=== PATIENT | female | born 1960 | race Caucasian/White ===

== ENCOUNTER 2021-06-13 13:48 | Emergency (ER) | payer OTHER, SELFPAY ==
[2021-06-13 13:48] VITALS: BP 116/82; PULSE 88; RESP 16; TEMP 36; O2SAT 97; BMI 27.3
--- NOTE | 2021-06-13 14:22 | VDLE_ITS ---
Reason For Study: Pain RIGHT LEFT GSV is normal. CFV is compressible, spontaneous, phasic, CFV is compressible, spontaneous, phasic, competent, and demonstrates normal competent and demonstrates normal augmentation. augmentation. FV is compressible, spontaneous, phasic, competent and demonstrates normal augmentation. POP V is compressible, spontaneous, phasic, competent and demonstrates normal augmentation. T/P Trunk is compressible. PTV is compressible. RT PerV is compressible. Nonvascularized structure noted in the right popliteal fossa measuring 0.71 x 2.22 cm. Procedure This is a venous duplex using B-mode, color flow and spectral Doppler. Exam performed portable in ED. A preliminary report was called and/or faxed to Jose Martin. VL/Venous Duplex US, Unilateral Interpretation Summary There is no evidence of right lower extremity deep vein thrombosis. Right great saphenous vein appears patent and compressible segmentally. 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
--- NOTE | 2021-06-13 14:22 | EKG12_ITS ---
Test Reason : SOB Blood Pressure : / mmHG Vent. Rate : 073 BPM Atrial Rate : 073 BPM P-R Int : 204 ms QRS Dur : 092 ms QT Int : 398 ms P-R-T Axes : 059 020 051 degrees QTc Int : 438 ms Normal sinus rhythm Normal ECG Confirmed by ISRAEL CHA, VLAD ([id number]), school photograph editor PRICILLA CHIANG ([id number]) on 06/14/2021 9:57:24 AM Referred By: PL Confirmed By:VLAD WOOD MD
--- NOTE | 2021-06-13 14:24 | EX.ED.DYSGE1 ---
HPI History of Present Illness Chief Complaint: Lower Extremity Injury Narrative Narrative: Patient was referred from urgent care for about 2 weeks of discomfort in the back of her right knee. She states there has been no injury or trauma. It is a little bit more sore standing. She is not getting swelling. The pain is not spreading. She has never had this before. She has no travel, surgery, immobilization or personal history of DVT or PE. She thinks her father did have a blood clot in one of his legs in the past. Rest makes it better and standing makes it worse. On review of systems, she also admitted that occasionally she gets a very quick flutter of her heart. She states it just feels like it is about to flutter but does not actually do anything. She has no associated symptoms with this. She has had this off and on for a long time. It does not happen frequently but it has occurred and it has occurred within the last 2 weeks. Nothing specifically brings that on or takes it away. She has never had chest pain or pressure or tightness. Denies any chronic medical conditions No medications Allergy to penicillin No recent surgeries PFSH PFSH Home Medications No Known/Unobtainable [No Known Home Medications] 07/20/15 [History Last Taken Unknown] Allergy/AdvReac Type Severity Reaction Status Date / Time Penicillins Allergy Hives Verified 05/03/14 10:53 Social History Smoking Status: Current every day smoker tobacco type: cigarettes ROS ROS ED Constitutional Constitutional ED: Denies chills or fever(s) ENT ENT ED: Denies rhinorrhea or sore throat Cardiovascular Cardiovascular: Reports palpitations; Denies chest pain or racing heartbeat Respiratory/Chest Respiratory/Chest: Denies cough, dyspnea, dyspnea on exertion or sputum Gastrointestinal Gastrointestinal: Denies nausea or vomiting Genitourinary Genitourinary ED: Denies hematuria Musculoskeletal Musculoskeletal: Reports arthralgias; Denies back pain Integumentary Denies rash Neurologic Neurologic: Denies headache(s), paresthesias or weakness Endocrine Endocrinology: Denies polydipsia or polyuria Allergic/Immunologic Allergic/Immunologic ED: Denies urticaria EXAM Physical Exam Const Vital Signs: 06/13/21 13:48 Temperature 96.8 F L Temperature Source Temporal Pulse Rate 88 Respiratory Rate 16 Blood Pressure 116/82 H Blood Pressure Mean 93 Pulse Ox 97 Oxygen Delivery Method Room Air Positive well nourished and well developed General Appearance ED: well developed and NAD; Negative for cyanotic or diaphoretic HEENT Reports moist mucous membranes Eyes General Eye ED: Negative for pale conjunctiva or scleral icterus Neck no JVD Chest Wall inspection of chest normal Resp normal respiratory effort and clear to auscultation bilaterally Resp Narrative: No pain with deep breath at all Effort and Inspection: Negative for pain with movement Auscultation: Negative for rales, rhonchi or wheezes Cardio regular rate, regular rhythm and no murmurs Rate: other Other Details: Heart sounds regular. No muffled tones. No murmur. Sounds quite regular. Pulses x4 are normal. GI normal to inspection, nondistended, normoactive bowel sounds and non-tender Palpation: soft Back/Spine no CVA tenderness Extremity normal to inspection Extremity Narrative: Patient has some tenderness in the posterior aspect of the right knee. But it does not appear to be full. I do not feel any fluid. There is no effusion. No erythema or warmth. No distended veins. No asymmetry. No peripheral edema. No tenderness along the deep venous system other than tenderness in the back of the knee. General Extremety ED: Negative for edema General Extremity: Negative for edema Neuro Sensorium / Orientation: alert Psych mental status grossly normal Skin no rashes or lesions noted and no wounds MDM MDM MDM Narrative Medical decision making narrative: Patient's EKG is normal. CBC shows no marked abnormalities. Electrolytes do show some mildly high glucose at 140 but this can be followed up. I did discuss this with the patient and the need for recheck and possible diet modification and weight loss. Troponin is normal at 3. Her ultrasound showed no DVT. There was some fluid behind the knee when I talked to the tachycardia is likely consistent with Huerta's cyst. This was explained to the patient. She will follow up with her physician. Lab Data Attestation: I reviewed the patient's lab results. Labs: Laboratory Results - last 24 hr 06/13/21 06/13/21 14:35 14:35 WBC 8.7 RBC 4.72 Hgb 13.5 Hct 42.3 MCV 89.6 MCH 28.6 MCHC 31.9 L RDW Std Deviation 46.4 H RDW Coeff of Jaswant 14.1 Plt Count 290 MPV 9.6 Immature Gran % (Auto) 0.200 Neut % (Auto) 72.1 H Lymph % (Auto) 18.9 L [place] % (Auto) 6.9 Eos % (Auto) 1.4 Baso % (Auto) 0.5 Absolute Neuts (auto) 6.3 Absolute Lymphs (auto) 1.65 Nucleated RBC % 0 Sodium 140 Potassium 3.6 Chloride 110 H Carbon Dioxide 26.0 Anion Gap 4 L BUN 12 Creatinine 0.90 Estim Creat Clear Calc 70.34 Est GFR (MDRD) Af Amer 83 Est GFR (MDRD) Non-Af 68 BUN/Creatinine Ratio 13.4 Glucose 140 H Calcium 9.0 Troponin I High Sens 3 EKG Initial EKG: Comments: EKG done for intermittent fluttering feeling and read by me shows normal sinus rhythm with a rate of 73. No ectopy. No acute ST elevation or depression. CT interval is slightly long at 204 ms showing first-degree AV block. QRS duration and QTc normal. 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
[2021-06-13 14:43] LABS: Absolute Lymphocyte Count 1.65 X10^3/uL (0.83-4.51); Absolute Neutrophil Count 6.3 X10^3/uL (2.0-7.7); Basophil# 0.04 X10^3/uL; Basophil% 0.5 % (0-1); Eosinophil# 0.12 X10^3/uL; Eosinophils% 1.4 % (0-5); Hematocrit 42.3 % (37-47); Hemoglobin 13.5 g/dL (12.0-15.0); Lymphocyte # 1.65 X10^3/ul (0.83-4.51); Lymphocyte % 18.9 % (19-41); Mean Corp Hgb Conc 31.9 g/dL (32-36); Mean Corpuscular Hgb 28.6 pg (27.0-32.0); Mean Corpuscular Volume 89.6 fL (81-99); Mean Platelet Vol. 9.6 fl (6.2-12.0); Monocyte% 6.9 % (0-10); NRBC Flagged by Analyzer 0 % (0-5); Neutrophil # 6.29 X10^3/uL (2.7-7.7); Neutrophil % 72.1 % (47-70); Platelet Count 290 K/mm3 (150-450); RBC Distribution Width CV 14.1 % (11.6-14.6); RBC Distribution Width SD 46.4 fl (35.1-43.9); Red Blood Count 4.72 M/mm3 (4.2-5.4); White Blood Count 8.7 K/mm3 (4.4-11.0)
[2021-06-13 16:19] LABS: Anion Gap 4 (5-15); BUN 12 mg/dL (7-18); BUN/Creat Ratio 13.4 RATIO (10-20); Chloride 110 mmol/L (98-107); EST Glomerular Filtration Rate 68 mL/min (>60); Est Glom Filt Rate - Afr Amer 83 mL/min (>60); Estimated Creatinine Clearance 70.34 ml/min; Glucose 140 mg/dL (74-106); Potassium 3.6 mmol/L (3.5-5.1); Sodium Level 140 mmol/L (136-145); Troponin-I HS 3 pg/mL (3.0-54.0)
[2021-06-13 16:39] VITALS: BP 113/61; PULSE 63
== END 2021-06-13 16:41 | disposition home or self-care (01) ==
PROVIDERS: Emergency Provider Emergency Medicine; PCP Physician Assistant; Visit Provider Emergency Medicine
DX: M71.21 Synovial cyst of popliteal space [Baker], right knee (principal); M79.604 Pain in right leg; R00.2 Palpitations; F17.210 Nicotine dependence, cigarettes, uncomplicated
CPT/HCPCS: 80048; 84484; 85025; 93005; 93971; 99284; A4216

== ENCOUNTER 2021-12-26 19:34 | Emergency (ER) | payer SELFPAY ==
[2021-12-26 19:35] VITALS: BP 120/74; PULSE 79; RESP 18; TEMP 36.8; O2SAT 98; BMI 26.6
[2021-12-26 21:34] VITALS: RESP 20
--- NOTE | 2021-12-26 22:15 | EKG12_ITS ---
Test Reason : DYSRHYTHMIA Blood Pressure : / mmHG Vent. Rate : 070 BPM Atrial Rate : 070 BPM P-R Int : 212 ms QRS Dur : 086 ms QT Int : 416 ms P-R-T Axes : 050 022 044 degrees QTc Int : 449 ms Sinus rhythm with sinus arrhythmia with 1st degree A-V block with occasional Premature ventricular co mplexes Low voltage QRS Septal infarct , age undetermined Abnormal ECG Confirmed by ALBERT CHA, TINY ([id number]), editor managing director PRICILLA CHIANG ([id number]) on 12/28/2021 11:03:46 AM Referred By: BENEDICT Confirmed By:TINY PRICE MD
--- NOTE | 2021-12-26 22:16 | EDS_ITS ---
HPI History of Present Illness Chief Complaint: General Illness Informant: patient Narrative Narrative: Patient is here for back discomfort with COVID. She really points to the lower portion of the chest. She states she started about 11 days ago with diffuse pennie lgias cough and sore throat. She has had some nausea but never been vomiting. No diarrhea. She states she hurts from head to toe. She is still sore but is getting better. Her biggest complaint now is that she still feels short of breath and she has soreness in the posterior lower chest on both sides. It is worse with motion more than breathing. She has a history of some chronic back pain and had back surgery but that is normally lower lumbar area and not the same as this. No history of PE or DVT. No family history. She is on no routine medications. Patient does have a history of smoking. She has used inhalers in the past but has never been officially diagnosed with COPD. PFSH PFSH Home Medications albuterol sulfate 90 mcg/actuation aerosol inhaler (Ventolin HFA) 2 puff inhalation Q4H PRN PRN Wheezing ##1 12/27/21 [Rx Last Taken Unknown] prednisone 20 mg tablet 60 mg PO DAILY #15 tabs 12/27/21 [Rx Last Taken Unknown] Allergy/AdvReac Type Severity Reaction Status Date / Time Penicillins Allergy Hives Verified 12/26/21 19:35 Social History Smoking Status: Current every day smoker tobacco type: cigarettes ROS ROS ED Constitutional Constitutional ED: Reports chills and fever(s) Eyes Eyes: Denies change in vision ENT ENT ED: Reports rhinorrhea and sore throat Cardiovascular Cardiovascular: Denies chest pain, palpitations or racing heartbeat Respiratory/Chest Respiratory/Chest: Reports cough, dyspnea, sputum and other Details: Mild yellow sputum. No hemoptysis at any time Gastrointestinal Gastrointestinal: Reports nausea; Denies abdominal pain, diarrhea or vomiting Genitourinary Genitourinary ED: Denies dysuria Musculoskeletal Musculoskeletal: Reports myalgias Integumentary Denies rash Neurologic Neurologic: Denies paresthesias or weakness Endocrine Endocrinology: Denies polydipsia or polyuria Hematologic/Lymphatic Hematologic/Lymphatic: Denies easy bleeding or easy bruising Allergic/Immunologic Allergic/Immunologic ED: Denies urticaria EXAM Physical Exam Const Vital Signs: 12/26/21 19:35 12/26/21 22:31 12/26/21 21:34 Temperature 98.2 F Temperature Source Temporal Pulse Rate 79 Respiratory Rate 18 20 H Respiratory Effort Normal Non-Labored Respiratory Depth Respiratory Pattern Normal Blood Pressure 120/74 Blood Pressure Mean 89 Pulse Ox 98 Oxygen Delivery Method Room Air 12/26/21 22:28 12/26/21 22:28 12/26/21 23:00 Temperature Temperature Source Pulse Rate 74 Respiratory Rate 18 20 H Respiratory Effort Normal Short of Breath Respiratory Depth Shallow Respiratory Pattern Normal Normal Blood Pressure 113/73 Blood Pressure Mean 86 Pulse Ox 95 Oxygen Delivery Method Room Air 12/27/21 00:22 Temperature Temperature Source Pulse Rate 73 Respiratory Rate 16 Respiratory Effort Respiratory Depth Respiratory Pattern Blood Pressure 113/73 Blood Pressure Mean 86 Pulse Ox 94 Oxygen Delivery Method Room Air Positive well nourished and well developed Constitutional Narrative: Patient is sitting calmly and quietly in bed. No acute distress.. Saturations are normal at about 98%. General Appearance ED: well developed and NAD HEENT Reports moist mucous membranes; Denies dry mucous membranes Mouth ED: No dry mucous membranes Mouth: No dry mucous membranes Eyes General Eye ED: Negative for pale conjunctiva or scleral icterus Neck supple and no JVD Neck Narrative: No stridor Chest Wall Chest Narrative: She does have some mild soreness to palpation of the chest wall. No subcu air Resp normal respiratory effort Resp Narrative: Breathing is easy and unlabored. But she does have pretty notable expiratory wheezes throughout her lung devries. I do not hear rhonchi or rales. Auscultation: wheezes; Negative for rales or rhonchi Cardio regular rate, regular rhythm and no murmurs Rate: Negative for tachycardic GI normal to inspection, nondistended, normoactive bowel sounds Back/Spine no CVA tenderness Back/Spine Narrative: Her soreness in the back is little higher than CVA area area. It is mostly in the lower chest area. No skin changes there though. Extremity normal to inspection Extremity Narrative: No swelling, edema, cords, tenderness along the deep venous system or distended veins. No asymmetry. Neuro Sensorium / Orientation: alert Psych mental status grossly normal Skin no rashes or lesions noted MDM MDM MDM Narrative Medical decision making narrative: Patient CBC is normal other than mild elevation of her hemoglobin at 15.2. D- dimer is negative. It is also negative for age. Electrolytes are unremarkable. Chest x-ray shows no acute process. Patient's recheck. She feels markedly better. She has just barely a hint of expiratory wheeze with forced expiration. We will get her on steroids and MDI. We discussed expected course and reasons to return. We again encouraged her to quit smoking. Although patient has had COVID, though symptoms are really resolved almost. She is still having coughing and wheezing. I think this is likely actually exacerbation of COPD. She has a long history of smoking and is still smoking. She has used inhalers before. Lab Data Attestation: I reviewed the patient's lab results. Labs: Laboratory Results - last 24 hr 12/26/21 12/26/21 12/26/21 22:52 22:52 22:52 WBC 6.5 RBC 5.38 Hgb 15.2 H Hct 47.3 H MCV 87.9 MCH 28.3 MCHC 32.1 RDW Std Deviation 45.2 H RDW Coeff of Jaswant 14.2 Plt Count 225 MPV 10.5 Immature Gran % (Auto) 0.300 Neut % (Auto) 40.5 L Lymph % (Auto) 43.4 H [place] % (Auto) 11.5 H Eos % (Auto) 4.0 Baso % (Auto) 0.3 Absolute Neuts (auto) 2.6 Absolute Lymphs (auto) 2.80 Nucleated RBC % 0 D-Dimer Quant (PE/DVT) 0.46 Sodium 141 Potassium 4.0 Chloride 108 H Carbon Dioxide 23.0 Anion Gap 10 BUN 10 Creatinine 0.67 Estim Creat Clear Calc 94.48 Est GFR (MDRD) Af Amer 115 Est GFR (MDRD) Non-Af 95 BUN/Creatinine Ratio 14.9 Glucose 93 Calcium 9.0 Radiography Diagnostic Testing: Clinical Impression(s) from Imaging Studies Chest X-Ray 12/26/21 23:07 IMPRESSION: No radiographic evidence of acute cardiopulmonary disease. Electronically Signed: Osmar Freeman MD at 23:35 EDT , 2 images of chest looked at by me and read by radiology shows no sign of acute infiltrate. EKG Initial EKG: Comments: EKG done for dyspnea read by me shows sinus rhythm with some sinus arrhythmia. There is a single PVC. Mild nonspecific ST and T wave changes but no sign of acute infarct or significant ischemia. TN interval is long indicating a slight first-degree AV block. QRS and QTc are normal. Discharge Plan Triage Chief Complaint: General Illness ED Provider: Avinash Philippe Dx/Rx/DC Orders Clinical Impression: COPD exacerbation Instructions: ED COPD Flare Prescriptions: New prednisone 20 mg tablet 60 mg PO DAILY Qty: 15 0RF albuterol sulfate [Ventolin HFA] 90 mcg/actuation HFA aerosol inhaler 2 puff inhalation Q4H PRN PRN (Reason: Wheezing) Qty: 1 0RF Primary Care Provider: Antonieta Sarmiento Referrals: Antonieta Sarmiento PA [Primary Care Provider] - 3-5 Days Disposition Disposition: Home, Self Care
[2021-12-26 22:28] VITALS: PULSE 74; RESP 18; RESP 20; O2SAT 95
[2021-12-26] MEDS: Ipratropium/Albuterol Sulfate 3 ML AMPUL.NEB INHALATION (22:28)
[2021-12-26 23:00] VITALS: BP 113/73
--- NOTE | 2021-12-26 23:07 | RAD_ITS ---
EXAM: XR CHEST, 1 VIEW CLINICAL INDICATION: cough TECHNIQUE: Frontal view of the chest. This report was created using [employer] report generation technology. COMPARISON: 05/03/2014 FINDINGS: LUNGS AND PLEURAL SPACES: Unremarkable. No consolidation or edema. No pneumothorax. No effusion. HEART: Unremarkable. Cardiac silhouette not enlarged. MEDIASTINUM: Central airways and mediastinal contour are unremarkable. BONES/JOINTS: Unremarkable. SOFT TISSUES: Unremarkable. RAD/Chest 1 View (Portable) IMPRESSION: No radiographic evidence of acute cardiopulmonary disease. Electronically Signed: Osmar Freeman MD at 23:35 EDT ,
[2021-12-26 23:22] LABS: Absolute Neutrophil Count 2.6 X10^3/uL (2.0-7.7); Basophil# 0.02 X10^3/uL; Basophil% 0.3 % (0-1); Eosinophil# 0.26 X10^3/uL; Hematocrit 47.3 % (37-47); Hemoglobin 15.2 g/dL (12.0-15.0); Lymphocyte % 43.4 % (19-41); Mean Corp Hgb Conc 32.1 g/dL (32-36); Mean Corpuscular Hgb 28.3 pg (27.0-32.0); Mean Corpuscular Volume 87.9 fL (81-99); Mean Platelet Vol. 10.5 fl (6.2-12.0); Monocyte# 0.74 X10^3/uL; Monocyte% 11.5 % (0-10); NRBC Flagged by Analyzer 0 % (0-5); Neutrophil # 2.61 X10^3/uL (2.7-7.7); Neutrophil % 40.5 % (47-70); Platelet Count 225 K/mm3 (150-450); RBC Distribution Width CV 14.2 % (11.6-14.6); RBC Distribution Width SD 45.2 fl (35.1-43.9); Red Blood Count 5.38 M/mm3 (4.2-5.4); White Blood Count 6.5 K/mm3 (4.4-11.0)
[2021-12-26 23:29] LABS: D-Dimer Quantitative (DVT/PE) 0.46 FEU/ug/m (0.27-0.49)
[2021-12-26 23:39] LABS: Anion Gap 10 (5-15); BUN 10 mg/dL (7-18); BUN/Creat Ratio 14.9 RATIO (10-20); Chloride 108 mmol/L (98-107); Creatinine, Serum 0.67 mg/dL (0.55-1.02); EST Glomerular Filtration Rate 95 mL/min (>60); Est Glom Filt Rate - Afr Amer 115 mL/min (>60); Estimated Creatinine Clearance 94.48 ml/min; Glucose 93 mg/dL (74-106); Sodium Level 141 mmol/L (136-145)
[2021-12-27] MEDS: predniSONE 20 MG Tablet 60 MG PO (00:05)
[2021-12-27 00:22] VITALS: BP 113/73; PULSE 73; RESP 16; O2SAT 94
[2021-12-27 00:31] VITALS: BP 113/73; PULSE 74; RESP 16; O2SAT 96
== END 2021-12-27 00:32 | disposition home or self-care (01) ==
PROVIDERS: Emergency Provider Emergency Medicine; PCP Physician Assistant; Visit Provider Emergency Medicine
DX: J44.1 Chronic obstructive pulmonary disease with (acute) exacerbation (principal); F17.210 Nicotine dependence, cigarettes, uncomplicated
CPT/HCPCS: 71045; 80048; 85025; 85379; 93005; 94640; 99251; 99284; A4216; G0463

== ENCOUNTER 2024-04-21 15:16 | Emergency (ER) | payer SELFPAY ==
[2024-04-21 15:16] VITALS: BP 121/80; PULSE 89; RESP 20; TEMP 36.1; O2SAT 97
--- NOTE | 2024-04-21 17:02 | EDS_ITS ---
HPI History of Present Illness Chief Complaint: Lower Extremity Injury Narrative Narrative: 63-year-old female who denies significant past medical history, no use of blood thinners, states that since the first of the year she had an upper respiratory infection/lower respiratory infection/pneumonia. Approximately 10 days ago, she coughed so hard that she felt a explosion in her pelvis. Later that day she noticed a soft lump in her left buttocks cleft. She states that over the last few days it has gotten worse and she noticed bruising in the area. She denies any problems with defecation. No other bleeding diathesis. She no longer has any abdominal pain but she just felt an explosion in her pelvis and developed this lump and bruising in her left buttocks cleft. She denies other bleeding diathesis. [facility] Home Medications ?Medication ?Instructions ?Recorded ?Last Taken ?Type albuterol sulfate 90 mcg/actuation 2 puff inhalation Q4H PRN PRN 12/27/21 Unknown Rx aerosol inhaler (Ventolin HFA) Wheezing ##1 benzonatate 100 mg capsule 100 mg PO TID PRN PRN cough 04/21/24 Unknown History doxycycline hyclate 100 mg tablet 100 mg PO BID 04/21/24 Unknown History mometasone-formoterol HFA 200 1 puff inhalation BID 04/21/24 Unknown History mcg-5 mcg/actuation aerosol inhaler (Dulera) tizanidine 4 mg tablet 4 mg PO Q8H PRN PRN muscle spasm 04/21/24 Unknown History Allergy/AdvReac Type Severity Reaction Status Date / Time Penicillins Allergy Hives Verified 04/21/24 15:19 Social History Smoking Status: Former smoker ROS ROS ED ROS Narrative Review of systems positive for lump in left buttocks cleft with surrounding bruising. No fever or chills, no nausea or vomiting, no continued pelvic pain except for the initial explosion that she felt 10 days ago. No pain with defecation. EXAM Physical Exam Narrative Exam Narrative: Afebrile. Vital signs noted. Nontoxic-appearing. Inspection of the left buttocks cleft does reveal what appears to be a hematoma with surrounding ecch ymosis that is dark purple in nature. Cardiovascular examination regular rate and rhythm. Lungs clear to auscultation bilaterally. Abdomen soft and nontender with positive bowel sounds. No guarding or rebound. Full range of motion left leg. Neurovascular intact distally. Const Vital Signs: 04/21/24 15:16 04/21/24 17:16 04/21/24 19:00 Temperature 96.9 F L Temperature Source Temporal Pulse Rate 89 74 78 Respiratory Rate 20 H 16 Blood Pressure 121/80 H Blood Pressure Mean 93 Pulse Ox 97 99 Oxygen Delivery Method Room Air 04/21/24 20:40 Temperature 98.0 F Temperature Source Pulse Rate 78 Respiratory Rate 18 Blood Pressure 126/69 H Blood Pressure Mean 88 Pulse Ox 96 Oxygen Delivery Method MDM MDM MDM Narrative Medical decision making narrative: Differential diagnosis includes but not limited to abscess versus hematoma. The hematoma has been present for 10 days. I do not think it is rapidly expanding. I will obtain basic blood work including CBC and BMP as well as imaging including CT abdomen pelvis with IV contrast to see if there is a larger underlying fluid collection. I reviewed her laboratory work and she has slight leukocytosis of 14.6 with hemoglobin 14.7, hematocrit 44.8, platelet count 436. Chloride slightly elevated at 108 which I think is nonspecific, BUN of 20 with normal creatinine 0.72. I reviewed the radiology report of the CT of the abdomen and pelvis and there is no significant hematoma noted in the buttocks. She has no significant abnormality of the CT of the abdomen and pelvis. At this point in time, I feel she can be discharged safely home with follow-up. There was a noted lung nodule, but they state that if she has no high risk, does not need follow-up. H owever, patient is a smoker, and quit a few weeks ago. She was told to follow- up with her primary care provider regarding reimaging of her lung nodule. She is agreeable to the plan. Patient will be discharged to follow-up with her primary care provider. Return instructions to the emergency department were reviewed. Disposition is discharged home in stable condition. History & Record Review Discussion w/independent historian: Patient Lab Data Attestation: I reviewed the patient's lab results. Labs: Laboratory Results - last 24 hr 04/21/24 17:25 WBC 14.6 H RBC 5.18 Hgb 14.7 Hct 44.8 MCV 86.5 MCH 28.4 MCHC 32.8 RDW Std Deviation 44.4 H RDW Coeff of Jaswant 14.1 Plt Count 436 MPV 9.5 Immature Gran % (Auto) 3.200 H Neut % (Auto) 58.0 Lymph % (Auto) 24.7 [place] % (Auto) 11.8 H Eos % (Auto) 1.4 Baso % (Auto) 0.9 Absolute Neuts (auto) 8.5 H Absolute Lymphs (auto) 3.59 Nucleated RBC % 0 Diff Path Review May foll Atypical Lymphocytes 2+ Reactive Lymphocytes 1+ Plt Morphology Comment GIANT Anisocytosis 1+ Sodium 137 Potassium 3.7 Chloride 108 H Carbon Dioxide 25.0 Anion Gap 4 L BUN 20 H Creatinine 0.72 Est GFR (MDRD) Af Amer 105 Est GFR (MDRD) Non-Af 87 BUN/Creatinine Ratio 27.7 H Glucose 92 Calcium 8.8 Radiography Diagnostic Testing: Clinical Impression(s) from Imaging Studies Abdomen/Pelvis CT 04/21/24 18:10 IMPRESSION: 1. No definite acute or significant abnormality in the abdomen or pelvis. 2. 3 mm nodule in the left lung base needs no further evaluation if this patient is low risk. 3. No significant hematoma seen of the buttocks. Electronically Signed: Omar Collins MD at 19:09 EST , Discharge Plan Triage Chief Complaint: Lower Extremity Injury ED Provider: Xander Zazueta Dx/Rx/DC Orders Clinical Impression: Hematoma of left buttock, Leukocytosis, Colon wall thickening, Lung nodule Instructions: Anatomy of the Digestive System, ED Hematoma, ED Pulmonary Nodule, Solitary Prescriptions: No Action albuterol sulfate [Ventolin HFA] 90 mcg/actuation HFA aerosol inhaler 2 puff inhalation Q4H PRN PRN (Reason: Wheezing) Qty: 1 0RF tizanidine 4 mg tablet 4 mg PO Q8H PRN PRN (Reason: muscle spasm) benzonatate 100 mg capsule 100 mg PO TID PRN PRN (Reason: cough) doxycycline hyclate 100 mg tablet 100 mg PO BID Dulera 200-5 mcg/actuation HFA aerosol inhaler 1 puff INHALATION BID Primary Care Provider: Antonieta Sarmiento Referrals: Sarmiento,M Romulo PA, PA [Primary Care Provider] - 3-5 Days if not improving Activity Restrictions/Additional Instructions: Return with increased pain, new or worsening symptoms. Follow-up with your primary care provider. Print Language: Hungarian Disposition Disposition: Home, Self Care Discharge Date/Time: 04/21/24 20:41
[2024-04-21 17:16] VITALS: PULSE 74; RESP 16; O2SAT 99
[2024-04-21 17:38] LABS: Absolute Lymphocyte Count 3.59 X10^3/uL (0.83-4.51); Absolute Neutrophil Count 8.5 X10^3/uL (2.0-7.7); Basophil# 0.13 X10^3/uL; Basophil% 0.9 % (0-1); Eosinophil# 0.21 X10^3/uL; Eosinophils% 1.4 % (0-5); Hematocrit 44.8 % (37-47); Hemoglobin 14.7 g/dL (12.0-15.0); Lymphocyte # 3.59 X10^3/ul (0.83-4.51); Lymphocyte % 24.7 % (19-41); Mean Corp Hgb Conc 32.8 g/dL (32-36); Mean Corpuscular Hgb 28.4 pg (27.0-32.0); Mean Corpuscular Volume 86.5 fL (81-99); Mean Platelet Vol. 9.5 fl (6.2-12.0); Monocyte# 1.71 X10^3/uL; Monocyte% 11.8 % (0-10); NRBC Flagged by Analyzer 0 % (0-5); Neutrophil # 8.45 X10^3/uL (2.7-7.7); POSITIVE DIFFERENTIAL YES; Platelet Count 436 K/mm3 (150-450); RBC Distribution Width CV 14.1 % (11.6-14.6); RBC Distribution Width SD 44.4 fl (35.1-43.9); Red Blood Count 5.18 M/mm3 (4.2-5.4); White Blood Count 14.6 K/mm3 (4.4-11.0)
[2024-04-21 17:47] LABS: Anion Gap 4 (5-15); BUN 20 mg/dL (7-18); BUN/Creat Ratio 27.7 RATIO (10-20); Calcium,Total 8.8 mg/dL (8.5-10.1); Chloride 108 mmol/L (98-107); Creatinine, Serum 0.72 mg/dL (0.55-1.02); Differential Indicated SCAN CRITERIA MET; EST Glomerular Filtration Rate 87 mL/min (>60); Est Glom Filt Rate - Afr Amer 105 mL/min (>60); Glucose 92 mg/dL (74-106); Potassium 3.7 mmol/L (3.5-5.1); Sodium Level 137 mmol/L (136-145)
--- NOTE | 2024-04-21 18:10 | CT_ITS ---
EXAM: CT ABDOMEN AND PELVIS WITH INTRAVENOUS CONTRAST CLINICAL INDICATION: Buttocks hematoma TECHNIQUE: Helically acquired images were obtained of the abdomen and pelvis with intravenous contrast. This CT exam was performed using one or more of the following dose reduction techniques: automated exposure control, adjustment of the mA and/or kV according to patient size, and/or use of iterative reconstruction technique. CONTRAST: IV 100mL Isovue-300 RADIATION DOSE: CTDIvol = 12.01 mGy, DLP = 1141.43 mGy-cm COMPARISON: No relevant prior studies available. FINDINGS: LOWER THORAX: 3 mm nodule is seen in the left lung base on axial image 1. There is discoid atelectasis or scarring in both posterior lung bases. No cardiomegaly. No significant pericardial effusion. ABDOMEN: LIVER: Unremarkable. Homogeneous. No focal mass. GALLBLADDER AND BILE DUCTS: Unremarkable. No calcified gallstones. No gallbladder distention or wall edema. No intra- or extrahepatic biliary ductal dilation. PANCREAS: Unremarkable. No focal cystic or solid mass. SPLEEN: Unremarkable. Normal size without focal cystic or solid mass. ADRENALS: Unremarkable. No nodules. KIDNEYS AND URETERS: Unremarkable. Normal renal size and position. No hydronephrosis. STOMACH AND BOWEL: Evaluation of the GI tract is limited by absence of oral contrast. Cannot exclude stomach wall thickening. No dilated loops of bowel or evidence for obstruction. Cannot exclude segmental thickening of the rosales of the small or large bowel. Cannot exclude enteritis or colitis. Moderate diffuse fecal retention. Diverticulosis without definite diverticulitis. Appendix within normal limits. PELVIS: APPENDIX: No evidence of acute appendicitis. BLADDER: Unremarkable. REPRODUCTIVE: Atrophic uterus. ABDOMEN and PELVIS: INTRAPERITONEAL SPACE: Unremarkable. No ascites or other fluid collection. No free air. BONES/JOINTS: 1.6 cm anterolisthesis of L4 on L5 with bilateral pars defects of L4. No suspicious lytic or blastic abnormality. SOFT TISSUES: No hematoma seen.. No discrete abdominal or pelvic wall hernia. VASCULATURE: Calcified plaque. Abdominal aorta is non-dilated. LYMPH NODES: Unremarkable. No enlarged lymph nodes. CT/Abdomen/Pelvis W IV Cont ONLY IMPRESSION: 1. No definite acute or significant abnormality in the abdomen or pelvis. 2. 3 mm nodule in the left lung base needs no further evaluation if this patient is low risk. 3. No significant hematoma seen of the buttocks. Electronically Signed: Omar Collins MD at 19:09 EST ,
[2024-04-21 19:00] VITALS: PULSE 78
[2024-04-21 19:11] LABS: Platelet Morphology GIANT
[2024-04-21 19:13] LABS: Anisocytosis 1+; Atypical Lymphocyte 2+ %; Reactive Lymphocyte 1+
[2024-04-21 20:40] VITALS: BP 126/69; PULSE 78; RESP 18; TEMP 36.7; O2SAT 96
[2024-04-22 11:53] LABS: Pathologist Review Reviewed
== END 2024-04-21 20:41 | disposition home or self-care (01) ==
PROVIDERS: Emergency Provider Emergency Medicine; PCP Physician Assistant; Visit Provider Emergency Medicine
DX: S30.0XXA Contusion of lower back and pelvis, initial encounter (principal); R91.1 Solitary pulmonary nodule; D72.829 Elevated white blood cell count, unspecified; Z87.891 Personal history of nicotine dependence; Z79.51 Long term (current) use of inhaled steroids; X58.XXXA Exposure to other specified factors, initial encounter
CPT/HCPCS: 36415; 74177; 80048; 85025; 99282; Q9967; A4216

== ENCOUNTER 2024-05-15 15:32 | Emergency (ER) | payer MEDICAID, OTHER, SELFPAY ==
[2024-05-15 15:33] VITALS: BP 129/72; PULSE 83; RESP 18; TEMP 36.2; O2SAT 93; BMI 28.6
[2024-05-15 15:51] VITALS: BP 118/66; PULSE 68; RESP 16; TEMP 36.6; O2SAT 93
--- NOTE | 2024-05-15 16:16 | ED.VIS.DYS ---
HPI History of Present Illness Chief Complaint: Shortness of Breath Narrative Narrative: Chief complaint and HPI: Cough. 64-year-old female with past medical history of tobacco abuse, quit this April presents for evaluation of cough and intermittent shortness of breath. Patient states that April 09 she was hanging out with family. On April 10 she developed cough and URI symptoms. She states that she was seen at an urgent care and diagnosed with pneumonia. She did not receive a chest x-ray at that time. She was given steroids and 10-day course of doxycycline. Patient states her symptoms improved for 2 days but then she developed cough with intermittent shortness of breath. She states her shortness of breath happens when she develops a coughing fit. She denies any fever, chills, chest pain abdominal pain, nausea, vomiting, dysuria. Denies any recent sick contacts. Review of systems: See HPI Medications: As listed on the chart Allergies: As listed on the chart PFSH: Per chart Vital signs: As listed on the chart. Reviewed. Physical exam: Gen: A&O x3, NAD Head: Normocephalic, atraumatic Eyes: No sclera icterus, conjunctiva clear ENT: Moist mucous membranes Neck: Trachea midline, No JVD CV: RRR, no murmurs, no peripheral edema Resp: Lungs clear to auscultation bilaterally with intermittent expiratory wheeze GI: Abd soft, non-distended, non-tender, no r/r/g Musc: Full ROM, no deformity Skin: Warm, dry Neuro: Alert, oriented, grossly intact, sensation intact Psych: Cooperative, appropriate mood and affect [facility] Medical History (Updated 05/15/24 @ 17:[address] Mukund Ovalles, DO) Pneumonia , tubal with rupture Home Medications ?Medication ?Instructions ?Recorded ?Last Taken ?Type albuterol sulfate 90 mcg/actuation 2 puff inhalation Q6H PRN 05/15/24 Unknown History aerosol inhaler famotidine 20 mg tablet (Pepcid) 20 mg PO QDAY #90 tabs 05/15/24 Unknown Rx multivitamin 1 tab PO QAM 05/15/24 Unknown History peg 3350-electrolytes 236 240 ml PO Q10M #4,000 mL 05/15/24 Unknown Rx gram-22.74 gram-6.74 gram-5.86 gram solution (Golytely) prednisone 20 mg tablet 60 mg (3 x 20 mg) PO DAILY 5 days 05/15/24 Unknown Rx #15 TABLETS Allergy/AdvReac Type Severity Reaction Status Date / Time Penicillins Allergy Hives Verified 05/15/24 15:33 Family History Other Alcohol abuse Arthritis Cancer Osteoporosis Severe allergy Surgical History History of back surgery Social History (Updated 05/15/24 @ 15:52 by Belle Masterson) household members: spouse housing: house Smoking Status: Former smoker substance use type: marijuana frequency: daily EXAM Physical Exam Const Vital Signs: 05/15/24 15:33 05/15/24 15:51 05/15/24 15:51 Temperature 97.1 F L 97.8 F Temperature Source Temporal Oral Pulse Rate 83 68 Respiratory Rate 18 16 Respiratory Effort Normal Non-Labored Respiratory Depth Normal Respiratory Pattern Normal Blood Pressure 129/72 H 118/66 Blood Pressure Mean 91 83 Pulse Ox 93 93 Oxygen Delivery Method Room Air Room Air Room Air 05/15/24 16:42 05/15/24 17:33 05/15/24 17:44 Temperature 97.8 F Temperature Source Pulse Rate 68 68 Respiratory Rate 18 18 Respiratory Effort Respiratory Depth Respiratory Pattern Normal Blood Pressure 109/72 109/72 Blood Pressure Mean 84 84 Pulse Ox 93 93 Oxygen Delivery Method MDM MDM MDM Narrative Medical decision making narrative: 64-year-old female with past medical history of tobacco abuse, quit this April presents for evaluation of cough and intermittent shortness of breath. Patient is nontoxic-appearing. Vital signs stable. Differential diagnosis includes but is not limited to viral illness, bronchitis, pneumonia. I do not think any laboratory workup is needed at this time. Patient will get a checks x-ray. She does have mild expiratory wheezing given her history of tobacco abuse she may have undiagnosed COPD. Patient given p.o. prednisone with breathing treatments. Chest x-ray was personally reviewed by me, ED physician. No pneumonia, pneumothorax, cardiomegaly, effusion. On reevaluation, patient's symptoms have improved with breathing treatments. COVID, flu, RSV negative. I suspect patient's symptoms are likely secondary to viral syndrome. No need for antibiotics. Given patient's history of smoking, she may have underlying COPD that is undiagnosed. I will place her on a 5-day course of prednisone. She has a albuterol inhaler at home if needed for wheezing. She was educated to follow-up with her PCP. Return precautions explained. She permed understand the plan. Impression: 1. Viral syndrome 2. Suspect COPD exacerbation given smoking history and wheezing Radiography Diagnostic Testing: Clinical Impression(s) from Imaging Studies Chest X-Ray 05/15/24 16:20 IMPRESSION: No active cardiopulmonary disease. Reading Location: [facility] Discharge Plan Triage Chief Complaint: Shortness of Breath ED Provider: Mukund Ovalles Dx/Rx/DC Orders Clinical Impression: COPD exacerbation, Viral syndrome Instructions: ED COPD Flare, ED Viral Syndrome (Adult) Prescriptions: New prednisone 20 mg tablet 60 mg PO DAILY 5 Days Qty: 15 0RF No Action multivitamin Tablet 1 tab PO QAM albuterol sulfate 90 mcg/actuation HFA aerosol inhaler 2 puff inhalation Q6H PRN famotidine [Pepcid] 20 mg tablet 20 mg PO QDAY Qty: 90 1RF peg 3350-electrolytes [Golytely] 236-22.74-6.74 -5.86 gram recon soln 240 ml PO Q10M Qty: 4000 0RF Rx Instructions: take as directed for split dose bowel prep Primary Care Provider: Care Physician,No Primary Referrals: Román Keys MD [Med Staff - Active Staff] - 3-5 Days Care Physician,No Primary [Primary Care Provider] - 3-5 Days Activity Restrictions/Additional Instructions: Follow-up with your primary care physician. If you do not have 1 follow-up with the 1 provided above. Use your an albuterol inhaler as needed at home for wheezing. Return back to the ED if symptoms change or worsen. Look for your COVID, flu, RSV results online. Print Language: French Disposition Disposition: Home, Self Care Discharge Date/Time: 05/15/24 18:01
--- NOTE | 2024-05-15 16:20 | RAD_ITS ---
PROCEDURE: CHEST PA AND LATERAL REASON FOR EXAM: Cough. TECHNIQUE: Single frontal image including the chest. COMPARISON: None. FINDINGS: Lungs are clear of pneumonia and congestion. No pleural effusions, thickening, or pneumothorax. Heart and mediastinum are normal. Great vessels unremarkable. No hilar masses. Bones and soft tissues are unremarkable. RAD/Chest PA and Lateral IMPRESSION: No active cardiopulmonary disease. Reading Location: [facility]
[2024-05-15] MEDS: predniSONE 20 MG Tablet 40 MG PO (16:35)
[2024-05-15] MEDS: Ipratropium/Albuterol Sulfate 3 ML AMPUL.NEB INHALATION (16:40)
[2024-05-15] MEDS: Albuterol 2.5 MG/3 ML VIAL.NEB. 5 MG INHALATION (16:40)
[2024-05-15 16:42] VITALS: RESP 18
--- NOTE | 2024-05-15 16:52 | CM.ED ---
Social work Reason for referral: lack of PCP Referral source: case find This SW identified patient's lack of PCP and need for resources. This SW entered patient's room, introducing self and role at [facility]. Patient's friend bedside and permission given to speak in front of guest. Patient was receiving a breathing treatment currently and expressed hoping it helped with patient's shortness of breath. Patient confirmed lack of PCP and need for resources. Patient stated patient's previous PCP retired and then patient was told the PCP was not actually a doctor. Patient stated not knowing nurse practitioners were used for primary care at some facilities and voiced desire to have a doctor as patient's next PCP. Patient accepted resources of [facility] Provider Directory and [id number] information. Patient denied further needs at this time. Oralia Garza, CAT SCANNER OPERATOR, MANAGER RESTAURANT
[2024-05-15 17:33] VITALS: BP 109/72; PULSE 68; O2SAT 93
[2024-05-15 17:44] VITALS: BP 109/72; PULSE 68; RESP 18; TEMP 36.6; O2SAT 93
== END 2024-05-15 18:01 | disposition home or self-care (01) ==
PROVIDERS: Emergency Provider Surgery; Visit Provider Surgery
DX: J44.1 Chronic obstructive pulmonary disease with (acute) exacerbation (principal); B34.9 Viral infection, unspecified; Z87.891 Personal history of nicotine dependence
CPT/HCPCS: 71046; 87631; 94640; 99283

== ENCOUNTER → 2024-05-19 | Outpatient (CLI) | payer MEDICAID, OTHER, SELFPAY ==
--- NOTE | 2024-05-19 12:18 | RAD_ITS ---
EXAM: XR Abdomen, 1 View CLINICAL INDICATION: TECHNIQUE: Frontal supine view of the abdomen/pelvis. COMPARISON: No relevant prior studies available. FINDINGS: GASTROINTESTINAL TRACT: Fecal retention in the colon consistent with constipation. No dilation. BONES/JOINTS: Unremarkable. No acute fracture. RAD/Abdomen Single View IMPRESSION: Fecal retention in the colon consistent with constipation. Reading Location: [facility]
== END | disposition home or self-care (01) ==
LOC: RAD 12:14
PROVIDERS: Referring Provider Nurse Practitioner Acute Care; Visit Provider Nurse Practitioner Acute Care
DX: R19.8 Other specified symptoms and signs involving the digestive system and abdomen (principal); K59.00 Constipation, unspecified
CPT/HCPCS: 36415; 74018; 84443

== ENCOUNTER → 2024-05-21 | Outpatient (CLI) | payer MEDICAID, OTHER, SELFPAY ==
--- NOTE | 2024-05-21 11:25 | RAD_ITS ---
PROCEDURE: ABDOMEN SINGLE VIEW REASON FOR EXAM: Sitz marker, day 5. TECHNIQUE: Two-view supine abdomen. COMPARISON: Prior study of 05/19/2024 RAD/Abdomen Single View IMPRESSION: Prominent degenerative changes are seen of the visualized lower lumbar spine. Sacroiliac joints appear symmetric and within the normal range. No Sitz marker is now seen on this examination. The bowel-gas pattern is unremarkable. No mass or mass effect is seen Reading Location: [id number]
== END | disposition home or self-care (01) ==
LOC: RAD 11:24
PROVIDERS: Referring Provider Nurse Practitioner Acute Care; Visit Provider Nurse Practitioner Acute Care
DX: R19.8 Other specified symptoms and signs involving the digestive system and abdomen (principal); K59.00 Constipation, unspecified
CPT/HCPCS: 74018

== ENCOUNTER 2024-06-10 10:59 | Emergency (ER) | payer MEDICAID, OTHER, SELFPAY ==
[2024-06-10 10:59] VITALS: BP 112/85; PULSE 83; RESP 16; TEMP 36.6; O2SAT 97; BMI 28.4
[2024-06-10 12:26] VITALS: BP 158/62; PULSE 82; RESP 18; TEMP 36.6; O2SAT 98
[2024-06-10 12:52] VITALS: O2SAT 98
[2024-06-10 13:01] VITALS: PULSE 82; RESP 18; O2SAT 97
[2024-06-10] MEDS: Ipratropium/Albuterol Sulfate 3 ML AMPUL.NEB INHALATION (13:43)
[2024-06-10 13:46] VITALS: PULSE 82; RESP 16
[2024-06-10 13:55] LABS: Absolute Lymphocyte Count 1.94 X10^3/uL (0.83-4.51); Absolute Neutrophil Count 5.7 X10^3/uL (2.0-7.7); Basophil# 0.05 X10^3/uL; Basophil% 0.6 % (0-1); Eosinophil# 0.38 X10^3/uL; Eosinophils% 4.3 % (0-5); Hematocrit 47.7 % (37-47); Hemoglobin 15.6 g/dL (12.0-15.0); Lymphocyte # 1.94 X10^3/ul (0.83-4.51); Lymphocyte % 21.8 % (19-41); Mean Corp Hgb Conc 32.7 g/dL (32-36); Mean Corpuscular Hgb 28.3 pg (27.0-32.0); Mean Corpuscular Volume 86.4 fL (81-99); Mean Platelet Vol. 9.4 fl (6.2-12.0); Monocyte# 0.77 X10^3/uL; Monocyte% 8.7 % (0-10); NRBC Flagged by Analyzer 0 % (0-5); Neutrophil % 64.1 % (47-70); Platelet Count 336 K/mm3 (150-450); RBC Distribution Width CV 14.4 % (11.6-14.6); RBC Distribution Width SD 45.5 fl (35.1-43.9); Red Blood Count 5.52 M/mm3 (4.2-5.4); White Blood Count 8.9 K/mm3 (4.4-11.0)
--- NOTE | 2024-06-10 13:58 | RAD_ITS ---
EXAM: XR Chest, 2 Views CLINICAL INDICATION: TECHNIQUE: Frontal and lateral views of the chest. COMPARISON: No relevant prior studies available. FINDINGS: LUNGS AND PLEURAL SPACES: Unremarkable. No consolidation. No pneumothorax. HEART: Unremarkable. No cardiomegaly. MEDIASTINUM: Unremarkable. Normal mediastinal contour. BONES/JOINTS: Unremarkable. No acute fracture. RAD/Chest PA and Lateral IMPRESSION: No acute cardiopulmonary process. Reading Location: [facility]
--- NOTE | 2024-06-10 14:09 | EDS_ITS ---
HPI History of Present Illness Chief Complaint: Shortness of Breath Informant: patient Narrative Narrative: 64-year-old female presenting to the emergency room with dyspnea. Patient states that she weaned herself down from cigarettes eventually stopping beginning of this year. Since stopping cigarettes she notes cough with some dyspnea. She states that she was initially told she had pneumonia at an urgent care and was told she had COPD/chronic bronchitis in the emergency department. She states that her previous primary care doctor retired and she has an upcoming primary care appointment on the . She states that she uses an inhaler of albuterol and another inhaler but she does not know the name of it. She states that last night she felt very short of breath more so than she does currently and it scared her. She does not wear oxygen at home. She notes mucus production more so than normal [facility] Medical History Pneumonia , tubal with rupture Home Medications ?Medication ?Instructions ?Recorded ?Last Taken ?Type albuterol sulfate 90 mcg/actuation 2 puff inhalation Q 6H PRN 05/15/24 Unknown History aerosol inhaler famotidine 20 mg tablet (Pepcid) 20 mg PO QDAY #90 tab s 05/15/24 Unknown Rx multivitamin 1 tab PO QAM 05/15/24 Unknow n History peg 3350-electrolytes 236 240 ml PO Q10M #4,000 mL 10/01 Unknown Rx gram-22.74 gram-6.74 gram-5.86 gram solution (Golytely) prednisone 20 mg tablet 60 mg (3 x 20 mg) PO DAILY 5 days 05/15/24 Unknown Rx #15 TABLETS albuterol sulfate 2.5 mg/3 mL 2.5 mg (3 mL) inhalation Q4H PRN 06/10/24 Unknown Rx (0.083 %) solution for nebulization #25 vials albuterol sulfate 90 mcg/actuation 2 puff inhalation Q 4H PRN PRN 06/10/24 Unknown Rx aerosol inhaler (Ventolin HFA) Wheezing ##1 prednisone 20 mg tablet See Rx Instructions .Route 0 06/10/24 Unknown Rx .COMPLEX #24 tabs Allergy/AdvReac Type Severity Reaction Status Date / Time bacitracin (From Neosporin Allergy Rash Verified 06/10/24 11:03 ([id number])) neomycin (From Neosporin Allergy Rash Verified 06/10/24 11:03 ([id number])) Penicillins Allergy Hives Verified 06/10/24 11:03 polymyxin B (From Neosporin Allergy Rash Verified 06/10/24 11:03 ([id number])) egg (eggs) AdvReac Abd Verified 06/10/24 11:03 cramps/diarrhea Food Allergies: Uncoded AdvReac Abd Verified 06/10/24 11:03 cramps/diarrhea Family History Other Alcohol abuse Arthritis Cancer Osteoporosis Severe allergy Surgical History History of back surgery Social History household members: spouse housing: house Smoking Status: Former smoker substance use type: marijuana frequency: daily ROS ROS ED Constitutional Constitutional ED: Denies chills, fever(s) or weight loss Eyes Eyes: Denies change in vision or diplopia ENT ENT ED: Denies ear pain, rhinorrhea or sore throat Cardiovascular Cardiovascular: Denies chest pain, orthopnea, palpitations or racing heartbeat Respiratory/Chest Respiratory/Chest: Reports cough, dyspnea, dyspnea on exertion and sputum; Denies orthopnea Gastrointestinal Gastrointestinal: Denies abdominal pain, diarrhea, nausea or vomiting Genitourinary Genitourinary ED: Denies dysuria, hematuria or urinary frequency Musculoskeletal Musculoskeletal: Denies arthralgias or myalgias Integumentary Denies abscess or rash Neurologic Neurologic: Denies headache(s) or weakness Psychiatric Psychiatric: Denies anxiety, depression, suicidal ideation or suicidal thoughts Endocrine Endocrinology: Denies polydipsia, polyphagia or polyuria Allergic/Immunologic Allergic/Immunologic ED: Denies mouth swelling, tongue swelling or urticaria EXAM Physical Exam Const Vital Signs: 06/10/24 10:59 06/10/24 12:26 06/10/24 12:52 Temperature 98 F 98 F Temperature Source Temporal Oral Pulse Rate 83 82 Respiratory Rate 16 18 Respiratory Effort Normal Respiratory Depth Normal Respiratory Pattern Normal Blood Pressure 112/85 H 158/62 H Blood Pressure Mean 94 94 Pulse Ox 97 98 Oxygen Delivery Method Room Air Room Air Room Air 06/10/24 13:01 06/10/24 13:46 Temperature Temperature Source Pulse Rate 82 82 Respiratory Rate 18 16 Respiratory Effort Respiratory Depth Respiratory Pattern Blood Pressure Blood Pressure Mean Pulse Ox 97 Oxygen Delivery Method Positive well nourished and well developed General Appearance ED: well developed HEENT Reports normocephalic, head/scalp atraumatic and moist mucous membranes Eyes PERRL and EOMs intact bilaterally Neck no lymphadenopathy, supple and no JVD Resp normal respiratory effort Auscultation: rhonchi lower bilaterally and wheezes expiratory wheezes Cardio regular rate, regular rhythm and no murmurs GI normal to inspection, nondistended, normoactive bowel sounds and non-tender Palpation: soft Back/Spine no CVA tenderness and normal ROM Extremity normal to inspection General Extremety ED: Negative for edema General Extremity: Negative for edema Neuro oriented x3 and CN's II-XII intact bilaterally Sensorium / Orientation: alert Motor Exam: strength 5/5 throughout Psych mental status grossly normal Mood & Affect: Negative for depressed or tearful Skin no rashes or lesions noted and no wounds MDM MDM MDM Narrative Medical decision making narrative: Differential diagnosis includes but not limited to COPD chronic bronchitis emphysema pneumonia asthma coronary artery disease congestive heart failure Patient's white count is 8.9 hemoglobin 15.6 platelet count of 336. BNP is less than 36 creatinine 0.65 BUN of 14. My independent interpretation of the chest x-ray is chronic changes no acute process. Patient has follow-up appointment with a new doctor in 2 weeks. She has access to a nebulizer somata write for some nebulizer solution. We talked about the use of a pocket chamber for her inhaler and I will write for a new inhaler. It would not be placing her on a tapering dose of prednisone. I encouraged her to continue to not smoke. She may need follow-up PFTs or pulmonary referral. She states that she has seen pulmonary in the past History & Record Review Discussion w/independent historian: Patient Lab Data Attestation: I reviewed the patient's lab results. Labs: Laboratory Results - last 24 hr 06/10/24 13:46 WBC 8.9 RBC 5.52 H Hgb 15.6 H Hct 47.7 H MCV 86.4 MCH 28.3 MCHC 32.7 RDW Std Deviation 45.5 H RDW Coeff of Jaswant 14.4 Plt Count 336 MPV 9.4 Immature Gran % (Auto) 0.500 Neut % (Auto) 64.1 Lymph % (Auto) 21.8 [place] % (Auto) 8.7 Eos % (Auto) 4.3 Baso % (Auto) 0.6 Absolute Neuts (auto) 5.7 Absolute Lymphs (auto) 1.94 Nucleated RBC % 0 Sodium 136 Potassium 4.3 Chloride 103 Carbon Dioxide 19.5 L Anion Gap 14 BUN 14 Creatinine 0.65 L Estim Creat Clear Calc 105.72 Est GFR (MDRD) Non-Af 99 BUN/Creatinine Ratio 21.4 H Glucose 89 Calcium 9.6 Troponin T High Sens < 6 NT pro BNP II < 36 Radiography Diagnostic Testing: Clinical Impression(s) from Imaging Studies Chest X-Ray 06/10/24 13:58 IMPRESSION: No acute cardiopulmonary process. Reading Location: [facility] Discharge Plan Triage Chief Complaint: Shortness of Breath ED Provider: Rg Farfan Dx/Rx/DC Orders Clinical Impression: COPD (chronic obstructive pulmonary disease), Acute dyspnea, Acute bronchospasm Instructions: COPD: Wheezing and Chest Tightness Prescriptions: New albuterol sulfate 2.5 mg /3 mL (0.083 %) solution for nebulization 2.5 mg inhalation Q4H PRN Qty: 25 0RF Rx Instructions: Use q4 hours and PRN for wheezing prednisone 20 mg tablet See Rx Instructions .ROUTE .COMPLEX Qty: 24 0RF Rx Instructions: 3 tabs p.o. daily x 4 days then 2 tabs p.o. daily x 4 days then 1 tab p.o. daily x 4 days albuterol sulfate [Ventolin HFA] 90 mcg/actuation HFA aerosol inhaler 2 puff inhalation Q4H PRN PRN (Reason: Wheezing) Qty: 1 0RF No Action multivitamin Tablet 1 tab PO QAM albuterol sulfate 90 mcg/actuation HFA aerosol inhaler 2 puff inhalation Q6H PRN famotidine [Pepcid] 20 mg tablet 20 mg PO QDAY Qty: 90 1RF peg 3350-electrolytes [Golytely] 236-22.74-6.74 -5.86 gram recon soln 240 ml PO Q10M Qty: 4000 0RF Rx Instructions: take as directed for split dose bowel prep prednisone 20 mg tablet 60 mg PO DAILY 5 Days Qty: 15 0RF Primary Care Provider: Care Physician,No Primary Referrals: Care Physician,No Primary [Primary Care Provider] - Activity Restrictions/Additional Instructions: Please keep your follow-up appointment with your primary care doctor on the 15th of this month. You may wish to discuss your prior pulmonary function testing and they may need to be repeated. Use the nebulizer as directed and the inhaler with the spacer that you were given. Print Language: Ukrainian Disposition Disposition: Home, Self Care
[2024-06-10 14:16] LABS: Anion Gap 14 (5-15); BUN 14 mg/dL (4-19); BUN/Creat Ratio 21.4 RATIO (10-20); Calcium,Total 9.6 mg/dL (7.6-11.0); Carbon Dioxide 19.5 mmol/L (21.0-32.0); Chloride 103 mmol/L (98-108); Creatinine, Serum 0.65 mg/dL (0.70-1.20); EST Glomerular Filtration Rate 99 (>60); Estimated Creatinine Clearance 105.72 ml/min (50-250); Glucose 89 mg/dL (70-99); Potassium 4.3 mmol/L (3.3-5.1); Sodium Level 136 mmol/L (133-145)
[2024-06-10 14:31] LABS: Pro- Brain NATRIURETIC PEPTIDE < 36 pg/mL (<=900)
[2024-06-10 14:37] LABS: Troponin T High Sensitivity < 6 ng/L (<=14)
== END 2024-06-10 15:04 | disposition home or self-care (01) ==
PROVIDERS: Emergency Provider Emergency Medicine; Visit Provider Emergency Medicine
DX: J44.9 Chronic obstructive pulmonary disease, unspecified (principal); J98.01 Acute bronchospasm; Z87.891 Personal history of nicotine dependence
CPT/HCPCS: 71046; 80048; 83880; 84484; 85025; 94640; 99283

== ENCOUNTER → 2024-07-11 | Outpatient (CLI) | payer MEDICAID, OTHER, SELFPAY | END | disposition home or self-care (01) | LOC: PSN 13:09 | PROVIDERS: Referring Provider Internal Medicine Critical Care Medicine; Visit Provider Internal Medicine Critical Care Medicine | DX: J44.9 Chronic obstructive pulmonary disease, unspecified (principal); F17.211 Nicotine dependence, cigarettes, in remission | CPT/HCPCS: 94060; 94726; 94729 ==

== ENCOUNTER 2024-07-16 10:58 | Day surgery (SDC) | payer MEDICAID, OTHER, SELFPAY ==
--- NOTE | 2024-07-11 17:32 | PAT.ANE_ITS ---
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 When Was Last Pacemaker Check QUESTION #4 FULL TEXT: You/Your Family Experience fever (hyperthermia) with Anesthesia Last Oral Intake Last Oral intake: Last Oral Intake NPO since Meds taken in AM with sips of water? Meds patient instructed to take am of surgery PONV PONV - horn player: PONV - horn player Female Yes 07/11/24 15:26 HX of Motion Sickness No 07/11/24 15:26 HX of N/V After Surgery No 07/11/24 15:26 Non-Smoker Yes 07/11/24 15:26 Duration of Surgery greater No 07/11/24 15:26 than 60 minutes Number of Risk Factors 2 07/11/24 15:26 PONV Score Moderate Risk 07/11/24 15:26 Height & Weight Height & Weight: Anesthesia: Height & Weight Height 5 ft 9 in 05/15/24 15:33 Respiratory Assessment Respiratory Assessment - horn player: Respiratory Tract Infection Hx - horn player Hx Respiratory Tract Infection No 07/11/24 15:26 STOP Sleep Apnea STOP Sleep Apnea - horn player: STOP Sleep Apnea - horn player Hx Hypertension No 07/11/24 15:26 Hx Sleep Apnea No 07/11/24 15:26 CPAP BIPAP Do you snore loudly (louder Yes 07/11/24 15:26 than talking or can be heard Do you often feel tired/ Yes 07/11/24 15:26 fatigued/ sleepy during daytime? Has anyone observed you stop No 07/11/24 15:26 breathing during sleep? STOP Results Positive 07/11/24 15:26 QUESTION #5 FULL TEXT : Do you snore loudly (louder than talking or can be heard through closed doors)? Tobacco Use History Tobacco Use History - horn player: Tobacco Use History - horn player Tobacco Use Smoking Status Former smoker 07/11/24 15:26 Hx Tobacco Use No 07/11/24 15:26 Years Smoking 40 07/11/24 15:26 Packs Smoked per Day Smoking Cessation Date was Yes - quit smoking within 15 07/11/24 15:26 within the last 15 years years Hx Smoking Cessation Date 04/09/24 07/11/24 15:26 Hx Smoking Cessation Yes: 04-09-24 07/11/24 15:26 Counseling Hematologic Medial History Hematologic Hx - horn player: Hematologic Medical Hx - manager utilization Hx of Blood Transfusion No 07/11/24 15:26 Hx of Transfusion in last 3 No 07/11/24 15:26 Months Date of Last Transfusion (if within last 3 months) Ever experience any problems No 07/11/24 15:26 with transfusion(s)? Specify any problems Hx of Preganancy in last 3 No 07/11/24 15:26 Months Nurse Filling Out Transfusion JZOLLINGE 07/11/24 15:26 & Questions: Date: 07/11/24 07/11/24 15:26 Time: 15:30 07/11/24 15:26 Patient unable to answer at this time (ie. confused, unrespo /Reproduction History /Reproductive History - horn player: /Reproductive Hx- horn player Hx Now No 07/11/24 15:26 Gestational Age (in weeks): EDC: Hx Hx Para Hx Section SAB No 07/11/24 15:26 PFS Medical History (Updated 07/11/24 @ 15:26 by Maria C Diaz) Wears glasses Anxiety Marijuana use Former smoker Shortness of breath on exertion COPD (chronic obstructive pulmonary disease) Pneumonia , tubal with rupture Home Medications ?Medication ?Instructions ?Recorded ?Last Taken ?Type albuterol sulfate 90 mcg/actuation 2 puff inhalation Q 6H PRN 05/15/24 Unknown History aerosol inhaler shortness of breath or wheez ing multivitamin 1 tab PO QAM 05/15/24 Unknow n History peg 3350-electrolytes 236 240 ml PO Q10M #4,000 mL 10/01 Unknown Rx gram-22.74 gram-6.74 gram-5.86 gram solution (Golytely) albuterol sulfate 2.5 mg/3 mL 2.5 mg (3 mL) inhalation Q4H PRN 06/10/24 Unknown Rx (0.083 %) solution for nebulization #25 vials albuterol sulfate 90 mcg/actuation 2 puff inhalation Q 4H PRN PRN 06/10/24 Unknown Rx aerosol inhaler (Ventolin HFA) Wheezing ##1 mometasone-formoterol HFA 100 2 puff inhalation BID #8 .8 grams 06/19/24 Unknown Rx mcg-5 mcg/actuation aerosol inhaler (Dulera) Allergy/AdvReac Type Severity Reaction Status Date / Time bacitracin (From Neosporin Allergy Rash Verified 07/11/24 15:16 ([id number])) neomycin (From Neosporin Allergy Rash Verified 07/11/24 15:16 ([id number])) Penicillins Allergy Hives Verified 07/11/24 15:16 polymyxin B (From Neosporin Allergy Rash Verified 07/11/24 15:16 ([id number])) egg (eggs) AdvReac Abd Verified 07/11/24 15:16 cramps/diarrhea Food Allergies: Uncoded AdvReac Abd Verified 07/11/24 15:16 cramps/diarrhea Family History Other Alcohol abuse Arthritis Cancer Osteoporosis Severe allergy Surgical History History of back surgery Social History household members: spouse housing: house Smoking Status: Former smoker substance use type: marijuana frequency: daily Audit: Pertinent Findings Pertinent Findings EKG Perinent findings: December 26, 2021. Sinus rhythm with sinus arrhythmia with first-degree AV block and occasional PVCs. Septal infarct, age undetermined. Recommendation Anesthesia Recommendation Anesthesia recommendation: F/U recommended (Was there a cardiology note with this patient?)
--- NOTE | 2024-07-14 10:40 | PAT.ANE_ITS ---
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 When Was Last Pacemaker Check QUESTION #4 FULL TEXT: You/Your Family Experience fever (hyperthermia) with Anesthesia Last Oral Intake Last Oral intake: Last Oral Intake NPO since Meds taken in AM with sips of water? Meds patient instructed to take am of surgery PONV PONV - industrial/organizational psychologist: PONV - industrial/organizational psychologist Female Yes 07/11/24 15:26 HX of Motion Sickness No 07/11/24 15:26 HX of N/V After Surgery No 07/11/24 15:26 Non-Smoker Yes 07/11/24 15:26 Duration of Surgery greater No 07/11/24 15:26 than 60 minutes Number of Risk Factors 2 07/11/24 15:26 PONV Score Moderate Risk 07/11/24 15:26 Height & Weight Height & Weight: Anesthesia: Height & Weight Height 5 ft 9 in 05/15/24 15:33 Respiratory Assessment Respiratory Assessment - industrial/organizational psychologist: Respiratory Tract Infection Hx - industrial/organizational psychologist Hx Respiratory Tract Infection No 07/11/24 15:26 STOP Sleep Apnea STOP Sleep Apnea - industrial/organizational psychologist: STOP Sleep Apnea - industrial/organizational psychologist Hx Hypertension No 07/11/24 15:26 Hx Sleep Apnea No 07/11/24 15:26 CPAP BIPAP Do you snore loudly (louder Yes 07/11/24 15:26 than talking or can be heard Do you often feel tired/ Yes 07/11/24 15:26 fatigued/ sleepy during daytime? Has anyone observed you stop No 07/11/24 15:26 breathing during sleep? STOP Results Positive 07/11/24 15:26 QUESTION #5 FULL TEXT : Do you snore loudly (louder than talking or can be heard through closed doors)? 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 Specify any problems Hx of Preganancy in last 3 No 07/11/24 15:26 Months Nurse Filling Out Transfusion JZOLLINGE 07/11/24 15:26 & Questions: Date: 07/11/24 07/11/24 15:26 Time: 15:30 07/11/24 15:26 Patient unable to answer at this time (ie. confused, unrespo /Reproduction History /Reproductive History - industrial/organizational psychologist: /Reproductive Hx- industrial/organizational psychologist Hx Now No 07/11/24 15:26 Gestational Age (in weeks): EDC: Hx Hx Para Hx Section SAB No 07/11/24 15:26 PFS Medical History (Updated 07/11/24 @ 15:26 by Maria C Diaz) Wears glasses Anxiety Marijuana use Former smoker Shortness of breath on exertion COPD (chronic obstructive pulmonary disease) Pneumonia , tubal with rupture Home Medications ?Medication ?Instructions ?Recorded ?Last Taken ?Type albuterol sulfate 90 mcg/actuation 2 puff inhalation Q 6H PRN 05/15/24 Unknown History aerosol inhaler shortness of breath or wheez ing multivitamin 1 tab PO QAM 05/15/24 Unknow n History peg 3350-electrolytes 236 240 ml PO Q10M #4,000 mL 10/01 Unknown Rx gram-22.74 gram-6.74 gram-5.86 gram solution (Golytely) albuterol sulfate 2.5 mg/3 mL 2.5 mg (3 mL) inhalation Q4H PRN 06/10/24 Unknown Rx (0.083 %) solution for nebulization #25 vials albuterol sulfate 90 mcg/actuation 2 puff inhalation Q 4H PRN PRN 06/10/24 Unknown Rx aerosol inhaler (Ventolin HFA) Wheezing ##1 mometasone-formoterol HFA 100 2 puff inhalation BID #8 .8 grams 06/19/24 Unknown Rx mcg-5 mcg/actuation aerosol inhaler (Dulera) Allergy/AdvReac Type Severity Reaction Status Date / Time bacitracin (From Neosporin Allergy Rash Verified 07/11/24 15:16 ([id number]-[id number])) neomycin (From Neosporin Allergy Rash Verified 07/11/24 15:16 (djf-[id number])) Penicillins Allergy Hives Verified 07/11/24 15:16 polymyxin B (From Neosporin Allergy Rash Verified 07/11/24 15:16 (fvg-[id number])) egg (eggs) AdvReac Abd Verified 07/11/24 15:16 cramps/diarrhea Food Allergies: Uncoded AdvReac Abd Verified 07/11/24 15:16 cramps/diarrhea Family History Other Alcohol abuse Arthritis Cancer Osteoporosis Severe allergy Surgical History History of back surgery Social History household members: spouse housing: house Smoking Status: Former smoker substance use type: marijuana frequency: daily Audit: Pertinent Findings HISTORY of Pertinent Findings History of Pertinent Findings: EKG Pertinent Findings EKG Perinent findings December 26, 2021. Sinus 07/11/24 17:34 rhythm with sinus arrhythmia with first-degree AV block and occasional PVCs. Septal infarct, age undetermined. Pertinent Findings Consult pertinent findings: Patient denies having cardiology visit. Recommendation Anesthesia Recommendation Anesthesia recommendation: OPTIMIZED for anesthesia
[2024-07-16] VITALS (8 sets, daily range): BP systolic 86–123; BP diastolic 55–66; PULSE 70–87; RESP 16; TEMP 36.2–36.8; O2SAT 94–97; BMI 28.4
--- NOTE | 2024-07-16 11:48 | PRE.ANES_ITS ---
ASA Classification* ASA Classification ASA Classification: 2 Assessment & Plan Anesthesia* Anesthesia Assessment Anesthesia Assessment: Discussed sedation and/or anesthesia options, risks, benefits, and alternatives with patient/parents/legal guardian/POA. Questions invited. The patient/parents/legal guardian/POA seems to understand and agrees to proceed with anesthesia plan. Reviewed the physical assessment, medical history, allergy history and patient home medications list prior to surgery/procedure/anesthetic and documented any changes. Performed airway and anesthesia risk assessments. Anesthesia Type Anesthesia Type: MAC Anesthesia Focused Assessment* Temperature: 97.4 F Pulse Rate: 71 Blood Pressure: 123/62 Respiratory Rate: 16 Pulse Ox: 96 Airway Assessment Mouth opens: >3 cm Mallampati Score: II Focused Labs Anesthesia Preop lab: CBC WBC 8.9 K/mm3 (4.4-11.0) 06/10/24 13:46 06/10/24 RBC 5.52 M/mm3 (4.2-5.4) H 06/10/24 13:46 06/10/24 Hgb 15.6 g/dL (12.0-15.0) H 06/10/24 13:46 5 Hct 47.7 % (37-47) H 06/10/24 13:46 06/10/24 Plt Count 336 K/mm3 (150-450) 06/10/24 13:46 06/10/24 CHEMISTRY Potassium 4.3 mmol/L (3.3-5.1) 06/10/24 13:46 06/10/24 Sodium 136 mmol/L (133-145) 06/10/24 13:46 06/10/24 BUN 14 mg/dL (4-19) 06/10/24 13:46 06/10/24 Creatinine 0.65 mg/dL (0.70-1.20) L 06/10/24 13:46 Glucose 89 mg/dL (70-99) 06/10/24 13:46 06/10/24 TSH 2.440 uIU/mL (0.358-3.740) 05/15/24 15:01 0210/01 COAG Pre-Assessment Diagnosis/Proposed Procedure Planned Operative Procedure(s): Colonoscopy,EGD Anesthesia History 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 When Was Last Pacemaker Check QUESTION #4 FULL TEXT: You/Your Family Experience fever (hyperthermia) with Anesthesia Last Oral Intake Last Oral intake: Last Oral Intake NPO since 08:00 07/16/24 11:23 Meds taken in AM with sips of water? Meds patient instructed to take am of surgery PONV PONV - instructor of education: PONV - instructor of education Female Yes 07/11/24 15:26 HX of Motion Sickness No 07/11/24 15:26 HX of N/V After Surgery No 07/11/24 15:26 Non-Smoker Yes 07/11/24 15:26 Duration of Surgery greater No 07/11/24 15:26 than 60 minutes Number of Risk Factors 2 07/11/24 15:26 PONV Score Moderate Risk 07/11/24 15:26 Height & Weight Height & Weight: Anesthesia: Height & Weight Height 5 ft 10 in 07/16/24 11:23 Weight: 90 kg 07/16/24 11:23 Body Mass Index (BMI) 28.4 07/16/24 11:23 Respiratory Assessment Respiratory Assessment - instructor of education: Respiratory Tract Infection Hx - instructor of education Hx Respiratory Tract Infection No 07/11/24 15:26 STOP Sleep Apnea STOP Sleep Apnea - instructor of education: STOP Sleep Apnea - instructor of education Hx Hypertension No 07/11/24 15:26 Hx Sleep Apnea No 07/11/24 15:26 CPAP BIPAP Do you snore loudly (louder Yes 07/11/24 15:26 than talking or can be heard Do you often feel tired/ Yes 07/11/24 15:26 fatigued/ sleepy during daytime? Has anyone observed you stop No 07/11/24 15:26 breathing during sleep? STOP Results Positive 07/11/24 15:26 QUESTION #5 FULL TEXT : Do you snore loudly (louder than talking or can be heard through closed doors)? 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 Specify any problems Hx of Preganancy in last 3 No 07/11/24 15:26 Months Nurse Filling Out Transfusion JZOLLINGE 07/11/24 15:26 & Questions: Date: 07/11/24 07/11/24 15:26 Time: 15:30 07/11/24 15:26 Patient unable to answer at this time (ie. confused, unrespo /Reproduction History /Reproductive History - instructor of education: /Reproductive Hx- instructor of education Hx Now No 07/11/24 15:26 Gestational Age (in weeks): EDC: Hx Hx Para Hx Section SAB No 07/11/24 15:26 PFSH Medical History Wears glasses Anxiety Marijuana use Former smoker Shortness of breath on exertion COPD (chronic obstructive pulmonary disease) Pneumonia , tubal with rupture Home Medications ?Medication ?Instructions ?Recorded ?Last Taken ?Type albuterol sulfate 90 mcg/actuation 2 puff inhalation Q 6H PRN 05/15/24 Unknown History aerosol inhaler shortness of breath or wheez ing multivitamin 1 tab PO QAM 05/15/24 Unknow n History peg 3350-electrolytes 236 240 ml PO Q10M #4,000 mL 10/01 Unknown Rx gram-22.74 gram-6.74 gram-5.86 gram solution (Golytely) albuterol sulfate 2.5 mg/3 mL 2.5 mg (3 mL) inhalation Q4H PRN 06/10/24 Unknown Rx (0.083 %) solution for nebulization #25 vials albuterol sulfate 90 mcg/actuation 2 puff inhalation Q 4H PRN PRN 06/10/24 Unknown Rx aerosol inhaler (Ventolin HFA) Wheezing ##1 mometasone-formoterol HFA 100 2 puff inhalation BID #8 .8 grams 06/19/24 Unknown Rx mcg-5 mcg/actuation aerosol inhaler (Dulera) Allergy/AdvReac Type Severity Reaction Status Date / Time bacitracin (From Neosporin Allergy Rash Verified 07/16/24 11:22 ([id number])) neomycin (From Neosporin Allergy Rash Verified 07/16/24 11:22 ([id number])) Penicillins Allergy Hives Verified 07/16/24 11:22 polymyxin B (From Neosporin Allergy Rash Verified 07/16/24 11:22 ([id number])) egg (eggs) AdvReac Abd Verified 07/16/24 11:22 cramps/diarrhea Food Allergies: Uncoded AdvReac Abd Verified 07/16/24 11:22 cramps/diarrhea Family History Other Alcohol abuse Arthritis Cancer Osteoporosis Severe allergy Surgical History History of back surgery Social History household members: spouse housing: house Smoking Status: Former smoker substance use type: marijuana frequency: daily Review of Systems (Anesthesia) ROS Narrative System reviewed and no additional complaints, except as documented.
--- NOTE | 2024-07-16 12:00 | EGD_PTH ---
PATIENT: YOLY MEANS LOC: EN U#:[id number] AGE/SX: 64/F ROOM: RE07/16/[address]: Dr. Gold Palomino DO : 1960 BED: DIS: 07/16/2024 SPEC #: [id number] RECD: 07/17/24 08:33 STATUS: LEBRON REEli #: [id number] CELSO: 07/16/24 12:[address]: Gold Palomino DEPT: SURGICAL PATHOLOGY RECD BY: Wojciech Mack ENTERED: 07/17/24 08:33 SP TYPE: EGD BIOPSY OT DR: Yessi Primary Care Phys Tissues: A - Duodenum, NOS B - Gastric mucous membrane C - Esophagus, NOS D - COLON BIOPSY E - Sigmoid colon biopsy Procedures: Immunohistochemical Stains Surgery Specimen Level IV HEADER OPERATION: Colonoscopy, EGD with biopsy PRE-OP DIAGNOSIS: Constipation, straining during bowel movements, heartburn TISSUE SUBMITTED: A- Duodenum biopsy, B- Gastric body biopsy, C- Distal esophagus biopsy, D- Splenic flexure polyp biopsy, E- Sigmoid polyp biopsy MICROSCOPIC DIAGNOSIS A. Small intestine, duodenum, biopsy: * Small bowel mucosa with no pathologic change B. Stomach, gastric body, biopsy: * Oxyntic mucosa with mild chronic focal active inflammation * The Helicobacter pylori immunostain is negative C. Distal esophagus, biopsy: * Benign squamous epithelium * Cardiac type mucosa with mild chronic inflammation and goblet cells, negative for dysplasia D. Colon, splenic flexure, polyp, biopsy: * Tubular adenoma E. Sigmoid colon, polyp, biopsy: * Tubular adenoma MICROSCOPIC DESCRIPTION Slides are reviewed. These tests were developed and their performance characteristics determined by [facility]. They may not have been cleared or approved by the [place]. Food and Drug Administration. The FDA has determined that such clearance or approval is not necessary. The above immunohistochemical/dualISH markers are ordered and reviewed by the Pathologist. GROSS DESCRIPTION A. Received in formalin in a container labeled with the patient's name, date of , and duodenum biopsy are 2 de la garza-pink fragments of mucosal tissue measuring 0.2 x 0.2 x 0.2 cm and 0.3 x 0.3 x 0.3 cm. Submitted in toto in A1. B. Received in formalin in a container labeled with the patient's name, date of , and gastric body biopsy for H. pylori are 2 de la garza-pink fragments of mucosal tissue, each measuring 0.6 x 0.3 x 0.2 cm. Submitted in toto in B1. C. Received in formalin in a container labeled with the patient's name, date of , and distal esophagus biopsy are multiple de la garza-pink fragments of mucosal tissue measuring 1.0 x 0.4 x 0.2 cm in aggregate. Submitted in toto in C1. D. Received in formalin in a container labeled with the patient's name, date of , and splenic flexure poly biopsy are 2 de la garza-pink fragments of mucosal tissue, each measuring 0.3 x 0.2 x 0.2 cm. Submitted in toto in D1. E. Received in formalin in a container labeled with the patient's name, date of , and sigmoid polyp biopsy is a 0.3 x 0.3 x 0.3 cm fragment of de la garza-pink mucosal tissue. Submitted in toto in E1. [facility] 07-17-2024 CPT:[id number]
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
--- NOTE | 2024-07-16 12:59 | PCM.POST.ANE ---
Anesthesia: Postop Eval I Current Vital Signs Temperature: 97.2 F Pulse Rate: 87 Blood Pressure: 100/66 Respiratory Rate: 16 Pulse Ox: 95 Oxygen Delivery Method: Room Air Assessment Airway patent: Yes Spontaneous unlabored respirations: Yes Mental status: Asleep nausea: No Vomiting: No Anesthesia Complication: No Fluid Hydration Crystalloid volume administer (ml): 60 Total IV fluid infused: 60 Progress Note Anesthesia document: Postop Eval 1 completed: Yes
--- NOTE | 2024-07-16 13:00 | OP.EGD_ITS ---
Patient Name: Renuka Penn Procedure Date: 07/16/2024 12:03 PM Date of : 1960 Age: 64 Procedure: Upper GI endoscopy Indications: Heartburn Providers: Gold Palomino DO Referring MD: No Primary Care Physician Medicines: Monitored Anesthesia Care Patient Profile: This is a 64 year old female. Refer to note in patient chart for documentation of history and physical. Patient has symptoms of chronic heartburn. Complications: No immediate complications. Procedure: Pre-Anesthesia Assessment: - Prior to the procedure, a History and Physical was performed, and patient medications and allergies were reviewed. The patient is competent. The risks and benefits of the procedure and the sedation options and risks were discussed with the patient. All questions were answered and informed consent was obtained. Patient identification and proposed procedure were verified by the physician in the pre-procedure area. Mental Status Examination: alert and oriented. Airway Examination: normal oropharyngeal airway and neck mobility. Respiratory Examination: clear to auscultation. CV Examination: normal. Prophylactic Antibiotics: The patient does not require prophylactic antibiotics. Prior Anticoagulants: The patient has taken no anticoagulant or antiplatelet agents except for NSAID medication. ASA Grade Assessment: II - A patient with mild systemic disease. After reviewing the risks and benefits, the patient was deemed in satisfactory condition to undergo the procedure. The anesthesia plan was to use monitored anesthesia care (MAC). Immediately prior to administration of medications, the patient was re-assessed for adequacy to receive sedatives. The heart rate, respiratory rate, oxygen saturations, blood pressure, adequacy of pulmonary ventilation, and response to care were monitored throughout the procedure. The physical status of the patient was re-assessed after the procedure. After obtaining informed consent, the endoscope was passed under direct vision. Throughout the procedure, the patient's blood pressure, pulse, and oxygen saturations were monitored continuously. The pediatric colonoscope was introduced through the mouth, and advanced to the fourth part of the duodenum. Small bowel enteroscopy was deemed necessary. The upper GI endoscopy was accomplished without difficulty. The patient tolerated the procedure well. Scope In: 12:27:03 PM Scope Out: 12:33:03 PM Total Procedure Duration Time 0 hours 6 minutes 0 seconds Findings: LA Grade C (one or more mucosal breaks continuous between tops of 2 or more mucosal folds, less than 75% circumference) esophagitis with no bleeding was found 34 to 41 cm from the incisors. Mucosa was biopsied with a cold forceps for histology in 4 quadrants at intervals of 1 cm in the lower third of the esophagus. One specimen bottle was sent to pathology. Verification of patient identification for the specimen was done. Estimated blood loss was minimal. A small hiatal hernia was present. Patchy moderate inflammation characterized by congestion (edema), erosions, erythema and friability was found in the gastric body. Biopsies were taken with a cold forceps for histology. Verification of patient identification for the specimen was done. Estimated blood loss was minimal. Biopsies were taken with a cold forceps for Helicobacter pylori testing. Verification of patient identification for the specimen was done. Estimated blood loss was minimal. Patchy mildly erythematous mucosa without active bleeding and with no stigmata of bleeding was found in the second portion of the duodenum and in the third portion of the duodenum. Biopsies were taken with a cold forceps for histology. Impression: - LA Grade C reflux esophagitis with no bleeding. Biopsied. - Small hiatal hernia. - Chronic gastritis. Biopsied. - Erythematous duodenopathy. Biopsied. Recommendation: - Await pathology results. - Repeat upper endoscopy in 1 year for surveillance. - Continue present medications. Procedure Code(s): --- Professional --- 31511, Small intestinal endoscopy, enteroscopy beyond second portion of duodenum, not including ileum; with biopsy, single or multiple CPT copyright 2021 [employer]. All rights reserved. The codes documented in this report are preliminary and upon mold injector review may be revised to meet current compliance requirements. Gold Palomino DO 07/16/2024 1:00:12 PM This report has been signed electronically. Number of Addenda: 0 Note Initiated On: 07/16/2024 12:03 PM
--- NOTE | 2024-07-16 13:01 | OP.CCLET_ITS ---
07/16/2024 No Primary Care Physician Re : Upper GI endoscopy procedure for Renuka Penn Dear Care Physician This procedure was performed on Tuesday, July 16, 2024. My impressions and recommendations are as follows: Impressions : - LA Grade C reflux esophagitis with no bleeding. Biopsied. - Small hiatal hernia. - Chronic gastritis. Biopsied. - Erythematous duodenopathy. Biopsied. Recommendations : - Await pathology results. - Repeat upper endoscopy in 1 year for surveillance. - Continue present medications. My findings are described in the full procedure note, which is enclosed. If I can be of further assistance, please feel free to contact me at . Sincerely, Gold Palomnio, 07/16/2024 1:00:12 PM This report has been signed electronically.
--- NOTE | 2024-07-16 13:03 | OP.COLON_ITS ---
Patient Name: Renuka Penn Procedure Date: 07/16/2024 12:33 PM Date of : 1960 Age: 64 Procedure: Colonoscopy Indications: Screening for colorectal malignant neoplasm Providers: Gold Palomino DO Referring MD: No Primary Care Physician Medicines: Monitored Anesthesia Care Patient Profile: This is a 64 year old female. Refer to note in patient chart for documentation of history and physical. Patient has symptoms of chronic heartburn. Last Colonoscopy: more than 10 years ago. Complications: No immediate complications. Procedure: Pre-Anesthesia Assessment: - Prior to the procedure, a History and Physical was performed, and patient medications and allergies were reviewed. The patient is competent. The risks and benefits of the procedure and the sedation options and risks were discussed with the patient. All questions were answered and informed consent was obtained. Patient identification and proposed procedure were verified by the physician in the pre-procedure area. Mental Status Examination: alert and oriented. Airway Examination: normal oropharyngeal airway and neck mobility. Respiratory Examination: clear to auscultation. CV Examination: normal. Prophylactic Antibiotics: The patient does not require prophylactic antibiotics. Prior Anticoagulants: The patient has taken no anticoagulant or antiplatelet agents except for NSAID medication. ASA Grade Assessment: II - A patient with mild systemic disease. After reviewing the risks and benefits, the patient was deemed in satisfactory condition to undergo the procedure. The anesthesia plan was to use monitored anesthesia care (MAC). Immediately prior to administration of medications, the patient was re-assessed for adequacy to receive sedatives. The heart rate, respiratory rate, oxygen saturations, blood pressure, adequacy of pulmonary ventilation, and response to care were monitored throughout the procedure. The physical status of the patient was re-assessed after the procedure. After I obtained informed consent, the scope was passed under direct vision. Throughout the procedure, the patient's blood pressure, pulse, and oxygen saturations were monitored continuously. The pediatric colonoscope was introduced through the anus and advanced to the cecum, identified by appendiceal orifice and ileocecal valve. The colonoscopy was performed without difficulty. The patient tolerated the procedure well. The quality of the bowel preparation was fair. The ileocecal valve, appendiceal orifice, and rectum were photographed. Scope In: 12:34:35 PM Scope Withdrawal Time 0 hours 8 minutes 48 seconds Scope Out: 12:49:45 PM Total Procedure Duration Time 0 hours 15 minutes 10 seconds Findings: The perianal and digital rectal examinations were normal. Multiple small and large-mouthed diverticula were found in the recto-sigmoid colon, sigmoid colon, descending colon, splenic flexure, transverse colon, hepatic flexure and ascending colon. Two sessile polyps were found in the sigmoid colon and splenic flexure. The polyps were 6 mm in size. These polyps were removed with a jumbo cold forceps. Resection and retrieval were complete. Verification of patient identification for the specimen was done. Estimated blood loss was minimal. Stool was found in the rectum, in the recto-sigmoid colon, in the sigmoid colon, in the descending colon and in the ascending colon. Mild rectal prolapse was present. Impression: - Preparation of the colon was fair. - Diverticulosis in the recto-sigmoid colon, in the sigmoid colon, in the descending colon, at the splenic flexure, in the transverse colon, at the hepatic flexure and in the ascending colon. - Two 6 mm polyps in the sigmoid colon and at the splenic flexure, removed with a jumbo cold forceps. Resected and retrieved. - Stool in the rectum, in the recto-sigmoid colon, in the sigmoid colon, in the descending colon and in the ascending colon. - Rectal prolapse. Recommendation: - Discharge patient to home. - Resume previous diet. - Continue present medications. - Await pathology results. - Repeat colonoscopy for surveillance. - Return to GI office. Procedure Code(s): --- Professional --- 82442, Colonoscopy, flexible; with biopsy, single or multiple CPT copyright 2021 [employer]. All rights reserved. The codes documented in this report are preliminary and upon learning and development administrator review may be revised to meet current compliance requirements. Gold Palomino DO 07/16/2024 1:03:18 PM This report has been signed electronically. Number of Addenda: 0 Note Initiated On: 07/16/2024 12:33 PM
--- NOTE | 2024-07-16 13:03 | OP.CCLET_ITS ---
07/16/2024 No Primary Care Physician Re : Colonoscopy procedure for Renuka Penn Dear Care Physician This procedure was performed on Tuesday, July 16, 2024. My impressions and recommendations are as follows: Impressions : - Preparation of the colon was fair. - Diverticulosis in the recto-sigmoid colon, in the sigmoid colon, in the descending colon, at the splenic flexure, in the transverse colon, at the hepatic flexure and in the ascending colon. - Two 6 mm polyps in the sigmoid colon and at the splenic flexure, removed with a jumbo cold forceps. Resected and retrieved. - Stool in the rectum, in the recto-sigmoid colon, in the sigmoid colon, in the descending colon and in the ascending colon. - Rectal prolapse. Recommendations : - Discharge patient to home. - Resume previous diet. - Continue present medications. - Await pathology results. - Repeat colonoscopy for surveillance. - Return to GI office. My findings are described in the full procedure note, which is enclosed. If I can be of further assistance, please feel free to contact me at . Sincerely, Gold Palomino, 07/16/2024 1:03:18 PM This report has been signed electronically.
--- NOTE | 2024-07-16 14:32 | PCM.POSTANE2 ---
Anesthesia Postop Eval I Sum Postop Eval Completion status Anesthesia document: Postop Eval 1 completed: Yes Anesthesia Postop Eval I Summary Anesthesia Postop Eval I Summary: Anesthesia Postop Eval I: Assessment Summary Airway patent Yes 07/16/24 13:00 [email or web address] Spontaneous unlabored Yes 07/16/24 13:00 [email or web address] respirations Mental status Asleep 07/16/24 13:00 [email or web address] nausea No 07/16/24 13:00 [email or web address] Vomiting No 07/16/24 13:00 [email or web address] Anesthesia Postop Eval I: Fluid Summary Crystalloid volume administer 60 07/16/24 13:00 [email or web address] (ml) Colloids volume administered ( ml) Blood Product volume administered (ml) Total IV fluid infused 60 07/16/24 13:00 [email or web address] Anesthesia Postop Eval I: Summary Notes Anesthesia Complication No 07/16/24 13:00 [email or web address] Anesthesia Complication Comment: Post-operative progress note Anesthesia: Postop Eval II Evaluation Mental status: Awake Pain Level: 0 nausea: No Vomiting: No
== END 2024-07-16 13:52 | disposition home or self-care (01) ==
LOC: EN 11:00 → AC 11:01
PROVIDERS: Visit Provider Internal Medicine Gastroenterology
PROC: 0DJD8ZZ Inspection of Lower Intestinal Tract, Via Natural or Artificial Opening Endoscopic (ICD-10-PCS; CPT 45378; principal; 2024-07-16 11:55)
DX: K57.30 Diverticulosis of large intestine without perforation or abscess without bleeding (principal); J44.9 Chronic obstructive pulmonary disease, unspecified; K44.9 Diaphragmatic hernia without obstruction or gangrene; K58.9 Irritable bowel syndrome, unspecified; K21.00 Gastro-esophageal reflux disease with esophagitis, without bleeding; D12.3 Benign neoplasm of transverse colon; D12.5 Benign neoplasm of sigmoid colon; K62.3 Rectal prolapse; K29.50 Unspecified chronic gastritis without bleeding; K31.89 Other diseases of stomach and duodenum; Z79.51 Long term (current) use of inhaled steroids; Z87.891 Personal history of nicotine dependence
CPT/HCPCS: 43239; 45380; 88305; 88342; A4216; J2405

== ENCOUNTER → 2024-07-28 | Outpatient (CLI) | payer MEDICAID, OTHER, SELFPAY ==
[2024-07-28 12:28] VITALS: PULSE 106; PULSE 113; PULSE 117; PULSE 118; PULSE 119; PULSE 122; PULSE 80; PULSE 90; O2SAT 95; O2SAT 96
--- NOTE | 2024-08-01 12:20 | PCM.PSN.6M ---
PSN 6 Minute Walk Test 6 Minute Walk Test 6 Minute Walk Test: 6 Minute Walk Test PSN:6-Minute Walk Test Start: 07/28/24 12:28 Freq: Status: Discharge Protocol: [id number] Document 07/28/24 12:28 ALANGLYNN (Rec: 07/28/24 12:30 [email or web address] [id number]) 6 Minute Walk Test Date Performed 07/28/24 Time Performed 12:15 Height 5 ft 9 in Weight: 197 lb Weight in Pounds 197.[address]: Hoang Valdivia Assistive device None used: Pre-test Oxygen Delivery Room Air Method Pulse Ox (%) 96 Pulse Rate (60-100 80 beats/min) Dyspnea Ruth Scale ( 0 0-10) Exertion Ruth Scale 6 (6-20) 1st minute Oxygen Delivery Room Air Method Pulse Ox (%) 95 Pulse Rate (60-100 106 H beats/min) 2nd minute Oxygen Delivery Room Air Method Pulse Ox (%) 95 Pulse Rate (60-100 113 H beats/min) 3rd minute Oxygen Delivery Room Air Method Pulse Ox (%) 95 Pulse Rate (60-100 122 H beats/min) 4th minute Oxygen Delivery Room Air Method Pulse Ox (%) 96 Pulse Rate (60-100 118 H beats/min) 5th minute Oxygen Delivery Room Air Method Pulse Ox (%) 95 Pulse Rate (60-100 117 H beats/min) 6th minute Oxygen Delivery Room Air Method Pulse Ox (%) 96 Pulse Rate (60-100 119 H beats/min) Dyspnea Ruth Scale ( 1 0-10) Exertion Ruth Scale 12 (6-20) Post-test Oxygen Delivery Room Air Method Pulse Ox (%) 96 Pulse Rate (60-100 90 beats/min) Full Laps Walked 24 Partial Lap, Number 11 of Tiles Walked Total Distance 1427 Walked (ft) Interpretation Interpretation: The patient ambulated 1427 feet over the course of 6 minutes beginning on room air without assistive devices. Pretesting oxygen saturation was noted to be 96% on room air. With ambulation, the cecily oxygen saturation was 95%. There was no significant exertional oxygen desaturation. Recommendations Recommendations: There is no indication for the use of supplemental oxygen at this time.
== END | disposition home or self-care (01) ==
LOC: PSN 12:11
PROVIDERS: Referring Provider Internal Medicine Critical Care Medicine; Visit Provider Internal Medicine Critical Care Medicine
DX: F17.211 Nicotine dependence, cigarettes, in remission (principal)
CPT/HCPCS: 94618

== ENCOUNTER 2024-09-15 20:33 | Emergency (ER) | payer MEDICAID, OTHER, SELFPAY ==
[2024-09-15 20:33] VITALS: BP 118/102; PULSE 84; RESP 16; TEMP 36.8; O2SAT 97
--- NOTE | 2024-09-15 20:50 | RAD_ITS ---
PROCEDURE: SHOULDER MIN 2 VIEWS 09/15/2024 REASON FOR EXAM: PAIN TECHNIQUE: Five views of the right shoulder COMPARISON: None. FINDINGS: Bones: No acute fracture. No aggressive osseous lesions. Joints: Normal alignment. Moderate degenerative changes. Soft tissues: Soft tissues are unremarkable. Other: The visualized lungs are unremarkable. RAD/Shoulder min 2 Views IMPRESSION: NO ACUTE FRACTURE OR DISLOCATION. Reading Location: [id number]
--- NOTE | 2024-09-15 21:35 | ED.RN ---
Patient becoming belligerent, cursing and yelling across waiting room about other people going back before her. Patient explained that critical patients must go back first and we have started her medical process with protocols. Patient continues to yell and curse at nursing staff saying she is critical. Security called to triage.
--- NOTE | 2024-09-15 21:59 | EX.ED.UPPERE ---
HPI History of Present Illness Chief Complaint: Upper Extremity Injury [facility] Medical History (Updated 09/15/24 @ 22:[address] Curtis Rosas, DO) Wears glasses Anxiety Marijuana use Former smoker Shortness of breath on exertion COPD (chronic obstructive pulmonary disease) Pneumonia Home Medications ?Medication ?Instructions ?Recorded ?Last Taken ?Type multivitamin 1 tab PO QAM 05/15/24 Unknown History albuterol sulfate 2.5 mg/3 mL 2.5 mg (3 mL) inhalation Q4H PRN 06/10/24 Unknown Rx (0.083 %) solution for nebulization #25 vials calcium polycarbophil 625 mg 1,250 mg (2 x 625 mg) PO QDAY #180 07/28/24 Unknown Rx tablet (FiberCon) tabs pantoprazole 40 mg tablet,delayed 40 mg PO QDAY esophagitis #90 tabs 07/28/24 Unknown Rx release albuterol sulfate 90 mcg/actuation 2 puff inhalation Q4H PRN PRN 08/04/24 Unknown Rx aerosol inhaler (Ventolin HFA) Wheezing ##1 mometasone-formoterol HFA 100 2 puff inhalation BID #8.8 grams 08/04/24 Unknown Rx mcg-5 mcg/actuation aerosol inhaler (Dulera) albuterol sulfate 90 mcg/actuation 2 puff inhalation Q6H PRN 08/26/24 Unknown Rx aerosol inhaler shortness of breath or wheezing #8.5 grams methocarbamol 500 mg tablet 500 mg PO TID 7 days #21 tabs 09/15/24 Unknown Rx prednisone 20 mg tablet 20 mg PO DAILY #5 tabs 09/15/24 Unknown Rx Allergy/AdvReac Type Severity Reaction Status Date / Time bacitracin (From Neosporin Allergy Rash Verified 09/15/24 20:37 ([id number])) neomycin (From Neosporin Allergy Rash Verified 09/15/24 20:37 ([id number])) Penicillins Allergy Hives Verified 09/15/24 20:37 polymyxin B (From Neosporin Allergy Rash Verified 09/15/24 20:37 ([id number])) egg (eggs) AdvReac Abd Verified 09/15/24 20:37 cramps/diarrhea Food Allergies: Uncoded AdvReac Abd Verified 09/15/24 20:37 cramps/diarrhea Family History (Reviewed 08/04/24 @ 14:30 by Blanca Pierre FUNERAL PRE ARRANGEMENT SPECIALIST, FUNERAL PRE ARRANGEMENT SPECIALIST-C) Father Alcohol abuse Arthritis Cancer LARYNGEAL COPD (chronic obstructive pulmonary disease) Mother Osteoporosis Surgical History History of colonoscopy , tubal with rupture History of back surgery Social History household members: significant other housing: house current occupational status: employed 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 [employer] Smoking Status: Former smoker quit date: 04/09/24 pack-years: 23 alcohol intake: current alcohol intake frequency: holidays/special occasions only substance use type: marijuana frequency: daily do you feel safe at home: Yes EXAM Physical Exam Const Vital Signs: 09/15/24 20:33 Temperature 98.2 F Temperature Source Oral Pulse Rate 84 Respiratory Rate 16 Blood Pressure 118/102 H Blood Pressure Mean 107 Pulse Ox 97 Oxygen Delivery Method Room Air MDM MDM MDM Narrative Medical decision making narrative: HISTORY OF PRESENT ILLNESS: Chief complaint: Shoulder pain 64-year-old female history of COPD, marijuana use, anxiety and pneumonia presents with right shoulder pain patient states this began 1 week ago. She notes at that time she did ride a horse. She states she used to ride horses all the time but was riding horse in a parade. She is right-hand dominant. She denies inciting event or trauma but noted 1 to 2 days after riding horse she developed severe right shoulder pain. Pain comes in waves. Denies neck pain. No IV drug use or diabetes history noted. No fever history noted. REVIEW OF SYSTEMS: Pertinent positives: Shoulder pain Pertinent negatives: Fever, chest pain, shortness of breath, neck pain PHYSICAL EXAM: Nursing triage notes reviewed, Vital signs reviewed Constitutional: please see mdm HENT: MMM Eyes: Pupils equal round and reactive to light, Extraocular muscles intact Neck: No stridor, no JVD, full neck ROM Lungs: Clear to auscultation, No wheezing or rales. No increased work of breathing, no conversational dyspnea, no accessory muscle use, no nasal flaring. No respiratory distress noted Heart: Regular rate and rhythm, No murmurs, No rubs and No gallops, 2+ distal pulses (radial, femoral, posterior tibial) in all extremities Extremities: No edema, painful but intact flexion extension. No palpable effusion. No warmth. Internal rotation of the right shoulder TTP over right deltoid Neuro: intact 5/5 strength with ok sign (median), intact finger abduction (ulnar) intact wrist extension (radial n). Intact sensation in the radial, ulnar, and median nerve distributions. Skin: No rash or lesions noted MEDICAL DECISION MAKING: Chief Complaint: please see HPI External records reviewed: Reviewed prior imaging studies MDM Narrative: Patient was initially hemodynamically stable, afebrile and nontoxic-appearing. Exam with neurovascular intact right upper extremity. Painful range of motion but intact motor and dermatomal distributions of the right upper extremity. I considered the following differential diagnosis: Shoulder fracture, dislocation, septic arthritis, musculoskeletal etiology. I considered septic arthritis patient no fever, diabetes, IV drug use. Initially treated the patient with IM morphine, IM Toradol, lidocaine patch ALL IMAGES (IF OBTAINED) HAVE BEEN PERSONALLY REVIEWED AND INTERPRETED BY MYSELF. X-ray the right shoulder was read and reviewed personally myself showed no evidence of obvious bony abnormality I read. Radiologist agrees to my interpretation. Patient is appropriate discharge home likely some from a rotator cuff strain. The patient and/or family, caregivers express understanding. The patient and/or family, caregivers agrees with the plan. Shared decision making: I will have a discussion with the patient and or visitors regarding risk/benefits of further testing or admission. They will be made aware of of the risk/benefits inherent in this decision they will be given the opportunity to voice understanding. Total critical care time today provided was at least 0 minutes. This excludes separately billable procedures. Critical care time (if documented) is secondary to the patient having high probability of clinically significant/life threatening deterioration in the patient's condition which required my urgent intervention. Impression: 1. Acute right shoulder pain 2. Rotator cuff strain Dispo: Discharge home This note was generated with [employer] dictation software. It may contain incorrect words, spelling, and punctuation that were not noted in review of the chart prior to signing. Radiography Diagnostic Testing: Clinical Impression(s) from Imaging Studies Shoulder X-Ray 09/15/24 20:50 IMPRESSION: NO ACUTE FRACTURE OR DISLOCATION. Reading Location: [facility] Discharge Plan Triage Chief Complaint: Upper Extremity Injury ED Provider: Curtis Rosas Dx/Rx/DC Orders Clinical Impression: Acute shoulder pain Instructions: ED Rotator Cuff Tear, ED RICE Prescriptions: New methocarbamol 500 mg tablet 500 mg PO TID 7 Days Qty: 21 0RF prednisone 20 mg tablet 20 mg PO DAILY Qty: 5 0RF No Action multivitamin Tablet 1 tab PO QAM pantoprazole 40 mg tablet,delayed release (DR/EC) 40 mg PO QDAY Qty: 90 3RF calcium polycarbophil [FiberCon] 625 mg tablet 1,250 mg PO QDAY Qty: 180 3RF Dulera 100-5 mcg/actuation HFA aerosol inhaler 2 puff inhalation BID Qty: 8.8 3RF albuterol sulfate [Ventolin HFA] 90 mcg/actuation HFA aerosol inhaler 2 puff inhalation Q4H PRN PRN (Reason: Wheezing) Qty: 1 11RF albuterol sulfate 2.5 mg /3 mL (0.083 %) solution for nebulization 2.5 mg inhalation Q4H PRN Qty: 25 0RF Rx Instructions: Use q4 hours and PRN for wheezing albuterol sulfate 90 mcg/actuation HFA aerosol inhaler 2 puff inhalation Q6H PRN (Reason: shortness of breath or wheezing) Qty: 8.5 11RF Primary Care Provider: Care Physician,No Primary Referrals: Gary Bernard MD [Med Staff - Active Staff] - Activity Restrictions/Additional Instructions: Thank you for trusting us with your care today! The x-ray was negative for an acute fracture or dislocation. Please take Tylenol (2 pills, 650 mg), ibuprofen (2 pills, 400 mg) every 6 hours as needed for pain and fever control. Please take prednisone as prescribed Please return to the emergency department if your symptoms change or worsen. Please follow with your primary care physician for further outpatient evaluation and management. Print Language: Montserratian Disposition Disposition: Home, Self Care
[2024-09-15] MEDS: Ketorolac 15 MG/ML Vial IM (22:09)
[2024-09-15] MEDS: Morphine 4 MG/ML Syringe IM (22:13)
[2024-09-15 22:35] VITALS: BP 122/57; PULSE 88; RESP 16; TEMP 36.8; O2SAT 94
[2024-09-15] MEDS: Lidocaine 5% Patch 1 PATCH TOPICAL (23:34)
--- NOTE | 2024-09-15 23:41 | ED.RN ---
PT was refusing to leave unless pain was better controlled. This RN provided education on alternative forms of pain control. PT was observed to allow medications ordered by doctor to take effect. Sling applied. Lidoderm patch applied. prescriptions changed by doctor to [facility] pharmacy to be filled tonight. PT agreeable with discharge plan. Family assisted patient to dress.
== END 2024-09-15 23:46 | disposition home or self-care (01) ==
PROVIDERS: Emergency Provider Emergency Medicine; Visit Provider Emergency Medicine
DX: S46.011A Strain of muscle(s) and tendon(s) of the rotator cuff of right shoulder, initial encounter (principal); J44.9 Chronic obstructive pulmonary disease, unspecified; Z87.891 Personal history of nicotine dependence; X58.XXXA Exposure to other specified factors, initial encounter
CPT/HCPCS: 73030; 96372; 99283

== ENCOUNTER → 2024-10-15 | Outpatient (CLI) | payer MEDICAID, OTHER, SELFPAY ==
[2024-10-15 13:56] LABS: AST(SGOT) 21 U/L (<=31); Alanine Aminotransfer ALT/SGPT 23 U/L (<=34); Albumin, Serum 3.9 g/dL (3.4-4.8); Alkaline Phosphatase 55 U/L (35-104); Bilirubin, Direct 0.10 mg/dL (0.00-0.30); Cholesterol 227 mg/dL (<=200); Globulin 3.0 g/dL (2.2-4.2); Low Density Lipoprotein Calc. 135 mg/dL; Triglycerides 75 mg/dL; Very Low Density Lipoprotein 15 mg/dL (5-40); Vitamin D,25 Hydroxy 27.3 ng/mL (30-100); cholesterol:hdl ratio screen 2.96
== END | disposition home or self-care (01) ==
LOC: BIMLAB 09:11
PROVIDERS: PCP Internal Medicine; Referring Provider Internal Medicine; Visit Provider Internal Medicine
DX: K59.00 Constipation, unspecified (principal); R53.83 Other fatigue; Z13.6 Encounter for screening for cardiovascular disorders
CPT/HCPCS: 36415; 80061; 80076; 82306

== ENCOUNTER 2024-10-24 10:40 | Emergency (ER) | payer MEDICAID, OTHER, SELFPAY ==
[2024-10-24 10:41] VITALS: BP 125/80; PULSE 86; RESP 14; TEMP 35.6; O2SAT 98; BMI 29.5
--- NOTE | 2024-10-24 11:34 | EDS_ITS ---
HPI History of Present Illness Chief Complaint: Back Informant: patient and family Narrative Narrative: 64-year-old female presents with pain in multiple joints that has been going on for the last couple months, worst in her knees and her left wrist, pain in her r ight upper arm a little distal to the shoulder laterally for the past month or more, and an increase in her chronic mid low back pain for the past 1 to 2 weeks. She denies any fevers or chills. She denies any swelling or redness of the joints. About a week or so ago she took 4 days of some leftover prednisone and states it fix the joint problems temporarily. However now she is in so much pain with all of these issues that she feels like it is hard to function and get on the toilet. However when she does, she has no bowel or bladder dysfunction or perineal anesthesias or numbness/weakness neurologically in any of her extremities. She denies any injury that she knows of, she states most of this occurred upon waking up. Prior similar symptoms: Yes and With Prior Back Pain [facility] Medical History Wears glasses Anxiety Marijuana use Former smoker Shortness of breath on exertion COPD (chronic obstructive pulmonary disease) Pneumonia Home Medications ?Medication ?Instructions ?Recorded ?Last Taken ?Type albuterol sulfate 2.5 mg/3 mL 2.5 mg (3 mL) inhalation Q4H PRN 06/10/24 Unknown Rx (0.083 %) solution for nebulization #25 vials pantoprazole 40 mg tablet,delayed 40 mg PO QDAY esopha gitis #90 tabs 07/28/24 Unknown Rx release albuterol sulfate 90 mcg/actuation 2 puff inhalation Q 4H PRN PRN 08/04/24 Unknown Rx aerosol inhaler (Ventolin HFA) Wheezing ##1 mometasone-formoterol HFA 100 2 puff inhalation BID #8 .8 grams 08/04/24 Unknown Rx mcg-5 mcg/actuation aerosol inhaler (Dulera) albuterol sulfate 90 mcg/actuation 2 puff inhalation Q 6H PRN 08/26/24 Unknown Rx aerosol inhaler shortness of breath or wheez ing #8.5 grams meloxicam 15 mg tablet 15 mg PO QDAY #30 tabs 10/17 Unknown Rx atorvastatin 10 mg tablet (Lipitor) 10 mg PO QHS #30 t abs 10/19/24 Unknown Rx hydrocodone-acetaminophen 5-325mg 1 tab PO Q6H PRN jessica n 3 days #12 10/24/24 Unknown Rx 5mg-325mg TABLETS prednisone 10 mg tablet 10 mg PO UD #30 tabs 5 Unknown Rx Allergy/AdvReac Type Severity Reaction Status Date / Time bacitracin (From Neosporin Allergy Rash Verified 10/17/24 08:56 ([id number])) neomycin (From Neosporin Allergy Rash Verified 10/17/24 08:56 ([id number])) Penicillins Allergy Hives Verified 10/17/24 08:56 polymyxin B (From Neosporin Allergy Rash Verified 10/17/24 08:56 ([id number])) egg (eggs) AdvReac Abd Verified 10/17/24 08:56 cramps/diarrhea Food Allergies: Uncoded AdvReac Abd Verified 10/17/24 08:56 cramps/diarrhea Family History Father Alcohol abuse Arthritis Cancer LARYNGEAL COPD (chronic obstructive pulmonary disease) Mother Osteoporosis Surgical History History of colonoscopy , tubal with rupture History of back surgery Social History household members: significant other housing: house current occupational status: employed 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 [employer] Smoking Status: Former smoker quit date: 04/09/24 pack-years: 23 alcohol intake: current alcohol intake frequency: holidays/special occasions only substance use type: marijuana frequency: daily do you feel safe at home: Yes ROS ROS ED Constitutional Constitutional ED: Denies chills or fever(s) Eyes Eyes: Denies change in vision ENT ENT ED: Denies sore throat Cardiovascular Cardiovascular: Denies chest pain Respiratory/Chest Respiratory/Chest: Denies dyspnea Gastrointestinal Gastrointestinal: Denies abdominal pain, constipation, fecal incontinence, nausea or vomiting Genitourinary Genitourinary ED: Reports other Details: no urinary retention. No vaginal discharge, denies history of gonorrhea. ; Denies abdominal discomfort or urinary incontinence Musculoskeletal Musculoskeletal: Reports as per HPI, arthralgias and back pain; Denies neck pain Integumentary Denies rash or wounds Neurologic Neurologic: Denies headache(s), paresthesias or weakness EXAM Physical Exam Const Vital Signs: 10/24/24 10:41 Temperature 96.1 F L Temperature Source Temporal Pulse Rate 86 Respiratory Rate 14 Blood Pressure 125/80 H Blood Pressure Mean 95 Pulse Ox 98 Oxygen Delivery Method Room Air Positive well nourished and well developed General Appearance ED: well developed and NAD HEENT Reports moist mucous membranes Negative for trauma or tenderness Eyes PERRL and EOMs intact bilaterally Neck full ROM and supple Resp normal respiratory effort GI non-distended Back/Spine normal to inspection Back/Spine Narrative: Able to bend forward but painful LS spine to do so. Well-healed surgical incision midline, there is some mild tenderness in this area but no signs of infection or zoster rashes. Lumbar Spine / Lower Back: ROM limited, paraspinal muscle tenderness and straight leg raise negative bilaterally; Negative for lumbar spinal tenderness Extremity normal to inspection and no pedal edema Extremity Narrative: Limited range of motion both knees and the left wrist due to pain. They are normal-appearing, without tenderness, warmth, or any erythema. There is a healing insect sting according to the patient dorsum of the left hand without any surrounding erythema or tenderness. Mildly tender right lateral upper arm, where the proximal and middle thirds of the humerus meet, approximately. This is approximately where the deltoid inserts on the humerus shaft. She has pain with abduction against resistance, but elbow flexion and extension, supination against resistance, internal and external rotation about the shoulder all wit hout significant discomfort. She has excellent range of motion of the shoulder without any deformities and there is no other bony tenderness of the shoulder. Neuro oriented x3 and no sensory deficits noted Sensorium / Orientation: alert Motor Exam: strength 5/5 throughout and clonus absent Deep Tendon Reflexes: Rt Patellar (L4): 2+, Lt Patellar (L4): 2+, Rt Ankle (S1): 2+ and Lt Ankle (S1): 2+ Deep Tendon Reflexes Back: Rt Patellar (L4): 2+, Lt Patellar (L4): 2+, Rt Ankle (S1): 2+ and Lt Ankle (S1): 2+ Plantar Reflex: Downgoing: bilateral Psych thought process normal Psych Narrative: Anxious Skin no rashes or lesions noted and no wounds MDM MDM MDM Narrative Medical decision making narrative: I reviewed prior shoulder x-rays, radiology interpreted as negative for any acute, I agree with that based on what I am looking at. The patient states the chiropractor did some x-rays and told her she may have a spur there that could give her rotator cuff tear. While that is true, the pain she is describing is away from that area and more down toward where the deltoid inserts on the humerus. I am not concerned about a fracture or dislocation, I do not think we need new x-rays. With regards to her low back pain, she states the pain is chronic, but worse in the past week or 2, and she has multiple joints affected. I advised her that in order to work this up if indicated, she will need to see her primary care doctor but I am happy to help her with the pain. She wants to try more prednisone because help. I told her it is reasonable to do a taper if she is in severe pain, but if alternatives are available she will not want to be on prednisone long-term daily, she understands that. Offered a prescription for an analgesic as well. She states she was given some type of arthritis medication by her doctor and it made her feel poorly and she does not want that 1 but she does not know what it is And I do not see it in any records that are available to me right now. Meloxicam is on her list, that may be the one that she did not agree with. Discharge Plan Triage Chief Complaint: Back ED Provider: Mendez Mukherjee Dx/Rx/DC Orders Clinical Impression: Arthritis, Acute exacerbation of chronic low back pain, Acute pain of right shoulder Instructions: What Is Arthritis?, Osteoarthritis (OA) Prescriptions: New hydrocodone-acetaminophen 5-325 mg tablet 1 tab PO Q6H PRN (Reason: pain) 3 Days Qty: 12 0RF prednisone 10 mg tablet 10 mg PO UD Qty: 30 0RF Rx Instructions: Take 4 tablets daily for 3 days, then 3 daily for 3 days, then 2 daily for 3 days, then 1 a day for 3 days No Action pantoprazole 40 mg tablet,delayed release (DR/EC) 40 mg PO QDAY Qty: 90 3RF Dulera 100-5 mcg/actuation HFA aerosol inhaler 2 puff inhalation BID Qty: 8.8 3RF albuterol sulfate [Ventolin HFA] 90 mcg/actuation HFA aerosol inhaler 2 puff inhalation Q4H PRN PRN (Reason: Wheezing) Qty: 1 11RF meloxicam 15 mg tablet 15 mg PO QDAY Qty: 30 0RF albuterol sulfate 2.5 mg /3 mL (0.083 %) solution for nebulization 2.5 mg inhalation Q4H PRN Qty: 25 0RF Rx Instructions: Use q4 hours and PRN for wheezing albuterol sulfate 90 mcg/actuation HFA aerosol inhaler 2 puff inhalation Q6H PRN (Reason: shortness of breath or wheezing) Qty: 8.5 11RF atorvastatin [Lipitor] 10 mg tablet 10 mg PO QHS Qty: 30 0RF Primary Care Provider: Katie Ordaz Referrals: Katie Ordaz MD [Primary Care Provider] - As soon as possible Print Language: Nigerien Disposition Disposition: Home, Self Care
[2024-10-24 11:58] VITALS: BP 124/53; PULSE 72; RESP 16; TEMP 36.6; O2SAT 99
== END 2024-10-24 12:00 | disposition home or self-care (01) ==
PROVIDERS: Emergency Provider Emergency Medicine; PCP Internal Medicine; Visit Provider Emergency Medicine
DX: M54.50 Low back pain, unspecified (principal); J44.9 Chronic obstructive pulmonary disease, unspecified; M25.511 Pain in right shoulder; G89.29 Other chronic pain; M17.0 Bilateral primary osteoarthritis of knee; M19.032 Primary osteoarthritis, left wrist; M19.09 Primary osteoarthritis, other specified site; Z87.891 Personal history of nicotine dependence
CPT/HCPCS: 99282

== ENCOUNTER → 2024-10-30 | Outpatient (CLI) | payer MEDICAID, OTHER, SELFPAY ==
--- NOTE | 2024-10-30 10:18 | RAD_ITS ---
PROCEDURE: HIP, UNI W/ PELVIS 2-3 VIEWS 10/30/2024 REASON FOR EXAM: PAIN Mild left hip osteoarthritis. No acute findings. TECHNIQUE: HIP, UNI W/ PELVIS 2-3 VIEWS COMPARISON: No FINDINGS: Lower lumbar spine degeneration. Intact pelvic ring. Mild bilateral hip osteoarthritis. No acute bone or soft tissue pathology. RAD/HIP, UNI W/ Pelvis 2-3 Views IMPRESSION: Mild left hip osteoarthritis Reading Location: [facility]
--- NOTE | 2024-10-30 10:18 | RAD_ITS ---
PROCEDURE: LUMBAR SPINE 2 OR 3 VIEWS 10/30/2024 REASON FOR EXAM: PAIN TECHNIQUE: LUMBAR SPINE 2 OR 3 VIEWS COMPARISON: No FINDINGS: Mild scoliosis. Severe facet arthritis, L3 through S1. Grade 2 anterolisthesis, L4 on L5. Severe L4-L5 disc degeneration. No acute bone or soft tissue pathology. RAD/Lumbar Spine 2 or 3 Views IMPRESSION: Lumbar spine scoliosis and degeneration. Reading Location: [facility]
[2024-10-30 13:12] LABS: CRP 4.50 mg/L (0.0-3.0)
[2024-10-31 12:08] LABS: ANTINUCLEAR ANTIBODIES DIRECT Negative (Negative); Anti-Chromatin <0.2 AI (0.0-0.9); Anti-Jo <0.2 AI (0.0-0.9); Anti-dsDNA Ab <1 IU/mL (0-9); SJOGREN'S Anti-SS-A test < 0.2 AI (0.0-0.9); SJOGREN'S Anti-SS-B test < 0.2 AI (0.0-0.9)
== END | disposition home or self-care (01) ==
PROVIDERS: PCP Internal Medicine; Referring Provider Internal Medicine; Visit Provider Internal Medicine
DX: M25.50 Pain in unspecified joint (principal)
CPT/HCPCS: 36415; 72100; 73502; 85652; 86038; 86140; 86200; 86225; 86235; 86431

== ENCOUNTER 2024-11-03 13:42 | Observation (INO) | payer MEDICAID, OTHER, SELFPAY ==
[2024-11-03 13:42] VITALS: BP 111/70; PULSE 73; RESP 18; TEMP 36.6; O2SAT 99
[2024-11-03 15:45] VITALS: BMI 29.8
[2024-11-03 15:46] VITALS: BP 127/63; PULSE 64; RESP 18; O2SAT 98
[2024-11-03] MEDS: 0.9% Normal Saline (1000mL) 1,000 ML 999 ML IV (16:21)
--- NOTE | 2024-11-03 16:25 | EX.ED.GENINJ ---
HPI History of Present Illness Chief Complaint: Back Narrative Narrative: Patient is a 64-year-old female past medical history of COPD, tobacco use, anxiety, back pain, IBS who presents to the emergency department with a chief complaint of back pain. Patient states that she has had significantly worsening of her back pain recently to the point where she is having significant difficulty with ambulating. She states that she is still urinating normally for self and she is constipated but denies any loss of bowel function. Patient denies any new injuries or trauma. She states that she had a x-ray 2 days ago and was ultimately referred to pain management however they are unable to get her in and notes that the doctors on vacation. She states that today she felt that her pain was worse and came here for further evaluation management. She states that she feels that muscle relaxers made her symptoms worse. Denies any fevers, any history of IV drug use [facility] Medical History Wears glasses Anxiety Marijuana use Former smoker Shortness of breath on exertion COPD (chronic obstructive pulmonary disease) Pneumonia Home Medications ?Medication ?Instructions ?Recorded ?Last Taken ?Type pantoprazole 40 mg tablet,delayed 40 mg PO QDAY esophagitis #90 tabs 07/28/24 Unknown Rx release albuterol sulfate 90 mcg/actuation 2 puff inhalation Q4H PRN PRN 08/04/24 Unknown Rx aerosol inhaler (Ventolin HFA) Wheezing ##1 mometasone-formoterol HFA 100 2 puff inhalation BID #8.8 grams 08/04/24 Unknown Rx mcg-5 mcg/actuation aerosol inhaler (Dulera) meloxicam 15 mg tablet 15 mg PO QDAY #30 tabs 10/17/24 Unknown Rx atorvastatin 10 mg tablet (Lipitor) 10 mg PO QHS #30 tabs 10/19/24 Unknown Rx cyclobenzaprine 5 mg tablet 5 mg PO TID pain #30 tabs 10/30/24 Unknown Rx Allergy/AdvReac Type Severity Reaction Status Date / Time bacitracin (From Neosporin Allergy Rash Verified 11/03/24 13:44 ([id number])) neomycin (From Neosporin Allergy Rash Verified 11/03/24 13:44 ([id number])) Penicillins Allergy Hives Verified 11/03/24 13:44 polymyxin B (From Neosporin Allergy Rash Verified 11/03/24 13:44 ([id number])) egg (eggs) AdvReac Abd Verified 11/03/24 13:44 cramps/diarrhea Food Allergies: Uncoded AdvReac Abd Verified 11/03/24 13:44 cramps/diarrhea Family History Father Alcohol abuse Arthritis Cancer LARYNGEAL COPD (chronic obstructive pulmonary disease) Mother Osteoporosis Surgical History History of colonoscopy , tubal with rupture History of back surgery Social History household members: significant other housing: house current occupational status: employed 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 [employer] Smoking Status: Former smoker quit date: 04/09/24 pack-years: 23 alcohol intake: current alcohol intake frequency: holidays/special occasions only substance use type: marijuana frequency: daily do you feel safe at home: Yes ROS ROS ED ROS Narrative Constitutional: Denies headache, fever, chills Cardiovascular: Denies chest pain Respiratory: Denies shortness of breath Abdomen: Complains constipation denies nausea vomiting : Denies any urinary symptoms states that she is urinating normally for self Neurological: Denies any numbness or tingling Musculoskeletal: Complains of back pain as noted above Skin: Denies any rashes or lesions EXAM Physical Exam Narrative Exam Narrative: General: Patient is lying in bed rest comfortably did not appear to be acute distress Head: Atraumatic, normocephalic Eyes: PERRL bilaterally, EOMI bilaterally, no conjunctival injection noted Neck: Soft, supple, trachea midline Cardiovascular: Regular rate and rhythm no murmurs gallops rubs noted Respiratory: Clear to auscultation bilaterally Abdomen: Soft, nondistended, nontender to palpation Extremities: +4/5 strength noted in the bilateral upper and lower extremities Neurological: Patient follow commands knew that she was at [facility] year is 2024. Sensation grossly intact no saddle anesthesia noted Skin: Warm, dry, intact no rashes lesions noted Const Vital Signs: 11/03/24 13:42 11/03/24 15:46 11/03/24 17:00 Temperature 98 F Temperature Source Temporal Pulse Rate 73 64 52 L Respiratory Rate 18 18 16 Blood Pressure 111/70 127/63 H 121/71 H Blood Pressure Mean 83 84 87 Pulse Ox 99 98 98 Oxygen Delivery Method Room Air Room Air Room Air 11/03/24 19:00 Temperature Temperature Source Pulse Rate 51 L Respiratory Rate 16 Blood Pressure 120/60 Blood Pressure Mean 80 Pulse Ox 96 Oxygen Delivery Method Room Air MDM MDM MDM Narrative Medical decision making narrative: Patient is a 64-year-old female who presents to the emergency department chief complaint of back pain. On the differential diagnosis includes but limited to musculoskeletal strain, compression fracture, herniated disc, UTI, pyelonephritis. Once workup is obtained reviewed she will be reevaluated. Patient given IV fluids, morphine and Zofran. Patient CBC reviewed showed a white blood count 11,000, hemoglobin stable at 15, platelet count 362. Patient sodium was 137, potassium normal at 4.5, creatinine was 0.71. Patient's AST and ALT were 21 and 14 respectively. Patient lipase normal at 18, urinalysis reviewed showed no evidence of infection. Patient's CT ab pelvis with IV contrast showed no acute intra-abdominal processes there is stable mild grade 1 anterolisthesis of L4 on L5 with bilateral pars defects of L4. No acute fractures or compression deformities. Given the patient is having intractable back pain not able to get up and go to the bathroom secondary to her pain and not able to take care of herself will discuss case with hospitalist for admission for observation of pain control. Discussed case with hospitalist Dr. Keys who accept patient for admission. Patient notified is agreeable spinal course concerns answered. Lab Data Labs: Laboratory Results - last 24 hr 11/03/24 11/03/24 16:24 18:11 WBC 11.5 H RBC 5.34 Hgb 15.0 Hct 46.3 MCV 86.7 MCH 28.1 MCHC 32.4 RDW Std Deviation 45.0 H RDW Coeff of Jaswant 14.1 Plt Count 362 MPV 9.8 Immature Gran % (Auto) 0.700 Neut % (Auto) 73.5 H Lymph % (Auto) 18.4 L [place] % (Auto) 6.8 Eos % (Auto) 0.3 Baso % (Auto) 0.3 Absolute Neuts (auto) 8.5 H Absolute Lymphs (auto) 2.12 Nucleated RBC % 0 Sodium 137 Potassium 4.5 Chloride 102 Carbon Dioxide 20.1 L Anion Gap 16 H BUN 15 Creatinine 0.71 Estim Creat Clear Calc 99.09 Est GFR (MDRD) Non-Af 96 BUN/Creatinine Ratio 20.7 H Glucose 91 Calcium 9.5 Total Bilirubin 0.34 AST 21 ALT 14 Alkaline Phosphatase 61 Total Protein 7.5 Albumin 4.2 Globulin 3.3 Albumin/Globulin Ratio 1.3 Lipase 18 Urine Color Straw Urine Clarity Clear Urine pH 7.0 Ur Specific [place] 1.010 Urine Protein Negative Urine Glucose (UA) Normal Urine Ketones Negative Urine Occult Blood Negative Urine Nitrite Negative Urine Bilirubin Negative Urine Urobilinogen Normal Ur Leukocyte Esterase Negative Urine RBC 0-5 SEEN Urine WBC 0-5 SEEN Ur Squamous Epith Cells 0 SEEN Urine Bacteria 0 SEEN Urine Mucus 0 SEEN Radiography Diagnostic Testing: Clinical Impression(s) from Imaging Studies Abdomen/Pelvis CT 11/03/24 16:37 IMPRESSION: No acute intra-abdominal process. Stable mild grade I anteriolisthesis of L4 on L5 with bilateral pars defects of L4. No acute fractures or compression deformities. Reading Location: [facility] Discharge Plan Triage Chief Complaint: Back ED Provider: Minh Novoa Dx/Rx/DC Orders Clinical Impression: Intractable back pain, Unable to ambulate, History of COPD, Anterolisthesis of lumbar spine Prescriptions: No Action pantoprazole 40 mg tablet,delayed release (DR/EC) 40 mg PO QDAY Qty: 90 3RF Dulera 100-5 mcg/actuation HFA aerosol inhaler 2 puff inhalation BID Qty: 8.8 3RF albuterol sulfate [Ventolin HFA] 90 mcg/actuation HFA aerosol inhaler 2 puff inhalation Q4H PRN PRN (Reason: Wheezing) Qty: 1 11RF meloxicam 15 mg tablet 15 mg PO QDAY Qty: 30 0RF cyclobenzaprine 5 mg tablet 5 mg PO TID Qty: 30 0RF atorvastatin [Lipitor] 10 mg tablet 10 mg PO QHS Qty: 30 0RF Primary Care Provider: Katie Ordaz Referrals: Katie Ordaz MD [Primary Care Provider] - Print Language: Tongan Disposition Disposition: Acute Care Hospital [facility]
--- NOTE | 2024-11-03 16:37 | CT_ITS ---
PROCEDURE: ABDOMEN/PELVIS W IV CONT ONLY 11/03/2024 REASON FOR EXAM: LOW BACK PAIN TECHNIQUE: ABDOMEN/PELVIS W IV CONT ONLY Coronal and Sagittal reconstruction series were provided. CONTRAST: 100 mL of Isovue 370 One or more dose reduction techniques were used (e.g., Automated exposure control, adjustment of the mA and/or kV according to patient size, use of iterative reconstruction technique. RADIATION DOSE SUMMARY: DLP: 657 mGycm COMPARISON: 04/21/24 FINDINGS: Limited sections of the lung bases demonstrate no focal pulmonary mass or consolidations. Left base subsegmental atelectasis The liver, spleen, pancreas, and both adrenal glands demonstrate no acute findings. The gallbladder is unremarkable. Tiny hiatal hernia; otherwise stomach is unremarkable. The small bowel loops are not dilated. The appendix is normal. No colonic obstruction. Colonic diverticulosis without acute diverticulitis. There is no free air or significant free fluid. 1.1 cm cyst within the left kidney; otherwise bilateral kidneys are unremarkable. The urinary bladder is distended. The pelvic structures are intact. There is no solid pelvic mass. No significant lymphadenopathy. The aorta and IVC demonstrate no acute findings. Focal dilation up to 2.4 cm of the mid abdominal aorta. Mild atherosclerosis of the abdominal vasculature. Stable mild grade I anteriolisthesis of L4 on L5 with bilateral pars defects of L4. No suspicious lytic or blastic abnormality. No acute fractures or compression deformities. CT/Abdomen/Pelvis W IV Cont ONLY IMPRESSION: No acute intra-abdominal process. Stable mild grade I anteriolisthesis of L4 on L5 with bilateral pars defects of L4. No acute fractures or compression deformities. Reading Location: [facility]
[2024-11-03 16:50] LABS: Hematocrit 46.3 % (37-47); Hemoglobin 15.0 g/dL (12.0-15.0); Immature Granulocytes Count 0.080 X10^3/uL (0.0-0.0); Mean Corp Hgb Conc 32.4 g/dL (32-36); Mean Corpuscular Volume 86.7 fL (81-99); Mean Platelet Vol. 9.8 fl (6.2-12.0); NRBC Flagged by Analyzer 0 % (0-5); Platelet Count 362 K/mm3 (150-450); RBC Distribution Width CV 14.1 % (11.6-14.6); RBC Distribution Width SD 45.0 fl (35.1-43.9); Red Blood Count 5.34 M/mm3 (4.2-5.4); White Blood Count 11.5 K/mm3 (4.4-11.0)
[2024-11-03 17:00] VITALS: BP 121/71; PULSE 52; RESP 16; O2SAT 98
[2024-11-03 17:13] LABS: AST(SGOT) 21 U/L (<=31); Alanine Aminotransfer ALT/SGPT 14 U/L (<=34); Albumin, Serum 4.2 g/dL (3.4-4.8); Alkaline Phosphatase 61 U/L (35-104); Anion Gap 16 (5-15); BUN 15 mg/dL (4-19); BUN/Creat Ratio 20.7 RATIO (10-20); Calcium,Total 9.5 mg/dL (7.6-11.0); Carbon Dioxide 20.1 mmol/L (21.0-32.0); Chloride 102 mmol/L (98-108); Estimated Creatinine Clearance 99.09 ml/min (50-250); Globulin 3.3 g/dL (2.2-4.2); Glucose 91 mg/dL (70-99); Lipase 18 U/L (13-75); Potassium 4.5 mmol/L (3.3-5.1)
[2024-11-03] MEDS: Orphenadrine 60 MG/2 ML Ampul 30 MG IV (17:42)
[2024-11-03 18:18] LABS: Color, Urine Straw (Yellow); Glucose, Dipstick Normal (Normal); Ketone-Dipstick Negative (Negative); Leukocyte Esterase-Dipstick Negative /ul (Negative); Mucous, Urine 0 SEEN /hpf (<or=2+); Nitrite-Dipstick Negative (Negative); Occult Blood-Urine Negative /ul (Negative); Protein-Dipstick Negative (Negative); Specific Gravity, Urine 1.010 (1.002-1.030); Squamous Epithelial Cells - UA 0 SEEN /hpf (5-10); Urine Bilirubin Dipstick Negative (Negative)
[2024-11-03 18:37] LABS: Red Blood Cells-Urine 0-5 SEEN /hpf (0-5)
[2024-11-03 19:00] VITALS: BP 120/60; PULSE 51; RESP 16; O2SAT 96
[2024-11-03] MEDS: HYDROmorphone 0.5 MG/0.5 ML SYRINGE IV (19:46)
[2024-11-03 20:00] VITALS: BP 128/74; PULSE 71; RESP 18; TEMP 36.8; O2SAT 97
--- NOTE | 2024-11-03 20:28 | PCM.HP.STD ---
HPI - General General Date of Admission: 11/03/24 Date of Service: 11/03/24 Chief Complaint: Back pain HPI Narrative YOLY MEANS, is a 64 F who presents to the emergency room with intractable back pain. Patient has significant past medical history of COPD, tobacco abuse, anxiety, back pain and irritable bowel syndrome. Patient states that she had a remote laminectomy several years ago but over the past 2 weeks has developed lower back pain and was seen by her physician and got an x-ray of 2 days ago and was then referred as an outpatient for pain management to get injections. Patient states the the pain in his lower lumbar area and does not radiate to either leg but is excruciating and she unable to stand for any length of time or change positions without significant pain. 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 Patient denies history of IV drug abuse. She denies any fevers or chills, nausea vomiting or diarrhea at the present time. [facility] Medical History Wears glasses Anxiety Marijuana use Former smoker Shortness of breath on exertion COPD (chronic obstructive pulmonary disease) Pneumonia Home Medications ?Medication ?Instructions ?Recorded ?Last Taken ?Type pantoprazole 40 mg tablet,delayed 40 mg PO QDAY esophagitis #90 tabs 07/28/24 Unknown Rx release albuterol sulfate 90 mcg/actuation 2 puff inhalation Q4H PRN PRN 08/04/24 Unknown Rx aerosol inhaler (Ventolin HFA) Wheezing ##1 mometasone-formoterol HFA 100 2 puff inhalation BID #8.8 grams 08/04/24 Unknown Rx mcg-5 mcg/actuation aerosol inhaler (Dulera) meloxicam 15 mg tablet 15 mg PO QDAY #30 tabs 10/17/24 Unknown Rx atorvastatin 10 mg tablet (Lipitor) 10 mg PO QHS #30 tabs 10/19/24 Unknown Rx cyclobenzaprine 5 mg tablet 5 mg PO TID pain #30 tabs 10/30/24 Unknown Rx Allergy/AdvReac Type Severity Reaction Status Date / Time bacitracin (From Neosporin Allergy Rash Verified 11/03/24 13:44 ([id number])) neomycin (From Neosporin Allergy Rash Verified 11/03/24 13:44 ([id number])) Penicillins Allergy Hives Verified 11/03/24 13:44 polymyxin B (From Neosporin Allergy Rash Verified 11/03/24 13:44 ([id number])) egg (eggs) AdvReac Abd Verified 11/03/24 13:44 cramps/diarrhea Food Allergies: Uncoded AdvReac Abd Verified 11/03/24 13:44 cramps/diarrhea Family History Father Alcohol abuse Arthritis Cancer LARYNGEAL COPD (chronic obstructive pulmonary disease) Mother Osteoporosis Surgical History History of colonoscopy , tubal with rupture History of back surgery Social History household members: significant other housing: house current occupational status: employed 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 [employer] Smoking Status: Former smoker quit date: 04/09/24 pack-years: 23 alcohol intake: current alcohol intake frequency: holidays/special occasions only substance use type: marijuana frequency: daily do you feel safe at home: Yes ROS Constitutional Constitutional: Denies change in weight, chills or fever(s) Eyes Eyes: Denies blurry vision ENT HEENT: Denies abnormal hearing Cardiovascular Cardiovascular: Denies chest pain Respiratory/Chest Respiratory/Chest: Denies shortness of breath at rest Gastrointestinal Gastrointestinal: Denies abdominal pain Genitourinary Genitourinary: Denies dysuria Musculoskeletal Musculoskeletal: Reports back pain; Denies extremity pain Integumentary Integumentary: Denies dry skin Neurologic Neurologic: Denies abnormal speech or confusion Psychiatric Psychiatric: Denies anxiety Vital Signs Vital Signs Vital Signs: 11/03/24 13:42 11/03/24 15:46 11/03/24 17:00 Temperature 98 F Temperature Source Temporal Pulse Rate 73 64 52 L Respiratory Rate 18 18 16 Blood Pressure 111/70 127/63 H 121/71 H Blood Pressure Mean 83 84 87 Pulse Ox 99 98 98 Oxygen Delivery Method Room Air Room Air Room Air 11/03/24 19:00 11/03/24 20:00 Temperature 98.2 F Temperature Source Pulse Rate 51 L 71 Respiratory Rate 16 18 Blood Pressure 120/60 128/74 H Blood Pressure Mean 80 92 Pulse Ox 96 97 Oxygen Delivery Method Room Air Weight Weight: 202 lb 2.622 oz Body Mass Index (BMI) 29.8 Physical Exam Const oriented x3 General Appearance: cooperative HEENT normocephalic and head/scalp atraumatic Eyes PERRL Neck no lymphadenopathy Lymph Lymphatic: no lymphadenopathy noted Resp normal respiratory effort, normal air movement and clear to auscultation bilaterally Cardio regular rate, regular rhythm, S1 normal heart sound, S2 normal heart sound and no murmurs GI normal to inspection, nondistended, normoactive bowel sounds Extremity normal capillary refill Extremity Narrative: Negative straight leg raise test, positive tenderness lower lumbar area with no deformity on palpation Skin General Skin Exam: no breakdown Neuro no focal motor deficits and no sensory deficits noted Psych thought process normal and affect normal Results Lab / Micro Data 11/03/24 16:24 11/03/24 16:24 Labs: Laboratory Results - last 24 hr 11/03/24 16:24: WBC 11.5 H, RBC 5.34, Hgb 15.0, Hct 46.3, MCV 86.7, MCH 28.1, MCHC 32.4, RDW Std Deviation 45.0 H, RDW Coeff of Jaswant 14.1, Plt Count 362, MPV 9.8, Immature Gran % (Auto) 0.700, Neut % (Auto) 73.5 H, Lymph % (Auto) 18.4 L, [place] % (Auto) 6.8, Eos % (Auto) 0.3, Baso % (Auto) 0.3, Absolute Neuts (auto) 8.5 H, Absolute Lymphs (auto) 2.12, Nucleated RBC % 0, Sodium 137, Potassium 4.5, Chloride 102, Carbon Dioxide 20.1 L, Anion Gap 16 H, BUN 15, Creatinine 0.71, Estim Creat Clear Calc 99.09, Est GFR (MDRD) Non-Af 96, BUN/Creatinine Ratio 20.7 H, Glucose 91, Calcium 9.5, Total Bilirubin 0.34, AST 21, ALT 14, Alkaline Phosphatase 61, Total Protein 7.5, Albumin 4.2, Globulin 3.3, Albumin/Globulin Ratio 1.3, Lipase 18 11/03/24 18:11: Urine Color Straw, Urine Clarity Clear, Urine pH 7.0, Ur Specific [place] 1.010, Urine Protein Negative, Urine Glucose (UA) Normal, Urine Ketones Negative, Urine Occult Blood Negative, Urine Nitrite Negative, Urine Bilirubin Negative, Urine Urobilinogen Normal, Ur Leukocyte Esterase Negative, Urine RBC 0-5 SEEN, Urine WBC 0-5 SEEN, Ur Squamous Epith Cells 0 SEEN, Urine Bacteria 0 SEEN, Urine Mucus 0 SEEN Imaging Radiology Impression Abdomen/Pelvis CT 11/03/24 16:37 IMPRESSION: No acute intra-abdominal process. Stable mild grade I anteriolisthesis of L4 on L5 with bilateral pars defects of L4. No acute fractures or compression deformities. Reading Location: [facility] Assessment & Plan Assessment/Plan (1) Unable to ambulate: (2) Intractable back pain: (3) Smoking greater than 20 pack years: (4) Constipation: QUALIFIERS: Constipation type: unspecified constipation type Qualified Code(s): K59.00 - Constipation, unspecified (5) COPD (chronic obstructive pulmonary disease): QUALIFIERS: COPD type: unspecified COPD Qualified Code(s): J44.9 - Chronic obstructive pulmonary disease, unspecified (6) IBS (irritable bowel syndrome): PLAN: Plan 1 intractable back pain?admit patient for observation to general medical floor, will initiate Dilaudid 1 mg IV every 3 hours as needed pain, initiate prednisone at higher dose daily and cyclobenzaprine 10 mg p.o. every 8 hours. Consult physical therapy for evaluation and treatment and to assist with ambulation. As pain is more controlled as this is an acute on chronic situation patient will be able to be discharged home with medication and plan for outpatient pain management therapy. 2. History of COPD and smoking?smoking cessation encouraged will continue routine home breathing medication 3. Constipation?add MiraLAX as needed 4. Irritable bowel syndrome?continue routine home medications 5. DVT prophylaxis?low molecular weight heparin as patient is not ambulating much at this moment Charges/Coding Visit Charges OBSV E&M: [id number] Observ/hosp same date L2
[2024-11-03 21:37] VITALS: BMI 28.3
[2024-11-03 21:42] VITALS: BP 121/66; PULSE 58; RESP 18; TEMP 36.4; O2SAT 97
--- NOTE | 2024-11-03 22:15 | NURSING ---
Pt asked to have her cane near her bed so she can get up by herself. This RN told pt that staff would need to assist her getting out of bed and going to the bathroom. Turned bed exit on.
[2024-11-03] MEDS: MELATONIN 3 MG TABLET PO (22:50)
[2024-11-03] MEDS: 0.9% Saline Lock 10 ML Syringe IV (22:50)
--- OUTSIDE RECORDS SUMMARY | 2024-11-03 23:26 | XMS RPT_ITS | CCD ---
Author Organization [facility] CliniSyct Care Team Providers Care Carpet Renovator Name Role Phone SAMI THOMSON Admitting Unavailable SAMI THOMSON Attending Unavailable SAMI THOMSON Primary Care Unavailable NO, DOCTOR ON Referring Unavailable NO, DOCTOR ON Consulting Unavailable Antonieta Sarmiento PA-C Primary Care Provider Antonieta Sarmiento PA-C Primary Care Provider [phone] Antonieta Sarmiento PA-C Primary Care Provider [phone] Antonieta Sarmiento PA-C Primary Care Provider [phone] Antonieta Sarmiento PA-C Primary Care Provider [phone] Haagen NURSE MONITORING.Chasity FRANK Unavailable Suppan NURSE MONITORING.Tarsha FRANK Unavailable [phone] Haagen NURSE MONITORING.Chasity FRANK Primary Care Provider Pcp NURSE MONITORING, No Primary Care Provider Unavailabl e VANESSA ROSENBERG Attending Unavailabl e SELF Referring Unavailable CHASITY HERNANDEZ Primary Care Unavailable JAZMYNE SARMIENTO Referring Unavailable JAZMYNE SARMIENTO Primary Care Unavailable SUPPTARSHA BECK Attending Unavailable Suppan NURSE MONITORING.Tarsha FRANK Unavailable Pcp NURSE MONITORING, No Primary Care Provider Unavailangelita e Antonieta Caraballo Primary Care Provider Xander Zazueta MD Attending Provider Xander Zazueta MD Emergency Provider Antonieta Caraballo Referring Provider Toya Dietz Attending Provider Care Physician, No Primary Primary Care Provider Unavailable Dr. Mukund Ovalles DO Attending Provider Dr. Mukund Ovalles DO Emergency Provider Isaac ROADABILITY MACHINE OPERATOR-C, Toya Referring Provider Dr. Rg Farfan DO Attending Provider Dr. Rg Farfan DO Emergency Provider Care Physician, No Primary Referring Provider Un available Dr. Hoang Valdivia DO Attending Provider Dr. Hoang Valdivia DO Referring Provider Dr. Gold Palomino DO Attending Provider Georgette WALKER, Dr. Malcolm Other Provider [phone] Care Physician, No Primary Primary Care Provider Unavailable Isaac ROADABILITY MACHINE OPERATOR-C, Toya Attending Provider Dr. Katie Ordaz MD Attending Provider Antonieta Caraballo Referring Provider Dr. Hoang Valdivia DO Other Provider Ignacio CUMMINGS-Blanca Helm Attending Provider Dr. Curtis Rosas DO Emergency Provider Care Physician, No Primary Primary Care Provider Unavailable Isaac CUMMINGS-CToya Attending Provider Dr. Curtis Rosas DO Attending Provider Dr. Katie Ordaz MD Primary Care Provider Dr. Katie Ordaz MD Referring Provider Isaiah Tamez Attending Provider Care Physician, No Primary Primary Care Provider Unavailable Dr. Hoang Valdivia DO Attending Provider Care Physician, No Primary Referring Provider Un available Dr. Mendez Mukherjee MD Emergency Provider Dr. Mendez Mukherjee MD Attending Provider Care Physician, No Primary Primary Care Unava ilable Care Physician, No Primary Referring Unava ilable Ignacio ROADABILITY MACHINE OPERATOR, Blanca Attending Unavailable Orlin, Katie Primary Care Unavailable [place], Katie Referring Unavailable Orlin, Katie Attending Unavailable Care Physician, No Primary Primary Care Unava ilable Brown, Hoang Attending Unavailable Brown, Hoang Referring Unavailable Care Physician, No Primary Referring Unava ilable Brown, Hoagn Attending Unavailable Care Physician, No Primary Primary Care Unava ilable [place], Katie Primary Care Unavailable Orlin, Katie Referring Unavailable [place], Katie Attending Unavailable Rg Farfan Attending Unavailable Care Physician, No Primary Primary Care Unava ilable Care Physician, No Primary Primary Care Unava ilable Curtis Rosas Attending Unavailable Antonieta Caraballo Primary Care Unavailable Xander Zazueta Attending Unavailable Care Physician, No Primary Primary Care Unava ilable Antonieta Caraballo Referring Unavailable Toya Gray Attending Unavailable Orlin, Katie Primary Care Unavailable Orlin, Katie Referring Unavailable Isaiah Taemz Attending Unavailable Care Physician, No Primary Primary Care Unava ilable Care Physician, No Primary Referring Unava ilable Friend, Gold Attending Unavailable Friend, Gold Consulting Unavailable Care Physician, No Primary Primary Care Unava ilable Brown, Hoang Referring Unavailable Brown, Hoang Attending Unavailable Care Physician, No Primary Primary Care Unava ilable Brown, Hoang Attending Unavailable Brown, Hoang Consulting Unavailable Brown, Hoang Referring Unavailable Care Physician, No Primary Primary Care Unava ilable Care Physician, No Primary Referring Unava ilable [place], Katie Attending Unavailable Care Physician, No Primary Primary Care Unava ilable Isaac, Toya Referring Unavailable Isaac Toya Attending Unavailable Isaac Toya Referring Unavailable Isaac Toya Attending Unavailable Care Physician, No Primary Primary Care Unava ilable Care Physician, No Primary Primary Care Unava ilable Mukund Ovalles Attending Unavailabl e Antonieta Caraballo Referring Unavailable Antonieta Caraballo Primary Care Unavailable Toya Gray Attending Unavailable Orlin, Katie Primary Care Unavailable Orlin, Katie Referring Unavailable [place], Katie Attending Unavailable [place], Katie Primary Care Unavailable Mendez Mukherjee Attending Unavailable Care Physician, No Primary Referring Unava ilable Friend, Gold Attending Unavailable Care Physician, No Primary Primary Care Unava ilable Care Physician, No Primary Primary Care Unava ilable Ignacio ROADABILITY MACHINE OPERATOR, Blanca Referring Unavailable Ignacio ROADABILITY MACHINE OPERATOR, Blanca Attending Unavailable Katie Ordaz Primary Care Unavailable Friend, Gold Attending Unavailable Dr. Minh Novoa DO Emergency Provider Massimo [facility], Dr. [place] Attending Provider Massimo [facility], Dr. [place] Admit Provider [phone] Allergies Allergy Classification Reported Allergen(s) Allergy Type Date of Onset Reaction(s) Facility (1 source) Penicillin Drug Allergy [facility] Repository (20 sources) bacitracin / neomycin / polymyxin b; Translations: [NEOMYCIN-BACIT RACIN-POLYMYXIN ] Drug Allergy 6 [facility] Work Phone: (20 sources) Banana Extract; Translations: [BANANA] Drug Allergy 7 GI Upset [facility] Work Phone: (20 sources) egg extract; Translations: [EGG] Drug Allergy 7 Vomiting [facility] (20 sources) HYDROcodone / Ibuprofen; Translations: [HYDROCODONE-IB UPROFEN] Drug Allergy 6 [facility] Work Phone: (2 sources) Penicillins; Translations: [PENICILLINS] Propensity to adverse reactions 6 Hives [facility] Work Phone: (20 sources) Pravastatin; Translations: [PRAVASTATIN] Drug Allergy 4 Intolerance [facility] (20 sources) traMADol; Translations: [TRAMADOL HCL] Drug Allergy 8 Vomiting [facility] Work Phone: (20 sources) Penicillins Propensity to adverse reactions 6 Hives [facility] Work Phone: (20 sources) Bee Sting; Translations: [BEE STING] Allergy to substance 2 Itching, Shortness of Breath, Swelling [facility] Work Phone: (9 sources) Penicillins Allergy to substance 2 Hives [facility] (8 sources) Bacitracin Drug Allergy 5 [facility] (8 sources) Neomycin Drug Allergy 5 [facility] (8 sources) Polymyxin B Drug Allergy 5 [facility] (9 sources) Food Allergies: Uncoded; Translations: [Food Allergies: Uncoded] Propensity to adverse reactions 5 Abd cramps/diarrhea [facility] Comment on above: bananas (1 source) Bacitracin Drug Allergy 5 [facility] Repository (1 source) egg extract Drug Allergy 5 [facility] Repository (1 source) Neomycin Drug Allergy 5 [facility] Repository (1 source) Penicillins Drug allergy (disorder) 5 [facility] Repository (1 source) polymyxin B Drug allergy (disorder) 5 [facility] Repository Medications Current Medications Medication Drug Class(es) Dates Sig (Normalized) Sig (Original) amitriptyline hydrochloride 10 mg oral tablet (5 sources) Tricyclic Antidepressant Start: 01-01-2024 End: 01-31-2024 take 1 tablet by mouth at bedtime as needed amitriptyline (ELAVIL) 10 mg tablet Indications: Chronic insomnia , Chronic midline low back pain without sciatica Take 1 tablet by mouth at bedtime as needed. 30 tablet 01/01/2024 Active atorvastatin 10 mg oral tablet (4 sources) HMG-CoA Reductase Inhibitor Start: 10-19-2024 take 1 tablet by mouth at bedtime Atorvastatin (Lipitor) 10 mg tablet Active 10 mg PO AT BEDTIME October 19, 2024 12:00am cyclobenzaprine hydrochloride 5 mg oral tablet (4 sources) Muscle Relaxant Start: 10-30-2024 take 1 tablet by mouth three times daily Cyclobenzaprine 5 mg tablet Active 5 mg PO THREE TIMES A DAY October 30, 2024 12:00am pain Start: 04-27-2020 End: 08-29-2021 take 1 tablet by mouth every eight hours as needed cyclobenzaprine (FLEXERIL) 10 mg tablet Take 1 tablet by mouth three times daily as needed for Muscle Spasm. 15 tablet 04/27/2020 08/29/2021 Discontinued (Discontinued by Patient) Comment on above: Take 1 tablet by cecilia three times daily as needed for Muscle Spasm. enteric contrast (will be provided with radiology test) (1 source) Start : 04-21 End: 04-22 enteric contrast (will be provided with radiology test) Indications: Buttock pain , Hematoma , Left inguinal pain For CT ABD/PEL W IVCON Routine order Administer, As Directed One Time Only, via Oral, Rectal, both Oral and Rectal, Enteric Tube, Stoma or Indwelling Catheter, Enteric Contrast as designated per enteric contrast guidelines 1 Each 04/21/2024 04/22/2024 Active 60 actuat formoterol fumarate 0.005 mg/actuat / mometasone furoate 0.2 mg/actuat metered dose inhaler (19 sources) Corticosteroid, beta2-Adrenergic Agonist Start : 09-06 End: 05-22 take 1 puff(s) by inhalation twice daily mometasone-formoterol (DULERA) 200-5 mcg/actuation inhaler Indications: Stage 1 mild COPD by GOLD classification (HCC) Inhale 1 Puff as instructed two times a day. 1 Each 4 05/22/2023 Active Comment on above: Inhale 1 Puff as ins tructed twice daily. Inhale 1 Puff as ins tructed two times a day. iv contrast (will be provided with radiology test) (1 source) Start : 04-21 End: 04-22 iv contrast (will be provided with radiology test) Indications: Buttock pain , Hematoma , Left inguinal pain CT ABD/PEL -Inject, intravenously, once for 1 dose.No IV access, insert saline lock prior to the beginning of sedation, infusion, injection of imaging exam. Discontinue saline lock post exam. If Pt. has a central line or IVAD, may access for administration according to line specific nursing protocol. Once exam is complete flush line and de-access according to line specific nursing protocol in the CT contrast administration guidelines link. 1 Each 04/21/2024 04/22/2024 Active meloxicam 15 mg oral tablet (5 sources) Nonsteroidal Anti-inflammatory Drug Start : 10-17 take 1 tablet by mouth once daily Meloxicam 15 mg tablet Active 15 mg PO daily 30 0 October 17, 2024 12:00am methylPREDNISolone (3 sources) Corticosteroid Start : 06-12 End: 06-18 methylPREDNISolone (MEDROL, MILLA,) 4 mg Dose-Pack Indications: Sprain of right rotator cuff capsule, initial encounter Follow dosing instructions, take with food. 21 tablet 0 06/12/2022 06/18/2022 Active Comment on above: Follow dosing instru ctions, take with food. Mometasone-Formoterol (Dulera) 100-5 mcg/actuation HFA aerosol inhaler (14 sources) Start : 08-04 Mometasone-Formoterol (Dulera) 100-5 mcg/actuation HFA aerosol inhaler Active 2 NMA INHALATION TWICE A DAY 8.8 3 August 04, 2024 2:37pm Start: 08-04-2024 Mometasone-For moterol (Dulera) 100-5 mcg/actuation HFA aerosol inhaler Active 2 NMA INHALATION TWICE A DAY 8.8 August 04, 2024 2:37pm Start: 06-19-2024 End: 08-04-2024 Mometasone-Formoterol (Duler a) 100-5 mcg/actuation HFA aerosol inhaler Discontinued 2 NMA INHALATION TWICE A DAY 8.8 3 June 19, 2024 12:00am August 04, 2024 2:40pm Start: 06-19-2024 End: 08-04-2024 Mometasone-Formoterol (Duler a) 100-5 mcg/actuation HFA aerosol inhaler Discontinued 2 NMA INHALATION TWICE A DAY 8.8 June 19, 2024 12:00am August 04, 2024 2:40pm Start: 06-19-2024 Mometasone-For moterol (Dulera) 100-5 mcg/actuation HFA aerosol inhaler Active 2 NMA INHALATION TWICE A DAY 8.8 June 19, 2024 12:00am MULTIVIT-MINERALS/FOLIC ACID (DAILY GUMMIES ORAL) (20 sources) take 2 doses by mouth once daily MULTIVIT-MINERALS/FOLIC ACID (DAILY GUMMIES ORAL) Take 2 Each by mouth once daily. Active take 2 doses by mouth once daily MULTIVIT-MINERALS/FOLIC ACID (DAILY GUMMIES ORAL) Take 2 Each by mouth once daily. 0 Active Comment on above: Take 2 Each by mouth once daily. pantoprazole 40 mg delayed release oral tablet (6 sources) Proton Pump Inhibitor Start: take 1 tablet by mouth once daily Pantoprazole 40 mg tablet,delayed release (DR/EC) Active 40 mg PO daily 90 3 July 28, 2024 12:00am esophagitis Completed/Discontinued Medications Medication Drug Class(es) Dates Sig (Normalized) Sig (Original) acetaminophen 325 mg / HYDROcodone bitartrate 5 mg oral tablet (10 sources) Opioid Agonist Start: 10-24-2024 End: 11-03-2024 Hydrocodone-Acetami nophen 5-325 mg tablet Discontinued 1 {tbl} PO EVERY 6 HOURS as needed for pain 12 3 0 October 24, 2024 November 03, 2024 7:45pm Acute exacerbation of chronic low back pain Low back pain, unspecified Other chronic pain Start: 06-12-2022 End: 08-28-2022 take 1 tablet by mouth every eight hours as needed for pain HYDROcodone-Acetaminophen (NORCO) 7.5-32 5 mg per tablet Indications: Sprain of right rotator cuff capsule, initial encounter Take 1 tablet by mouth every 8 hours as needed for pain. 15 tablet 06/14/2022 08/28/2022 Discontinued Comment on above: Take 1 tablet by cecilia th every 8 hours as needed for pain. [id number] 200 actuat albuterol 0.09 mg/actuat metered dose inhaler (20 sources) beta2-Adrenergic Agonist Start: 06-10-2024 End: 08-04-2024 Albuterol Sulfate (Ventolin Hfa) 90 mcg/actuation HFA aerosol inhaler Active 2 NMA INHALATION EVERY 4 HOURS NEEDED as needed for Wheezing 1 August 04, 2024 2:39pm Start: 06-10-2024 End: 11-03-2024 take 2.5 mg by inhalation every four hours as needed for wheezing Albuterol Sulfate 2.5 mg /3 mL (0.083 %) solution for nebulization Discontinued 2.5 mg INHALATION EVERY 4 HOURS NEEDED 25 0 June 10, 2024 1:00am November 03, 2024 7:44pm Use q4 hours and PRN for wheezing Start: 05-15-2024 End: 11-03-2024 Albuterol Sulfate 90 mcg/act uation HFA aerosol inhaler Discontinued 2 NMA INHALATION EVERY 6 HOURS as needed for shortness of breath or wheezing 8.5 11 August 26, 2024 9:46am November 03, 2024 7:44pm Start: 01-21-2024 End: 01-20-2025 take 2 puff(s) by inhalation every four hours as needed for wheezing albuterol HFA (VENTOLIN HFA) 90 mcg/actuation inhaler Indications: Cough , Wheeze Inhale 2 Puffs as instructed every 4 hours as needed for wheezing/shortness of breath. 1 Each 01/21/2024 01/20/2025 Active Start: 11-26-2023 End: 01-19-2024 take 2 puff(s) by inhalation every four hours as needed for wheezing albuterol HFA (VENTOLIN HFA) 90 mcg/actuation inhaler Indications: Cough , Wheeze Inhale 2 Puffs as instructed every 4 hours as needed for wheezing/shortness of breath. 1 Each 11/26/2023 01/19/2024 Discontinued Start: 12-27-2021 End: 05-15-2024 Albuterol Sulfate (Ventolin Hfa) 90 mcg/actuation HFA aerosol inhaler Discontinued 2 NMA INHALATION EVERY 4 HOURS NEEDED as needed for Wheezing 1 0 December 27, 2021 12:00am May 15, 2024 3:07pm Start: 12-27-2021 take 1 puff(s) by in halation every four hours as needed Albuterol Sulfate (Ventolin Hfa) 90 mcg/actuation HFA aerosol inhaler Active 2 PUFF INHALATION EVERY 4 HOURS NEEDED December 27, 2021 12:00am Start: 10-07-2019 End: 06-01-2023 take 2 puff(s) by inhalation every four hours as needed for wheezing albuterol HFA (VENTOLIN HFA) 90 mcg/actuation inhaler Indications: Cough , Wheeze Inhale 2 Puffs as instructed every 4 hours as needed for Wheezing/Shortness of Breath. 1 Inhaler 5 10/07/2019 07/31/2022 Discontinued Comment on above: Inhale 2 Puffs as in structed every 4 hours as needed for Wheezing/Shortness of Breath. benzonatate 100 mg oral capsule (12 sources) Non-narcotic Antitussive Start: End: take 1 capsule by mouth three times daily as needed for cough Benzonatate 100 mg capsule Discontinued 100 mg PO 3 TIMES DAILY NEEDED as needed for cough April 21, 2024 1:00am May 15, 2024 3:06pm Start: 02-09-2021 End: 02-19-2021 take 1 capsule by mouth every eight hours as needed for cough and cough benzonatate (TESSALON PERLE) 100 mg capsule Indications: Cough Take 1 capsule by mouth three times daily as needed for up to 10 days. 30 capsule 02/09/2021 02/19/2021 calcium polycarbophil 625 mg oral tablet (6 sources) Start: 07-28-2024 End: 10-17-2024 Calcium Polycarbophil (Fibercon) 625 mg tablet Discontinued 1250 mg PO daily 180 3 July 28, 2024 12:00am October 17, 2024 8:57am dextromethorphan hydrobromide 3 mg/ml / promethazine hydrochloride 1.25 mg/ml oral solution (1 source) Phenothiazine, Uncompetitive F-hihrjp-O-aspartat e Receptor Antagonist, Sigma-1 Agonist Start: 02-22-2021 End: 08-29-2021 take 5 mL by mouth four times daily as needed Promethazine-DM (PHENERGAN-DM) 6.25-15 mg/5 mL syrup Indications: Bronchitis Take 5 mL by mouth four times daily as needed. 120 mL 0 02/22/2021 08/29/2021 Discontinued (Discontinued by Patient) Comment on above: Take 5 mL by mouth f our times daily as needed. diclofenac sodium 75 mg / miSOPROStol 0.2 mg delayed release oral tablet (2 sources) Nonsteroidal Anti-inflammatory Drug, Prostaglandin E1 Analog Start: 04-27-2020 End: 08-29-2021 take 1 tablet by mouth twice daily diclofenac-miSOPRO Stol (ARTHROTEC 75) 75-200 mg-mcg per tablet Take 1 tablet by mouth twice daily. 20 tablet 04/27/2020 08/29/2021 Discontinued (Discontinued by Patient) Comment on above: Take 1 tablet by cecilia twice daily. doxycycline hyclate 100 mg oral tablet (16 sources) Tetracycline-class Drug Start: 04-15-2024 End: 05-15-2024 take 1 tablet by mouth twice daily Doxycycline Hyclate 100 mg tablet Discontinued 100 mg PO TWICE A DAY April 21, 2024 1:00am May 15, 2024 3:06pm Start: 09-06-2022 End: 09-16-2022 take 1 tablet by mouth twice daily doxycycline (VIBRA-TABS) 100 mg tablet Indications: Wheezing Take 1 tablet by mouth twice daily for 10 days. 20 tablet 09/06/2022 09/06/2022 Discontinued Start: 08-23-2022 End: 08-30-2022 take 1 tablet by mouth twice daily doxycycline (VIBRA-TABS) 100 mg tablet Take 1 tablet by mouth twice daily for 7 days. 14 tablet 0 08/23/2022 08/30/2022 Active Start: 02-09-2021 End: 02-19-2021 take 1 capsule by mouth twice daily doxycycline monohydrate (MONODOX) 100 mg capsule Indications: Acute bronchitis, unspecified organism Take 1 capsule by mouth twice daily for 10 days. 20 capsule 02/09/2021 02/19/2021 Comment on above: Take 1 tablet by [facility] twice daily for 7 days. Take 1 tablet by [facility] twice daily for 10 days. famotidine 20 mg oral tablet (8 sources) Histamine-2 Receptor Antagonist Start: 5 End: 5 take 1 tablet by mouth once daily Famotidine (Pepcid) 20 mg tablet Discontinued 20 mg PO daily 90 1 May 15, 2024 1:00am July 11, 2024 3:18pm glucosam/chond/colla gen/hyalur (JOINT SUPPORT ORAL) (2 sources) End: 2 glucosam/chond/collag en/hyalur (JOINT SUPPORT ORAL) Take by mouth. 0 10/12/2021 Discontinued glucosam/chond/c ollagen/hyalur (JOINT SUPPORT ORAL) Take by mouth. 0 Active Comment on above: Take by mouth. 12 hr guaiFENesin 600 mg extended release oral tablet (1 source) Start: 1 End: 1 take 2 tablets by mouth twice daily guaiFENesin (MUCINEX) 600 mg 12 hr tablet Indications: Acute bronchitis, unspecified organism Take 2 tablets by mouth twice daily for 10 days. 40 tablet 02/09/2021 02/19/2021 lansoprazole 15 mg delayed release oral capsule (6 sources) Proton Pump Inhibitor Start: 5 End: 5 take 1 capsule by mouth once daily Lansoprazole 15 mg capsule,delayed release(DR/EC) Discontinued 15 mg PO daily July 22, 2024 12:00am July 28, 2024 4:16pm metaxalone 800 mg oral tablet (12 sources) Start: 4 End: 4 take 1 tablet by mouth three times daily as needed for pain metaxalone (SKELAXIN) 800 mg tablet Indications: Sprain of right rotator cuff capsule, initial encounter Take 1 tablet by mouth three times a day as needed for pain. 30 tablet 1 04/20/2023 01/01/2024 Discontinued (Course of therapy completed) Start: 06-12-2022 End: 08-28-2022 take 1 tablet by mouth three times daily as needed for pain metaxalone (SKELAXIN) 800 mg tablet Indications: Sprain of right rotator cuff capsule, initial encounter Take 1 tablet by mouth three times daily as needed for pain. 30 tablet 1 06/12/2022 08/28/2022 Discontinued Comment on above: Take 1 tablet by cecilia th three times daily as needed for pain. Take 1 tablet by cecilia th three times a day as needed for pain. methocarbamol 500 mg oral tablet (6 sources) Muscle Relaxant Start: 5 End: 5 take 1 tablet by mouth three times daily Methocarbamol 500 mg tablet Discontinued 500 mg PO THREE TIMES A DAY 21 7 0 September 15, 2024 12:00am October 17, 2024 8:58am Mometasone-Formoterol [Mometasone-Formoterol Hfa 200 Mcg-5 Mcg/Actuation Aerosol Inhaler] (Mometasone-Formoterol Hfa 200 Mcg-5 Mcg/Actuation Aerosol ) 200-5 mcg/actuation HFA aerosol inhaler (8 sources) Start: 5 End: Mometasone-Formoterol [Mometasone-Formoterol Hfa 200 Mcg-5 Mcg/Actuation Aerosol Inhaler] (Mometasone-Formoterol Hfa 200 Mcg-5 Mcg/Actuation Aerosol ) 200-5 mcg/actuation HFA aerosol inhaler Discontinued 1 NMA INHALATION TWICE A DAY April 21, 2024 1:00am May 15, 2024 3:06pm Multivitamin tablet (8 sources) Start: End: Multivitamin tablet Discontinued 1 {tbl} PO EVERY MORNING May 15, 2024 1:00am October 17, 2024 8:58am Start: 05-15-2024 Multivitamin t ablet Active 1 {tbl} PO EVERY MORNING May 15, 2024 1:00am polyethylene glycol 3350 745455 mg / potassium chloride 2970 mg / sodium bicarbonate 6740 mg / sodium chloride 5860 mg / sodium sulfate 36490 mg powder for oral solution (8 sources) Osmotic Laxative Start: 05-15-2024 End: 07-22-2024 Peg 3350-Electrolytes (Golytely) 236-22.74-6.74 -5.86 gram recon soln Discontinued 240 mL PO Q10M 4000 0 May 15, 2024 1:00am July 22, 2024 2:06pm take as directed for split dose bowel prep predniSONE 10 mg oral tablet (20 sources) Start: 10-24-2024 End: 11-03-2024 take 4 tablets by mouth once daily, then take 3 tablets by mouth once daily, then take 2 tablets by mouth once daily, then take 1 tablet by mouth once daily Prednisone 10 mg tablet Discontinued 10 mg PO DIRECTED 30 October 24, 2024 12:00am November 03, 2024 7:44pm Take 4 tablets daily for 3 days, then 3 daily for 3 days, then 2 daily for 3 days, then 1 a day for 3 days Start: 09-15-2024 End: 10-17-2024 take 1 tablet by mouth once daily Prednisone 20 mg tablet Discontinued 20 mg PO DAILY 5 0 September 15, 2024 12:00am October 17, 2024 8:59am Start: 05-15-2024 End: 07-11-2024 take 3 tablets by mouth once daily, then take 2 tablets by mouth once daily, then take 1 tablet by mouth once daily Prednisone 20 mg tablet Discontinued 0 .ROUTE .COMPLEX 24 June 10, 2024 1:00am July 11, 2024 3:19pm 3 tabs p.o. daily x 4 days then 2 tabs p.o. daily x 4 days then 1 tab p.o. daily x 4 days Start: 04-15-2024 End: 04-20-2024 take 1 tablet by mouth twice daily predniSONE (DELTASONE) 20 mg tablet Indications: Bronchopneumonia Take 1 tablet by mouth two times a day for 5 days. 10 tablet 04/15/2024 04/20/2024 Active Start: 01-01-2024 End: 01-06-2024 take 1 tablet by mouth once daily predniSONE (DELTASONE) 20 mg tablet Indications: Chronic midline low back pain without sciatica Take 1 tablet by mouth once daily for 5 days. 5 tablet 01/01/2024 01/06/2024 Active Start: 09-06-2022 End: 11-10-2022 take 2 tablets by mouth once daily predniSONE (DELTASONE) 20 mg tablet Indications: Wheezing Take 2 tablets by mouth once daily. 10 tablet 09/06/2022 09/06/2022 Discontinued Start: 08-23-2022 End: 08-28-2022 take 4 tablets by mouth once daily predniSONE (DELTASONE) 10 mg tablet Take 4 tablets by mouth once daily for 5 days. 20 tablet 0 08/23/2022 08/28/2022 Active Start: 12-27-2021 End: 04-21-2024 take 3 tablets by mouth once daily Prednisone 20 mg tablet Discontinued 60 mg PO DAILY December 27, 2021 12:00am April 21, 2024 6:04pm Start: 12-27-2021 take 60 mg by mouth once daily Prednisone Active 60 MG PO DAILY December 27, 2021 12:00am Start: 02-09-2021 End: 02-14-2021 take 1 tablet by mouth once daily predniSONE (DELTASONE) 50 mg Indications: Acute bronchitis, unspecified organism Take 1 tablet by mouth once daily for 5 days. 5 tablet 02/09/2021 02/14/2021 Comment on above: Take 4 tablets by mo ut once daily for 5 days. Take 2 tablets by [facility] once daily. tiZANidine 4 mg oral tablet (10 sources) Central alpha-2 Adrenergic Agonist Start: End: take 1 tablet by mouth every eight hours as needed for muscle spasms Tizanidine 4 mg tablet Discontinued 4 mg PO EVERY 8 HOURS NEEDED as needed for muscle spasm April 21, 2024 1:00am May 15, 2024 3:06pm Start: 01-01-2024 End: 01-31-2024 take 1 tablet by mouth every eight hours as needed for muscle spasms tiZANidine (ZANAFLEX) 4 mg tablet Indications: Chronic midline low back pain without sciatica Take 1 tablet by mouth every 8 hours as needed (muscle spasms). 90 tablet 01/01/2024 01/31/2024 Active Problems Active Problems Problem Classification Problem Date Documented Da te Episodic/Chronic Abdominal pain (20 sources) Abdominal pain; Translations: [Unspecified abdominal pain] 06-04-2006 Episodic Acute bronchitis (1 source) Acute bronchitis; Translations: [Acute bronchitis, unspecified] 02-09-2021 Episodic Administrative/social admission (6 sources) First encounter by subject; Translations: [Persons encountering health services in other specified circumstances] 07-22-2024 Episodic Allergic reactions (1 source) Allergy status to penicillin; Translations: [Allergy status to penicillin] Onset: 0 Episodic Cardiac dysrhythmias (9 sources) Palpitations; Translations: [Palpitations] 06-21-2021 Episodic Chronic obstructive pulmonary disease and bronchiectasis (20 sources) Acute exacerbation of chronic obstructive airways disease; Translations: [Chronic obstructive pulmonary disease with (acute) exacerbation] Onset: 5 11-10-2022 Chronic Comment on above: FEV1 86% of predicte d Contraceptive and procreative management (1 source) Tubal ligation status; Translations: [Tubal ligation status] Onset: 0 Episodic Diseases of white blood cells (8 sources) Leukocytosis; Translations: [Elevated white blood cell count, unspecified] 04-29-2024 Chronic Disorders of lipid metabolism (20 sources) Mixed hyperlipidemia; Translations: [Mixed hyperlipidemia] Onset: 9 Chronic Diverticulosis and diverticulitis (20 sources) Diverticulosis of colon; Translations: [Diverticulosis of large intestine without perforation or abscess without bleeding] 06-04-2006 Chronic Esophageal disorders (12 sources) Esophagitis; Translations: [Esophagitis] 07-28-2024 Episodic External cause codes: Place of occurrence (1 source) Other specified places as the place of occurrence of the external cause; Translations: [Other specified places as the place of occurrence of the external cause] Onset: 0 External cause codes: Struck by; against (1 source) Striking against or struck by other objects, initial encounter; Translations: [Striking against or struck by other objects, initial encounter] Onset: 0 External cause codes: Unspecified (1 source) Activity, gardening and landscaping; Translations: [Activity, gardening and landscaping] Onset: 0 Gastrointestinal hemorrhage (20 sources) Gastrointestinal hemorrhage; Translations: [Gastrointestinal hemorrhage] 06-04-2006 Episodic Hemorrhoids (20 sources) Hemorrhoids; Translations: [Unspecified hemorrhoids] 06-04-2006 Episodic Miscellaneous mental health disorders (4 sources) Chronic insomnia; Translations: [Psychophysiologic insomnia] Onset: 9 01-01-2024 Chronic Nonspecific chest pain (1 source) Chest pain; Translations: [Chest pain, unspecified] Episodic Open wounds of head; neck; and trunk (3 sources) Laceration without foreign body of scalp, initial encounter; Translations: [Laceration without foreign body of scalp, initial encounter] Onset: 0 Episodic Osteoarthritis (8 sources) Arthritis; Translations: [Unspecified osteoarthritis, unspecified site] 05-15-2024 Chronic Other acquired deformities (2 sources) Lumbar spondylolisthesis; Translations: [Spondylolisthesis, lumbar region] 11-03-2024 Episodic Other congenital anomalies (20 sources) Congenital pes planus; Translations: [Congenital pes planus, unspecified foot] Onset: 6 06-04-2006 Chronic Other connective tissue disease (2 sources) Synovial cyst of right popliteal space; Translations: [Synovial cyst of popliteal space [Huerta], right knee] Episodic Other connective tissue disease (9 sources) Pain in right lower limb; Translations: [Pain in right leg] 06-21-2021 Episodic Other connective tissue disease (1 source) Pain in buttock; Translations: [Myalgia, other site] 04-21-2024 Episodic Other connective tissue disease (8 sources) Synovial cyst of popliteal space [Huerta], right knee; Translations: [Synovial cyst of right popliteal space] 06-21-2021 Episodic Other gastrointestinal disorders (17 sources) Irritable bowel syndrome; Translations: [Irritable bowel syndrome without diarrhea] 05-15-2024 Chronic Other gastrointestinal disorders (2 sources) Irritable bowel syndrome without diarrhea; Translations: [Irritable bowel syndrome, unspecified] Onset: Chronic Other gastrointestinal disorders (8 sources) Disorder of colon; Translations: [Disease of intestine, unspecified] 04-29-2024 Episodic Other gastrointestinal disorders (20 sources) Heartburn; Translations: [Heartburn] 05-15-2024 Episodic Other gastrointestinal disorders (10 sources) Defecation straining; Translations: [Other specified symptoms and signs involving the digestive system and abdomen] 05-15-2024 Episodic Other gastrointestinal disorders (20 sources) Constipation; Translations: [Constipation, unspecified] 05-15-2024 Episodic Other gastrointestinal disorders (2 sources) Constipation, unspecified; Translations: [Constipation, unspecified] Onset: Episodic Other gastrointestinal disorders (2 sources) Heartburn; Translations: [Heartburn] Onset: Episodic Other gastrointestinal disorders (1 source) Other specified symptoms and signs involving the digestive system and abdomen; Translations: [Other specified symptoms and signs involving the digestive system and abdomen] Onset: Episodic Other injuries and conditions due to external causes (1 source) Hematoma; Translations: [Other injury of unspecified body region, initial encounter] 04-21-2024 Episodic Other lower respiratory disease (9 sources) Dyspnea; Translations: [Shortness of breath] Episodic Other lower respiratory disease (6 sources) Cough; Translations: [Cough] Episodic Other lower respiratory disease (8 sources) Wheezing; Translations: [Wheezing] Episodic Other lower respiratory disease (8 sources) Nodule of lung; Translations: [Solitary pulmonary nodule] 04-29-2024 Episodic Other lower respiratory disease (1 source) Shortness of breath; Translations: [Shortness of breath] Onset: Episodic Other lower respiratory disease (2 sources) History of chronic obstructive airway disease; Translations: [Personal history of other diseases of the respiratory system] 11-03-2024 Episodic Other nervous system disorders (1 source) Other chronic pain; Translations: [Chronic midline low back pain without sciatica] Onset: 7 Chronic Other nervous system disorders (2 sources) Unable to walk; Translations: [Difficulty in walking, not elsewhere classified] 11-03-2024 Chronic Other non-traumatic joint disorders (6 sources) Shoulder pain; Translations: [Pain in unspecified shoulder] 09-15-2024 Episodic Other non-traumatic joint disorders (19 sources) Pain in left knee; Translations: [Left knee pain] Onset: 5 10-17-2024 Episodic Other non-traumatic joint disorders (4 sources) Pain in right shoulder; Translations: [Acute pain of right shoulder] Onset: 5 10-24-2024 Episodic Other non-traumatic joint disorders (2 sources) Multiple joint pain; Translations: [Pain in unspecified joint] 10-30-2024 Episodic Other non-traumatic joint disorders (2 sources) Pain in unspecified joint; Translations: [Pain in unspecified joint] Onset: 5 Episodic Other non-traumatic joint disorders (1 source) Pain in right knee; Translations: [Pain in right knee] Onset: 5 Episodic Other screening for suspected conditions (not mental disorders or infectious disease) (20 sources) Patient encounter status; Translations: [Encounter for screening for malignant neoplasm of colon] Onset: 2 Episodic Other upper respiratory disease (20 sources) Allergic rhinitis; Translations: [Allergic rhinitis, unspecified] 06-04-2006 Chronic Other upper respiratory disease (8 sources) Acute bronchospasm; Translations: [Acute bronchospasm] 06-18-2024 Episodic Pneumonia (except that caused by tuberculosis or sexually transmitted disease) (3 sources) Infective pneumonia; Translations: [Pneumonia, unspecified organism] Episodic Residual codes; unclassified (6 sources) History of colonoscopy; Translations: [Other specified postprocedural states] 08-04-2024 Episodic Residual codes; unclassified (6 sources) Medication refused; Translations: [Immunization not carried out because of patient refusal] 07-22-2024 Episodic Residual codes; unclassified (6 sources) Mammogram declined; Translations: [Procedure and treatment not carried out because of patient's decision for unspecified reasons] 07-22-2024 Episodic Residual codes; unclassified (8 sources) Difficulty sleeping ; Translations: [Sleep disorder, unspecified] 07-22-2024 Episodic Residual codes; unclassified (1 source) Sleep disorder, unspecified; Translations: [Sleep disorder, unspecified] Onset: 5 Episodic Spondylosis; intervertebral disc disorders; other back problems (20 sources) Degeneration of lumbar intervertebral disc; Translations: [Other intervertebral disc degeneration, lumbar region] Onset: 3 04-04-2021 Chronic Spondylosis; intervertebral disc disorders; other back problems (20 sources) Low back pain; Translations: [Lumbago] Onset: 4 06-04-2006 Episodic Sprains and strains (13 sources) Sprain of shoulder rotator cuff; Translations: [Sprain of right rotator cuff capsule, initial encounter] Episodic Substance-related disorders (20 sources) Tobacco user; Translations: [Nicotine dependence, unspecified, uncomplicated] Onset: 9 10-04-2008 Chronic Superficial injury; contusion (9 sources) Contusion of lower back and pelvis, initial encounter; Translations: [Hematoma of left buttock] Onset: 5 04-29-2024 Episodic Unclassified (1 source) Chronic midline low back pain without sciatica; Translations: [Chronic midline low back pain without sciatica] Onset: 7 Unclassified (2 sources) K59.00 - Constipation, unspecified,R19.8 - Other specified symptoms and signs involving the digestive system and abdomen Viral infection (9 sources) Disease caused by 2019-nCoV; Translations: [COVID-19] Episodic Past or Other Problems Problem Classification Problem Date Documented Da te Episodic/Chronic Gastritis and duodenitis (20 sources) Gastritis; Translations: [Unspecified gastritis and gastroduodenitis] Onset: 06-04-2006 06-04-2006 Episodic Malaise and fatigue (20 sources) Malaise and fatigue; Translations: [Other malaise] Onset: 10-03-2008 10-04-2008 Episodic Other connective tissue disease (20 sources) Enthesopathy; Translations: [Enthesopathy, unspecified] Onset: 05-15-2005 06-04-2006 Episodic Other connective tissue disease (20 sources) Tendonitis of right wrist; Translations: [Other enthesopathies, not elsewhere classified] Onset: 08-01-2016 08-01-2016 Episodic Other female genital disorders (20 sources) Female genital organ symptoms; Translations: [Unspecified condition associated with female genital organs and menstrual cycle] Onset: 05-02-2005 06-04-2006 Episodic Residual codes; unclassified (2 sources) Tobacco use; Translations: [Tobacco use] Onset: 08-27-2019 Episodic Residual codes; unclassified (20 sources) Tobacco user; Translations: [Tobacco use] Onset: 09-13-2015 Episodic Residual codes; unclassified (20 sources) Insomnia; Translations: [Insomnia, unspecified] Onset: 10-27-2008 10-27-2008 Episodic Screening and history of mental health and substance abuse codes (20 sources) Tobacco use and exposure - finding; Translations: [Personal history of nicotine dependence] Onset: 06-04-2006 06-04-2006 Episodic Results Test Name Value Interpretation Reference Range Facility Absolute lymphocyte countOrd ered By: Minh Novoa on 11-03-2024 Lymphocytes Auto (Unsp spec) [#/Vol] 2.12 10*3/uL 0.83-4.51 [facility] Absolute neutrophil countOrd ered By: Minh Novoa on 11-03-2024 Neutrophils (Bld) [#/Vol] 8.5 10*3/uL High 2.0-7.7 [facility] Anion gap in Serum or Plasma Ordered By: Minh Novoa on 11-03-2024 Anion gap [Moles/Vol] 16 mmol/L High 5-15 [facility] Automated lymphocyte count a s percentage of total leukocytesOrdered By: Minh Novoa on 11-03-2024 Lymphocytes/100 WBC Auto (Unsp spec) 18.4 % Low 19-41 [facility] BUN/creatinine ratioOrdered By: Minh Novoa on 11-03-2024 Urea nitrogen/Creatinine [Mass ratio] 20.7 mg/mg High 10-20 [facility] Basophil percentageOrdered B y: Minh Novoa on 11-03-2024 Basophils/100 WBC (Bld) 0.3 % 0-1 [facility] Bilirubin Test strip Ql (U)O rdered By: iMnh Novoa on 11-03-2024 Bilirubin Ql (U) Negative Negative [facility] Bilirubin, totalOrdered By: Minh Novoa on 11-03-2024 Bilirubin [Mass/Vol] 0.34 mg/dL 0.00-1.30 [facility] Carbon dioxide, total [Moles /volume] in Central venous bloodOrdered By: Minh Novoa on 11-03-2024 CO2 [Moles/Vol] 20.1 mmol/L Low 21.0-32.0 [facility] Chloride assayOrdered By: Regis Novoa on 11-03-2024 Chloride [Moles/Vol] 102 mmol/L 98-108 [facility] Eosinophil percentageOrdered By: Minh Novoa on 11-03-2024 Eosinophils/100 WBC (Bld) 0.3 % 0-5 [facility] Erythrocyte distribution wid th ratioOrdered By: Minh Novoa on 11-03-2024 Erythrocyte distribution width (RBC) [Ratio] 14.1 % 11.6-14.6 [facility] Erythrocyte distribution wid th standard deviationOrdered By: Minh Novoa on 11-03-2024 Erythrocyte distribution width (RBC) [Ratio] 45.0 fl High 35.1-43.9 [facility] Glomerular filtration rate ( GFR) estimation/1.73 sq m using serum, plasma, or whole bOrdered By: Minh Novoa on 11-03-2024 GFR/1.73 sq M.predicted among non-blacks MDRD (S/P/Bld) [Vol rate/Area] 96 mL/min/{1.73_m2} >60 [facility] Comment on above: mL/min/1.73m2 CKD-EP I Creatinine Equation (2020) Hematocrit Auto (Bld) [Volum e fraction]Ordered By: Minh Novoa on 11-03-2024 Hematocrit (Bld) [Volume fraction] 46.3 % 37-47 [facility] Hemoglobin measurementOrdere d By: Minh Novoa on 11-03-2024 Hemoglobin (Bld) [Mass/Vol] 15.0 g/dL 12.0-15.0 [facility] Immature granulocytes/100 WB C Auto (Bld)Ordered By: Minh Novoa on 11-03-2024 Immature granulocytes/100 WBC (Bld) 0.700 % 0.0-0.9 [facility] Comment on above: IG% - Immature Granu locytes (promyelocytes, myelocytes and metamyelocytes) > 1% indicates that a LEFT SHIFT is Present. Ketones Test strip Ql (U)Ord ered By: Minh Novoa on 11-03-2024 Ketones Ql (U) Negative Negative [facility] Laboratory - Chemistry and C hemistry - challengeOrdered By: Minh Novoa on 11-03-2024 AST [Catalytic activity/Vol] 21 U/L <32 [facility] Comment on above: Hemolysis present, R esults could be affected. Lipase measurementOrdered By : Minh Novoa on 11-03-2024 Lipase [Catalytic activity/Vol] 18 U/L 13-75 [facility] Comment on above: Please note:LIPASE r evised reference range effective 22. New Lipase methodology. Expected to produce lower values than the previous assay method. NEW Reference Range: 13 - 75 U/L MCV (mean corpuscular volume ) determinationOrdered By: Minh Novoa on 11-03-2024 MCV (RBC) [Entitic vol] 86.7 fL 81-99 [facility] Mean corpuscular hemoglobin (MCH) determinationOrdered By: Minh Novoa on 11-03-2024 MCH (RBC) [Entitic mass] 28.1 pg 27.0-32.0 [facility] Mean corpuscular hemoglobin concentration (MCHC) determinationOrdered By: Minh Novoa on 11-03-2024 MCHC (RBC) [Mass/Vol] 32.4 g/dL 32-36 [facility] Mean platelet volume determi nationOrdered By: Minh Novoa on 11-03-2024 Platelet mean volume (Bld) [Entitic vol] 9.8 fL 6.2-12.0 [facility] Microscopic analysis of urin e for red blood cells (RBC)Ordered By: Minh Novoa on 11-03-2024 Microscopic analysis of urine for red blood cells (RBC) 0-5 SEEN /hpf 0-5 [facility] Monocyte percentageOrdered B y: Minh Novoa on 11-03-2024 Monocytes/100 WBC (Bld) 6.8 % 0-10 [facility] Mucus LM Ql (Urine sed)Order ed By: Minh Novoa on 11-03-2024 Mucus Ql (Urine sed) 0 SEEN /hpf [facility] Neutrophil percentageOrdered By: Minh Novoa on 11-03-2024 Neutrophils/100 WBC (Bld) 73.5 % High 47-70 [facility] Nitrite Test strip Ql (U)Ord ered By: Minh Novoa on 11-03-2024 Nitrite Ql (U) Negative Negative [facility] Nucleated red blood cell per centageOrdered By: Minh Novoa on 11-03-2024 Nucleated RBC/100 WBC (Bld) [Ratio] 0 % 0-5 [facility] Platelet countOrdered By: Regis Novoa on 11-03-2024 Platelets (Bld) [#/Vol] 362 10*3/uL 150-450 [facility] Potassium measurement (mass/ volume)Ordered By: Minh Novoa on 11-03-2024 Potassium (Unsp spec) [Mass/Vol] 4.5 mmol/L 3.3-5.1 [facility] Comment on above: Hemolysis present, R esults could be affected. Protein Test strip Ql (U)Ord ered By: Minh Novoa on 11-03-2024 Protein Ql (U) Negative Negative [facility] RBC Auto (Bld) [#/Vol]Ordere d By: Minh Novoa on 11-03-2024 RBC (Bld) [#/Vol] 5.34 10*6/uL 4.2-5.4 [facility] Serum creatinine measurement (mass/volume)Ordered By: Minh Novoa on 11-03-2024 Creatinine [Mass/Vol] 0.71 mg/dL 0.70-1.20 [facility] Serum globulin measurementOr dered By: Minh Novoa on 11-03-2024 Globulin (S) [Mass/Vol] 3.3 g/dL 2.2-4.2 [facility] Serum glucose measurement (m ass/volume)Ordered By: Minh Novoa on 11-03-2024 Glucose [Mass/Vol] 91 mg/dL 70-99 [facility] Serum or plasma alanine eugene otransferase (ALT) measurementOrdered By: Minh Novoa on 11-03-2024 ALT [Catalytic activity/Vol] 14 U/L <35 [facility] Serum or plasma albumin fernie urement (mass/volume)Ordered By: Minh Novoa on 11-03-2024 Albumin [Mass/Vol] 4.2 g/dL 3.4-4.8 [facility] Serum or plasma albumin/glob ulin mass ratioOrdered By: Minh Novoa on 11-03-2024 Albumin/Globulin [Mass ratio] 1.3 {ratio} 0.9-2.4 [facility] Serum or plasma alkaline lorena sphatase measurementOrdered By: Minh Novoa on 11-03-2024 ALP [Catalytic activity/Vol] 61 U/L 35-104 [facility] Serum or plasma calcium fernie urement (mass/volume)Ordered By: Minh Novoa on 11-03-2024 Calcium [Mass/Vol] 9.5 mg/dL 7.6-11.0 [facility] Serum or plasma urea nitroge n measurement (mass/volume)Ordered By: Minh Novoa on 11-03-2024 Urea nitrogen [Mass/Vol] 15 mg/dL 4-19 [facility] Sodium levelOrdered By: Lorne Novoa on 11-03-2024 Sodium [Moles/Vol] 137 mmol/L 133-145 [facility] Squamous epithelial cells de tection in urine sediment by light microscopyOrdered By: Minh Novoa on 11-03-2024 Epithelial cells.squamous LM Ql (Urine sed) 0 SEEN /hpf 5-10 [facility] Total proteinOrdered By: Suze Novoa on 11-03-2024 Protein [Mass/Vol] 7.5 g/dL 5.9-8.4 [facility] Urine clarityOrdered By: Suze Novoa on 11-03-2024 Clarity (U) Clear Clear [facility] Urine color determinationOrd ered By: Minh Novoa on 11-03-2024 Color (U) Straw Yellow [facility] Urine glucose detectionOrder ed By: Minh Novoa on 11-03-2024 Glucose Ql (U) Normal mg/dl Normal [facility] Urine leukocyte esterase det ection by dipstickOrdered By: Minh Novoa on 11-03-2024 Leukocyte esterase Test strip Ql (U) Negative Negative [facility] Urine pHOrdered By: Minh bonilla on 11-03-2024 pH (U) 7.0 [pH] 5.0 - 8.0 [facility] Urine sediment bacteria coun t by microscopy (number/high power field)Ordered By: Minh Novoa on 11-03-2024 Bacteria LM.HPF (Urine sed) [#/Area] 0 /[HPF] None Seen [facility] Urine specific gravity measu rementOrdered By: Minh Novoa on 11-03-2024 Specific gravity (U) [Rel density] 1.010 1.002-1.030 [facility] Urine urobilinogen measureme ntOrdered By: Minh Novoa on 11-03-2024 Urobilinogen Ql (U) Normal mg/dl Normal [facility] White blood cell (WBC) count Ordered By: Minh Novoa on 11-03-2024 WBC (Bld) [#/Vol] 11.5 10*3/uL High 4.4-11.0 [facility] White blood cell countOrdere d By: Minh Novoa on 11-03-2024 White blood cell count 0-5 SEEN /hpf 0-5 [facility] BIANKA Comprehensive Panelon ANTI-DNA (DS)AB <1 Normal 0-9 [facility] Comment on above: Result Comment: Nega tive <5 Equivocal 5 - 9 Positive >9 Performed By: #### L 501.6710, L4600.0100, L3100.5475, L101.9900, L505.7010, L3100.5440 ####[facility] [address] [place], [address] ANTI-SS-A < 0.2 Normal 0.0-0.9 [facility] Comment on above: Performed By: #### L 501.6710, L4600.0100, L3100.5475, L101.9900, L505.7010, L3100.5440 ####[facility] [address] [place], [place], [address] ANTI-SS-B < 0.2 Normal 0.0-0.9 [facility] Comment on above: Performed By: #### L 501.6710, L4600.0100, L3100.5475, L101.9900, L505.7010, L3100.5440 ####[facility] [address] [place], [place], [id number] ANTINUCLEAR ANTIBODIES DIREC Ton 10-31-2024 BIANKA,DIRECT Negative Normal Negative [facility] Comment on above: Result Comment: Perf ormed at: [address] [id number] Picture Painter: Cody Knapp PhD, Phone: [phone] Performed By: #### L 501.6710, L4600.0100, L3100.5475, L101.9900, L505.7010, L3100.5440 ####[facility] [address] [place], [place], [id number] CCP IgG Antibodieson 025 CCP IgG Ab. 7 units Normal 0-19 [facility] Comment on above: Result Comment: Nega tive <20 Weak positive 20 - 39 Moderate positive 40 - 59 Strong positive >59 Performed at: [address] [id number] Picture Painter: Cody Knapp PhD, Phone: [phone] Performed By: #### L 501.6710, L4600.0100, L3100.5475, L101.9900, L505.7010, L3100.5440 ####[facility] [address] [place], [place], [id number] CRPon 10-30-2024 C-REACTIVE PROT 4.50 mg/L High 0.0-3.0 [facility] Comment on above: Performed By: #### L 501.6710, L4600.0100, L3100.5475, L101.9900, L505.7010, L3100.5440 ####[facility] [address] [place], [address] Erythrocyte Sed Rateon 10-30 SED RATE 13 mm/hr Normal 0-30 [facility] Comment on above: Performed By: #### L 501.6710, L4600.0100, L3100.5475, L101.9900, L505.7010, L3100.5440 ####[facility] [address] [place], [address] Erythrocyte sedimentation ra teOrdered By: Katie Ordaz on 10-30-2024 ESR (Bld) [Velocity] 13 mm/h 0-30 [facility] HIP, UNI W/ Pelvis 2-3 Views on 10-30-2024 HIP, UNI W/ Pelvis 2-3 Views [facility] Imaging Services [address] [place] [address] HIP, UNI W/ Pelvis 2-3 Views MR#: [id number] Acct: [id number] Name: RENUKA MEANS Rep #: [id number] : 1960 F 64 From: Ej Henderson MD PCP: Dr. Katie Ordaz MD Status: REG CLI Study: HIP, UNI W/ Pelvis 2-3 Views Date of Exam: Exam# [id number] Ordering Dr: Katie Ordaz MD PROCEDURE: HIP, UNI W/ PELVIS 2-3 VIEWS 10/30/2024 REASON FOR EXAM: PAIN Mild left hip osteoarthritis. No acute findings. TECHNIQUE: HIP, UNI W/ PELVIS 2-3 VIEWS COMPARISON: No FINDINGS: Lower lumbar spine degeneration. Intact pelvic ring. Mild bilateral hip osteoarthritis. No acute bone or soft tissue pathology. RAD/HIP, UNI W/ Pelvis 2-3 Views IMPRESSION: Mild left hip osteoarthritis Reading Location: [facility] CC: Dr. Katie Ordaz MD Lens Inserter: Signed Normal [facility] Lumbar Spine 2 or 3 Viewson 10-30-2024 Lumbar Spine 2 or 3 Views [facility] Imaging Services [address] [place], [place] [address] Lumbar Spine 2 or 3 Views MR#: [id number] Acct: [id number] Name: RENUKA MEANS Rep #: [id number] : 1960 F 64 From: Ej Henderson MD PCP: Dr. Katie Ordaz MD Status: REG CLI Study: Lumbar Spine 2 or 3 Views Date of Exam: Exam# [id number] Ordering Dr: Katie Ordaz MD PROCEDURE: LUMBAR SPINE 2 OR 3 VIEWS 10/30/2024 REASON FOR EXAM: PAIN TECHNIQUE: LUMBAR SPINE 2 OR 3 VIEWS COMPARISON: No FINDINGS: Mild scoliosis. Severe facet arthritis, L3 through S1. Grade 2 anterolisthesis, L4 on L5. Severe L4-L5 disc degeneration. No acute bone or soft tissue pathology. RAD/Lumbar Spine 2 or 3 Views IMPRESSION: Lumbar spine scoliosis and degeneration. Reading Location: [facility] CC: Dr. Katie Ordaz MD Lens Inserter: Signed Normal [facility] Rheumatoid Factoron 10-31-19 RHEUMATOID FAC < 10.0 Normal <15 [facility] Comment on above: Performed By: #### L 501.6710, L4600.0100, L3100.5475, L101.9900, L505.7010, L3100.5440 ####[facility] [address] [place], [address] Serum DNA double strand anti body assay (units/volume)Ordered By: Katie Ordaz on 10-30-2024 DNA double strand Ab Qn (S) [IU]/mL 0-9 [facility] Comment on above: Negative <5 Equivoca l 5 - 9 Positive >9 Serum Scl-70 antibody assay (units/volume)Ordered By: Katie Ordaz on 10-30-2024 SCL-70 extractable nuclear Ab Qn (S) TNP [facility] Comment on above: Test not performed SCL-70 extractable nuclear Ab Qn (S) <0.2 AI 0.0-0.9 [facility] Comment on above: Previous reported re sult: TNP AIEdited by: KEKE on 10/31/24:1208 AMENDED REPORT 10/31/24 1208 ANTISCLER previously reported as: Test not performed Serum or plasma C reactive p rotein measurement (mass/volume)Ordered By: Katie Ordaz on 10-30-2024 CRP [Mass/Vol] 4.50 mg/L High 0.0-3.0 [facility] Serum or plasma cyclic citru llinated peptide IgG antibody assay (units/volume)Ordered By: Katie Ordaz on 10-30-2024 Cyclic citrullinated peptide IgG Qn 7 units 0-19 [facility] Comment on above: Negative <20 Weak po sitive 20 - 39 Moderate positive 40 - 59 Strong positive >59Performed at: [facility] [address] [id number] Director: Cody Knapp PhD, Phone: [phone] Serum rheumatoid factor dete ctionOrdered By: Katie Ordaz on 10-30-2024 Rheumatoid factor Ql (S) < 10.0 IU/mL <15 [facility] Internal Medicine Office Vis iton 10-28-2024 Internal Medicine Office Visit [facility] [address] [place] [address] [place] [address] OFFICE VISIT Date of Service: 10/30/24 MR#: [id number] Acct: [id number] Name: RENUKA MEANS Rep #: [id number] : 1960 Provider: Dr. Katie chavez MD Age/Sex: 64/F Location: [facility] Status: Signed Intake Vital Signs 10/24/24 10:41 10/30/24 09:16 Height 5 ft 9 in 5 ft 9 in Weight: 200 lb 8 oz BMI 29.6 BP 110/60 Blood Pressure Location Lt brachial Position Sitting Respiration 16 Pulse 70 Pulse Source Monitor Temp 97.5 F L Temp Source Temporal Pulse Oximetry (%) 92 Oxygen Delivery Method room air Intake Visit Reasons: [facility] ER FU Chief Complaint: ER F/U for lower back pain Hand Violin Maker Required: No Accompanied by: Self Is patient in pain?: Yes Pain scale (1-10): 8 Allergies bacitracin (From Neosporin ([id number]-vbg-pkonk)) Allergy (Verified 10/30/24 09:18) Rash neomycin (From Neosporin (xfe-omr-nloap)) Allergy (Verified 10/30/24 09:18) Rash Penicillins Allergy (Verified 10/30/24 09:18) Hives polymyxin B (From Neosporin (gxi-stc-hckxp)) Allergy (Verified 10/30/24 09:18) Rash egg (eggs) Adverse Reaction (Verified 10/30/24 09:18) Abd cramps/diarrhea Food Allergies: Uncoded Adverse Reaction (Verified 10/30/24 09:18) Abd cramps/diarrhea Medications ???Medication ???Instructions ???Recorded ???Confirmed ???Type albuterol sulfate 2.5 mg/3 mL 2.5 mg (3 mL) inhalation Q4H PRN 0 06/10/24 10/30/24 Rx (0.083 %) solution for nebulization #25 vials pantoprazole 40 mg tablet,delayed 40 mg PO QDAY esophagitis #90 tab s 07/28/24 10/30/24 Rx release albuterol sulfate 90 mcg/actuation 2 puff inhalation Q4H PRN PRN 10/30/24 Rx aerosol inhaler (Ventolin HFA) Wheezing ##1 mometasone-formoterol HFA 100 2 puff inhalation BID #8.8 grams 0 08/04/24 10/30/24 Rx mcg-5 mcg/actuation aerosol inhaler (Dulera) albuterol sulfate 90 mcg/actuation 2 puff inhalation Q6H PRN 10/30/24 Rx aerosol inhaler shortness of breath or wheezing #8.5 grams meloxicam 15 mg tablet 15 mg PO QDAY #30 tabs 10/17/24 Rx atorvastatin 10 mg tablet (Lipitor) 10 mg PO QHS #30 tabs 10/19/24 10/30/24 Rx hydrocodone-acetamino phen 5-325mg 1 tab PO Q6H PRN pain 3 days #12 10/24/24 10/30/24 Rx 5mg-325mg TABLETS prednisone 10 mg tablet 10 mg PO UD #30 tabs 10/24/2410/08 Rx cyclobenzaprine 5 mg tablet 5 mg PO TID pain #30 tabs 10/30/24 10/30/24 Rx Nurse's Note: F/U for lower back. Had seen the ER and was given hydrocodone and prednisone. Hurts to sit, walk, and lay down. 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 She is up to date on her routine blood work. She previously declined a mammogram. She is otherwise up to date on her screening. She previously declined any immunizations. She reports she will occasionally have a cigarette, maybe every other day, but states she isn't doing it regularly. She doesn't need any refills. She reports she is eating healthy. Her activity has been limited due to pain. The patient has a history of COPD. She is following with pulmonology and saw them in July. She states she has not been using the dulera stating she doesn't feel that she needs it. She denies any recent flare ups and reports she uses her rescue inhaler less than she was. Her last PFT was done recently which showed mild disease. She had a 6 minute walk test since she was last seen which was normal. She reports her constipation has been persistent. She did see GI in July who ordered an anorectal manometry. She reports her symptoms continue to cause her problems and have been worse recently with the pain medication. She reports her GERD/[place] (more content not included)... Normal [facility] Emergency Department Summary on 10-24-2024 Emergency Department Summary [facility] Medical Records Department [address] [place] [address] Emergency Department Summary 10/24/24 MR#: [id number] Acct: [id number] Name: RENUKA MEANS Rep #: [id number] : 1960 64 From: Mendez Mukherjee MD PCP: Dr. Katie Ordaz MD Status:REG ER Location: ED HPI History of Present Illness Chief Complaint: Back Informant: patient and family Narrative Narrative: 64-year-old female presents with pain in multiple joints that has been going on for the last couple months, worst in her knees and her left wrist, pain in her right upper arm a little distal to the shoulder laterally for the past month or more, and an increase in her chronic mid low back pain for the past 1 to 2 weeks. She denies any fevers or chills. She denies any swelling or redness of the joints. About a week or so ago she took 4 days of some leftover prednisone and states it fix the joint problems temporarily. However now she is in so much pain with all of these issues that she feels like it is hard to function and get on the toilet. However when she does, she has no bowel or bladder dysfunction or perineal anesthesias or numbness/weakness neurologically in any of her extremities. She denies any injury that she knows of, she states most of this occurred upon waking up. Prior similar symptoms: Yes and With Prior Back Pain [facility] Medical History Wears glasses Anxiety Marijuana use Former smoker Shortness of breath on exertion COPD (chronic obstructive pulmonary disease) Pneumonia Home Medications ???Medication ???Instructions ???Recorded ???Last Taken ???Type albuterol sulfate 2.5 mg/3 mL 2.5 mg (3 mL) inhalation Q4H PRN 0 06/10/24 Unknown Rx (0.083 %) solution for nebulization #25 vials pantoprazole 40 mg tablet,delayed 40 mg PO QDAY esophagitis #90 tab s 07/28/24 Unknown Rx release albuterol sulfate 90 mcg/actuation 2 puff inhalation Q4H PRN PRN Unknown Rx aerosol inhaler (Ventolin HFA) Wheezing ##1 mometasone-formoterol HFA 100 2 puff inhalation BID #8.8 grams 0 08/04/24 Unknown Rx mcg-5 mcg/actuation aerosol inhaler (Dulera) albuterol sulfate 90 mcg/actuation 2 puff inhalation Q6H PRN Unknown Rx aerosol inhaler shortness of breath or wheezing #8.5 grams meloxicam 15 mg tablet 15 mg PO QDAY #30 tabs 10/17/24 Un known Rx atorvastatin 10 mg tablet (Lipitor) 10 mg PO QHS #30 tabs 10/19/24 Unknown Rx hydrocodone-acetamino phen 5-325mg 1 tab PO Q6H PRN pain 3 days #12 10/24/24 Unknown Rx 5mg-325mg TABLETS prednisone 10 mg tablet 10 mg PO UD #30 tabs 10/24/24 Unkn own Rx Allergy/AdvReac Type Severity Reaction Status Date / Time bacitracin (From Neosporin Allergy Rash Verified 10/17/24 08:56 (mje-vqh-soyuv)) neomycin (From Neosporin Allergy Rash Verified 10/17/24 08:56 (fft-hlx-ogici)) Penicillins Allergy Hives Verified 10/17/24 08:56 polymyxin B (From Neosporin Allergy Rash Verified 10/17/24 08:56 (fxb-lbb-thsyv)) egg (eggs) AdvReac Abd Verified 10/17/24 08:56 cramps/diarrhea Food Allergies: Uncoded AdvReac Abd Verified 10/17/24 08:56 cramps/diarrhea Family History Father Alcohol abuse Arthritis Cancer LARYNGEAL COPD (chronic obstructive pulmonary disease) Mother Osteoporosis Surgical History History of colonoscopy , tubal with rupture History of back surgery Social History household members: significant other housing: house current occupational status: employed 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 [employer] Smoking Status: Former smoker quit date: 04/09/24 pack-years: 23 alcohol intake: current alcohol intake frequency: holidays/special occasions only substance use type: marijuana frequency: daily do you feel safe at home: Yes ROS ROS ED Constitutional Constitutional ED: Denies chills or fever(s) Eyes Eyes: Denies change in vision ENT ENT ED: Denies sore throat Cardiovascular Cardiovascular: Denies chest pain Respiratory/Chest Respiratory/Chest: Denies dyspnea Gastrointestinal Gastrointestinal: Denies abdominal pain, constipation, fecal incontinence, nausea or vomiting Genitourinary Genitourinary ED: Reports other Details: no urinary retention. No vaginal discharge, denies history of gonorrhea. ; Denies abdominal discomfort or urinary incontinence Musculoskeletal Musculoskeletal: Reports as per HPI, arthralgias and back pain; Denies neck pain Integumentary Denies rash or wounds Neurologic Neurologic: Denies headache(s), paresthesias or weakness EXAM Physical Exam Const Gini (more content not included)... Normal [facility] Internal Medicine Office Vis iton 10-17-2024 Internal Medicine Office Visit [facility] [address] [place] [address] OFFICE VISIT Date of Service: 10/17/24 MR#: [id number] Acct: [id number] Name: RENUKA MEANS Rep #: [id number] : 1960 Provider: GALDINO Barnes Age/Sex: 64/F Location: [facility] Status: Signed Intake Vital Signs 09/15/24 20:33 10/17/24 08:54 Height 5 ft 9 in 5 ft 9 in Weight: 206 lb 6 oz BMI 30.4 BP 126/72 H Blood Pressure Location Lt brachial Position Sitting Respiration 16 Pulse 65 Pulse Source Monitor Temp 98.8 F Temp Source Temporal Pulse Oximetry (%) 98 Intake Visit Reasons: DISCUSS RA Chief Complaint: Right Arm Pain, Knee Pain Hand Violin Maker Required: No Accompanied by: Self Is patient in pain?: No Allergies bacitracin (From Neosporin (fdl-iex-vhiml)) Allergy (Verified 10/17/24 08:56) Rash neomycin (From Neosporin (zsn-vmu-smqtc)) Allergy (Verified 10/17/24 08:56) Rash Penicillins Allergy (Verified 10/17/24 08:56) Hives polymyxin B (From Neosporin (kix-zqx-oucwm)) Allergy (Verified 10/17/24 08:56) Rash egg (eggs) Adverse Reaction (Verified 10/17/24 08:56) Abd cramps/diarrhea Food Allergies: Uncoded Adverse Reaction (Verified 10/17/24 08:56) Abd cramps/diarrhea Medications ???Medication ???Instructions ???Recorded ???Confirmed ???Type albuterol sulfate 2.5 mg/3 mL 2.5 mg (3 mL) inhalation Q4H PRN 0 06/10/24 10/17/24 Rx (0.083 %) solution for nebulization #25 vials pantoprazole 40 mg tablet,delayed 40 mg PO QDAY esophagitis #90 tab s 07/28/24 10/17/24 Rx release albuterol sulfate 90 mcg/actuation 2 puff inhalation Q4H PRN PRN 10/17/24 Rx aerosol inhaler (Ventolin HFA) Wheezing ##1 mometasone-formoterol HFA 100 2 puff inhalation BID #8.8 grams 0 08/04/24 10/17/24 Rx mcg-5 mcg/actuation aerosol inhaler (Dulera) albuterol sulfate 90 mcg/actuation 2 puff inhalation Q6H PRN 10/17/24 Rx aerosol inhaler shortness of breath or wheezing #8.5 grams meloxicam 15 mg tablet 15 mg PO QDAY #30 tabs 10/17/24 Rx Nurse's Note: Right arm pain, says her chiropractor told her she has a microtear in her shoulder/arm due to a arthritic bone spur. Then, her knees feel swollen and painful, which was helped by prednisone. 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 Patient is looking for relieve for pain along with issues sleeping. 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 Patient has a history of having right shoulder pains bilateral knee pains (was told previously that she had bakers knee). She states that she went to the ER last month due to her pains in the shoulder. She states that she was working with her horse and felt pains in her shoulder (not an injury or significant incident). She was given prescription for prednisone which she states really helped her. She states that after taking that her knees pretty much stopped hurting all together. Ths shoulder has shown a lot of improvement. She denies any swelling or skin changes. She denies numbness or tingling in the extremity. ROS Const Constitutional: No body ache, chills, excessive sweating, fatigue, fever(s), frequent falls, headache(s), snoring, weakness, weight change, sleep problems or change in appetite Eyes Eyes: No blurry vision, change in vision, eye pain or Light sensitivity ENT ENT: No abnormal hearing, ear or mastoid pain, tinnitus, nasal congestion, headache(s), neck pain or sore throat Resp Respiratory: No cough, shortness of breath, snoring or wheezing Cardio Cardiology: No chest pain at rest, chest pain with exertion, excessive sweating, shortness of breath, lightheadedness, orthopnea or palpitatio (more content not included)... Normal [facility] Bilirubin directOrdered By: Katie Ordaz on 10-15-2024 Bilirubin.direct [Mass/Vol] 0.10 mg/dL 0.00-0.30 [facility] Bilirubin, totalOrdered By: Katie Ordaz on 10-15-2024 Bilirubin [Mass/Vol] 0.24 mg/dL 0.00-1.30 [facility] Calculated very low density lipoprotein (VLDL) cholesterol measurementOrdered By: Katie Ordaz on 10-15-2024 Calculated very low density lipoprotein (VLDL) cholesterol measurement 15 mg/dL 5-40 [facility] LDL calc ser/plasOrdered By: Katie Ordaz on 10-15-2024 Cholesterol in LDL [Mass/Vol] 135 mg/dL [facility] Comment on above: Xxypffkgfp=513-593 m g/dL & Higher Xlwo=047 mg/dL or greater Laboratory - Chemistry and C hemistry - challengeOrdered By: Katie Ordaz on 10-15-2024 AST [Catalytic activity/Vol] 21 U/L <32 [facility] Lipid Profileon 10-15-2024 CHOL:HDL 2.96 Normal [facility] Comment on above: Performed By: #### L 500.3400, L500.4100, L506.1001 #### [facility] [address] [place], [place], [id number] (153) Cholesterol [Mass/Vol] 227 mg/dL High <=200 [facility] Comment on above: Result Comment: Chol esterol level, Desirable <200 mg/dL Borderline high cholesterol 200-239 mg/dL High cholesterol >=240 mg/dL Recommendations of the NCEP Adult Treatment Panel for the following risk-cutoff thresholds for the [place] population. Performed By: #### L 500.3400, L500.4100, L506.1001 #### [facility] [address] [place], [address] Cholesterol in HDL [Mass/Vol] 77 mg/dL Normal [facility] Comment on above: Result Comment: Corrie onal Cholesterol Education Program (NCEP) guidelines: <40 mg/dL: Low HDL-cholesterol (major risk factor for CHD) >= 60 mg/dL: High HDL-cholesterol (negative risk factor for CHD) HDL-cholesterol is affected by a number of factors, e.g. smoking, exercise, hormones, sex and age. Performed By: #### L 500.3400, L500.4100, L506.1001 #### [facility] [address] [place], [address] Cholesterol in LDL [Mass/Vol] 135 mg/dL Normal [facility] Comment on above: Result Comment: Bord fewrcy=575-699 mg/dL Higher Imle=470 mg/dL or greater Performed By: #### L 500.3400, L500.4100, L506.1001 #### [facility] [address] [place], [address] Cholesterol in VLDL [Mass/Vol] 15 mg/dL Normal 5-40 [facility] Comment on above: Performed By: #### L 500.3400, L500.4100, L506.1001 #### [facility] [address] [place], [address] Triglyceride [Mass/Vol] 75 mg/dL Normal [facility] Comment on above: Result Comment: The drugs N-Acetylcysteine and Metamizole may falsely depress this assay. Normal range: <150 mg/dL Borderline High: 150-199 mg/dL High: 200-499 mg/dL Very High: >500 mg/dL Performed By: #### L 500.3400, L500.4100, L506.1001 #### [facility] [address] [place], [address] Liver Profileon 10-15-2024 Albumin [Mass/Vol] 3.9 g/dL Normal 3.4-4.8 [facility] Comment on above: Performed By: #### L 500.3400, L500.4100, L506.1001 #### [facility] [address] [place], [address] ALK PHOS 55 U/L Normal 35-104 [facility] Comment on above: Performed By: #### L 500.3400, L500.4100, L506.1001 #### [facility] [address] [place], [address] ALT [Catalytic activity/Vol] 23 U/L Normal <=34 [facility] Comment on above: Performed By: #### L 500.3400, L500.4100, L506.1001 #### [facility] [address] [place], [address] AST [Catalytic activity/Vol] 21 U/L Normal <=31 [facility] Comment on above: Performed By: #### L 500.3400, L500.4100, L506.1001 #### [facility] [address] [place], [address] Bilirubin [Mass/Vol] 0.24 mg/dL Normal 0.00-1.30 [facility] Comment on above: Performed By: #### L 500.3400, L500.4100, L506.1001 #### [facility] [address] [place], [address] Bilirubin.direct [Mass/Vol] 0.10 mg/dL Normal 0.00-0.30 [facility] Comment on above: Performed By: #### L 500.3400, L500.4100, L506.1001 #### [facility] [address] [place], [address] Globulin (S) [Mass/Vol] 3.0 g/dL Normal 2.2-4.2 [facility] Comment on above: Performed By: #### L 500.3400, L500.4100, L506.1001 #### [facility] [address] [place], [address] T PROT 6.8 g/dL Normal 5.9-8.4 [facility] Comment on above: Performed By: #### L 500.3400, L500.4100, L506.1001 #### [facility] [address] [place], [place], [id number] Screening total cholesterol/ high density lipoprotein (HDL) cholesterol ratioOrdered By: Katie Ordaz on 10-15-2024 Cholesterol.total/Choles terol in HDL [Mass ratio] 2.96 {ratio} [facility] Serum globulin measurementOr dered By: Katie Ordaz on 10-15-2024 Globulin (S) [Mass/Vol] 3.0 g/dL 2.2-4.2 [facility] Serum or plasma alanine eugene otransferase (ALT) measurementOrdered By: Katie Ordaz on 10-15-2024 ALT [Catalytic activity/Vol] 23 U/L <35 [facility] Serum or plasma albumin fernie urement (mass/volume)Ordered By: Katie Ordaz on 10-15-2024 Albumin [Mass/Vol] 3.9 g/dL 3.4-4.8 [facility] Serum or plasma alkaline lorena sphatase measurementOrdered By: Katie Ordaz on 10-15-2024 ALP [Catalytic activity/Vol] 55 U/L 35-104 [facility] Serum or plasma cholesterol in HDL measurement (mass/volume)Ordered By: Katie Ordaz on 10-15-2024 Cholesterol in HDL [Mass/Vol] 77 mg/dL >40 [facility] Comment on above: National Cholesterol Education Program (NCEP) guidelines:<40 mg/dL: Low HDL-cholesterol (major risk factor for CHD)>= 60 mg/dL: High HDL-cholesterol (negative risk factor for CHD)HDL-cholesterol is affected by a number of factors, e.g. smoking, exercise, hormones, sex and age. Serum or plasma cholesterol measurement (mass/volume)Ordered By: Katie Ordaz on 10-15-2024 Cholesterol [Mass/Vol] 227 mg/dL High <201 [facility] Comment on above: Cholesterol level, D esirable <200 mg/dLBorderline high cholesterol 200-239 mg/dLHigh cholesterol >=240 mg/dLRecommendations of the NCEP Adult Treatment Panel for the following risk-cutoff thresholds for the [place] population. Total proteinOrdered By: Alo Ordaz on 10-15-2024 Protein [Mass/Vol] 6.8 g/dL 5.9-8.4 [facility] Triglycerides measurementOrd ered By: Katie Ordaz on 10-15-2024 Triglyceride [Mass/Vol] 75 mg/dL <199 [facility] Comment on above: The drugs N-Acetylcy steine and Metamizole may falsely depress this assay. Normal range: <150 mg/dLBorderline High: 150-199 mg/dLHigh: 200-499 mg/dLVery High: >500 mg/dL Vitamin D,25 Hydroxyon 10-15 Vitamin D 25-OH 27.3 ng/mL Low 30-100 [facility] Comment on above: Result Comment: Gini min D Status Deficiency: <20 ng/mL (50nmol/L) Insufficiency: 20-30 ng/mL (50-75 nmol/L) Sufficiency: 30-100 ng/mL (75-250 nmol/L) Toxicity: >100 ng/mL (>250 nmol/L) Performed By: #### L 500.3400, L500.4100, L506.1001 #### [facility] [address] [place], [address] Emergency Department Summary on 09-15-2024 Emergency Department Summary [facility] Medical Records Department [address] [place] [address] Emergency Department Summary 09/15/24 MR#: [id number] Acct: [id number] Name: RENUKA MEANS Rep #: [id number] : 1960 64 From: Curtis Rosas DO PCP: Care Physician,No Primary Status:REG ER Location: ED HPI History of Present Illness Chief Complaint: Upper Extremity Injury [facility] Medical History (Updated 09/15/24 @ 22:[address] Curtis Rosas DO) Wears glasses Anxiety Marijuana use Former smoker Shortness of breath on exertion COPD (chronic obstructive pulmonary disease) Pneumonia Home Medications ???Medication ???Instructions ???Recorded ???Last Taken ???Type multivitamin 1 tab PO QAM 05/15/24 Unknown Hist ory albuterol sulfate 2.5 mg/3 mL 2.5 mg (3 mL) inhalation Q4H PRN 0 06/10/24 Unknown Rx (0.083 %) solution for nebulization #25 vials calcium polycarbophil 625 mg 1,250 mg (2 x 625 mg) PO QDAY #180 07/28/24 Unknown Rx tablet (FiberCon) tabs pantoprazole 40 mg tablet,delayed 40 mg PO QDAY esophagitis #90 tab s 07/28/24 Unknown Rx release albuterol sulfate 90 mcg/actuation 2 puff inhalation Q4H PRN PRN Unknown Rx aerosol inhaler (Ventolin HFA) Wheezing ##1 mometasone-formoterol HFA 100 2 puff inhalation BID #8.8 grams 0 08/04/24 Unknown Rx mcg-5 mcg/actuation aerosol inhaler (Dulera) albuterol sulfate 90 mcg/actuation 2 puff inhalation Q6H PRN Unknown Rx aerosol inhaler shortness of breath or wheezing #8.5 grams methocarbamol 500 mg tablet 500 mg PO TID 7 days #21 tabs 01/01 Unknown Rx prednisone 20 mg tablet 20 mg PO DAILY #5 tabs 09/15/24 Un known Rx Allergy/AdvReac Type Severity Reaction Status Date / Time bacitracin (From Neosporin Allergy Rash Verified 09/15/24 20:37 (dqi-tkp-zners)) neomycin (From Neosporin Allergy Rash Verified 09/15/24 20:37 (ofs-pak-fqyje)) Penicillins Allergy Hives Verified 09/15/24 20:37 polymyxin B (From Neosporin Allergy Rash Verified 09/15/24 20:37 (czn-tkp-pltza)) egg (eggs) AdvReac Abd Verified 09/15/24 20:37 cramps/diarrhea Food Allergies: Uncoded AdvReac Abd Verified 09/15/24 20:37 cramps/diarrhea Family History (Reviewed 08/04/24 @ 14:30 by Blanca Pierre ROADABILITY MACHINE OPERATOR, ROADABILITY MACHINE OPERATOR-C) Father Alcohol abuse Arthritis Cancer LARYNGEAL COPD (chronic obstructive pulmonary disease) Mother Osteoporosis Surgical History History of colonoscopy , tubal with rupture History of back surgery Social History household members: significant other housing: house current occupational status: employed 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 [employer] Smoking Status: Former smoker quit date: 04/09/24 pack-years: 23 alcohol intake: current alcohol intake frequency: holidays/special occasions only substance use type: marijuana frequency: daily do you feel safe at home: Yes EXAM Physical Exam Const Vital Signs: 09/15/24 20:33 Temperature 98.2 F Temperature Source Oral Pulse Rate 84 Respiratory Rate 16 Blood Pressure 118/102 H Blood Pressure Mean 107 Pulse Ox 97 Oxygen Delivery Method Room Air MDM MDM MDM Narrative Medical decision making narrative: HISTORY OF PRESENT ILLNESS: Chief complaint: Shoulder pain 64-year-old female history of COPD, marijuana use, anxiety and pneumonia presents with right shoulder pain patient states this began 1 week ago. She notes at that time she did ride a horse. She states she used to ride horses all the time but was riding horse in a parade. She is right-hand dominant. She denies inciting event or trauma but noted 1 to 2 days after riding horse she developed severe right shoulder pain. Pain comes in waves. Denies neck pain. No IV drug use or diabetes history noted. No fever history noted. REVIEW OF SYSTEMS: Pertinent positives: Shoulder pain Pertinent negatives: Fever, chest pain, shortness of breath, neck pain PHYSICAL EXAM: Nursing triage notes reviewed, Vital signs reviewed Constitutional: please see mdm HENT: MMM Eyes: Pupils equal round and reactive to light, Extraocular muscles intact Neck: No stridor, no JVD, full neck ROM Lungs: Clear to auscultation, No wheezing or rales. No increased work of breathing, no conversational dyspnea, no accessory muscle use, no nasal flaring. No respiratory distress noted Heart: Regular rate and rhythm, No murmurs, No rubs and No gallops, 2+ distal pulses (radial, femoral, posterior tibial) in all extremities Extremities: No edema, painful but intact flexion extension. No palpable effusion. No warmth. Internal rotation of the right shoulder TTP over r (more content not included)... Normal [facility] Shoulder min 2 Viewson 09-15 Shoulder min 2 Views [facility] Imaging Services [address] [place] [address] Shoulder min 2 Views MR#: [id number] Acct: [id number] Name: RENUKA MEANS Rep #: [id number] : 1960 F 64 From: Gisella Lewis nd, MD PCP: Care Physician,No Primary Status: PRE ER Study: Shoulder min 2 Views Date of Exam: 09/15/24 Exam# [id number] Ordering Dr: Provider,Ed P. PROCEDURE: SHOULDER MIN 2 VIEWS 09/15/2024 REASON FOR EXAM: PAIN TECHNIQUE: Five views of the right shoulder COMPARISON: None. FINDINGS: Bones: No acute fracture. No aggressive osseous lesions. Joints: Normal alignment. Moderate degenerative changes. Soft tissues: Soft tissues are unremarkable. Other: The visualized lungs are unremarkable. RAD/Shoulder min 2 Views IMPRESSION: NO ACUTE FRACTURE OR DISLOCATION. Reading Location: [id number] CC: ED PHYSICIAN PROVIDER; No Primary Care Physician Lens Inserter: Signed Normal [facility] Pulmonary Visit Reporton Pulmonary Visit Report [facility] [place] [address] [place] [address] OFFICE VISIT Date of Service: 08/04/24 MR#: [id number] Acct: [id number] Name: RENUKA MEANS Rep #: [id number] : 1960 Provider: HKAI Pierre Age/Sex: 64/F [place] [facility] Status: Signed Assessment and Plan Assessment and Plan (1) COPD (chronic obstructive pulmonary disease): Status: Chronic Qualifiers: COPD type: unspecified COPD Qualified Code(s): J44.9 - Chronic obstructive pulmonary disease, unspecified Comment: FEV1 86% of predicted Plan: Recent PFT only indicates mild COPD. The patient has been successfully treated with Dulera in the past, she does not have hyperinflation or air trapping on the PFT. I believe it would be appropriate to continue with Dulera. She likely has an asthma overlap component that was not revealed on this PFT. She does have wheezing on exam today, but she states that she ran out of Dulera 2 days ago. I will refill the medication for her. Follow-up in 1 month. (2) Smoking greater than 20 pack years: Status: Chronic Plan: Complicates exam, plan, care and prognosis. Continue to encourage ongoing smoking cessation. The patient has been successful at complete smoking cessation for the past 2 months. She is appropriate for LDCT, which has been ordered accordingly. Follow-up in the office in 4 to 6 weeks to discuss test results. Orders: Orders Low Dose CT Lung Screening Today F17.200 - Nicotine dependence, unspecified, uncomplicated, F17.210 - Nicotine dependence, cigarettes, uncomplicated Medications: Refilled mometasone-formoterol 100-5 mcg/actuation (Dulera) 2 puffs inhalation BID 8.8 grams 3RF albuterol sulfate 90 mcg/actuation (Ventolin HFA) 2 puffs inhalation Q4H PRN PRN #1 11RF Wheezing Plan Details Additional Comments: This note was generated with [employer] dictation software. It may contain incorrect words, spelling, and punctuation that were not noted in checking the note before signing. Follow Up: 6 Weeks (CSM) HPI 6 wk FU Chief Complaint: Test results HPI Comments Details: This patient presents to the office today to discuss test results. She is ambulatory and currently on room air. She has not recently been seen in the ED or urgent care for any respiratory illness. She has not required any antibiotics or prednisone for any breathing problems. She is typically compliant with the use of Dulera 2 puffs twice daily. However, she ran out of the inhaler 2 days ago and does not have a refill available. She does report rinsing her mouth out after each use. She denies any medication side effect such as sore throat or thrush. She has not needed albuterol rescue inhaler. She does need a refill on that as well. She has shortness of breath on exertion only. She has a cough that can be productive of clear- colored sputum. She does admit to wheezing but denies any chest tightness, chest pain or palpitations. She has not had any fever, chills or body aches. She continues complete smoking cessation. She quit smoking 2 months ago. She does have a greater than 82-kscg-gqvs smoking history. Test results personally with patient: Pulmonary function test completed on July 11, 2024. Impression is irreversible mild large airway obstructive ventilatory defect with preserved lung volumes and diffusion capacity. FEV1 86% of predicted. Walking oximetry completed July 28, 2024. The patient was able to ambulate 1427 feet over the course of 6 minutes. She did not become hypoxic and does not currently require any supplemental oxygen. Intake Vital Signs 06/19/24 08:35 08/04/24 08:49 Height 5 ft 9 in 5 ft 9 in Weight: 207 lb BMI 30.5 BP 112/73 Blood Pressure Location Lt brachial Position Sitting Respiration 18 Pulse 78 Pulse Source Monitor Temp 97.4 F L Temperature Source Temporal Artery Pulse Oximetry (%) 96 Oxygen Delivery Method room air Intake Visit Reasons: 6 wk FU Chief Complaint: f/u scope Hand Violin Maker Required: No Accompanied by: Self Allergies bacitracin (From Neosporin (ndk-fah-fwmhx)) Allergy (Verified 08/04/24 14:19) Rash neomycin (From Neosporin (aod-kif-kefsa)) Allergy (Verified 08/04/24 14:19) Rash Penicillins Allergy (Verified 08/04/24 14:19) Hives polymyxin B (From Neosporin (mai-lgz-jbmnj)) Allergy (Verified 08/04/24 14:19) Rash egg (eggs) Adverse Reaction (Verified 08/04/24 14:19) Abd cramps/diarrhea Food Allergies: Uncoded Adverse Reaction (Verified 08/04/24 14:19) Abd cramps/diarrhea Medications ???Medication ???Instructions ???Recorded ???Confirmed ???Type albuterol sulfate 90 mcg/actuation 2 puff inhalation Q6H PRN 08/04/24 History aerosol inhaler shortness of breath or wheezing multivitamin (more content not included)... Normal [facility] 6 Minute Walk Teston 08-01-2 025 6 Minute Walk Test y [facility] Pulmonary Services/Neurology [address] [place] [address] MR#: [id number] Acct: [id number] Name: CLARYRENUKA SUE Rep #: [id number] : 1960 64 From: Hoang Valdivia DO Referring Dr: Hoang Valdivia DO Status: DEP CLI Location: PSN Date: Sex: F C PSN 6 Minute Walk Test 6 Minute Walk Test 6 Minute Walk Test: 6 Minute Walk Test PSN:6-Minute Walk Test Start: 07/28/24 12:28 Freq: Status: Discharge Protocol: RESP.6MINW Document 07/28/24 12:28 SFENTON (Rec: 07/28/24 12:30 SFENTON [id number]) 6 Minute Walk Test Date Performed 07/28/24 Time Performed 12:15 Height 5 ft 9 in Weight: 197 lb Weight in Pounds 197.[address]: Hoang Valdivia Assistive device None used: Pre-test Oxygen Delivery Room Air Method Pulse Ox (%) 96 Pulse Rate (60-100 80 beats/min) Dyspnea Ruth Scale ( 0 0-10) Exertion Ruth Scale 6 (6-20) 1st minute Oxygen Delivery Room Air Method Pulse Ox (%) 95 Pulse Rate (60-100 106 H beats/min) 2nd minute Oxygen Delivery Room Air Method Pulse Ox (%) 95 Pulse Rate (60-100 113 H beats/min) 3rd minute Oxygen Delivery Room Air Method Pulse Ox (%) 95 Pulse Rate (60-100 122 H beats/min) 4th minute Oxygen Delivery Room Air Method Pulse Ox (%) 96 Pulse Rate (60-100 118 H beats/min) 5th minute Oxygen Delivery Room Air Method Pulse Ox (%) 95 Pulse Rate (60-100 117 H beats/min) 6th minute Oxygen Delivery Room Air Method Pulse Ox (%) 96 Pulse Rate (60-100 119 H beats/min) Dyspnea Ruth Scale ( 1 0-10) Exertion Ruth Scale 12 (6-20) Post-test Oxygen Delivery Room Air Method Pulse Ox (%) 96 Pulse Rate (60-100 90 beats/min) Full Laps Walked 24 Partial Lap, Number 11 of Tiles Walked Total Distance 1427 Walked (ft) Interpretation Interpretation: The patient ambulated 1427 feet over the course of 6 minutes beginning on room air without assistive devices. Pretesting oxygen saturation was noted to be 96% on room air. With ambulation, the cecily oxygen saturation was 95%. There was no significant exertional oxygen desaturation. Recommendations Recommendations: There is no indication for the use of supplemental oxygen at this time. 08/01/24 1221 Date Hoang Valdivia DO CC: Date Dictated: 08/01/24 1220 Date Transcribed: 08/01/241219 Lens Inserter: Dr. Hoang Valdivia, Signed Normal [facility] Gastroenterology Visit Repor ton 07-28-2024 Gastroenterology Visit Report [facility] Gastroenterology [address] [place] [address] OFFICE VISIT Date of Service: 07/28/24 MR#: [id number] Acct: [id number] Name: RENUKA MEANS Rep #: [id number] : 1960 Provider: KHAI pritchett Age/Sex: 64/F [place] [facility] [place] Status: Signed Intake Vital Signs 05/15/24 14:08 07/28/24 12:28 07/28/24 15:37 Height 5 ft 9 in 5 ft 9 in 5 ft 9 in Weight: 201 lb BMI 29.7 BP 117/77 Blood Pressure Location Rt brachial Position Sitting Pulse 85 Pulse Oximetry (%) 94 Oxygen Delivery Method room air Intake Visit Reasons: Follow Up Scope Chief Complaint: f/u scope Allergies bacitracin (From Neosporin (sln-ztd-zvmot)) Allergy (Verified 07/28/24 15:39) Rash neomycin (From Neosporin (zcq-bkj-rwakb)) Allergy (Verified 07/28/24 15:39) Rash Penicillins Allergy (Verified 07/28/24 15:39) Hives polymyxin B (From Neosporin (pij-joo-tuuoe)) Allergy (Verified 07/28/24 15:39) Rash egg (eggs) Adverse Reaction (Verified 07/28/24 15:39) Abd cramps/diarrhea Food Allergies: Uncoded Adverse Reaction (Verified 07/28/24 15:39) Abd cramps/diarrhea Medications ???Medication ???Instructions ???Recorded ???Confirmed ???Type albuterol sulfate 90 mcg/actuation 2 puff inhalation Q6H PRN 07/28/24 History aerosol inhaler shortness of breath or wheezing multivitamin 1 tab PO QAM 05/15/24 07/28/24 His tory albuterol sulfate 2.5 mg/3 mL 2.5 mg (3 mL) inhalation Q4H PRN 0 06/10/24 07/28/24 Rx (0.083 %) solution for nebulization #25 vials albuterol sulfate 90 mcg/actuation 2 puff inhalation Q4H PRN PRN 07/28/24 Rx aerosol inhaler (Ventolin HFA) Wheezing ##1 mometasone-formoterol HFA 100 2 puff inhalation BID #8.8 grams 0 06/19/24 07/28/24 Rx mcg-5 mcg/actuation aerosol inhaler (Dulera) calcium polycarbophil 625 mg 1,250 mg (2 x 625 mg) PO QDAY #180 07/28/24 07/28/24 Rx tablet (FiberCon) tabs pantoprazole 40 mg tablet,delayed 40 mg PO QDAY esophagitis #90 tab s 07/28/24 07/28/24 Rx release PFSH Medical History Wears glasses Anxiety Marijuana use Former smoker Shortness of breath on exertion COPD (chronic obstructive pulmonary disease) Pneumonia Surgical History , tubal with rupture History of back surgery Family History Father Alcohol abuse Arthritis Cancer LARYNGEAL COPD (chronic obstructive pulmonary disease) Mother Osteoporosis Social History household members: significant other housing: house current occupational status: employed 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 She reports stools are daily but small rabbit poop. She does not like taking medications and reports she has been taking OTC herbs and roots to manage constipation. She complains of straining with bowel movements and intermittent BRBPR. I have recommended a high fiber diet with the addition of FiberCon tablets daily. She will complete Sitz marker testing, ARM and colonoscopy. She reports HB symptoms are intermittent and denies any N/V or weight loss. I have started her on pepcid 20mg daily and she will schedule EGD. Patient Instructions: High Fiber Diet Start FiberCon tablets, 2 tablets once a day with 8 ounces of water Water intake - at least 64 ounces a day Complete Sitz Marker Study Colonoscopy and EGD Pepcid prescription sent to your pharmacy for management of heartburn --Will await Sitz Marker Results before starting any medications for constipation Complete lab testing Anorectal Manometry - Please call the number below to schedule [facility] Dr. Meghann Langley [address] [place] [address] P: [phone] F: [phone] Castellanos' s esophagus and 2 adenomatous polyps COLON 07/16/2024 - Preparation of the colon was fair. - Diverticulosis in the recto-sigmoid colon, in the sigmoid colon, in the descending colon, at the splenic flexure, in the transverse colon, at the hepatic flexure and in the ascending colon. - Two 6 mm polyps in the sigmoid colon and at the splenic flexure, rem (more content not included)... Normal [facility] Internal Medicine Office Vis itojuan 07-21-2024 Internal Medicine Office Visit [facility] [address] [place] [address] [place] [address] OFFICE VISIT Date of Service: 07/22/24 MR#: [id number] Acct: [id number] Name: RENUKA MEANS Rep #: [id number] : 1960 Provider: Dr. 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 Is patient in pain?: Yes (LOWER BACK (CHRONIC)) Pain scale (1-10): 6 Allergies bacitracin (From Neosporin (gys-lxx-txapx)) Allergy (Verified 07/22/24 14:05) Rash neomycin (From Neosporin (qlz-hbp-vrbyv)) Allergy (Verified 07/22/24 14:05) Rash Penicillins Allergy (Verified 07/22/24 14:05) Hives polymyxin B (From Neosporin (dzt-ggq-lpkct)) Allergy (Verified 07/22/24 14:05) Rash egg (eggs) Adverse Reaction (Verified 07/22/24 14:05) Abd cramps/diarrhea Food Allergies: Uncoded Adverse Reaction (Verified 07/22/24 14:05) Abd cramps/diarrhea Medications ???Medication ???Instructions ???Recorded ???Confirmed ???Type albuterol sulfate 90 mcg/actuation 2 puff inhalation Q6H PRN 07/22/24 History aerosol inhaler shortness of breath or wheezing multivitamin 1 tab PO QAM 05/15/24 07/22/24 His tory albuterol sulfate 2.5 mg/3 mL 2.5 mg (3 mL) inhalation Q4H PRN 0 06/10/24 07/22/24 Rx (0.083 %) solution for nebulization #25 vials albuterol sulfate 90 mcg/actuation 2 puff inhalation Q4H PRN PRN 07/22/24 Rx aerosol inhaler (Ventolin HFA) Wheezing ##1 mometasone-formoterol HFA 100 2 puff inhalation BID #8.8 grams 0 06/19/24 07/22/24 Rx mcg-5 mcg/actuation aerosol inhaler (Dulera) lansoprazole 15 mg capsule,delayed 15 mg PO QDAY 07/22/24 07/22/24 History release PFSH Medical History Wears glasses Anxiety Marijuana use Former smoker Shortness of breath on exertion COPD (chronic obstructive pulmonary disease) Pneumonia Surgical History , tubal with rupture History of back surgery Family History Father Alcohol abuse Arthritis Cancer LARYNGEAL COPD (chronic obstructive pulmonary disease) Mother Osteoporosis Social History household members: significant other housing: house current occupational status: employed 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 1. Little interest or pleasure in doing things: not at all 2. Feeling down, depressed, or hopeless: not at all 3. Trouble falling or staying asleep, or sleeping too much: nearly every day 4. Feeling tired or having little energy: nearly every day 5. Poor appetite or overeating: not at all 6. Feeling bad about yourself - or that you are a failure or have let yourself and your family down: not at all 7. Trouble concentrating on things, such as reading the newspaper or watching television: not at all 8. Moving or speaking so slowly that other people could have noticed? - Or the opposite - being so fidgety or restless that you have been moving around a lot more than usual: not at all 9. Thoughts that you would be better off or of hurting yourself in some way: not at all Total score: 6 If you checked off any problems, how difficult have these problems made it for you to do your work, take care of things at home, or get along with other people?: not difficult at all Source: Developed by Drs. Mitchel Sierra, Kiki Choe, Celestine Thakkar and colleagues, with an educational kaiden from [employer] LINH-7 BMS LINH-7 Feeling nervous, anxious, or on edge: 0 = Not at all Not being able to stop or control worryin = Not at all Worrying too much about different things: 0 = Not at all Trouble relaxin = Not at all Being so restless that it is hard to sit still: 0 = Not at all Becoming easily annoyed or irritable: 0 = Not at all (marijuana helps) Feeling afraid as if something awful might happen: 0 = Not at all Total LINH-7 score (0-4 normal; (more content not included)... Normal [facility] Colonoscopy Reporton 025 Colonoscopy Report [facility] Medical Records Department [address] [place] [address] Colonoscopy Report MR#: [id number] Acct: [id number] Name: RENUKA MEANS Rep #: [id number] : 1960 64 From: Gold Palomino DO PCP: Care Physician,No Primary Status:[facility] Patient Name: Renuka Means Procedure Date: 07/16/2024 12:33 PM Date of : 1960 Age: 64 Procedure: Colonoscopy Indications: Screening for colorectal malignant neoplasm Providers: Gold Palomino DO Referring MD: No Primary Care Physician Medicines: Monitored Anesthesia Care Patient Profile: This is a 64 year old female. Refer to note in patient chart for documentation of history and physical. Patient has symptoms of chronic heartburn. Last Colonoscopy: more than 10 years ago. Complications: No immediate complications. Procedure: Pre-Anesthesia Assessment: - Prior to the procedure, a History and Physical was performed, and patient medications and allergies were reviewed. The patient is competent. The risks and benefits of the procedure and the sedation options and risks were discussed with the patient. All questions were answered and informed consent was obtained. Patient identification and proposed procedure were verified by the physician in the pre-procedure area. Mental Status Examination: alert and oriented. Airway Examination: normal oropharyngeal airway and neck mobility. Respiratory Examination: clear to auscultation. CV Examination: normal. Prophylactic Antibiotics: The patient does not require prophylactic antibiotics. Prior Anticoagulants: The patient has taken no anticoagulant or antiplatelet agents except for NSAID medication. ASA Grade Assessment: II - A patient with mild systemic disease. After reviewing the risks and benefits, the patient was deemed in satisfactory condition to undergo the procedure. The anesthesia plan was to use monitored anesthesia care (MAC). Immediately prior to administration of medications, the patient was re-assessed for adequacy to receive sedatives. The heart rate, respiratory rate, oxygen saturations, blood pressure, adequacy of pulmonary ventilation, and response to care were monitored throughout the procedure. The physical status of the patient was re-assessed after the procedure. After I obtained informed consent, the scope was passed under direct vision. Throughout the procedure, the patient's blood pressure, pulse, and oxygen saturations were monitored continuously. The pediatric colonoscope was introduced through the anus and advanced to the cecum, identified by appendiceal orifice and ileocecal valve. The colonoscopy was performed without difficulty. The patient tolerated the procedure well. The quality of the bowel preparation was fair. The ileocecal valve, appendiceal orifice, and rectum were photographed. Scope In: 12:34:35 PM Scope Withdrawal Time 0 hours 8 minutes 48 seconds Scope Out: 12:49:45 PM Total Procedure Duration Time 0 hours 15 minutes 10 seconds Findings: The perianal and digital rectal examinations were normal. Multiple small and large-mouthed diverticula were found in the recto-sigmoid colon, sigmoid colon, descending colon, splenic flexure, transverse colon, hepatic flexure and ascending colon. Two sessile polyps were found in the sigmoid colon and splenic flexure. The polyps were 6 mm in size. These polyps were removed with a jumbo cold forceps. Resection and retrieval were complete. Verification of patient identification for the specimen was done. Estimated blood loss was minimal. Stool was found in the rectum, in the recto-sigmoid colon, in the sigmoid colon, in the descending colon and in the ascending colon. Mild rectal prolapse was present. Impression: - Preparation of the colon was fair. - Diverticulosis in the recto-sigmoid colon, in the sigmoid colon, in the descending colon, at the splenic flexure, in the transverse colon, at the hepatic flexure and in the ascending colon. - Two 6 mm polyps in the sigmoid colon and at the splenic flexure, removed with a jumbo cold forceps. Resected and retrieved. - Stool in the rectum, in the recto-sigmoid colon, in the sigmoid colon, in the descending colon and in the ascending colon. - Rectal prolapse. Recommendation: - Discharge patient to home. - Resume previous diet. - Continue present medications. - Await pathology results. - Repeat colonoscopy for surveillance. - Return to GI office. Procedure Code(s): --- Professional --- 35868, Colonoscopy, flexible; with biopsy, single or multiple CPT copyright 2021 [employer]. All rights reserved. The codes documented in this report are preliminary and upon data coder operator review may be revised to meet current compliance requirements. Gold Palomino DO 07/16/2024 1:03:18 PM This (more content not included)... Normal [facility] EGD Reporton 07-16-2024 EGD Report [facility] Medical Records Department [address] [place] [address] EGD Report MR#: [id number] Acct: [id number] Name: RENUKA MEANS Rep #: [id number] : 1960 64 From: Gold Palomino DO PCP: Care Physician,No Primary Status:[facility] Patient Name: Renuka Means Procedure Date: 07/16/2024 12:03 PM Date of : 1960 Age: 64 Procedure: Upper GI endoscopy Indications: Heartburn Providers: Gold Palomino DO Referring MD: No Primary Care Physician Medicines: Monitored Anesthesia Care Patient Profile: This is a 64 year old female. Refer to note in patient chart for documentation of history and physical. Patient has symptoms of chronic heartburn. Complications: No immediate complications. Procedure: Pre-Anesthesia Assessment: - Prior to the procedure, a History and Physical was performed, and patient medications and allergies were reviewed. The patient is competent. The risks and benefits of the procedure and the sedation options and risks were discussed with the patient. All questions were answered and informed consent was obtained. Patient identification and proposed procedure were verified by the physician in the pre-procedure area. Mental Status Examination: alert and oriented. Airway Examination: normal oropharyngeal airway and neck mobility. Respiratory Examination: clear to auscultation. CV Examination: normal. Prophylactic Antibiotics: The patient does not require prophylactic antibiotics. Prior Anticoagulants: The patient has taken no anticoagulant or antiplatelet agents except for NSAID medication. ASA Grade Assessment: II - A patient with mild systemic disease. After reviewing the risks and benefits, the patient was deemed in satisfactory condition to undergo the procedure. The anesthesia plan was to use monitored anesthesia care (MAC). Immediately prior to administration of medications, the patient was re-assessed for adequacy to receive sedatives. The heart rate, respiratory rate, oxygen saturations, blood pressure, adequacy of pulmonary ventilation, and response to care were monitored throughout the procedure. The physical status of the patient was re-assessed after the procedure. After obtaining informed consent, the endoscope was passed under direct vision. Throughout the procedure, the patient's blood pressure, pulse, and oxygen saturations were monitored continuously. The pediatric colonoscope was introduced through the mouth, and advanced to the fourth part of the duodenum. Small bowel enteroscopy was deemed necessary. The upper GI endoscopy was accomplished without difficulty. The patient tolerated the procedure well. Scope In: 12:27:03 PM Scope Out: 12:33:03 PM Total Procedure Duration Time 0 hours 6 minutes 0 seconds Findings: LA Grade C (one or more mucosal breaks continuous between tops of 2 or more mucosal folds, less than 75% circumference) esophagitis with no bleeding was found 34 to 41 cm from the incisors. Mucosa was biopsied with a cold forceps for histology in 4 quadrants at intervals of 1 cm in the lower third of the esophagus. One specimen bottle was sent to pathology. Verification of patient identification for the specimen was done. Estimated blood loss was minimal. A small hiatal hernia was present. Patchy moderate inflammation characterized by congestion (edema), erosions, erythema and friability was found in the gastric body. Biopsies were taken with a cold forceps for histology. Verification of patient identification for the specimen was done. Estimated blood loss was minimal. Biopsies were taken with a cold forceps for Helicobacter pylori testing. Verification of patient identification for the specimen was done. Estimated blood loss was minimal. Patchy mildly erythematous mucosa without active bleeding and with no stigmata of bleeding was found in the second portion of the duodenum and in the third portion of the duodenum. Biopsies were taken with a cold forceps for histology. Impression: - LA Grade C reflux esophagitis with no bleeding. Biopsied. - Small hiatal hernia. - Chronic gastritis. Biopsied. - Erythematous duodenopathy. Biopsied. Recommendation: - Await pathology results. - Repeat upper endoscopy in 1 year for surveillance. - Continue present medications. Procedure Code(s): --- Professional --- 55443, Small intestinal endoscopy, enteroscopy beyond second portion of duodenum, not including ileum; with biopsy, single or multiple CPT copyright 2021 [employer]. All rights reserved. The codes documented in this report are preliminary and upon data coder operator review may be revised to meet current compliance requirements. Gold Palomino DO 07/16/2024 1:00:12 PM This report has been signed electronically. Number of Addenda: 0 Note Initiated On: (more content not included)... Normal [facility] Immunohistochemical Stainson 07-16-2024 Immunohistochemical Stains -------- Patient Age/Sex Location Account Attending Physician -------- RENUKA MEANS 64/F EN [id number] Gold Palomino DO -------- Specimen: [id number] Received: 07/17/24 Status: LEBRON Tao Num: [id number] Spec Type: EGD BIOPSY Subm Dr: DO ELISEO Nichols OPERATION: Colonoscopy, EGD with biopsy PRE-OP DIAGNOSIS: Constipation, straining during bowel movements, heartburn TISSUE SUBMITTED: A- Duodenum biopsy, B- Gastric body biopsy, C- Distal esophagus biopsy, D- Splenic flexure polyp biopsy, E- Sigmoid polyp biopsy -------- MICROSCOPIC DIAGNOSIS A. Small intestine, duodenum, biopsy: * Small bowel mucosa with no pathologic change B. Stomach, gastric body, biopsy: * Oxyntic mucosa with mild chronic focal active inflammation * The Helicobacter pylori immunostain is negative C. Distal esophagus, biopsy: * Benign squamous epithelium * Cardiac type mucosa with mild chronic inflammation and goblet cells, negative for dysplasia D. Colon, splenic flexure, polyp, biopsy: * Tubular adenoma E. Sigmoid colon, polyp, biopsy: * Tubular adenoma MICROSCOPIC DESCRIPTION Slides are reviewed. These tests were developed and their performance characteristics determined by [facility]. They may not have been cleared or approved by the U.S. Food and Drug Administration. The FDA has determined that such clearance or approval is not necessary. The above immunohistochemical/d ualISH markers are ordered and reviewed by the Pathologist. GROSS DESCRIPTION A. Received in formalin in a container labeled with the patient's name, date of , and duodenum biopsy are 2 de la garza-pink fragments of mucosal tissue measuring 0.2 x 0.2 x 0.2 cm and 0.3 x 0.3 x 0.3 cm. Submitted in toto in A1. B. Received in formalin in a container labeled with the patient's name, date of , and gastric body biopsy for H. pylori are 2 de la garza-pink fragments of mucosal tissue, each measuring 0.6 x 0.3 x 0.2 cm. Submitted in toto in B1. -------- Patient Age/Sex Location Account Attending Physician -------- RENUKA MEANS 64/F EN [id number] Gold Palomino DO -------- C. Received in formalin in a container labeled with the patient's name, date of , and distal esophagus biopsy are multiple de la garza-pink fragments of mucosal tissue measuring 1.0 x 0.4 x 0.2 cm in aggregate. Submitted in toto in C1. D. Received in formalin in a container labeled with the patient's name, date of , and splenic flexure poly biopsy are 2 de la garza-pink fragments of mucosal tissue, each measuring 0.3 x 0.2 x 0.2 cm. Submitted in toto in D1. E. Received in formalin in a container labeled with the patient's name, date of , and sigmoid polyp biopsy is a 0.3 x 0.3 x 0.3 cm fragment of de la garza-pink mucosal tissue. Submitted in toto in E1. [facility] 07-17-2024 CPT:27090e5,83686 -------- Patient Age/Sex Location Account Attending Physician -------- RENUKA MEANS 64/F EN [id number] Gold Palomino DO -------- Signed (signature on file) Dr. Almaz Dooley DO 07/18/24 1426 -------- Normal [facility] Comment on above: Performed By: #### P JOSEPH ####[facility] [address] [place], [place], [id number] MR/POSTOP.ANEon 07-16-2024 MR/POSTOP.ANE [facility] Medical Records Department [address] [place] [address] Anesthesia Postop Eval I 07/16/24 1259 MR#: [id number] Acct: [id number] Name: RENUKA MEANS Rep #: [id number] : 1960 64 From: Joe Novoa PCP: Care Physician,No Primary Status:REG SD Y Race: C Location: [place] [address] Anesthesia: Postop Eval I Current Vital Signs Temperature: 97.2 F Pulse Rate: 87 Blood Pressure: 100/66 Respiratory Rate: 16 Pulse Ox: 95 Oxygen Delivery Method: Room Air Assessment Airway patent: Yes Spontaneous unlabored respirations: Yes Mental status: Asleep nausea: No Vomiting: No Anesthesia Complication: No Fluid Hydration Crystalloid volume administer (ml): 60 Total IV fluid infused: 60 Progress Note Anesthesia document: Postop Eval 1 completed: Yes 07/16/24 1300 Date Joe Bill Signature: Date CC: Signed Normal [facility] MR/[id number] 07-16-2024 /[facility] Medical Records Department [address] [place] [address] Anesthesia Postop Eval II 07/16/24 1432 MR#: [id number] Acct: [id number] Name: RENUKA MEANS Rep #: [id number] : 1960 64 From: Len Dietz MD PCP: Care Physician,No Primary Status:DEP SD Y Race: C Location: EN Anesthesia Postop Eval I Sum Postop Eval Completion status Anesthesia document: Postop Eval 1 completed: Yes Anesthesia Postop Eval I Summary Anesthesia Postop Eval I Summary: Anesthesia Postop Eval I: Assessment Summary Airway patent Yes 07/16/24 13:00 [email or web address] Spontaneous unlabored Yes 07/16/24 13:00 [email or web address] respirations Mental status Asleep 07/16/24 13:00 [email or web address] nausea No 07/16/24 13:00 [email or web address] Vomiting No 07/16/24 13:00 [email or web address] Anesthesia Postop Eval I: Fluid Summary Crystalloid volume administer 60 07/16/24 13:00 [email or web address] (ml) Colloids volume administered ( ml) Blood Product volume administered (ml) Total IV fluid infused 60 07/16/24 13:00 [email or web address] Anesthesia Postop Eval I: Summary Notes Anesthesia Complication No 07/16/24 13:00 [email or web address] Anesthesia Complication Comment: Post-operative progress note Anesthesia: Postop Eval II Evaluation Mental status: Awake Pain Level: 0 nausea: No Vomiting: No 07/16/24 1432 Date Len Dietz MD Cosigner Signature: Date CC: Signed Normal [facility] MR/PATALEXANDERon 07-14-2024 /PAT.[facility] Medical Records Department [address] [place] [address] PAT - Anesthesia 07/14/24 1040 MR#: [id number] Acct: [id number] Name: RENUKA MEANS Rep #: [id number] : 1960 64 From: Len Dietz MD PCP: Care Physician,No Primary Status:PRE SD Y Race: C Location: EN Pre-Assessment Diagnosis/Proposed Procedure Planned Operative Procedure(s): Colonoscopy,EGD Anesthesia History Anesthesia History - manager document control: Anesthesia History - manager document control Hx Hospitalization No 07/11/24 15:26 Any Problems With Anesthesia No 07/11/24 15:26 Cholinesterase deficiency No 07/11/24 15:26 You/Your Family Experience No 07/11/24 15:26 fever (hyperthermia) with Relationship Recent Exposure to Contagious Disease Does patient have nerve No 07/11/24 15:26 stimulator Patient instructed to have device shut off --Does patient have Pacemaker or ICD? When Was Last Pacemaker Check QUESTION #4 FULL TEXT: You/Your Family Experience fever (hyperthermia) with Anesthesia Last Oral Intake Last Oral intake: Last Oral Intake NPO since Meds taken in AM with sips of water? Meds patient instructed to take am of surgery PONV PONV - manager document control: PONV - manager document control Female Yes 07/11/24 15:26 HX of Motion Sickness No 07/11/24 15:26 HX of N/V After Surgery No 07/11/24 15:26 Non-Smoker Yes 07/11/24 15:26 Duration of Surgery greater No 07/11/24 15:26 than 60 minutes Number of Risk Factors 2 07/11/24 15:26 PONV Score Moderate Risk 07/11/24 15:26 Height Weight Height Weight: Anesthesia: Height Weight Height 5 ft 9 in 05/15/24 15:33 Respiratory Assessment Respiratory Assessment - manager document control: Respiratory Tract Infection Hx - manager document control Hx Respiratory Tract Infection No 07/11/24 15:26 STOP Sleep Apnea STOP Sleep Apnea - manager document control: STOP Sleep Apnea - manager document control Hx Hypertension No 07/11/24 15:26 Hx Sleep Apnea No 07/11/24 15:26 CPAP BIPAP Do you snore loudly (louder Yes 07/11/24 15:26 than talking or can be heard Do you often feel tired/ Yes 07/11/24 15:26 fatigued/ sleepy during daytime? Has anyone observed you stop No 07/11/24 15:26 breathing during sleep? STOP Results Positive 07/11/24 15:26 QUESTION #5 FULL TEXT : Do you snore loudly (louder than talking or can be heard through closed doors)? Tobacco Use History Tobacco Use History - manager document control: Tobacco Use History - manager document control Tobacco Use Smoking Status Former smoker 07/11/24 15:26 Hx Tobacco Use No 07/11/24 15:26 Years Smoking 40 07/11/24 15:26 Packs Smoked per Day Smoking Cessation Date was Yes - quit smoking within 15 07/11/24 15:26 within the last 15 years years Hx Smoking Cessation Date 04/09/24 07/11/24 15:26 Hx Smoking Cessation Yes: 04-09-24 07/11/24 15:26 Counseling Hematologic Medial History Hematologic Hx - manager document control: Hematologic Medical Hx - clinical documentation nurse Hx of Blood Transfusion No 07/11/24 15:26 Hx of Transfusion in last 3 No 07/11/24 15:26 Months Date of Last Transfusion (if within last 3 months) Ever experience any problems No 07/11/24 15:26 with transfusion(s)? Specify any problems Hx of Preganancy in last 3 No 07/11/24 15:26 Months Nurse Filling Out Transfusion JZOLLINGE 07/11/24 15:26 Questions: Date: 07/11/24 07/11/24 15:26 Time: 15:07/11/24 15:26 Patient unable to answer at this time (ie. confused, unrespo /Reproductio n History /Reproductiv e History - manager document control: /Reproductiv e Hx- manager document control Hx Now No 07/11/24 15:26 Gestational Age (in weeks): EDC: Hx Hx Para Hx Section SAB No 07/11/24 15:26 [facility] Medical History (Updated 07/11/24 @ 15:26 by Maria C Diaz) Wears glasses Anxiety Marijuana use Former smoker Shortness of breath on exertion COPD (chronic obstructive pulmonary disease) Pneumonia , tubal with rupture Home Medications ???Medication ???Instructions ???Recorded ???Last Taken ???Type albuterol sulfate 90 mcg/actuation 2 puff inhalation Q6H PRN Unknown History aerosol inhaler shortness of breath or wheezing multivitamin 1 tab PO QAM 05/15/24 Unknown Hist ory peg 3350-electrolytes 236 240 ml PO Q10M #4,000 mL 05/15/24 Unknown Rx gram-22.74 gram-6.74 gram-5.86 gram solution (Golytely) albuterol sulfate 2.5 mg/3 mL 2.5 mg (3 mL) inhalation Q4H PRN 0 06/10/24 Unknown Rx (0.083 %) solution for nebulization #25 vials albuterol sulfate 90 mcg/actuation 2 puff inhalation Q4H PRN PRN 03 /0 (more content not included)... Normal [facility] MR/PAT.Mahin 07-11-2024 MR/PAT.YUNI [facility] Medical Records Department [address] [place] [address] PAT - Anesthesia 07/11/24 1732 MR#: [id number] Acct: [id number] Name: RENUKA MEANS Rep #: [id number] : 1960 64 From: Luis E Austin MD PCP: Care Physician,No Primary Status:PRE [facility] Y Race: C Location: EN Pre-Assessment Diagnosis/Proposed Procedure Planned Operative Procedure(s): Colonoscopy,EGD Anesthesia History Anesthesia History - manager document control: Anesthesia History - manager document control Hx Hospitalization No 07/11/24 15:26 Any Problems With Anesthesia No 07/11/24 15:26 Cholinesterase deficiency No 07/11/24 15:26 You/Your Family Experience No 07/11/24 15:26 fever (hyperthermia) with Relationship Recent Exposure to Contagious Disease Does patient have nerve No 07/11/24 15:26 stimulator Patient instructed to have device shut off --Does patient have Pacemaker or ICD? When Was Last Pacemaker Check QUESTION #4 FULL TEXT: You/Your Family Experience fever (hyperthermia) with Anesthesia Last Oral Intake Last Oral intake: Last Oral Intake NPO since Meds taken in AM with sips of water? Meds patient instructed to take am of surgery PONV PONV - manager document control: PONV - manager document control Female Yes 07/11/24 15:26 HX of Motion Sickness No 07/11/24 15:26 HX of N/V After Surgery No 07/11/24 15:26 Non-Smoker Yes 07/11/24 15:26 Duration of Surgery greater No 07/11/24 15:26 than 60 minutes Number of Risk Factors 2 07/11/24 15:26 PONV Score Moderate Risk 07/11/24 15:26 Height Weight Height Weight: Anesthesia: Height Weight Height 5 ft 9 in 05/15/24 15:33 Respiratory Assessment Respiratory Assessment - manager document control: Respiratory Tract Infection Hx - manager document control Hx Respiratory Tract Infection No 07/11/24 15:26 STOP Sleep Apnea STOP Sleep Apnea - manager document control: STOP Sleep Apnea - manager document control Hx Hypertension No 07/11/24 15:26 Hx Sleep Apnea No 07/11/24 15:26 CPAP BIPAP Do you snore loudly (louder Yes 07/11/24 15:26 than talking or can be heard Do you often feel tired/ Yes 07/11/24 15:26 fatigued/ sleepy during daytime? Has anyone observed you stop No 07/11/24 15:26 breathing during sleep? STOP Results Positive 07/11/24 15:26 QUESTION #5 FULL TEXT : Do you snore loudly (louder than talking or can be heard through closed doors)? Tobacco Use History Tobacco Use History - manager document control: Tobacco Use History - manager document control Tobacco Use Smoking Status Former smoker 07/11/24 15:26 Hx Tobacco Use No 07/11/24 15:26 Years Smoking 40 07/11/24 15:26 Packs Smoked per Day Smoking Cessation Date was Yes - quit smoking within 15 07/11/24 15:26 within the last 15 years years Hx Smoking Cessation Date 04/09/24 07/11/24 15:26 Hx Smoking Cessation Yes: 04-09-24 07/11/24 15:26 Counseling Hematologic Medial History Hematologic Hx - manager document control: Hematologic Medical Hx - clinical documentation nurse Hx of Blood Transfusion No 07/11/24 15:26 Hx of Transfusion in last 3 No 07/11/24 15:26 Months Date of Last Transfusion (if within last 3 months) Ever experience any problems No 07/11/24 15:26 with transfusion(s)? Specify any problems Hx of Preganancy in last 3 No 07/11/24 15:26 Months Nurse Filling Out Transfusion BENY 07/11/24 15:26 Questions: Date: 07/11/24 07/11/24 15:26 Time: 15:30 07/11/24 15:26 Patient unable to answer at this time (ie. confused, unrespo /Reproductio n History /Reproductiv e History - manager document control: /Reproductiv e Hx- manager document control Hx Now No 07/11/24 15:26 Gestational Age (in weeks): EDC: Hx Hx Para Hx Section SAB No 07/11/24 15:26 PFSH Medical History (Updated 07/11/24 @ 15:26 by Maria C Diaz) Wears glasses Anxiety Marijuana use Former smoker Shortness of breath on exertion COPD (chronic obstructive pulmonary disease) Pneumonia , tubal with rupture Home Medications ???Medication ???Instructions ???Recorded ???Last Taken ???Type albuterol sulfate 90 mcg/actuation 2 puff inhalation Q6H PRN Unknown History aerosol inhaler shortness of breath or wheezing multivitamin 1 tab PO QAM 05/15/24 Unknown Hist ory peg 3350-electrolytes 236 240 ml PO Q10M #4,000 mL 05/15/24 Unknown Rx gram-22.74 gram-6.74 gram-5.86 gram solution (Golytely) albuterol sulfate 2.5 mg/3 mL 2.5 mg (3 mL) inhalation Q4H PRN 0 06/10/24 Unknown Rx (0.083 %) solution for nebulization #25 vials albuterol sulfate 90 mcg/actuation 2 puff inhalation Q4H PRN PRN 03 (more content not included)... Normal [facility] Pulmonary Visit Reporton Pulmonary Visit Report [facility] Pulmonary Medicine of [address] [place] [address] OFFICE VISIT Date of Service: 06/19/24 MR#: [id number] Acct: [id number] Name: RENUKA MEANS Rep #: [id number] : 1960 Provider: Dr. Hoang Valdivia DO Age/Sex: 64/F [place] [facility] Status: Signed Assessment and Plan Assessment and Plan (1) COPD (chronic obstructive pulmonary disease): Status: Chronic Plan: The patient has a known history of mild obstructive lung disease based upon outside pulmonary function studies completed through her prior maternal child nurse at [facility]. The patient has been noncompliant with her prescribed maintenance inhaler regimen for quite some time, leading to multiple emergency department visits. However, the patient did report that she recently quit smoking 2 months ago. Will plan to obtain repeat pulmonary function studies along with a 6-minute walk test prior to her next office visit. In the interim, the patient will be provided with a refill of her previously noted maintenance inhaler regimen, Dulera. (2) Nicotine dependence, cigarettes, in remission: Status: Chronic Plan: Ongoing tobacco cessation was strongly recommended. Although the patient was noted on CT imaging of the abdomen to have a very small 3 mm lung nodule in the left lung base, the patient is not interested in pursuing any additional imaging. I did speak to her about the feasibility of proceeding with low-dose CT imaging of the chest on a yearly basis. The patient was adamant that if she had underlying lung cancer that she would not want to know. Therefore, the patient has declined LDCT. Orders: Orders Simple Pulmonary Exercise Test 07/28/24 F17.211 - Nicotine dependence, cigarettes, in remission PFT Complete - DLCO, Spirometry b/a bronchodilators, lung volumes 07/11/24 F17.211 - Nicotine dependence, cigarettes, in remission, J44.9 - Chronic obstructive pulmonary disease, unspecified Medications: New mometasone-formoterol 100-5 mcg/actuation (Dulera) 2 puffs inhalation BID 8.8 grams 3RF HPI HPI Comments Details: The patient is a 64-year-old female who presents to the clinic today in referral for the evaluation of a pulmonary nodule. The patient today presented that she has been struggling from a respiratory perspective since the beginning of the year, requiring multiple trips to the emergency department. The patient was previously under the care of [facility] pulmonary medicine. According to documentation, the patient has a history of mild obstructive lung disease and was previously being managed with Dulera. Nevertheless, the patient readily admitted that she has been out of her maintenance inhaler for quite some time. It appears that she has been lost to outpatient pulmonary follow-up since 2022. The patient does have an approximate 33-cyma-lcgv smoking history, having quit completely in April 2024. In addition to her personal smoking history, she did grow up in a smoking household. She does report occasional marijuana use. The patient does report exertional shortness of breath, but denies any chest tightness, wheezing or cough. Her weight and appetite are stable. 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 She does currently keep several cats and 1 dog as pets in her home environment. Previously, in 2022, the patient's prior pulmonary provider recommended that she undergo yearly low-dose CT screening. Nevertheless, the patient declined to do so. In April 2024, the patient had a CT abdomen pelvis completed, which demonstrated a 3 mm nodule in the left lower lobe. Intake Vital Signs 05/15/24 15:33 06/19/24 08:35 Height 5 ft 9 in 5 ft 9 in Weight: 198 lb BMI 29.2 BP 121/64 H Blood Pressure Location Lt brachial Position Sitting Respiration 18 Pulse 69 Pulse Source Monitor Temp 97.4 F L Temperature Source Temporal Artery Pulse Oximetry (%) 97 Oxygen Delivery Method room air Intake Visit Reasons: LEFT LOWER LUNG NODULE Chief Complaint: constipation Hand Violin Maker Required: No Accompanied by: Self Allergies bacitracin (From Neosporin (lsb-aso-sewdp)) Allergy (Verified 06/19/24 11:20) Rash neomycin (From Neosporin (vvk-wjz-iubfg)) Allergy (Verified 06/19/24 11:20) Rash Penicillins Allergy (Verified 06/19/24 11:20) Hives polymyxin B (From Neosporin (lwy-cmu-pbtbn)) Allergy (Verified 06/19/24 11:20) Rash egg (eggs) Adverse Reaction (Verified 06/19/24 11:20) Abd cramps/diarrhea Food Allergies: Uncoded Adverse Reaction (Verified 06/19/24 11:20) Abd cramps/diarrhea Medications ???Medication ???Instructions ???Recorded ???Confirmed ???Type albuterol sulfate 90 mcg/actuation 2 puff inhalation Q6H PRN 06/19/24 History aerosol inhaler famotidine 20 mg tablet (Pepcid) 20 mg PO QDAY #90 tabs 05/15 (more content not included)... Normal [facility] Absolute lymphocyte countOrd ered By: Rg Farfan on 06-10-2024 Lymphocytes Auto (Unsp spec) [#/Vol] 1.94 10*3/uL 0.83-4.51 [facility] Absolute neutrophil countOrd ered By: Rg Farfan on 06-10-2024 Neutrophils (Bld) [#/Vol] 5.7 10*3/uL 2.0-7.7 [facility] Anion gap in Serum or Plasma Ordered By: Rg Farfan on 06-10-2024 Anion gap [Moles/Vol] 14 mmol/L 5-15 [facility] Automated lymphocyte count a s percentage of total leukocytesOrdered By: Rg Farfan on 06-10-2024 Lymphocytes/100 WBC Auto (Unsp spec) 21.8 % 19-41 [facility] BUN/creatinine ratioOrdered By: Rg Farfan on 06-10-2024 Urea nitrogen/Creatinine [Mass ratio] 21.4 mg/mg High 10- [facility] Basic Metabolic Profile (BMP )on 06-10-2024 BUN/CRE 21.4 RATIO High 10- [facility] Comment on above: Performed By: #### L 503.7505, L100.0100, L500.2500 ####[facility] [address] [place], [address] Calcium [Mass/Vol] 9.6 mg/dL Normal 7.6-11.0 [facility] Comment on above: Performed By: #### L 503.7505, L100.0100, L500.2500 ####[facility] [address] [place], [address] Chloride [Moles/Vol] 103 mmol/L Normal 98-108 [facility] Comment on above: Performed By: #### L 503.7505, L100.0100, L500.2500 ####[facility] [address] [place], [address] CO2 [Moles/Vol] 19.5 mmol/L Low 21.0-32.0 [facility] Comment on above: Performed By: #### L 503.7505, L100.0100, L500.2500 ####[facility] [address] [place], [address] Creatinine [Mass/Vol] 0.65 mg/dL Low 0.70-1.20 [facility] Comment on above: Performed By: #### L 503.7505, L100.0100, L500.2500 ####[facility] [address] [place], [address] ECRCL 105.72 ml/min Normal 50-250 [facility] Comment on above: Performed By: #### L 503.7505, L100.0100, L500.2500 ####[facility] [address] [place], [address] GAP 14 Normal 5-15 [facility] Comment on above: Performed By: #### L 503.7505, L100.0100, L500.2500 ####[facility] [address] [place], [address] GFR/1.73 sq M.predicted among non-blacks MDRD (S/P/Bld) [Vol rate/Area] 99 mL/min/{1.73_m2} Normal >60 [facility] Comment on above: Result Comment: mL/m in/1.73m2 CKD-EPI Creatinine Equation (2020) Performed By: #### L 503.7505, L100.0100, L500.2500 ####[facility] [address] [place], [address] Glucose [Mass/Vol] 89 mg/dL Normal 70-99 [facility] Comment on above: Performed By: #### L 503.7505, L100.0100, L500.2500 ####[facility] [address] [place], [address] Potassium [Moles/Vol] 4.3 mmol/L Normal 3.3-5.1 [facility] Comment on above: Performed By: #### L 503.7505, L100.0100, L500.2500 ####[facility] [address] [place], [address] Sodium [Moles/Vol] 136 mmol/L Normal 133-145 [facility] Comment on above: Performed By: #### L 503.7505, L100.0100, L500.2500 ####[facility] [address] [place], [address] Urea nitrogen [Mass/Vol] 14 mg/dL Normal 4-19 [facility] Comment on above: Performed By: #### L 503.7505, L100.0100, L500.2500 ####[facility] [address] [place], [address] Basophil percentageOrdered B y: Rg Farfan on 06-10-2024 Basophils/100 WBC (Bld) 0.6 % 0-1 [facility] CBC W/Diff, Automatedon Absolute Lymph 1.94 X10 3/uL Normal 0.83-4.51 [facility] Comment on above: Performed By: #### L 503.7505, L100.0100, L500.2500 ####[facility] [address] [place], [address] Absolute Neut 5.7 X10 3/uL Normal 2.0-7.7 [facility] Comment on above: Performed By: #### L 503.7505, L100.0100, L500.2500 ####[facility] [address] [place], [address] Basophils/100 WBC (Bld) 0.6 % Normal 0-1 [facility] Comment on above: Performed By: #### L 503.7505, L100.0100, L500.2500 ####[facility] [address] [place], [address] Eosinophils/100 WBC (Bld) 4.3 % Normal 0-5 [facility] Comment on above: Performed By: #### L 503.7505, L100.0100, L500.2500 ####[facility] [address] [place], [address] Erythrocyte distribution width (RBC) [Ratio] 14.4 % Normal 11.6-14.6 [facility] Comment on above: Performed By: #### L 503.7505, L100.0100, L500.2500 ####[facility] [address] [place], [address] Hematocrit (Bld) [Volume fraction] 47.7 % High 37-47 [facility] Comment on above: Performed By: #### L 503.7505, L100.0100, L500.2500 ####[facility] [address] [place], [address] Hemoglobin (Bld) [Mass/Vol] 15.6 g/dL High 12.0-15.0 [facility] Comment on above: Performed By: #### L 503.7505, L100.0100, L500.2500 ####[facility] [address] [place], [address] IG% 0.500 Normal 0.0-0.9 [facility] Comment on above: Result Comment: IG% - Immature Granulocytes (promyelocytes, myelocytes and metamyelocytes) > 1% indicates that a LEFT SHIFT is Present. Performed By: #### L 503.7505, L100.0100, L500.2500 ####[facility] [address] [place], [address] Lymphocytes/100 WBC (Bld) 21.8 % Normal 19-41 [facility] Comment on above: Performed By: #### L 503.7505, L100.0100, L500.2500 ####[facility] [address] [place], [address] MCH (RBC) [Entitic mass] 28.3 pg Normal 27.0-32.0 [facility] Comment on above: Performed By: #### L 503.7505, L100.0100, L500.2500 ####[facility] [address] [place], [address] MCHC (RBC) [Mass/Vol] 32.7 g/dL Normal 32-36 [facility] Comment on above: Performed By: #### L 503.7505, L100.0100, L500.2500 ####[facility] [address] [place], [address] MCV (RBC) [Entitic vol] 86.4 fL Normal 81-99 [facility] Comment on above: Performed By: #### L 503.7505, L100.0100, L500.2500 ####[facility] [address] [place], [address] Monocytes/100 WBC (Bld) 8.7 % Normal 0-10 [facility] Comment on above: Performed By: #### L 503.7505, L100.0100, L500.2500 ####[facility] [address] [place], [address] Neutrophils/100 WBC (Bld) 64.1 % Normal 47-70 [facility] Comment on above: Performed By: #### L 503.7505, L100.0100, L500.2500 ####[facility] [address] [place], [address] Nucleated RBC (Bld) [#/Vol] 0 10*3/uL Normal 0-5 [facility] Comment on above: Performed By: #### L 503.7505, L100.0100, L500.2500 ####[facility] [address] [place], [address] Platelet mean volume (Bld) [Entitic vol] 9.4 fL Normal 6.2-12.0 [facility] Comment on above: Performed By: #### L 503.7505, L100.0100, L500.2500 ####[facility] [address] [place], [address] Platelets (Bld) [#/Vol] 336 10*3/uL Normal 150-450 [facility] Comment on above: Performed By: #### L 503.7505, L100.0100, L500.2500 ####[facility] [address] [place], [address] RBC (Bld) [#/Vol] 5.52 10*6/uL High 4.2-5.4 [facility] Comment on above: Performed By: #### L 503.7505, L100.0100, L500.2500 ####[facility] [address] [place], [address] RDW SD 45.5 fl High 35.1-43.9 [facility] Comment on above: Performed By: #### L 503.7505, L100.0100, L500.2500 ####[facility] [address] [place], [address] WBC (Bld) [#/Vol] 8.9 10*3/uL Normal 4.4-11.0 [facility] Comment on above: Performed By: #### L 503.7505, L100.0100, L500.2500 ####[facility] [address] [place], [address] Carbon dioxide, total [Moles /volume] in Central venous bloodOrdered By: Rg Farfan on 06-10-2024 CO2 [Moles/Vol] 19.5 mmol/L Low 21.0-32.0 [facility] Chest PA and Lateralon 06-10 Chest PA and Lateral [facility] Imaging Services [address] [place] [address] Chest PA and Lateral MR#: [id number] Acct: [id number] Name: RENUKA MEANS Rep #: [id number] : 1960 F 64 From: Jazmyne Seth MD PCP: Care Physician,No Primary Status: PRE ER Study: Chest PA and Lateral Date of Exam: 06/10/24 Exam# [id number] Ordering Dr: Rg Farfan DO EXAM: XR Chest, 2 Views CLINICAL INDICATION: TECHNIQUE: Frontal and lateral views of the chest. COMPARISON: No relevant prior studies available. FINDINGS: LUNGS AND PLEURAL SPACES: Unremarkable. No consolidation. No pneumothorax. HEART: Unremarkable. No cardiomegaly. MEDIASTINUM: Unremarkable. Normal mediastinal contour. BONES/JOINTS: Unremarkable. No acute fracture. RAD/Chest PA and Lateral IMPRESSION: No acute cardiopulmonary process. Reading Location: [facility] CC: Dr. Rg Farfan DO; No Primary Care Physician Lens Inserter: Signed Normal [facility] Chloride assayOrdered By: Bismark Farfan on 06-10-2024 Chloride [Moles/Vol] 103 mmol/L 98-108 [facility] Emergency Department Summary on 06-10-2024 Emergency Department Summary [facility] Medical Records Department [address] [place] [address] Emergency Department Summary 06/10/24 MR#: [id number] Acct: [id number] Name: RENUKA MEANS Rep #: [id number] : 1960 64 From: Rg Farfan DO PCP: Care Physician,No Primary Status:DEP ER Location: ED HPI History of Present Illness Chief Complaint: Shortness of Breath Informant: patient Narrative Narrative: 64-year-old female presenting to the emergency room with dyspnea. Patient states that she weaned herself down from cigarettes eventually stopping beginning of this year. Since stopping cigarettes she notes cough with some dyspnea. She states that she was initially told she had pneumonia at an urgent care and was told she had COPD/chronic bronchitis in the emergency department. She states that her previous primary care doctor retired and she has an upcoming primary care appointment on the . She states that she uses an inhaler of albuterol and another inhaler but she does not know the name of it. She states that last night she felt very short of breath more so than she does currently and it scared her. She does not wear oxygen at home. She notes mucus production more so than normal [facility] Medical History Pneumonia , tubal with rupture Home Medications ???Medication ???Instructions ???Recorded ???Last Taken ???Type albuterol sulfate 90 mcg/actuation 2 puff inhalation Q6H PRN Unknown History aerosol inhaler famotidine 20 mg tablet (Pepcid) 20 mg PO QDAY #90 tabs 05/15/24 Un known Rx multivitamin 1 tab PO QAM 05/15/24 Unknown Hist ory peg 3350-electrolytes 236 240 ml PO Q10M #4,000 mL 05/15/24 Unknown Rx gram-22.74 gram-6.74 gram-5.86 gram solution (Golytely) prednisone 20 mg tablet 60 mg (3 x 20 mg) PO DAILY 5 days 05/15/24 Unknown Rx #15 TABLETS albuterol sulfate 2.5 mg/3 mL 2.5 mg (3 mL) inhalation Q4H PRN 0 06/10/24 Unknown Rx (0.083 %) solution for nebulization #25 vials albuterol sulfate 90 mcg/actuation 2 puff inhalation Q4H PRN PRN Unknown Rx aerosol inhaler (Ventolin HFA) Wheezing ##1 prednisone 20 mg tablet See Rx Instructions .Route 5 Unknown Rx .COMPLEX #24 tabs Allergy/AdvReac Type Severity Reaction Status Date / Time bacitracin (From Neosporin Allergy Rash Verified 06/10/24 11:03 (hqg-xjp-lpfqc)) neomycin (From Neosporin Allergy Rash Verified 06/10/24 11:03 (kgs-bgk-vwiqq)) Penicillins Allergy Hives Verified 06/10/24 11:03 polymyxin B (From Neosporin Allergy Rash Verified 06/10/24 11:03 (qry-izq-malmo)) egg (eggs) AdvReac Abd Verified 06/10/24 11:03 cramps/diarrhea Food Allergies: Uncoded AdvReac Abd Verified 06/10/24 11:03 cramps/diarrhea Family History Other Alcohol abuse Arthritis Cancer Osteoporosis Severe allergy Surgical History History of back surgery Social History household members: spouse housing: house Smoking Status: Former smoker substance use type: marijuana frequency: daily ROS ROS ED Constitutional Constitutional ED: Denies chills, fever(s) or weight loss Eyes Eyes: Denies change in vision or diplopia ENT ENT ED: Denies ear pain, rhinorrhea or sore throat Cardiovascular Cardiovascular: Denies chest pain, orthopnea, palpitations or racing heartbeat Respiratory/Chest Respiratory/Chest: Reports cough, dyspnea, dyspnea on exertion and sputum; Denies orthopnea Gastrointestinal Gastrointestinal: Denies abdominal pain, diarrhea, nausea or vomiting Genitourinary Genitourinary ED: Denies dysuria, hematuria or urinary frequency Musculoskeletal Musculoskeletal: Denies arthralgias or myalgias Integumentary Denies abscess or rash Neurologic Neurologic: Denies headache(s) or weakness Psychiatric Psychiatric: Denies anxiety, depression, suicidal ideation or suicidal thoughts Endocrine Endocrinology: Denies polydipsia, polyphagia or polyuria Allergic/Immunologic Allergic/Immunologic ED: Denies mouth swelling, tongue swelling or urticaria EXAM Physical Exam Const Vital Signs: 06/10/24 10:59 06/10/24 12:26 06/10/24 12:52 Temperature 98 F 98 F Temperature Source Temporal Oral Pulse Rate 83 82 Respiratory Rate 16 18 Respiratory Effort Normal Respiratory Depth Normal Respiratory Pattern Normal Blood Pressure 112/85 H 158/62 H Blood Pressure Mean 94 94 Pulse Ox 97 98 Oxygen Delivery Method Room Air Room Air Room Air 06/10/24 13:01 06/10/24 13:46 Temperature Temperature Source Pulse Rate 82 82 Respiratory (more content not included)... Normal [facility] Eosinophil percentageOrdered By: Rg Farfan on 06-10-2024 Eosinophils/100 WBC (Bld) 4.3 % 0-5 [facility] Erythrocyte distribution wid th (RBC) [Ratio]Ordered By: Rg Farfan on 06-10-2024 Erythrocyte distribution width (RBC) [Entitic vol] 45.5 fL High 35.1-43.9 [facility] Erythrocyte distribution wid th ratioOrdered By: Rg Farfan on 06-10-2024 Erythrocyte distribution width (RBC) [Ratio] 14.4 % 11.6-14.6 [facility] Erythrocyte distribution wid th standard deviationOrdered By: Rg Farfan on 06-10-2024 Erythrocyte distribution width (RBC) [Ratio] 45.5 fl High 35.1-43.9 [facility] Estimation of creatinine yanick aranceOrdered By: Rg Farfan on 06-10-2024 Estimated Creatinine Clearance Calc 105.72 ml/min 50-250 [facility] GFR/1.73 sq M.predicted hang g non-blacks MDRD (S/P/Bld) [Vol rate/Area]Ordered By: Rg Farfan on 06-10-2024 Estimated GFR (MDRD) Non-Af Amer 99 >60 [facility] Comment on above: mL/min/1.73m2 CKD-EP I Creatinine Equation (2020) Glomerular filtration rate ( GFR) estimation/1.73 sq m using serum, plasma, or whole bOrdered By: Rg Farfan on 06-10-2024 GFR/1.73 sq M.predicted among non-blacks MDRD (S/P/Bld) [Vol rate/Area] 99 mL/min/{1.73_m2} >60 [facility] Comment on above: mL/min/1.73m2 CKD-EP I Creatinine Equation (2020) Hematocrit Auto (Bld) [Volum e fraction]Ordered By: Rg Farfan on 06-10-2024 Hematocrit (Bld) [Volume fraction] 47.7 % High 37-47 [facility] Hemoglobin measurementOrdere d By: Rg Farfan on 06-10-2024 Hemoglobin (Bld) [Mass/Vol] 15.6 g/dL High 12.0-15.0 [facility] Immature granulocytes/100 WB C Auto (Bld)Ordered By: Rg Farfan on 06-10-2024 Immature granulocytes/100 WBC (Bld) 0.500 % 0.0-0.9 [facility] Comment on above: IG% - Immature Granu locytes (promyelocytes, myelocytes and metamyelocytes) > 1% indicates that a LEFT SHIFT is Present. L501.4021on 06-10-2024 Trop T High Sen < 6 Normal <=14 [facility] Comment on above: Performed By: #### L 501.4021 #### [facility] Laboratory [facility] [place], [address] L503.7505on 06-10-2024 proBNP < 36 Normal <=900 [facility] Comment on above: Result Comment: Hear t Failure Unlikely: < 300 pg/mL Heart Failure Likely < 50 Years: > 450 pg/mL 50-75 Years: > 900 pg/mL >75 Years: > 1800 pg/mL Performed By: #### L 503.7505, L100.0100, L500.2500 ####[facility] [address] [place], [address] Lymphocytes Auto (Unsp spec) [#/Vol]Ordered By: Rg Farfan on 06-10-2024 Lymphocytes (Bld) [#/Vol] 1.94 10*3/uL 0.83-4.51 [facility] Lymphocytes/100 WBC Auto (Un sp spec)Ordered By: Rg Farfan on 06-10-2024 Lymphocytes/100 WBC (Bld) 21.8 % 19-41 [facility] MCV (mean corpuscular volume ) determinationOrdered By: Rg Farfan on 06-10-2024 MCV (RBC) [Entitic vol] 86.4 fL 81-99 [facility] Mean corpuscular hemoglobin (MCH) determinationOrdered By: Rg Farfan on 06-10-2024 MCH (RBC) [Entitic mass] 28.3 pg 27.0-32.0 [facility] Mean corpuscular hemoglobin concentration (MCHC) determinationOrdered By: Rg Farfan on 06-10-2024 MCHC (RBC) [Mass/Vol] 32.7 g/dL 32-36 [facility] Mean platelet volume determi nationOrdered By: Rg Farfan on 06-10-2024 Platelet mean volume (Bld) [Entitic vol] 9.4 fL 6.2-12.0 [facility] Monocyte percentageOrdered B y: Rg Farfan on 06-10-2024 Monocytes/100 WBC (Bld) 8.7 % 0-10 [facility] Neutrophil percentageOrdered By: Rg Farfan on 06-10-2024 Neutrophils/100 WBC (Bld) 64.1 % 47-70 [facility] No Panel InformationOrdered By: Rg Farfan on 06-10-2024 HH-ZdxJ-Tylp Natriuretic Peptide II < 36 pg/mL <900 [facility] Comment on above: Heart Failure Unlike ly: < 300 pg/mLHeart Failure Likely< 50 Years: > 450 pg/mL50-75 Years: > 900 pg/mL>75 Years: > 1800 pg/mL Troponin T High Sensitivity < 6 ng/L <14 [facility] Nucleated red blood cell per centageOrdered By: Rg Farfan on 06-10-2024 Nucleated RBC/100 WBC (Bld) [Ratio] 0 % 0-5 [facility] Platelet countOrdered By: Bismark Farfan on 06-10-2024 Platelets (Bld) [#/Vol] 336 10*3/uL 150-450 [facility] Potassium (Unsp spec) [Mass/ Vol]Ordered By: Rg Farfan on 06-10-2024 Potassium [Moles/Vol] 4.3 mmol/L 3.3-5.1 [facility] Potassium measurement (mass/ volume)Ordered By: Rg Farfan on 06-10-2024 Potassium (Unsp spec) [Mass/Vol] 4.3 mmol/L 3.3-5.1 [facility] RBC Auto (Bld) [#/Vol]Ordere d By: Rg Farfan on 06-10-2024 RBC (Bld) [#/Vol] 5.52 10*6/uL High 4.2-5.4 [facility] Serum creatinine measurement (mass/volume)Ordered By: Rg Farfan on 06-10-2024 Creatinine [Mass/Vol] 0.65 mg/dL Low 0.70-1.20 [facility] Serum glucose measurement (m ass/volume)Ordered By: Rg Farfan on 06-10-2024 Glucose [Mass/Vol] 89 mg/dL 70-99 [facility] Serum or plasma calcium fernie urement (mass/volume)Ordered By: Rg Farfan on 06-10-2024 Calcium [Mass/Vol] 9.6 mg/dL 7.6-11.0 [facility] Serum or plasma urea nitroge n measurement (mass/volume)Ordered By: Rg Farfan on 06-10-2024 Urea nitrogen [Mass/Vol] 14 mg/dL 4-19 [facility] Sodium levelOrdered By: Jose Elias Farfan on 06-10-2024 Sodium [Moles/Vol] 136 mmol/L 133-145 [facility] White blood cell (WBC) count Ordered By: Rg Farfan on 06-10-2024 WBC (Bld) [#/Vol] 8.9 10*3/uL 4.4-11.0 [facility] Abdomen Single Viewon 2024 Abdomen Single View [facility] Imaging Services [address] [place], [place] [id number] Abdomen Single View MR#: [id number] Acct: [id number] Name: RENUKA MEANS Rep #: [id number] : 1960 F 64 From: Omar Treadwell PCP: Care Physician,No Primary Status: REG CLI Study: Abdomen Single View Date of Exam: 05/21/24 Exam# [id number] Ordering Dr: Toya Gray PROCEDURE: ABDOMEN SINGLE VIEW REASON FOR EXAM: Sitz marker, day 5. TECHNIQUE: Two-view supine abdomen. COMPARISON: Prior study of 05/19/2024 RAD/Abdomen Single View IMPRESSION: Prominent degenerative changes are seen of the visualized lower lumbar spine. Sacroiliac joints appear symmetric and within the normal range. No Sitz marker is now seen on this examination. The bowel-gas pattern is unremarkable. No mass or mass effect is seen Reading Location: [address] CC: ROADABILITY MACHINE OPERATOR-C Toya Gray; No Primary Care Physician Lens Inserter: Signed Normal [facility] Abdomen Single Viewon 2024 Abdomen Single View [facility] Imaging Services [address] [place], [place] [address] Abdomen Single View MR#: [id number] Acct: [id number] Name: RENUKA MEANS Rep #: [id number] : 1960 F 64 From: Jazmyne Seth MD PCP: Care Physician,No Primary Status: REG CLI Study: Abdomen Single View Date of Exam: 05/19/24 Exam# [id number] Ordering Dr: Toya Gray ROADABILITY MACHINE OPERATORJon Helm EXAM: XR Abdomen, 1 View CLINICAL INDICATION: TECHNIQUE: Frontal supine view of the abdomen/pelvis. COMPARISON: No relevant prior studies available. FINDINGS: GASTROINTESTINAL TRACT: Fecal retention in the colon consistent with constipation. No dilation. BONES/JOINTS: Unremarkable. No acute fracture. RAD/Abdomen Single View IMPRESSION: Fecal retention in the colon consistent with constipation. Reading Location: [facility] CC: ROADABILITY MACHINE OPERATOR-C Toya Gray; No Primary Care Physician Lens Inserter: Signed Normal [facility] Chest PA and Lateralon 05-15 Chest PA and Lateral [facility] Imaging Services [address] [place], [place] [id number] Chest PA and Lateral MR#: [id number] Acct: [id number] Name: RENUKA MEANS Rep #: [id number] : 1960 F 64 From: Nadeem Llamas MD PCP: Care Physician,No Primary Status: [facility] ER Study: Chest PA and Lateral Date of Exam: 05/15/24 Exam# [id number] Ordering Dr: Mukund Ovalles DO PROCEDURE: CHEST PA AND LATERAL REASON FOR EXAM: Cough. TECHNIQUE: Single frontal image including the chest. COMPARISON: None. FINDINGS: Lungs are clear of pneumonia and congestion. No pleural effusions, thickening, or pneumothorax. Heart and mediastinum are normal. Great vessels unremarkable. No hilar masses. Bones and soft tissues are unremarkable. RAD/Chest PA and Lateral IMPRESSION: No active cardiopulmonary disease. Reading Location: [facility] CC: Dr. Mukund Ovalles DO; No Primary Care Physician Lens Inserter: Signed Normal [facility] Emergency Department Summary on 05-15-2024 Emergency Department Summary [facility] Medical Records Department [address] [place] [address] Emergency Department Summary 05/15/24 MR#: [id number] Acct: [id number] Name: RENUKA MEANS Rep #: [id number] : 1960 64 From: Mukund Ovalles DO PCP: Care Physician,No Primary Status:DEP ER Location: ED HPI History of Present Illness Chief Complaint: Shortness of Breath Narrative Narrative: Chief complaint and HPI: Cough. 64-year-old female with past medical history of tobacco abuse, quit this April presents for evaluation of cough and intermittent shortness of breath. Patient states that April 09 she was hanging out with family. On April 10 she developed cough and URI symptoms. She states that she was seen at an urgent care and diagnosed with pneumonia. She did not receive a chest x-ray at that time. She was given steroids and 10-day course of doxycycline. Patient states her symptoms improved for 2 days but then she developed cough with intermittent shortness of breath. She states her shortness of breath happens when she develops a coughing fit. She denies any fever, chills, chest pain abdominal pain, nausea, vomiting, dysuria. Denies any recent sick contacts. Review of systems: See HPI Medications: As listed on the chart Allergies: As listed on the chart PFSH: Per chart Vital signs: As listed on the chart. Reviewed. Physical exam: Gen: A O x3, NAD Head: Normocephalic, atraumatic Eyes: No sclera icterus, conjunctiva clear ENT: Moist mucous membranes Neck: Trachea midline, No JVD CV: RRR, no murmurs, no peripheral edema Resp: Lungs clear to auscultation bilaterally with intermittent expiratory wheeze GI: Abd soft, non-distended, non-tender, no r/r/g Musc: Full ROM, no deformity Skin: Warm, dry Neuro: Alert, oriented, grossly intact, sensation intact Psych: Cooperative, appropriate mood and affect [facility] Medical History (Updated 05/15/24 @ 17:[address] Mukund Ovalles, DO) Pneumonia , tubal with rupture Home Medications ???Medication ???Instructions ???Recorded ???Last Taken ???Type albuterol sulfate 90 mcg/actuation 2 puff inhalation Q6H PRN Unknown History aerosol inhaler famotidine 20 mg tablet (Pepcid) 20 mg PO QDAY #90 tabs 05/15/24 Un known Rx multivitamin 1 tab PO QAM 05/15/24 Unknown Hist ory peg 3350-electrolytes 236 240 ml PO Q10M #4,000 mL 05/15/24 Unknown Rx gram-22.74 gram-6.74 gram-5.86 gram solution (Golytely) prednisone 20 mg tablet 60 mg (3 x 20 mg) PO DAILY 5 days 05/15/24 Unknown Rx #15 TABLETS Allergy/AdvReac Type Severity Reaction Status Date / Time Penicillins Allergy Hives Verified 05/15/24 15:33 Family History Other Alcohol abuse Arthritis Cancer Osteoporosis Severe allergy Surgical History History of back surgery Social History (Updated 05/15/24 @ 15:52 by Belle Masterson) household members: spouse housing: house Smoking Status: Former smoker substance use type: marijuana frequency: daily EXAM Physical Exam Const Vital Signs: 05/15/24 15:33 05/15/24 15:51 05/15/24 15:51 Temperature 97.1 F L 97.8 F Temperature Source Temporal Oral Pulse Rate 83 68 Respiratory Rate 18 16 Respiratory Effort Normal Non-Labored Respiratory Depth Normal Respiratory Pattern Normal Blood Pressure 129/72 H 118/66 Blood Pressure Mean 91 83 Pulse Ox 93 93 Oxygen Delivery Method Room Air Room Air Room Air 05/15/24 16:42 05/15/24 17:33 05/15/24 17:44 Temperature 97.8 F Temperature Source Pulse Rate 68 68 Respiratory Rate 18 18 Respiratory Effort Respiratory Depth Respiratory Pattern Normal Blood Pressure 109/72 109/72 Blood Pressure Mean 84 84 Pulse Ox 93 93 Oxygen Delivery Method MDM MDM MDM Narrative Medical decision making narrative: 64-year-old female with past medical history of tobacco abuse, quit this April presents for evaluation of cough and intermittent shortness of breath. Patient is nontoxic-appearing. Vital signs stable. Differential diagnosis includes but is not limited to viral illness, bronchitis, pneumonia. I do not think any laboratory workup is needed at this time. Patient will get a checks x-ray. She does have mild expiratory wheezing given her history of tobacco abuse she may have undiagnosed COPD. Patient given p.o. prednisone with breathing treatments. Chest x-ray was personally reviewed by me, ED physician. No pneumonia, pneumothorax, cardiomegaly, effusion. On reevaluation, patient's symptoms have improved with breathing treatments. COVID, flu, RSV negative. I suspect patient's symptoms are likely secondary to viral syndrome. No ne (more content not included)... Normal [facility] Gastroenterology Visit Repor ton 05-15-2024 Gastroenterology Visit Report [facility] Gastroenterology [address] [place] [address] OFFICE VISIT Date of Service: 05/15/24 MR#: [id number] Acct: [id number] Name: RENUKA MEANS Rep #: [id number] : 1960 Provider: KHAI pritchett Age/Sex: 64/F [place] [facility] Status: Signed Intake Vital Signs 04/21/24 15:16 05/15/24 14:08 Height 5 ft 9 in 5 ft 9 in Weight: 195 lb 8 oz BMI 28.8 BP 123/81 H Respiration 20 H Pulse 81 Pulse Oximetry (%) 95 Oxygen Delivery Method room air Intake Visit Reasons: ED follow up Chief Complaint: constipation Hand Violin Maker Required: No Is patient in pain?: No Allergies Penicillins Allergy (Verified 05/15/24 14:05) Hives Medications ???Medication ???Instructions ???Recorded ???Confirmed ???Type albuterol sulfate 90 mcg/actuation 2 puff inhalation Q6H PRN 05/15/24 History aerosol inhaler famotidine 20 mg tablet (Pepcid) 20 mg PO QDAY #90 tabs 05/15/24 Rx multivitamin 1 tab PO QAM 05/15/24 05/15/24 His tory peg 3350-electrolytes 236 240 ml PO Q10M #4,000 mL 05/15/24 05/15/24 Rx gram-22.74 gram-6.74 gram-5.86 gram solution (Golytely) Have you fallen in the past year?: No PFSH Medical History (Updated 05/15/24 @ 14:41 by KHAI Villafana) Pneumonia , tubal with rupture Surgical History History of back surgery Family History Other Alcohol abuse Arthritis Cancer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 fraction] 44.8 % 37-47 [facility] Hemoglobin measurementOrdere d By: Xander Zazueta on 04-21-2024 Hemoglobin (Bld) [Mass/Vol] 14.7 g/dL 12.0-15.0 [facility] Immature granulocytes/100 WB C Auto (Bld)Ordered By: Xander Zazueta on 04-21-2024 Immature granulocytes/100 WBC (Bld) 3.200 % High 0.0-0.9 [facility] Comment on above: IG% - Immature Granu locytes (promyelocytes, myelocytes and metamyelocytes) > 1% indicates that a LEFT SHIFT is Present. Laboratory - Hematology and Cell countsOrdered By: Xander Zazueta on 04-21-2024 Anisocytosis Ql (Bld) 1+ [facility] Lymphocytes Auto (Unsp spec) [#/Vol]Ordered By: Xander Zazueta on 04-21-2024 Lymphocytes (Bld) [#/Vol] 3.59 10*3/uL 0.83-4.51 [facility] Lymphocytes/100 WBC Auto (Un sp spec)Ordered By: Xander Zazueta on 04-21-2024 Lymphocytes/100 WBC (Bld) 24.7 % 19-41 [facility] MCV (mean corpuscular volume ) determinationOrdered By: Xander Zazueta on 04-21-2024 MCV (RBC) [Entitic vol] 86.5 fL 81-99 [facility] Mean corpuscular hemoglobin (MCH) determinationOrdered By: Xander Zazueta on 04-21-2024 MCH (RBC) [Entitic mass] 28.4 pg 27.0-32.0 [facility] Mean corpuscular hemoglobin concentration (MCHC) determinationOrdered By: Xander Zauzeta on 04-21-2024 MCHC (RBC) [Mass/Vol] 32.8 g/dL 32-36 [facility] Mean platelet volume determi nationOrdered By: Xander Zazueta on 04-21-2024 Platelet mean volume (Bld) [Entitic vol] 9.5 fL 6.2-12.0 [facility] Monocyte percentageOrdered B y: Xander Zazueta on 04-21-2024 Monocytes/100 WBC (Bld) 11.8 % High 0-10 [facility] Neutrophil percentageOrdered By: Xander Zazueta on 04-21-2024 Neutrophils/100 WBC (Bld) 58.0 % 47-70 [facility] Nucleated red blood cell per centageOrdered By: Xander Zazueta on 04-21-2024 Nucleated RBC/100 WBC (Bld) [Ratio] 0 % 0-5 [facility] Pathologist review [place] (Unsp spec) [Interp]Ordered By: Xander Zazueta on 04-21-2024 Differential Pathologist's Review Reviewed [facility] Comment on above: Previous reported re sult: Tish michael Edited by: MELO on 04/22/24:1152Leukocytosis WITH Neutrophilic left shift.Clinical correlation necessary.Bernardo Mcgovern M.D. 04/22/24 AMENDED REPORT 04/22/24 1152 PATH REV previously reported as: Tish michael Platelet countOrdered By: Mitch Zazueta on 04-21-2024 Platelets (Bld) [#/Vol] 436 10*3/uL 150-450 [facility] Platelet morphology finding Nom (Bld)Ordered By: Xander Zazueta on 04-21-2024 Platelet Morphology Comment GIANT [facility] Potassium measurementOrdered By: Xander Zazueta on 04-21-2024 Potassium [Moles/Vol] 3.7 mmol/L 3.5-5.1 [facility] RBC Auto (Bld) [#/Vol]Ordere d By: Xander Zazueta on 04-21-2024 RBC (Bld) [#/Vol] 5.18 10*6/uL 4.2-5.4 [facility] Reactive lymphocyte countOrd ered By: Xander Zazueta on 04-21-2024 Reactive Lymphocytes 1+ [facility] Serum anion gap measurementO rdered By: Xander Zazueta on 04-21-2024 Anion gap [Moles/Vol] 4 mmol/L Low 5-15 [facility] Serum or plasma calcium fernie urement (mass/volume)Ordered By: Xander Zazueta on 04-21-2024 Calcium [Mass/Vol] 8.8 mg/dL 8.5-10.1 [facility] Serum or plasma creatinine m easurement (mass/volume)Ordered By: Xander Zazueta on 04-21-2024 Creatinine [Mass/Vol] 0.72 mg/dL 0.55-1.02 [facility] Comment on above: The validity of the calculated GFR & GFRAA in patients over 70 years has not been determined. Clinical correlation is essential. Serum or plasma urea nitroge n measurement (mass/volume)Ordered By: Xander Zazueta on 04-21-2024 Urea nitrogen [Mass/Vol] 20 mg/dL High 7-18 [facility] Sodium levelOrdered By: Xander Zazueta on 04-21-2024 Sodium [Moles/Vol] 137 mmol/L 136-145 [facility] White blood cell (WBC) count Ordered By: Xander Zzaueta on 04-21-2024 WBC (Bld) [#/Vol] 14.6 10*3/uL High 4.4-11.0 [facility] CNOVon 04-15-2024 CNOV Office Visit (UCWSTR ) RENUKA MEANS ([id number]) 1960 F Date Time Provider Department 04/15/24 12:30 PM JAZMYNE RIZZO [facility] During your visit today, we recorded the following information about you: Temperature Pulse Respiration Blood pressure 97.8 degrees 84/minute 18/minute 112/66 Weight 89.6 kg Jazmyne Rizzo PA-C 04/15/2024 12:38 PM Signed This note was created using [employer]. Subjective Renuka Means is a 63 year old female. Patient is a 63-year-old female complains of worsening loose, productive cough that she has been experiencing for the past 1 week. Patient reports no congestion, sinus pressure, ear pain or sore throat. Patient has previously been diagnosed with COPD due to an approximate 21-qxza-kper history of tobacco use. Patient reports that she did stop smoking on 09 April 2024. Patient is not on home oxygen but has been prescribed an albuterol MDI which she has been using as directed. Patient denies fever, chills or myalgia. Review of Systems Respiratory: Positive for cough. All other systems reviewed and are negative. Objective BP 112/66 Pulse 84 Temp 36.6 ?C (97.8 ?F) Resp 18 Wt 89.6 kg (197 lb 8.5 oz) LMP 05/11/2006 SpO2 95% BMI 29.60 kg/m? Physical Exam Vitals and nursing note reviewed. Constitutional: Appearance: Normal appearance. She is normal weight. HENT: Head: Normocephalic and atraumatic. Right Ear: Tympanic membrane, ear canal and external ear normal. Left Ear: Tympanic membrane, ear canal and external ear normal. Nose: Nose normal. Mouth/Throat: Mouth: Mucous membranes are moist. Pharynx: Oropharynx is clear. Eyes: Extraocular Movements: Extraocular movements intact. Conjunctiva/sclera: Conjunctivae normal. Pupils: Pupils are equal, round, and reactive to light. Cardiovascular: Rate and Rhythm: Normal rate and regular rhythm. Pulses: Normal pulses. Heart sounds: Normal heart sounds. Pulmonary: Effort: Pulmonary effort is normal. Breath sounds: Wheezing and rhonchi present. Musculoskeletal: Cervical back: Normal range of motion and neck supple. Skin: General: Skin is warm and dry. Capillary Refill: Capillary refill takes less than 2 seconds. Neurological: General: No focal deficit present. Mental Status: She is alert and oriented to person, place, and time. Psychiatric: Mood and Affect: Mood normal. Behavior: Behavior normal. Thought Content: Thought content normal. Judgment: Judgment normal. Assessment and Plan Physical exam findings as noted above. Patient was provided with prescriptions for doxycycline 100 mg, prednisone 20 mg and Tessalon 100 mg. Patient reports that her albuterol MDI is current and she does not require a refill of same. Supportive care instructions were discussed and the patient was very clearly instructed to report to an emergency department if she notes any new or worsening symptoms. Patient verbalizes clear understanding of the above instructions. CLINICAL IMPRESSION: Bronchopneumonia; Acute COPD Exacerbation ASSESSMENT/PLAN: 1. Bronchopneumonia - ICD9: 485, ICD10: J18.0 (primary diagnosis) - DOXYCYCLINE HYCLATE 100 MG TABLET - PREDNISONE 20 MG TABLET - BENZONATATE 100 MG CAPSULE 2. COPD with exacerbation (HCC) - ICD9: 491.21, ICD10: J44.1 Jazmyne Rizzo PA-C Allergies As of Date: 04/15/2024 Noted Allergy Reaction BANANA 08/01/2016 8 - GI Upset Comments: severe abdominal pain BEE STING 10/11/2021 9 - Itching 12 - Shortness of Breath 7 - Swelling EGGS (EGG) 06/28/2016 11 - Vomiting PENICILLINS 04/27/2005 4 - Hives PRAVASTATIN 06/23/2013 5 - Intolerance Comments: Chest pain TRIPLE ANTIBIOTIC (NEOMYCIN-BACIT*04/27 ULTRAM (TRAMADOL HCL) 04/07/2008 11 - Vomiting VICOPROFEN (HYDROCODONE-IBUPROFE N)04/27/2005 Date Reviewed: 04/15/2024 Reviewed by: Bonny Cantu MA - Fully Assessed Reason for Visit: Chest Congestion [236] Cmt: cough, chills, diarrhea and headache x 6 days Primary Visit Diagnosis:Bronchopneu monia [J18.0] Other Visit Diagnosis:COPD with exacerbation (HCC) [J44.1] Order(s):doxycycline (VIBRA-TABS) 100 mg tabletTake 1 tablet by mouth two times a day for 10 days.Disp: 20 tabletRfl: 0 predniSONE (DELTASONE) 20 mg tabletTake 1 tablet by mouth two times a day for 5 days.Disp: 10 tabletRfl: 0 benzonatate (TESSALON PERLE) 100 mg capsuleTake 1 capsule by mouth three times a day as needed for cough for up to 7 days.Disp: 21 capsuleRfl: 0 Prescriptions as of 04/15/2024 - doxycycline (VIBRA-TABS) 100 mg tablet Take 1 tablet by mouth two times a day for 10 days. - predniSONE (DELTASONE) 20 mg tablet Take 1 tablet by mouth two times a day for 5 days. - benzonatate (TESSALON PERLE) 100 mg capsule Take 1 capsule by mouth three times a day as needed for cough for up to 7 days. - albuterol HFA (VENTOLIN HFA) 90 mcg/actuation inhaler (more content not included)... Normal [facility] CNOVon 01-01-2024 CNOV Office Visit (FAMPWS ) RENUKA MEANS ([id number]) 1960 F Date Time Provider Department 01/01/24 3:20 PM TARSHA ARITA [facility] During your visit today, we recorded the following information about you: Pulse Blood pressure Weight 71/minute 128/70 88 kg Tarsha Arita APRN.CNP 01/01/2024 4:31 PM Signed This is a 63 year old female who presents today with: No chief complaint on file. HISTORY OF PRESENT ILLNESS: Renuka Means is a 63 year old female. No chief complaint on file. Hx of lumbar fusion in 1991. Always aches. Sometime flare that is excruciating. This recurrence started last week. Woke up in severe pain. Mid-lumbar off-to left a little more. Axial pain.No radicular Sx. Can't sleep d/t pain. Took a bunch of ibuprofen so back is better but stomach is sick from it. Tried a TENS unit- all day, no improvement No loss of bowel or bladder FX PAST MEDICAL HISTORY: PAST MEDICAL HISTORY Diagnosis Date Allergic rhinitis, cause unspecified Allergic rhinitis Diverticulosis of colon (without mention of hemorrhage) Esophageal reflux Gastrointestinal hemorrhage Hyperlipemia 02/21/2011 Lumbago Marijuana use, continuous daily Unspecified hemorrhoids without mention of complication Hemorrhoids PAST SURGICAL HISTORY Procedure Laterality Date COLONOSCOPY FLX DX W/COLLJ SPEC WHEN PFRMD 05/15/06 LAPAROSCOPY W/LYSIS OF ADHESION 06/28/06 lysis of adhesion around the left adnexa PAST SURGICAL HISTORY OF 1992 discectomy L-5 SIGMOIDOSCOPY FLX DX W/COLLJ SPEC BR/WA IF PFRMD 06/12/2002 Sigmoidoscopy TX ECTOPIC W/O SALPINGAND/OOPHORECTO MY Ectopic ALLERGIES Banana, Bee Sting, Eggs [Egg], Penicillins, Pravastatin, Triple Antibiotic [Neomycin-Bacitracin- Polymyxin], Ultram [Tramadol Hcl], and Vicoprofen [Hydrocodone-Ibuprofe n] MEDICATIONS Current Outpatient Medications Medication Sig albuterol HFA (VENTOLIN HFA) 90 mcg/actuation inhaler Inhale 2 Puffs as instructed every 4 hours as needed for wheezing/shortness of breath. mometasone-formoterol (DULERA) 200-5 mcg/actuation inhaler Inhale 1 Puff as instructed two times a day. MULTIVIT-MINERALS/FOL IC ACID (DAILY GUMMIES ORAL) Take 2 Each by mouth once daily. metaxalone (SKELAXIN) 800 mg tablet Take 1 tablet by mouth three times a day as needed for pain. No current facility-administered medications for this visit. FAMILY HISTORY Problem Relation Age of Onset Lung Cancer Mother 70 smoker Cancer Father larynx, smoker Hypertension Father Alcohol/Drug Father Social History Tobacco Use Smoking status: Every Day Current packs/day: 0.50 Average packs/day: 0.5 packs/day for 27.0 years (13.5 ttl pk-yrs) Types: Cigarettes Smokeless tobacco: Never Tobacco comments: Trying to quit. Vaping Use Vaping status: Never Used Substance Use Topics Alcohol use: No Drug use: Yes Frequency: 7.0 times per week Types: Marijuana REVIEW OF SYSTEMS GENERAL: No weight loss, + malaise from chronic insomnia, no fevers/chills HEENT: Negative for frequent or significant headaches, No changes in hearing, some vision changes- black dot. NECK: Negative for lumps, goiter, pain and significant neck swelling RESPIRATORY: Negative for cough, hemoptysis, wheezing, dyspnea or shortness of breath, some with exertion CARDIOVASCULAR: Negative for chest pain, leg swelling, orthopnea, occ palpitations GI: Some nausea, no vomiting, or diarrhea/ + constipation. No hematochezia/melena. Some heartburn or reflux symptoms. : No history of dysuria, frequency or incontinence MUSCULOSKELETAL: Negative for joint pain or swelling. Chronic low back pain, right knee pain- chronic SKIN: Negative for lesions, rash, and itching ENDOCRINE: Negative for cold or heat intolerance, polyuria, polydipsia and goiter NEURO: No history of headaches, syncope, paralysis, seizures or tremors MOOD: Negative for depression, anxiety, or suicidal ideation. EXAM: BP 128/70 Pulse 71 Wt 88 kg (194 lb) LMP 05/11/2006 SpO2 96% BMI 29.07 kg/m? PHYSICAL EXAM: Physical Exam Vitals reviewed. Constitutional: Appearance: Normal appearance. HENT: Head: Normocephalic. Cardiovascular: Rate and Rhythm: Normal rate and regular rhythm. Pulses: Normal pulses. Heart sounds: Normal heart sounds. Pulmonary: Effort: Pulmonary effort is normal. Breath sounds: Normal breath sounds. Abdominal: Palpations: Abdomen is soft. Musculoskeletal: General: Normal range of motion. Comments: Axial back pain- mid lumbar more to left side. No radicular Sxc. Hurts to palpate. Afraid to move d/t pain. No edema No redness No radicular Sx No loss of bowel or bladder Sx Skin: General: Skin is warm and dry. Neurological: General: No focal deficit present. Mental Status: She is alert and oriented to person, place, a (more content not included)... Normal [facility] RENUKA MEANS ([id number]) 1960 F Date Time Provider Department 12/31/23 Antonieta SARMIENTO INTMWS During your visit today, we recorded the following information about you: Marilu Clancy LPN 12/31/2023 11:04 AM Signed patient c/o lower back pain, not sure what she did to irritate. Patient does have h/o of back surgery. Patient is unable to stand up straight. Pain scale 10/10 . Patient stated that she has tried motrin, tylenol #3 from his father. Tried biofreeze , mobic and nothing is helping. unable to make an appointment due to insurance. Please review and advise ADDIE Funes Jacqueline A, NURSE MONITORING.[facility] 12/31/2023 11:44 AM Signed I can't advise without an assessment. She can use hot/cold contrast, epsom salt soaks, and ibuprofen 400 mg4 x day. Rest. Other than that, can be seenhere, urgent care, or ER if not able to manage pain. Whitney Cadena RN 12/31/2023 1:41 PM Signed Patient calls back and notified of provider recommendations below. Patient voices understanding. Patient really wants to come in and see provider. Patient transferred to academic support center director to help with insurance issue and to schedule appointment. Whitney Cadena RN Allergies As of Date: 12/31/2023 Noted Allergy Reaction BANANA 08/01/2016 8 - GI Upset Comments: severe abdominal pain BEE STING 10/11/2021 9 - Itching 12 - Shortness of Breath 7 - Swelling EGGS (EGG) 06/28/2016 11 - Vomiting PENICILLINS 04/27/2005 4 - Hives PRAVASTATIN 06/23/2013 5 - Intolerance Comments: Chest pain TRIPLE ANTIBIOTIC (NEOMYCIN-BACIT*04/27 ULTRAM (TRAMADOL HCL) 04/07/2008 11 - Vomiting VICOPROFEN (HYDROCODONE-IBUPROFE N)04/27/2005 Date Reviewed: 03/12/2023 Reviewed by: Toya Mukherjee PA-C - Fully Assessed Reason for Visit: Back Pain [12] Cmt: back pain Prescriptions as of 12/31/2023 - albuterol HFA (VENTOLIN HFA) 90 mcg/actuation inhaler Inhale 2 Puffs as instructed every 4 hours as needed for wheezing/shortness of breath. - mometasone-formoterol (DULERA) 200-5 mcg/actuation inhaler Inhale 1 Puff as instructed two times a day. - metaxalone (SKELAXIN) 800 mg tablet Take 1 tablet by mouth three times a day as needed for pain. - MULTIVIT-MINERALS/FOL IC ACID (DAILY GUMMIES ORAL) Take 2 Each by mouth once daily. Problem List As Of Date 12/31/2023 Noted Resolved LUMBAGO [M54.50] ALLERGIC RHINITIS NOS [J30.9] HEMORRHOIDS NOS [K64.9] GASTROINTESTINAL HEMORR [578] FEMALE GENITAL SYMPTOMS NOS [N94.9] 05/02/2005 CONGENITAL PES PLANUS [Q66.50] 05/02/2005 ENTHESOPATHY, SITE NOS [M77.9] 05/15/2005 ABDOMINAL PAIN UNSPEC SITE [R10.9] ABDOMINAL PAIN LLQ [R10.32] DIVERTICULOSIS OF COLON W/O BLEED [K57.30] GASTRITIS/DUODENITIS NOS [535.5] 06/04/2006 PERS HX TOBACCO USE [Z87.891] 06/04/2006 MALAISE AND FATIGUE NEC [R53.81, R53.83] 10/03/2008 HYPERLIPIDEMIA NEC/NOS [E78.5] 10/03/2008 TOBACCO USE DISORDER [F17.200] 10/04/2008 INSOMNIA NOS [G47.00] 10/27/2008 Hyperlipemia [E78.5] 02/21/2011 DDD (degenerative disc disease), lumbar [M51.36]07/11/2012 Postlaminectomy syndrome [M96.1] 09/22/2013 Chronic back pain [M54.9, G89.29] 09/22/2013 Mixed hyperlipidemia [E78.2] 09/13/2015 Tobacco abuse disorder [Z72.0] 09/13/2015 Right wrist tendonitis [M77.8] 08/01/2016 Screening for lipid disorders [Z13.220] 08/29/2021 Encounter Status:Closed by WHITNEY CADENA on 12/31/23 Normal [facility] LUNG DIFFUSION CAPACITY (UMESH O)on 11-10-2022 [facility] SPIROMETRY WITH DILATOR IF O BSTRUCTEDon 11-10-2022 DLCO (ml/min/mmHg) 22.97 ml/min/mmHg [facility] DLCO/VA (ml/min/mmHg/L) 4.25 ml/min/mmHg/L [facility] TOQ23-03% POST (L/S) 1.28 L/S [facility] UBZ45-51% PRE (L/S) 1.15 L/S [facility] FEV1 PRE (L) 2.20 L [facility] FEV1/FVC POST (%) 66 % [facility] FEV1/FVC PRE (%) 66 % [facility] FEV1_POST (L) 2.25 L [facility] FVC POST (L) 3.39 L [facility] FVC PRE (L) 3.34 L [facility] PEF POST (L/S) 4.95 L/S [facility] PEF PRE (L/S) 4.97 L/S [facility] VA (L) 5.41 L [facility] XR CHEST 2V FRONTAL/[facility] PA and Lateralon IMPRESSION: No acute radiographic abnormality. Lens Inserter: WILLIE Transcribe Date/Time: Sep 06 2022 1:07P Dictated by : REGINA JUNG MD This examination was interpreted and the report reviewed and electronically signed by: REGINA JUNG MD on Sep 06 2022 1:07PM EST DIVISION OF RADIOLOGY * * *Final Report* * * DATE OF EXAM: Sep 06 2022 11:04AM WOX 5291 - XR CHEST 2V FRONTAL/LAT / PROCEDURE REASON: Wheezing * * * * Physician Interpretation * * * * EXAMINATION: CHEST RADIOGRAPH (2 VIEW FRONTAL & LATERAL) CLINICAL HISTORY: Wheezing MQ: XC2_6 EXAM DATE/TIME: 09/06/2022 11:04 AM COMPARISON: Chest x-ray on 08/23/2022 RESULT: Lines, tubes, and devices: None. Lungs and pleura: No consolidation. No lung mass. No pleural effusion. No pneumothorax. Cardiomediastinal silhouette: Stable cardiomediastinal silhouette. Bones and soft tissues: Unremarkable. DIVISION OF RADIOLOGY Provider, Teodoro Hodges [facility] - 09/06/2022 * * *Final Report* * * DATE OF EXAM: Sep 06 2022 11:04AM WOX 5291 - XR CHEST 2V FRONTAL/LAT / PROCEDURE REASON: Wheezing * * * * Physician Interpretation * * * * EXAMINATION: CHEST RADIOGRAPH (2 VIEW FRONTAL & LATERAL) CLINICAL HISTORY: Wheezing MQ: XC2_6 EXAM DATE/TIME: 09/06/2022 11:04 AM COMPARISON: Chest x-ray on 08/23/2022 RESULT: Lines, tubes, and devices: None. Lungs and pleura: No consolidation. No lung mass. No pleural effusion. No pneumothorax. Cardiomediastinal silhouette: Stable cardiomediastinal silhouette. Bones and soft tissues: Unremarkable. IMPRESSION IMPRESSION: No acute radiographic abnormality. Lens Inserter: PSCDayan Transcribe Date/Time: Sep 06 2022 1:07P Dictated by : REGINA JUNG MD This examination was interpreted and the report reviewed and electronically signed by: REGINA JUNG MD on Sep 06 2022 1:07PM [facility] Radiology Study observation (narrative) [facility] XR Chest PA and LateralOrder ed By: Ccf Provider on 09-06-2022 [facility] XR CHEST 2V FRONTAL/LATon [facility] XR Chest PA and Lateralon IMPRESSION: Mild hazy opacity in the right lower lung zone suspect for bronchopneumonia in the appropriate clinical setting. Lens Inserter: WILLIE Transcribe Date/Time: Aug 23 2022 12:29P Dictated by : SHAYY JIMÉNEZ MD This examination was interpreted and the report reviewed and electronically signed by: SHAYY JIMÉNEZ MD on Aug 23 2022 12:30PM [facility] DIVISION OF RADIOLOGY * * *Final Report* * * DATE OF EXAM: Aug 23 2022 12:28PM WOX 5291 - XR CHEST 2V FRONTAL/LAT / PROCEDURE REASON: Cough, unspecified type * * * * Physician Interpretation * * * * EXAMINATION: CHEST RADIOGRAPH (2 VIEW FRONTAL & LATERAL) CLINICAL HISTORY: Cough, unspecified type MQ: XC2_6 EXAM DATE/TIME: 08/23/2022 12:28 PM COMPARISON: Chest x-ray dated February 09, 2021 RESULT: Lines, tubes, and devices: None. Lungs and pleura: Mild hazy opacity in the right lower lung zone suspect for bronchopneumonia in the appropriate clinical setting. No pleural effusion or pneumothorax. Cardiomediastinal silhouette: Normal cardiomediastinal silhouette. Bones and soft tissues: Unremarkable. DIVISION OF RADIOLOGY Provider, [facility] - 08/23/2022 * * *Final Report* * * DATE OF EXAM: Aug 23 2022 12:28PM WOX 5291 - XR CHEST 2V FRONTAL/LAT / PROCEDURE REASON: Cough, unspecified type * * * * Physician Interpretation * * * * EXAMINATION: CHEST RADIOGRAPH (2 VIEW FRONTAL & LATERAL) CLINICAL HISTORY: Cough, unspecified type MQ: XC2_6 EXAM DATE/TIME: 08/23/2022 12:28 PM COMPARISON: Chest x-ray dated February 09, 2021 RESULT: Lines, tubes, and devices: None. Lungs and pleura: Mild hazy opacity in the right lower lung zone suspect for bronchopneumonia in the appropriate clinical setting. No pleural effusion or pneumothorax. Cardiomediastinal silhouette: Normal cardiomediastinal silhouette. Bones and soft tissues: Unremarkable. IMPRESSION IMPRESSION: Mild hazy opacity in the right lower lung zone suspect for bronchopneumonia in the appropriate clinical setting. Lens Inserter: WILLIE Transcribe Date/Time: Aug 23 2022 12:29P Dictated by : SHAYY JIMÉNEZ MD This examination was interpreted and the report reviewed and electronically signed by: SHAYY JIMÉNEZ MD on Aug 23 2022 12:30PM EST [facility] Radiology Study observation (narrative) [facility] XR Chest PA and LateralOrder ed By: Ccf Provider on 08-23-2022 [facility] XR Shoulder - right 3 Viewso n 06-13-2022 IMPRESSION: Mild degenerative changes Lens Inserter: WILLIE Transcribe Date/Time: Jun 13 2022 3:48P Dictated by : ED MANTILLA MD This examination was interpreted and the report reviewed and electronically signed by: ED MANTILLA MD on Jun 13 2022 3:48PM EST DIVISION OF RADIOLOGY * * *Final Report* * * DATE OF EXAM: Jun 12 2022 2:18PM WOX 5253 - XR SHLDR >/=3V AP/CONNOR AP/OTHR RT / PROCEDURE REASON: Sprain of right rotator cuff capsule, initial encounter * * * * Physician Interpretation * * * * PROCEDURE: Right shoulder INDICATION: Sprain of right rotator cuff capsule, initial encounter .Right proximal humerus pain x 3 days after her horse was pulling on her arm. TECHNIQUE: XR SHLDR >/=3V AP/CONNOR AP/OTHR RT COMPARISON: None FINDINGS: Mild narrowing of the glenohumeral joint with associated minimal marginal spurs. Mild spurring at the AC joint. Acromiohumeral interval is maintained. No fracture or dislocation. DIVISION OF RADIOLOGY Provider, [facility] Tracie [facility] - 06/13/2022 * * *Final Report* * * DATE OF EXAM: Jun 12 2022 2:18PM WOX 5253 - XR SHLDR >/=3V AP/CONNOR AP/OTHR RT / PROCEDURE REASON: Sprain of right rotator cuff capsule, initial encounter * * * * Physician Interpretation * * * * PROCEDURE: Right shoulder INDICATION: Sprain of right rotator cuff capsule, initial encounter .Right proximal humerus pain x 3 days after her horse was pulling on her arm. TECHNIQUE: XR SHLDR >/=3V AP/CONNOR AP/OTHR RT COMPARISON: None FINDINGS: Mild narrowing of the glenohumeral joint with associated minimal marginal spurs. Mild spurring at the AC joint. Acromiohumeral interval is maintained. No fracture or dislocation. IMPRESSION IMPRESSION: Mild degenerative changes Lens Inserter: WILLIE Transcribe Date/Time: Jun 13 2022 3:48P Dictated by : ED MANTILLA MD This examination was interpreted and the report reviewed and electronically signed by: ED MANTILLA MD on Jun 13 2022 3:48PM EST [facility] XR Shoulder - right 3 ViewsO rdered By: Ccf Provider on 06-13-2022 [facility] XR Shoulder - right 3 Viewso n 06-12-2022 Radiology Study observation (narrative) [facility] Absolute lymphocyte counton 12-26-2021 Lymphocytes Auto (Unsp spec) [#/Vol] 2.80 10*3/uL 0.83-4.51 [facility] Work Phone: Basophil percentageon 2021 Basophils/100 WBC (Bld) 0.3 % 0-1 [facility] Work Phone: Chloride [Moles/Vol] 108 mmol/L 98-107 [facility]: Eosinophils/100 WBC (Bld) 4.0 % 0-5 [facility] Work Phone: Glucose [Mass/Vol] 93 mg/dL 74-106 [facility] Work Phone: Neutrophils (Bld) [#/Vol] 2.6 10*3/uL 2.0-7.7 [facility] Work Phone: Neutrophils/100 WBC (Bld) 40.5 % 47-70 [facility] Work Phone: Potassium [Moles/Vol] 4.0 mmol/L 3.5-5.1 [facility] Work Phone: Sodium [Moles/Vol] 141 mmol/L 136-145 [facility] Work Phone: WBC (Bld) [#/Vol] 6.5 10*3/uL 4.4-11.0 [facility] Work Phone: Blood erythrocytes count (nu mber/volume)on 12-26-2021 RBC (Bld) [#/Vol] 5.38 10*6/uL 4.2-5.4 [facility] Work Phone: Blood hemoglobin measurement (mass/volume)on 12-26-2021 Hemoglobin (Bld) [Mass/Vol] 15.2 g/dL 12.0-15.0 [facility] Work Phone: Blood lymphocytes/100 leukoc yteson 12-26-2021 Lymphocytes/100 WBC (Bld) 43.4 % 19-41 [facility] Work Phone: [phone] Blood monocytes/100 leukocyt eson 12-26-2021 Monocytes/100 WBC (Bld) 11.5 % 0-10 [facility] Work Phone: Blood platelet mean volumeon 12-26-2021 Platelet mean volume (Bld) [Entitic vol] 10.5 fL 6.2-12.0 [facility] Work Phone: Determination of erythrocyte mean corpuscular volume (MCV)on 12-26-2021 MCV (RBC) [Entitic vol] 87.9 fL 81-99 [facility] Work Phone: Hematocrit Auto (Bld) [Volum e fraction]on 12-26-2021 Hematocrit (Bld) [Volume fraction] 47.3 % 37-47 [facility] Work Phone: Laboratory - Chemistry and C hemistry - challengeon 12-26-2021 CO2 [Moles/Vol] 23.0 mmol/L 21.0-32.0 [facility] Work Phone: Urea nitrogen/Creatinine [Mass ratio] 14.9 mg/mg 10-20 [facility] Work Phone: [phone] Laboratory - Hematology and Cell countson 12-26-2021 Erythrocyte distribution width (RBC) [Entitic vol] 45.2 fL 35.1-43.9 [facility] Work Phone: [phone] Erythrocyte distribution width (RBC) [Ratio] 14.2 % 11.6-14.6 [facility] Work Phone: [phone] Immature granulocytes/100 WBC (Bld) 0.300 % 0.0-0.9 [facility] Work Phone: [phone] Comment on above: IG% - Immature Granu locytes (promyelocytes, myelocytes and metamyelocytes) > 1% indicates that a LEFT SHIFT is Present. MCH (RBC) [Entitic mass] 28.3 pg 27.0-32.0 [facility] Work Phone: [phone] Nucleated RBC/100 WBC (Bld) [Ratio] 0 % 0-5 [facility] Work Phone: [phone] MCHC Auto (RBC) [Mass/Vol]on 12-26-2021 MCHC (RBC) [Mass/Vol] 32.1 g/dL 32-36 [facility] Work Phone: [phone] No Panel Informationon 12-26 D-Dimer Quantitative (PE/DVT) 0.46 FEU/ug/m 0.27-0.49 [facility] Work Phone: [phone] Comment on above: NORMAL D-Dimer level (<0.50) indicates no DVT or PE. Estimated Creatinine Clearance Calc 94.48 ml/min [facility] Work Phone: [phone] Estimated GFR (MDRD) Amer 115 mL/min >60 [facility] Work Phone: [phone] Comment on above: GFR Calc Estimated GFR (MDRD) Non-Af Amer 95 mL/min >60 [facility] Work Phone: [phone] Comment on above: Non- GFR Calc Platelets bldon 12-26-2021 Platelets (Bld) [#/Vol] 225 10*3/uL 150-450 [facility] Work Phone: [phone] Serum or plasma calcium fernie urement (mass/volume)on 12-26-2021 Calcium [Mass/Vol] 9.0 mg/dL 8.5-10.1 [facility] Work Phone: [phone] Serum or plasma creatinine m easurement (mass/volume)on 12-26-2021 Creatinine [Mass/Vol] 0.67 mg/dL 0.55-1.02 [facility] Work Phone: Comment on above: The validity of the calculated GFR & GFRAA in patients over 70 years has not been determined. Clinical correlation is essential. Serum or plasma urea nitroge n measurement (mass/volume)on 12-26-2021 Urea nitrogen [Mass/Vol] 10 mg/dL 7-18 [facility] Work Phone: Thin prep Papanicolaou smear with manual screeningon 12-26-2021 Thin prep Papanicolaou smear with manual screening 10 5-15 [facility] Work Phone: XR Chest PA and Lateralon IMPRESSION: No acute radiographic abnormality. Lens Inserter: WILLIE Transcribe Date/Time: Feb 09 2021 2:10P Dictated by : SHAYY JIMÉNEZ MD This examination was interpreted and the report reviewed and electronically signed by: SHAYY JIMÉNEZ MD on Feb 09 2021 2:15PM [facility] DIVISION OF RADIOLOGY * * *Final Report* * * DATE OF EXAM: Feb 09 2021 2:08PM WOX 5291 - XR CHEST 2V FRONTAL/LAT / PROCEDURE REASON: multiple diagnoses * * * * Physician Interpretation * * * * EXAMINATION: CHEST RADIOGRAPH (2 VIEW FRONTAL & LATERAL) CLINICAL HISTORY: Acute bronchitis, unspecified organism Cough MQ: XC2_6 EXAM DATE/TIME: 02/09/2021 2:08 PM COMPARISON: Chest x-ray dated December 25, 2019 RESULT: Lines, tubes, and devices: None. Lungs and pleura: No consolidation. No lung mass. No pleural effusion. No pneumothorax. Cardiomediastinal silhouette: Normal cardiomediastinal silhouette. Bones and soft tissues: Osseous demineralization and degenerative changes in the spine DIVISION OF RADIOLOGY Provider, Teodoro diehl Lockhart - 02/09/2021 * * *Final Report* * * DATE OF EXAM: Feb 09 2021 2:08PM WOX 5291 - XR CHEST 2V FRONTAL/LAT / PROCEDURE REASON: multiple diagnoses * * * * Physician Interpretation * * * * EXAMINATION: CHEST RADIOGRAPH (2 VIEW FRONTAL & LATERAL) CLINICAL HISTORY: Acute bronchitis, unspecified organism Cough MQ: XC2_6 EXAM DATE/TIME: 02/09/2021 2:08 PM COMPARISON: Chest x-ray dated December 25, 2019 RESULT: Lines, tubes, and devices: None. Lungs and pleura: No consolidation. No lung mass. No pleural effusion. No pneumothorax. Cardiomediastinal silhouette: Normal cardiomediastinal silhouette. Bones and soft tissues: Osseous demineralization and degenerative changes in the spine IMPRESSION IMPRESSION: No acute radiographic abnormality. Lens Inserter: PSCB Transcribe Date/Time: Feb 09 2021 2:10P Dictated by : SHAYY JIMÉNEZ MD This examination was interpreted and the report reviewed and electronically signed by: SHAYY JIMÉNEZ MD on Feb 09 2021 2:15PM EST [facility]iology [facility]narrative[facility] Chest PA and LateralOrder ed By: Ccf Provider on 02-09-2021 [facility] Provider Note - ED v2on 08-08 Provider Note - ED v2 Provider Note - ED v2: Chart Review: HISTORY OF PRESENTING ILLNESS RENUKA is a 59 year old Female and was seen by me at 04-Sep-2019 11:31. Triage Information: Most recent Vital Sign Value Date PAST MEDICAL HISTORY ATTESTATION: I have reviewed and confirmed nurse's/medic's notes for patient's medications, allergies, medical history, and surgical history ALLERGIES/INTOLERANCE S: No Known Allergies HEALTH HISTORY: No documented data. OUTPATIENT MEDICATIONS: Home Medications Review Status for Reconciliation: N/A Med Status: N/A No documented data. SIGNIFICANT EVENTS: No documented data. STORY ANALYST: Is : no Is : no RESULTS/VITAL SIGNS VITAL SIGNS: T PRBP SpO2O2(LPM) %FiO2 Method 04-Sep-2019 11:41:[id number]/ 59 100 MEDICAL DECISION MAKING/ED COURSE MDM/ED COURSE: This note was generated with voice recognition software and may contain errors including spelling, grammar, syntax, and misrecognization of what was dictated Chief Complaint Staple removal History of Present Illness Patient presents in no apparent distress and offers no complaints. Patient presents for staple removal after having 6 dimitri removed on the back of her head last week Sunday in [place] emergency room. Review of Systems 10 systems reviewed negative with exception of history of present illness listed above Physical Examination General: Alert and oriented, No acute distress. Eye: Pupils are equal, round and reactive to light. HENT: Normocephalic Musculoskeletal: Normal range of motion, normal strength, no tenderness, no swelling. Integumentary: [place], warm, dry, with a well-healing wound on her occiput secured by 6 dimitri Neurologic: Alert, Oriented, Normal sensory, Normal motor function. Cognition and Speech: Oriented, Speech clear and coherent. Psychiatric: Cooperative, Appropriate mood & affect. Impression and Plan Course: Improving Plan: Dimitri were removed without difficulty and patient tolerated it well. Patient Instructions: Staple removal CLINICAL IMPRESSION Diagnosis/Annotation: ED Dx Name:Encounter for removal of dimitri Code:Z48.02 Dispostion: discharged Type: home ATTESTATION CRITICAL CARE TIME Is this a critically ill patient: no Electronic Signatures: Bryson Chatman (NURSE MONITORING-BISCUIT PACKER) (Signed 04-Sep-2019 12:44) Authored: Provider Note - ED v2 Last Updated: 04-Sep-2019 12:44 by Bryson Chatman (NURSE MONITORING-BISCUIT PACKER) [facility] EMERGENCY REPORTon 0 EMERGENCY REPORT [facility] EMERGENCY ROOM REPORT NAME ACCOUNT SEX AGE ADMIT DISCHARGE PT MED. RECORD# NUMBER DATE DATE TYPE CLARY [id number] F 59 08/27/19 08/27/19 3 RENUKA Robin [id number] ROOM: ER DATE OF : 1960 DICTATING PHYSICIAN: Sami Nicole CHIEF COMPLAINT: Head laceration. HISTORY OF PRESENT ILLNESS: This is a 59-year-old female who was in her garden and her garden windmill got knocked into her head. No loss of consciousness, it bled and then stopped on its own. No blood thinners. She has pain localized to the site, but no headache, blurred vision, double vision, neck pain, numbness, tingling, weakness, or neurological deficits. PAST MEDICAL HISTORY: Back surgery, tubal ligation. MEDICATIONS: See nursing notes. FAMILY HISTORY: Noncontributory. SOCIAL HISTORY: Positive for tobacco, occasional alcohol. REVIEW OF SYSTEMS: Ten systems reviewed and present above in the HPI. PHYSICAL EXAMINATION: Vital signs: Blood pressure 124/84, pulse 70, respiratory rate 20, temperature 97.4, O2 saturation 99% on room air. General: She is well-developed, well-nourished, and well-hydrated, alert and oriented x3. GCS is 15. She has a right parietal scalp laceration linear 3 cm and not down to the galea. Bleeding is well-controlled. No associated hematoma, step-off, or deformity. She is awake, alert, midface is stable. Teeth are intact. No midline, cervical, thoracic, or lumbosacral tenderness. Heart rate and rhythm are regular without murmur, gallop, or rub. Lungs: Clear to auscultation bilaterally without wheeze, rales, or rhonchi. Abdomen: Soft. Pelvis is stable. No extremity trauma. EMERGENCY DEPARTMENT COURSE AND TREATMENT: Five dimitri were placed. She wanted some numbing medication after that, jelly, so we put some LET on her. DIAGNOSIS: 3.0 cm head laceration with staple repair. PLAN/DISPOSITION: She is going to be discharged to follow up in 2 days for a recheck and 7 to 10 days for staple removal and return for increasing, worsening, or new Page 1 of 2 RENUKA MEANS Emergency Room Report S RENUKA MEANS : 1960 symptoms. Dictated By: Sami Nicole DO 08/27/19 12:49 JOB #: [id number] Transcribed By: am 08/28/19 13:18 Electronically signed by: E-Sign: SAMI NICOLE MD 09/02/19 10:03 Page 2 of 2 RENUKA MEANS Emergency Room Report S Normal [facility] Vital Signs Date Time Vital Sign Value Performing Clinician Facility 11-03-2024 20:00-0400 Body temperature 98.2 [degF] No Primary Care Physician [facility] 11-03-2024 20:00-0400 Diastolic blood pressure 74 mm[Hg] No Primary Care Physician [facility] 11-03-2024 20:00-0400 Heart rate 71 /min No Primary Care Physician [facility] 11-03-2024 20:00-0400 Respiratory rate 18 /min No Primary Care Physician [facility] 11-03-2024 20:00-0400 SaO2% (BldA) [Mass fraction] 97 % No Primary Care Physician [facility] 11-03-2024 20:00-0400 Systolic blood pressure 128 mm[Hg] No Primary Care Physician [facility] 11-03-2024 15:45-0400 Body mass index (BMI) [Ratio] 29.8 kg/m2 No Primary Care Physician [facility] 11-03-2024 15:45-0400 Body weight 91.7 kg No Primary Care Physician [facility] 11-03-2024 13:42-0400 Body height 175.26 cm No Primary Care Physician [facility] 10-30-2024 09:16-0400 Body height 175.26 cm No Primary Care Physician [facility] 10-30-2024 09:16-0400 Body mass index (BMI) [Ratio] 29.6 kg/m2 No Primary Care Physician [facility] 10-30-2024 09:16-0400 Body temperature 97.5 [degF] No Primary Care Physician [facility] 10-30-2024 09:16-0400 Body weight 90.94 kg No Primary Care Physician [facility] 10-30-2024 09:16-0400 Diastolic blood pressure 60 mm[Hg] No Primary Care Physician [facility] 10-30-2024 09:16-0400 Heart rate 70 /min No Primary Care Physician [facility] 10-30-2024 09:16-0400 Respiratory rate 16 /min No Primary Care Physician [facility] 10-30-2024 09:16-0400 SaO2% (BldA) [Mass fraction] 92 % No Primary Care Physician [facility] 10-30-2024 09:16-0400 Systolic blood pressure 110 mm[Hg] No Primary Care Physician [facility] 10-24-2024 11:58-0400 Body temperature 97.9 [degF] No Primary Care Physician [facility] 10-24-2024 11:58-0400 Diastolic blood pressure 53 mm[Hg] No Primary Care Physician [facility] 10-24-2024 11:58-0400 Heart rate 72 /min No Primary Care Physician [facility] 10-24-2024 11:58-0400 Respiratory rate 16 /min No Primary Care Physician [facility] 10-24-2024 11:58-0400 SaO2% (BldA) [Mass fraction] 99 % No Primary Care Physician [facility] 10-24-2024 11:58-0400 Systolic blood pressure 124 mm[Hg] No Primary Care Physician [facility] 10-24-2024 10:41-0400 Body height 175.26 cm No Primary Care Physician [facility] 10-24-2024 10:41-0400 Body mass index (BMI) [Ratio] 29.5 kg/m2 No Primary Care Physician [facility] 10-24-2024 10:41-0400 Body weight 90.8 kg No Primary Care Physician [facility] 10-17-2024 08:54-0400 Body height 175.26 cm No Primary Care Physician [facility] 10-17-2024 08:54-0400 Body mass index (BMI) [Ratio] 30.4 kg/m2 No Primary Care Physician [facility] 10-17-2024 08:54-0400 Body temperature 98.8 [degF] No Primary Care Physician [facility] 10-17-2024 08:54-0400 Body weight 93.61 kg No Primary Care Physician [facility] 10-17-2024 08:54-0400 Diastolic blood pressure 72 mm[Hg] No Primary Care Physician [facility] 10-17-2024 08:54-0400 Heart rate 65 /min No Primary Care Physician [facility] 10-17-2024 08:54-0400 Respiratory rate 16 /min No Primary Care Physician [facility] 10-17-2024 08:54-0400 SaO2% (BldA) [Mass fraction] 98 % No Primary Care Physician [facility] 10-17-2024 08:54-0400 Systolic blood pressure 126 mm[Hg] No Primary Care Physician [facility] 09-15-2024 22:35-0400 Body temperature 98.2 [degF] No Primary Care Physician [facility] 09-15-2024 22:35-0400 Diastolic blood pressure 57 mm[Hg] No Primary Care Physician [facility] 09-15-2024 22:35-0400 Heart rate 88 /min No Primary Care Physician [facility] 09-15-2024 22:35-0400 Respiratory rate 16 /min No Primary Care Physician [facility] 09-15-2024 22:35-0400 SaO2% (BldA) [Mass fraction] 94 % No Primary Care Physician [facility] 09-15-2024 22:35-0400 Systolic blood pressure 122 mm[Hg] No Primary Care Physician [facility] 09-15-2024 20:33-0400 Body height 175.26 cm No Primary Care Physician [facility] 09-15-2024 20:33-0400 Body mass index (BMI) [Ratio] 30 kg/m2 No Primary Care Physician [facility] 09-15-2024 20:33-0400 Body weight 92.26 kg No Primary Care Physician [facility] 08-04-2024 08:49-0400 Body mass index (BMI) [Ratio] 30.5 kg/m2 No Primary Care Physician [facility] 08-04-2024 08:49-0400 Body temperature 97.4 [degF] No Primary Care Physician [facility] 08-04-2024 08:49-0400 Body weight 93.89 kg No Primary Care Physician [facility] 08-04-2024 08:49-0400 Diastolic blood pressure 73 mm[Hg] No Primary Care Physician [facility] 08-04-2024 08:49-0400 Heart rate 78 /min No Primary Care Physician [facility] 08-04-2024 08:49-0400 Respiratory rate 18 /min No Primary Care Physician [facility] 08-04-2024 08:49-0400 SaO2% (BldA) [Mass fraction] 96 % No Primary Care Physician [facility] 08-04-2024 08:49-0400 Systolic blood pressure 112 mm[Hg] No Primary Care Physician [facility] 07-28-2024 15:37-0400 Body mass index (BMI) [Ratio] 29.7 kg/m2 No Primary Care Physician [facility] 07-28-2024 15:37-0400 Body weight 91.17 kg No Primary Care Physician [facility] 07-28-2024 15:37-0400 Diastolic blood pressure 77 mm[Hg] No Primary Care Physician [facility] 07-28-2024 15:37-0400 Heart rate 85 /min No Primary Care Physician [facility] 07-28-2024 15:37-0400 SaO2% (BldA) [Mass fraction] 94 % No Primary Care Physician [facility] 07-28-2024 15:37-0400 Systolic blood pressure 117 mm[Hg] No Primary Care Physician [facility] 07-28-2024 12:28-0400 Body weight 89.35 kg No Primary Care Physician [facility] 07-28-2024 12:28-0400 Heart rate 80 /min No Primary Care Physician [facility] 07-28-2024 12:28-0400 SaO2% (BldA) [Mass fraction] 96 % No Primary Care Physician [facility] 07-22-2024 14:08-0400 Body mass index (BMI) [Ratio] 28.7 kg/m2 No Primary Care Physician [facility] 07-22-2024 14:08-0400 Body temperature 98.7 [degF] No Primary Care Physician [facility] 07-22-2024 14:08-0400 Body weight 90.71 kg No Primary Care Physician [facility] 07-22-2024 14:08-0400 Diastolic blood pressure 78 mm[Hg] No Primary Care Physician [facility] 07-22-2024 14:08-0400 Heart rate 78 /min No Primary Care Physician [facility] 07-22-2024 14:08-0400 Respiratory rate 16 /min No Primary Care Physician [facility] 07-22-2024 14:08-0400 SaO2% (BldA) [Mass fraction] 96 % No Primary Care Physician [facility] 07-22-2024 14:08-0400 Systolic blood pressure 122 mm[Hg] No Primary Care Physician [facility] 07-16-2024 13:15-0400 Body temperature 98.3 [degF] NA Sarmiento PA Work Phone: [facility] 07-16-2024 13:15-0400 Diastolic blood pressure 57 mm[Hg] NA Sarmiento PA Work Phone: [facility] 07-16-2024 13:15-0400 Heart rate 70 /min NA Sarmiento PA Work Phone: [facility] 07-16-2024 13:15-0400 Respiratory rate 16 /min NA Sarmiento PA Work Phone: 7(574)054-889394 [place] [address] 07-16-2024 13:15-0400 SaO2% (BldA) [Mass fraction] 97 % NA Sarmiento PA Work Phone: 6(489)697-597834 [place] [address] 07-16-2024 13:15-0400 Systolic blood pressure 103 mm[Hg] NA Sarmiento PA Work Phone: 4(433)177-064034 [place] [address] 07-16-2024 11:23-0400 Body height 177.8 cm NA Sarmiento PA Work Phone: 4(084)777-592834 [place] [address] 07-16-2024 11:23-0400 Body mass index (BMI) [Ratio] 28.4 kg/m2 NA Sarmiento PA Work Phone: 4(548)126-397334 [place] [address] 07-16-2024 11:23-0400 Body weight 90 kg NA Sarmiento PA Work Phone: 3(757)772-184434 [place] [address] 06-19-2024 08:35-0400 Body mass index (BMI) [Ratio] 29.2 kg/m2 NA Sarmiento PA Work Phone: 3(928)189-351834 [place] [address] 06-19-2024 08:35-0400 Body temperature 97.4 [degF] NA Sarmiento PA Work Phone: 4(255)223-559034 [place] [address] 06-19-2024 08:35-0400 Body weight 89.81 kg NA Sarmiento PA Work Phone: 4(630)546-447634 [place] [address] 06-19-2024 08:35-0400 Diastolic blood pressure 64 mm[Hg] NA Sarmiento PA Work Phone: 4(152)860-713334 [place] [address] 06-19-2024 08:35-0400 Heart rate 69 /min NA Sarmiento PA Work Phone: 1(476)915-297034 [place] [address] 06-19-2024 08:35-0400 Respiratory rate 18 /min NA Sarmiento PA Work Phone: 0(921)084-328934 [place] [address] 06-19-2024 08:35-0400 SaO2% (BldA) [Mass fraction] 97 % NA Sarmiento PA Work Phone: 1(611)152-208934 [place] [address] 06-19-2024 08:35-0400 Systolic blood pressure 121 mm[Hg] NA Sarmiento PA Work Phone: [facility] 06-10-2024 13:46-0500 Heart rate 82 /min NA Sarmiento PA Work Phone: [facility] 06-10-2024 13:46-0500 Respiratory rate 16 /min NA Sarmiento PA Work Phone: [facility] 06-10-2024 13:01-0500 SaO2% (BldA) [Mass fraction] 97 % NA Sarmiento PA Work Phone: 8(444)190-442594 [place] [address] 06-10-2024 12:26-0500 Body temperature 98 [degF] NA Sarmiento PA Work Phone: [facility] 06-10-2024 12:26-0500 Diastolic blood pressure 62 mm[Hg] NA Sarmiento PA Work Phone: 5(426)395-344594 [place] [address] 06-10-2024 12:26-0500 Systolic blood pressure 158 mm[Hg] NA Sarmiento PA Work Phone: 3(081)076-256594 [place] [address] 06-10-2024 10:59-0500 Body mass index (BMI) [Ratio] 28.4 kg/m2 NA Sarmiento PA Work Phone: [facility] 06-10-2024 10:59-0500 Body weight 87.25 kg NA Sarmiento PA Work Phone: 8(481)258-466294 [place] [address] 05-15-2024 17:44-0500 Body temperature 97.8 [degF] NA Sarmiento PA Work Phone: 4(686)432-474594 [place] [address] 05-15-2024 17:44-0500 Diastolic blood pressure 72 mm[Hg] NA Sarmiento PA Work Phone: 7(305)177-572194 [place] [address] 05-15-2024 17:44-0500 Heart rate 68 /min NA Sarmiento PA Work Phone: 5(442)599-303994 [place] [address] 05-15-2024 17:44-0500 Respiratory rate 18 /min NA Sarmiento PA Work Phone: 5(136)327-017734 [place] [address] 05-15-2024 17:44-0500 SaO2% (BldA) [Mass fraction] 93 % NA Sarmiento PA Work Phone: 2(413)883-544834 [place] [address] 05-15-2024 17:44-0500 Systolic blood pressure 109 mm[Hg] NA Sarmiento PA Work Phone: 5(283)350-545034 [place] [address] 05-15-2024 15:33-0500 Body mass index (BMI) [Ratio] 28.6 kg/m2 NA Sarmiento PA Work Phone: 7(227)962-080534 [place] [address] 05-15-2024 15:33-0500 Body weight 88 kg NA Sarmiento PA Work Phone: 4(507)784-556134 [place] [address] 05-15-2024 14:08-0500 Body mass index (BMI) [Ratio] 28.8 kg/m2 NA Sarmiento PA Work Phone: 7(245)544-862634 [place] [address] 05-15-2024 14:08-0500 Body weight 88.67 kg NA Sarmiento PA Work Phone: 3(551)045-307534 [place] [address] 05-15-2024 14:08-0500 Diastolic blood pressure 81 mm[Hg] NA Sarmiento PA Work Phone: 8(393)912-633934 [place] [address] 05-15-2024 14:08-0500 Heart rate 81 /min NA Sarmiento PA Work Phone: 5(906)391-338434 [place] [address] 05-15-2024 14:08-0500 Respiratory rate 20 /min NA Sarmiento PA Work Phone: 4(642)944-669334 [place] [address] 05-15-2024 14:08-0500 SaO2% (BldA) [Mass fraction] 95 % NA Sarmiento PA Work Phone: 5(027)138-800234 [place] [address] 05-15-2024 14:08-0500 Systolic blood pressure 123 mm[Hg] NA Sarmiento PA Work Phone: 3(844)888-148934 [place] [address] 04-21-2024 20:40-0500 Body temperature 98 [degF] NA Sarmiento PA Work Phone: 1(459)442-215134 [place] [address] 04-21-2024 20:40-0500 Diastolic blood pressure 69 mm[Hg] NA Sarmiento PA Work Phone: [facility] 04-21-2024 20:40-0500 Heart rate 78 /min NA Sarmiento PA Work Phone: [facility] 04-21-2024 20:40-0500 Respiratory rate 18 /min NA Sarmiento PA Work Phone: [facility] 04-21-2024 20:40-0500 SaO2% (BldA) [Mass fraction] 96 % NA Sarmiento PA Work Phone: [facility] 04-21-2024 20:40-0500 Systolic blood pressure 126 mm[Hg] NA Sarmiento PA Work Phone: [facility] 04-21-2024 12:35-0500 Body mass index (BMI) [Ratio] 29.52 kg/m2 Vanessa Rosenberg NURSE MONITORING.BISCUIT PACKER Work Phone: [facility] 04-21-2024 12:35-0500 Body weight 89.36 kg Vanessa Rosenberg NURSE MONITORING.BISCUIT PACKER Work Phone: [facility] 04-21-2024 12:35-0500 Diastolic blood pressure 62 mm[Hg] Vanessa Rosenberg NURSE MONITORING.BISCUIT PACKER Work Phone: [facility] 04-21-2024 12:35-0500 Heart rate 83 /min Vanessa Rosenberg NURSE MONITORING.BISCUIT PACKER Work Phone: [facility] 04-21-2024 12:35-0500 Respiratory rate 12 /min Vanessa Rosenberg NURSE MONITORING.BISCUIT PACKER Work Phone: [facility] 04-21-2024 12:35-0500 SaO2% (BldA) [Mass fraction] 95 % Vanessa Rosenberg NURSE MONITORING.BISCUIT PACKER Work Phone: [facility] 04-21-2024 12:35-0500 Systolic blood pressure 130 mm[Hg] Vanessa Rosenberg NURSE MONITORING.BISCUIT PACKER Work Phone: [facility] 04-15-2024 11:46-0500 Body mass index (BMI) [Ratio] 29.6 kg/m2 Jazmyne Clutter PA-C Work Phone: [facility] 04-15-2024 11:46-0500 Body temperature 97.81 [degF] Jazmyne Clutter PA-C Work Phone: [facility] 04-15-2024 11:46-0500 Body weight 89.6 kg Jazmyne Clutter PA-C Work Phone: [facility] 04-15-2024 11:46-0500 Diastolic blood pressure 66 mm[Hg] Jazmyne Clutter PA-C Work Phone: [facility] 04-15-2024 11:46-0500 Heart rate 84 /min Jazmyne Clutter PA-C Work Phone: [facility] 04-15-2024 11:46-0500 Respiratory rate 18 /min Jazmyne Clutter PA-C Work Phone: [facility] 04-15-2024 11:46-0500 SaO2% (BldA) [Mass fraction] 95 % Jazmyne Clutter PA-C Work Phone: [facility] 04-15-2024 11:46-0500 Systolic blood pressure 112 mm[Hg] Jazmyne Clutter PA-C Work Phone: [facility] 01-01-2024 15:48-0400 Body mass index (BMI) [Ratio] 29.07 kg/m2 Tarsha Suppan NURSE MONITORING.BISCUIT PACKER Work Phone: [facility] 01-01-2024 15:48-0400 Body weight 88 kg Tarsha Suppan NURSE MONITORING.BISCUIT PACKER Work Phone: [facility] 01-01-2024 15:48-0400 Diastolic blood pressure 70 mm[Hg] Tarsha Suppan NURSE MONITORING.BISCUIT PACKER Work Phone: [facility] 01-01-2024 15:48-0400 Heart rate 71 /min Tarsha Suppan NURSE MONITORING.BISCUIT PACKER Work Phone: [facility] 01-01-2024 15:48-0400 SaO2% (BldA) [Mass fraction] 96 % Tarsha Suppan NURSE MONITORING.BISCUIT PACKER Work Phone: [facility] 01-01-2024 15:48-0400 Systolic blood pressure 128 mm[Hg] Tarsha Arita NURSE MONITORING.BISCUIT PACKER Work Phone: [facility] 03-12-2023 13:10-0500 Body weight 88.91 kg Toya Yaz PA-C Work Phone: [facility] 03-12-2023 13:10-0500 Diastolic blood pressure 78 mm[Hg] Toya Yaz PA-C Work Phone: [facility] 03-12-2023 13:10-0500 Heart rate 66 /min Toya Yaz PA-C Work Phone: [facility] 03-12-2023 13:10-0500 Respiratory rate 17 /min Toya Yaz PA-C Work Phone: [facility] 03-12-2023 13:10-0500 SaO2% (BldA) [Mass fraction] 96 % Toya Yaz PA-C Work Phone: [facility] 03-12-2023 13:10-0500 Systolic blood pressure 124 mm[Hg] Toya Yaz PA-C Work Phone: [facility] 11-10-2022 13:15-0400 Body height 174 cm Aviva Valdivia MD Work Phone: [facility] 11-10-2022 13:15-0400 Body weight 87.09 kg Aviva Valdivia MD Work Phone: [facility] 11-10-2022 13:15-0400 Diastolic blood pressure 74 mm[Hg] Aviva Valdivia MD Work Phone: [facility] 11-10-2022 13:15-0400 Heart rate 78 /min Aviva Valdivia MD Work Phone: [facility] 11-10-2022 13:15-0400 Respiratory rate 14 /min Aviva Valdivia MD Work Phone: [facility] 11-10-2022 13:15-0400 SaO2% (BldA) [Mass fraction] 99 % Aviva Valdivia MD Work Phone: [facility] 11-10-2022 13:15-0400 Systolic blood pressure 120 mm[Hg] Aviva Valdivia MD Work Phone: [facility] 11-10-2022 12:55-0400 Body height 174 cm Pulm Wstr Work Phone: [facility] 11-10-2022 12:55-0400 Body weight 87.09 kg Pulm Wstr Work Phone: [facility] 11-10-2022 12:55-0400 Heart rate 78 /min Pulm Wstr Work Phone: [facility] 11-10-2022 12:55-0400 Respiratory rate 14 /min Pulm Wstr Work Phone: [facility] 11-10-2022 12:55-0400 SaO2% (BldA) [Mass fraction] 99 % Pulm Wstr Work Phone: [facility] 09-06-2022 09:57-0400 Diastolic blood pressure 72 mm[Hg] Chasity Haagen NURSE MONITORING.BISCUIT PACKER Work Phone: [facility] 09-06-2022 09:57-0400 Heart rate 76 /min Chasity Haagen NURSE MONITORING.BISCUIT PACKER Work Phone: [facility] 09-06-2022 09:57-0400 Respiratory rate 16 /min Chasity Haagen NURSE MONITORING.BISCUIT PACKER Work Phone: [facility] 09-06-2022 09:57-0400 SaO2% (BldA) [Mass fraction] 94 % Chasity Haagen NURSE MONITORING.BISCUIT PACKER Work Phone: [facility] 09-06-2022 09:57-0400 Systolic blood pressure 114 mm[Hg] Chasity Haagen NURSE MONITORING.BISCUIT PACKER Work Phone: [facility] 08-23-2022 12:04-0400 Body temperature 97.59 [degF] Scot Juan Luislebury NURSE MONITORING.BISCUIT PACKER Work Phone: [facility] 08-23-2022 12:04-0400 Body weight 86.55 kg [facility].BISCUIT P[employer]ER Work Phone: [facility] 08-23-2022 12:04-0400 Diastolic blood pressure 80 mm[Hg] Scot Pendlebury NURSE MONITORING.BISCUIT PACKER Work Phone: [facility] 08-23-2022 12:04-0400 Heart rate 78 /min [facility] NURSE MONITORING.BISCUIT PACKER Work Phone: [facility] 08-23-2022 12:04-0400 Respiratory rate 18 /min [facility] NURSE MONITORING.BISCUIT PACKER Work Phone: [facility] 08-23-2022 12:04-0400 SaO2% (BldA) [Mass fraction] 95 % [facility] NURSE MONITORING.BISCUIT PACKER Work Phone: [facility] 08-23-2022 12:04-0400 Systolic blood pressure 122 mm[Hg] [facility] NURSE MONITORING.BISCUIT PACKER Work Phone: [facility] 06-12-2022 13:29-0500 Body weight 88.45 kg NA Sarmiento PA-C Work Phone: [facility] 06-12-2022 13:29-0500 Diastolic blood pressure 68 mm[Hg] NA Sarmiento PA-C Work Phone: [facility] 06-12-2022 13:29-0500 Heart rate 85 /min NA Sarmiento PA-C Work Phone: [facility] 06-12-2022 13:29-0500 Respiratory rate 18 /min NA Sarmiento PA-C Work Phone: [facility] 06-12-2022 13:29-0500 SaO2% (BldA) [Mass fraction] 97 % NA Sarmienot PA-C Work Phone: [facility] 06-12-2022 13:29-0500 Systolic blood pressure 120 mm[Hg] NA Sarmiento PA-C Work Phone: [facility] 12-27-2021 00:31-0400 Diastolic blood pressure 73 mm[Hg] [facility] Work Phone: 12-27-2021 00:31-0400 Heart rate 74 /min [facility] Work Phone: 12-27-2021 00:31-0400 Respiratory rate 16 /min [facility] Work Phone: 12-27-2021 00:31-0400 SaO2% (BldA) [Mass fraction] 96 % [facility] Work Phone: 12-27-2021 00:31-0400 Systolic blood pressure 113 mm[Hg] [facility] Work Phone: 12-26-2021 19:35-0400 Body height 175.26 cm [facility] Work Phone: 12-26-2021 19:35-0400 Body mass index (BMI) [Ratio] 26.6 kg/m2 [facility] Work Phone: 12-26-2021 19:35-0400 Body temperature 98.2 [degF] [facility] Work Phone: 12-26-2021 19:35-0400 Body weight 81.64 kg [facility] Work Phone: 10-12-2021 10:56-0400 Body height 172.7 cm Portia Verde APRN.BISCUIT PACKER Work Phone: [facility] 10-12-2021 10:56-0400 Body weight 83.92 kg Portia Verde APRN.BISCUIT PACKER Work Phone: [facility] 10-12-2021 10:56-0400 Diastolic blood pressure 68 mm[Hg] Portia Verde APRN.BISCUIT PACKER Work Phone: [facility] 10-12-2021 10:56-0400 Systolic blood pressure 110 mm[Hg] Portia Verde APRN.BISCUIT PACKER Work Phone: [facility] 08-29-2021 11:11-0400 Body weight 84.37 kg NA Sarmiento PA-C Work Phone: [facility] 08-29-2021 11:11-0400 Diastolic blood pressure 68 mm[Hg] NA Sarmiento PA-C Work Phone: [facility] 08-29-2021 11:11-0400 Heart rate 64 /min NA Sarmiento PA-C Work Phone: [facility] 08-29-2021 11:11-0400 Respiratory rate 16 /min NA Sarmiento PA-C Work Phone: [facility] 08-29-2021 11:11-0400 SaO2% (BldA) [Mass fraction] 97 % NA Sarmiento PA-C Work Phone: [facility] 08-29-2021 11:11-0400 Systolic blood pressure 110 mm[Hg] NA Sarmiento PA-C Work Phone: [facility] Encounters Encounter Date Encounter Type Care Provider Facility Start: 11-03-2024 Evaluation and management of inpatient Dr. Román Keys MD -[facility] Work Phone: Start: 11-03-2024 observation encounter No Prima ry Care Physician -[facility] Start: 11-03-2024 Non-patient / Non-visit Dr. Román wilkinson MD -[facility] Work Phone: Start: 10-30-2024 End: 10-30-[address] Katie Ordaz MD -[facility] Work Phone: Start: 10-30-2024 End: 10-30-2024 ambulatory No Primary Care Physician -[facility] Start: 10-24-2024 End: 10-24-2024 Emergency department patient visit No Primary Care Physician -Emergency Department Work Phone: Start: 10-20-2024 ambulatory Katie Ordaz Facility :[facility] Start: 10-17-2024 End: 10-17-2024 Patient encounter procedure Isaiah AHMADI -[facility] Work Phone: Start: 10-17-2024 End: 10-17-2024 ambulatory No Primary Care Physician -[facility] Start: 10-15-2024 End: 10-15-2024 ambulatory No Primary Care Physician -[facility] Start: 10-15-2024 End: 10-15-[address] Katie Ordaz MD -[facility] Start: 10-15-2024 End: 10-15-2024 ambulatory Katie Ordaz Facility:[facility] Start: 09-30-2024 ambulatory No Primary Car e Physician Facility:[facility] Start: 09-15-2024 End: 09-15-2024 Emergency department patient visit No Primary Care Physician -Emergency Department Work Phone: Start: 08-04-2024 End: 08-04-2024 Patient encounter procedure Blanca Pierre ROADABILITY MACHINE OPERATOR-C -[facility] Work Phone: Start: 08-04-2024 End: 08-04-2024 ambulatory No Primary Care Physician Facility:[facility] Start: 08-01-2024 ambulatory No Primary Car e Physician Facility:[facility] Start: 08-01-2024 Non-patient / Non-visit Dr. Hoang taveras DO -[facility] Start: 07-28-2024 End: 07-28-2024 Patient encounter procedure Toya Gray ROADABILITY MACHINE OPERATOR-C -[facility] Work Phone: Start: 07-28-2024 End: 07-28-2024 ambulatory No Primary Care Physician Facility:[facility] Start: 07-28-2024 End: 07-28-[address] Hoang Valdivia DO -Pulmonary Services/Neurology Work Phone: Start: 07-28-2024 End: 07-28-2024 ambulatory No Primary Care Physician Facility:[facility] Start: 07-22-2024 End: 07-22-[address] Katie Ordaz MD -[facility] Work Phone: Start: 07-22-2024 End: 07-22-2024 ambulatory No Primary Care Physician Facility:[facility] Start: 07-16-2024 ambulatory No Primary Car e Physician Facility:[facility] Start: 07-16-2024 Non-patient / Non-visit Gold Montez nd DO -[facility] Start: 07-16-2024 End: 07-16-2024 Admission to same day surgery center Gold Palomino DO -Endoscopy Work Phone: Start: 07-16-2024 End: 07-16-2024 ambulatory Antonieta Romulo AHMADI Work Phone: [facility] Work Phone: Start: 07-11-2024 End: 07-11-2024 ambulatory Antonieta AHMADI Work Phone: [facility] Work Phone: Start: 07-11-2024 End: 07-11-[address] Hoang Valdivia DO -Pulmonary Services/Neurology Work Phone: Start: 07-11-2024 End: 07-11-2024 ambulatory No Primary Care Physician Facility[place] Start: 06-19-2024 End: 06-19-[address] Hoang Valdivia DO -[facility] Work Phone: Start: 06-19-2024 End: 06-19-2024 ambulatory No Primary Care Physician [facility] [place]: 06-10-2024 End: 06-10-2024 Emergency department patient visit Dr. Rg Farfan DO -Emergency Department Work Phone: Start: 05-23-2024 End: 05-28-2024 Refill Toya Mukherjee PA-C Work Phone: Pulmonary Medicine Comment on above: Refill Request Start: 05-21-2024 End: 05-21-2024 Patient encounter procedure Toya RIDLEY -Radiology, [facility] Work Phone: Start: 05-21-2024 End: 05-21-2024 ambulatory Toya Gray Facility:[facility] Start: 05-19-2024 End: 05-19-2024 Patient encounter procedure Toya RIDLEY -Radiology, [facility] Work Phone: Start: 05-19-2024 End: 05-19-2024 ambulatory No Primary Care Physician Facility:[facility] Start: 05-15-2024 End: 05-15-2024 Emergency department patient visit Dr. Mukund Dhillon-Yolie WALKER -Emergency Department Work Phone: Start: 05-15-2024 End: 05-15-2024 Patient encounter procedure Toya RIDLEY -[facility] Work Phone: Start: 05-15-2024 End: 05-15-2024 ambulatory Antonieta AHMADI [place] Start: 04-21-2024 End: 04-21-2024 Emergency department patient visit Dr. Xander Zazueta MD -Emergency Department Work Phone: Start: 04-21-2024 End: 04-21-2024 Telephone encounter Maria C El NURSE MONITORING.BISCUIT PACKER Work Phone: [facility] Comment on above: Appointment; Patient Update Start: 04-21-2024 End: 04-21-2024 ambulatory VANESSA ROSENBERG Facility:[facility] Start: 04-21-2024 End: 04-21-2024 Office outpatient visit 25 minutes Vanessa Rosenberg NURSE MONITORING.BISCUIT PACKER Work Phone: [facility] Comment on above: Buttock pain (Primar y Dx); Hematoma; Left inguinal pain; Bronchopneumonia Start: 04-15-2024 End: 04-15-2024 ambulatory CHASITY HERNANDEZ Facility:[facility] Start: 04-15-2024 End: 04-15-2024 Office outpatient new 30 minutes Jazmyne Rizzo PA-C Work Phone: [facility] Comment on above: Bronchopneumonia (Pr imary Dx); COPD with exacerbation (HCC) Start: 01-19-2024 End: 01-21-2024 Refill Antonieta Sarmiento PA-C Work Phone: [facility] Comment on above: Refill Request Start: 01-01-2024 End: 01-01-2024 Office outpatient visit 25 minutes Tarsha Arita APRN.BISCUIT PACKER Work Phone: [facility] Comment on above: Chronic insomnia (Pr imary Dx); Chronic midline low back pain without sciatica; Primary insomnia; Mixed hyperlipidemia; Tobacco abuse disorder; Screening for depression; Encounter for screening examination for other mental health and behavioral disorders Start: 01-01-2024 End: 01-01-2024 ambulatory JAZMYNE SARMIENTO Facility:[facility] Start: 12-31-2023 End: 12-31-2023 Telephone encounter Antonieta Sarmiento PA-C Work Phone: [facility] [place] Comment on above: Back Pain (back pain ) Start: 08-15-2023 ambulatory Antonieta Liu on PA-C Work Phone: Internal [facility] Start: 06-01-2023 Refill Antonieta Liu on PA-C Work Phone: Family [facility] [place] Comment on above: Refill Request Start: 05-22-2023 Refill Toya Alex PA-C Work Phone: Pulmonary Medicine Comment on above: Refill Request Start: 03-12-2023 End: 03-12-2023 Office outpatient visit 25 minutes Toya Mukherjee PA-C Work Phone: Pulmonary Medicine Comment on above: Stage 1 mild COPD by GOLD classification (HCC) (Primary Dx); Cigarette smoker; Allergic rhinitis, unspecified seasonality, unspecified trigger Start: 11-10-2022 End: 11-10-2022 ambulatory Pulm Lab [facility] Work Phone: PULM LAB [facility] Comment on above: Spirometry Start: 11-10-2022 End: 11-10-2022 Patient encounter procedure Pulm Lab [facility] Work Phone: [facility] Comment on above: Stage 1 mild COPD by GOLD classification (HCC) (Primary Dx); Allergic rhinitis, unspecified seasonality, unspecified trigger; Cigarette smoker Start: 09-06-2022 ambulatory Antonieta Liu on PA-C Work Phone: Internal Medicine [facility] Start: 09-06-2022 End: 09-06-2022 Subsequent hospital visit by physician Xr [facility] [place] Work Phone: Radiology Comment on above: Wheezing [R06.2] Start: 09-06-2022 End: 09-06-2022 Office outpatient visit 25 minutes Chasity Hernandez NURSE MONITORING.BISCUIT PACKER Work Phone: [facility] Comment on above: Wheezing (Primary Dx ) Start: 09-05-2022 Telephone encounter Antonieta Sarmiento PA-C Work Phone: [facility] Comment on above: Patient Update (requ esting medication/) Start: 08-23-2022 End: 08-23-2022 Subsequent hospital visit by physician Xr [facility] Work Phone: Radiology Comment on above: Cough, unspecified t ype [R05.9] Start: 08-23-2022 End: 08-23-2022 Office outpatient visit 25 minutes Scot Hilton NURSE MONITORING.BISCUIT PACKER Work Phone: [facility] Comment on above: Cough, unspecified t ype (Primary Dx); Cough; Wheeze; Pneumonia of right lower lobe due to infectious organism Start: 07-31-2022 Refill Antonieta Liu on PA-C Work Phone: [facility] Comment on above: Refill Request Start: 06-14-2022 Refill Antonieta Liu on PA-C Work Phone: [facility] Comment on above: Refill Request Getting back with yo u like you asked Start: 06-13-2022 Telephone encounter Antonieta Sarmiento PA-C Work Phone: [facility] Comment on above: Appointment; Orders Start: 06-12-2022 End: 06-12-2022 Subsequent hospital visit by physician Virginia [facility] Work Phone: Radiology Comment on above: Sprain of right rota tor cuff capsule, initial encounter [S43.421A] Start: 06-12-2022 End: 06-12-2022 Patient encounter procedure Antonieta Sarmiento PA-C Work Phone: [facility] Comment on above: Sprain of right rota tor cuff capsule, initial encounter (Primary Dx); Traumatic tear of right rotator cuff, unspecified tear extent, initial encounter Start: 12-26-2021 End: 12-27-2021 [facility] Start: 12-26-2021 End: 12-26-2021 ambulatory Steve Restrepo MD Work Phone: [facility] Comment on above: COVID-19 (Primary Dx ); Chest pain, unspecified type; SOB (shortness of breath) Start: 12-26-2021 End: 12-26-2021 Telemedicine consultation with patient Steve Restrepo MD [facility] Start: 12-26-2021 Telephone encounter Antonieta Sarmiento PA-C Work Phone: [facility] Comment on above: Patient Request Start: 10-12-2021 End: 10-12-2021 Patient encounter procedure Portia Verde APRN.CNP Work Phone: OB/Gynecology Comment on above: Encounter for gyneco logical examination (general) (routine) without abnormal findings (Primary Dx); Encounter for screening for human papillomavirus (HPV); Pap smear for cervical cancer screening Start: 10-12-2021 End: 10-12-2021 Patient encounter status Portia Verde APRN.BISCUIT PACKER Work Phone: OB/Gynecology Start: 08-29-2021 End: 08-29-2021 Patient encounter procedure Antonieta Sarmiento PA-C Work Phone: [facility] Comment on above: Huerta's cyst of knee , right (Primary Dx); Encounter for colorectal cancer screening; Screening for cervical cancer; Mixed hyperlipidemia; Tobacco abuse disorder; Screening for diabetes mellitus Start: 02-09-2021 End: 02-09-2021 Subsequent hospital visit by physician Virginia [facility] [place] Work Phone: Radiology Comment on above: Acute bronchitis, un specified organism [J20.9] Start: 08-27-2019 End: 08-27-2019 [facility] Date Procedure Procedure Detail Performing Clinician Start: 11-03-2024 Urnls dip stick/tabl et reagent auto microscopy No Primary Care Physician Start: 11-03-2024 Computed tomography of abdomen and pelvis with intravenous contrast No Primary Care Physician Start: 11-03-2024 Estimated creatinine clearance No Primary Care Physician Start: 10-30-2024 X-ray of lumbar spin e, two or three views No Primary Care Physician Start: 10-30-2024 Plain x-ray of pelvi s and lower extremity No Primary Care Physician Start: 10-30-2024 BIANKA measurement No Prim lorena Care Physician Comment on above: Performed at: [facility] [address] [id number] Director: Cody Knapp PhD, Phone: [phone] Start: 10-30-2024 Antibody to centrome re measurement No Primary Care Physician Comment on above: Test not performed Previous reported re sult: TNP AIEdited by: KEKE on 10/31/24:1208 AMENDED REPORT 10/31/24 1208 ANTI-CENT B previously reported as: Test not performed Start: 10-30-2024 Antibody to extracta ble nuclear antigen measurement No Primary Care Physician Comment on above: Test not performed Previous reported re sult: TNP AIEdited by: KEKE on 10/31/24:1208 AMENDED REPORT 10/31/24 1208 BETH Ab previously reported as: Test not performed Start: 10-30-2024 Antibody to ADAL-1 measurement No Primary Care Physician Comment on above: Test not performed Previous reported re sult: TNP AIEdited by: KEKE on 10/31/24:1208 AMENDED REPORT 10/31/24 1208 ANTI-ADAL previously reported as: Test not performed Start: 10-30-2024 Antibody to lupus La protein measurement No Primary Care Physician Start: 10-30-2024 Antibody to SS-A measurement No Primary Care Physician Start: 10-30-2024 Autoantibody measurement No Primary Care Physician Comment on above: Test not performed Previous reported re sult: TNP AIEdited by: KEKE on 10/31/24:1208 AMENDED REPORT 10/31/24 1208 ANTICHROMATIN previously reported as: Test not performed Start: 10-30-2024 TERRITORY SALES CONSULTANT antibody measurement No Primary Care Physician Comment on above: Test not performed Previous reported re sult: TNP AIEdited by: KEKE on 10/31/24:1208 AMENDED REPORT 10/31/24 1208 TERRITORY SALES CONSULTANT Ab previously reported as: Test not performed Start: 10-15-2024 Vitamin D, 25-hydrox y measurement No Primary Care Physician Comment on above: Vitamin D StatusDefi ciency: <20 ng/mL (50nmol/L)Insufficiency: 20-30 ng/mL (50-75 nmol/L)Sufficiency: 30-100 ng/mL (75-250 nmol/L)Toxicity: >100 ng/mL (>250 nmol/L) Start: 09-15-2024 Plain X-ray of shoulder No Primary Care Physician Start: 07-16-2024 Colonoscopy NA Sarmiento PA Work Phone: Start: 06-10-2024 X-ray of chest, PA a nd lateral views NA Sarmiento PA Work Phone: Start: 06-10-2024 Estimated creatinine clearance No Primary Care Physician Start: 05-21-2024 Plain X-ray abdomen NA Sarmiento PA Work Phone: Start: 05-19-2024 Plain X-ray abdomen NA Sarmiento PA Work Phone: Start: 05-15-2024 X-ray of chest, PA a nd lateral views NA Sarmiento PA Work Phone: Start: 05-15-2024 SARS-CoV-2, Influenz a & RSV (PCR) NA Sarmiento PA Work Phone: Start: 04-21-2024 Computed tomography of abdomen and pelvis with intravenous contrast NA Sarmiento PA Work Phone: Start: 01-01-2024 Adult depression scr eening assessment Tarsha Arita NURSE MONITORING.BISCUIT PACKER Work Phone: Start: 11-10-2022 Brncdilat rspse spmt ry pre&post-brncdilat admn Chasity Hernandez NURSE MONITORING.BISCUIT PACKER Work Phone: Start: 09-06-2022 Radiologic exam ches t 2 views Chasity Hernandez NURSE MONITORING.BISCUIT PACKER Work Phone: Start: 08-23-2022 Radiologic exam ches t 2 views Scot Hilton NURSE MONITORING.BISCUIT PACKER Work Phone: Start: 06-12-2022 Radex shoulder compl ete minimum 2 views Antonieta Sarmiento PA-C Work Phone: Start: 12-26-2021 Plain chest X-ray Start: 12-26-2021 Adult depression scr eening assessment Steve Restrepo MD Work Phone: Start: 08-29-2021 Adult depression scr eening assessment NA Torsten PA-C Work Phone: Start: 08-29-2021 Lipid 1996 panel - S ousmane or Plasma Toya Mukherjee PA-C Work Phone: Start: 02-09-2021 Radiologic exam ches t 2 views Rg Osorio NURSE MONITORING.BISCUIT PACKER, DNP Work Phone: Start: 09-13-2015 Mammography NA Sarmiento PA-C Work Phone: Start: 05-15-2006 Colonoscopy NA Sarmiento PA-C Work Phone: Plan of Treatment Date Care Activity Detail Author Start: 10-06-2029 Urine microalbumin profile [facility] Start: 10-12-2026 HPV TESTING HPV TESTING [facility] Start: 10-12-2026 PAP TESTING PAP TESTING [facility] Start: 10-12-2026 Screening for malign ant neoplasm of cervix [facility] Start: 08-29-2026 Lipid 1996 panel - Serum or Plasma Lipid Screening [facility] Start: 08-29-2026 Lipid panel Lipid Screening [facility] Start: 08-29-2026 LIPID SCREEN LIPID SCREEN [facility] Start: 04-21-2025 Annual PCP Team Quality Assurance Director jennifer Disease Visit Annual PCP Team Chronic Disease Visit [facility] Start: 01-01-2025 Screening for malign ant neoplasm of colon Colorectal Cancer Screening [facility] Comment on above: Postponed from 06/12 (Declined at this time) Start: 12-31-2024 Anxiety Screening Anxiety Screening [facility] Start: 12-31-2024 Depression Screening Depression Scre ening [facility] Start: 12-31-2024 HIV screening HIV Screening [facility] Comment on above: Postponed from 04/30 (Declined at this time) Start: 12-31-2024 Pneumococcal vaccination Pneumococcal Vaccine (2 of 2 - PCV) [facility] Comment on above: Postponed from 10/06 (Declined at this time) Start: 12-31-2024 RSV Vaccine (1 - Ris k 60-74 years 1-dose series) RSV Vaccine (1 - Risk 60-74 years 1-dose series) [facility] Comment on above: Postponed from 04/30 (Declined at this time) Start: 12-31-2024 Shingrix Vaccine (1 of 2) Shingrix Vaccine (1 of 2) [facility] Comment on above: Postponed from 04/30 (Declined at this time) Start: 12-31-2024 Zoledronic acid therapy Alpha- 1 Antitrypsin Deficiency Screening [facility] Comment on above: Postponed from 04/30 (Declined at this time) Start: 11-03-2024 Hospital admission, emergency, from emergency room, medical nature [facility] Start: 11-03-2024 Admission procedure [facility] Start: 11-03-[address] [facility] Start: 10-30-2024 Plain X-ray of hip Hip uni 4+ views with Pelvis [facility] Start: 10-30-2024 X-ray of lumbar spin e, two or three views Lumbar Spine 2 or 3 Views [facility] Start: 10-30-2024 XR Hip Views [facility] Start: 10-30-2024 XR Lumbar spine 2 or 3 Views [facility] Start: 10-30-2024 C reactive protein [Mass/volume] in Serum or Plasma [facility] Start: 10-30-2024 Cyclic citrullinated peptide IgG Ab [Units/volume] in Serum or Plasma [facility] Start: 10-30-2024 Erythrocyte sedimentation rate [facility] Start: 10-30-2024 Nuclear Ab [Presence ] in Serum [facility] Start: 10-30-2024 Rheumatoid factor [Presence] in Serum [facility] Start: 10-30-2024 [facility] Start: 10-24-2024 [facility] Start: 10-06-2024 Influenza vaccination Influenza Vacc ine (#1) [facility] Comment on above: Postponed from 12/08 (Declined at this time) Start: 08-29-2024 DIABETES SCREEN DIABETES SCREEN [facility] Start: 08-29-2024 Diabetes Screening Diabetes Screenin g [facility] Start: 07-28-2024 Walking distance 6 minutes [facility] Start: 07-16-2024 Colonoscopy w/biopsy single/multiple COLONOSCOPY AND BIOPSY [facility] Start: 07-16-2024 Egd transoral biopsy single/multiple EGD BIOPSY SINGLE/MULTIPLE [facility] Start: 07-16-2024 Patient discharge [facility] Start: 06-10-2024 [facility] Start: 06-10-2024 [facility] Start: 05-15-2024 [facility] Start: 05-15-2024 Patient referral [facility] Work Phone: Start: 04-21-2024 [facility] Start: 04-21-2024 End: 07-21-2024 CBC W Auto Differential panel - Blood COMPLETE BLOOD COUNT AND DIFFERENTIAL Lab Routine Buttock pain Hematoma Left inguinal pain Expected: 04/21/2024, Expires: 07/21/2024 [facility] Work Phone: Comment on above: Expected: 04/21/2024 , Expires: 07/21/2024 Start: 04-21-2024 End: 07-21-2024 Comprehensive metabolic 2000 panel - Serum or Plasma COMPREHENSIVE METABOLIC PANEL Lab Routine Buttock pain Hematoma Left inguinal pain Expected: 04/21/2024, Expires: 07/21/2024 [facility] Comment on above: Expected: 04/21/2024 , Expires: 07/21/2024 Start: 04-21-2024 End: 07-21-2024 CREATININE BLD CREATININE BLD Lab Routine Buttock pain Hematoma Left inguinal pain Expected: 04/21/2024, Expires: 07/21/2024 [facility] Comment on above: Expected: 04/21/2024 , Expires: 07/21/2024 Start: 01-01-2024 End: 01-01-2024 Patient encounter procedure 01/01/2024 3:20 PM EDT Office Visit [facility] [address] [place] [id number] Tarsha Arita APRN.BISCUIT PACKER [address] [place] [id number] back pain, x1 week [facility] Comment on above: back pain, x1 week Start: 12-09-2023 Covid-19 Vaccine ( season) Covid-19 Vaccine () [facility] Start: 12-09-2023 Covid-19 Vaccine () Covid-19 Vaccine () [facility] Start: 12-09-2023 Influenza vaccination C [facility] Start: 09-07-2023 Annual PCP Team Quality Assurance Director jennifer Disease Visit Annual PCP Team Chronic Disease Visit [facility] Start: 06-13-2023 COVID-19 VACCINE (#1) COVID-19 VACCI NE (#1) [facility] Comment on above: Postponed from 10/28 (Declined at this time) Start: 06-13-2023 PNEUMOCOCCAL (2 - PCV) PNEUMOCOCCAL (2 - PCV) [facility] Comment on above: Postponed from 10/06 (Declined at this time) Start: 06-13-2023 Pneumococcal vaccination [facility] Comment on above: Postponed from 10/06 (Declined at this time) Start: 06-13-2023 SHINGRIX VACCINE (1 of 2) SHINGRIX VACCINE (1 of 2) [facility] Comment on above: Postponed from 04/30 (Declined at this time) Start: 04-09-2023 Behavioral Health Screening Behavioral Health Screening [facility] Start: 04-09-2023 Depression Assessment Depression Ass [facility] Start: 04-08-2023 [facility] Comment on above: Postponed from 04/09 (Declined at this time) Start: 12-26-2022 Adult depression screening assessment DEPRESSION SCREENING [facility] Start: 12-08-2022 Covid-19 Vaccine ( season) Covid-19 Vaccine ( season) [facility] Start: 12-08-2022 Influenza vaccination C [facility] Start: 11-10-2022 End: 01-10-2023 ALGN KATYA HUFF GRP [facility] Work Phone: Comment on above: Expected: 11/10/2022 , Expires: 01/10/2023 Start: 11-10-2022 End: 01-10-2023 ALGN [employer] [facility] Work Phone: Comment on above: Expected: 11/10/2022 , Expires: 01/10/2023 Start: 10-12-2022 Screening for malign ant neoplasm of cervix Cervical Cancer Screening [facility] Start: 10-06-2022 Influenza vaccination INFLUENZA (#1) [facility] Comment on above: Postponed from 12/08 (Declined at this time) Start: 08-29-2022 Adult depression screening assessment DEPRESSION SCREENING [facility] Start: 08-29-2022 HIV SCREENING HIV SCREENING [facility] Comment on above: Postponed from 04/30 (Declined at this time) Start: 2022 RSV Vaccine (1 - 1-d ose 60+ series) RSV Vaccine (1 - 1-dose 60+ series) [facility] Start: 2022 RSV Vaccine (1 - Ris k 60-74 years 1-dose series) RSV Vaccine (1 - Risk 60-74 years 1-dose series) [facility] Start: 12-26-2021 [facility] Work Phone: Start: 12-08-2021 Influenza vaccination C [facility] Start: 08-29-2021 End: 10-29-2021 Basic metabolic 2000 panel - Serum or Plasma [facility] Work Phone: Comment on above: Expected: 08/29/2021 , Expires: 10/29/2021 Start: 08-29-2021 End: 10-29-2021 LIPID PANEL, NONFASTING [facility] Work Phone: Comment on above: Expected: 08/29/2021 , Expires: 10/29/2021 Start: 10-06-2020 PNEUMOCOCCAL (2 - PCV) PNEUMOCOCCAL (2 - PCV) [facility] Start: 10-06-2020 Pneumococcal vaccination Pneumococcal Vaccine (2 of 2 - PCV) [facility] Start: 10-06-2020 Pneumococcal Vaccine : 50+ (2 of 2 - PCV) Pneumococcal Vaccine: 50+ (2 of 2 - PCV) [facility] Start: 09-08-2020 LIPID SCREEN LIPID SCREEN [facility] Start: 05-14-2020 DIABETES SCREEN DIABETES SCREEN [facility] Start: 09-12-2016 Mammography [facility] Start: 09-12-2016 Screening for malign ant neoplasm of breast Mammogram Screening [facility] Start: 03-21-2016 HPV TESTING HPV TESTING [facility] Start: 03-21-2016 PAP TESTING PAP TESTING [facility] Start: 01-07-2015 FECAL OCCULT BLOOD FECAL OCCULT BLOO D [facility] Start: 01-07-2015 Screening for malign ant neoplasm of colon Fecal Occult Blood [facility] Start: 01-08-2014 COLORECTAL CANCER SCREENING COLORECTAL CANCER SCREENING [facility] Start: 01-08-2014 Screening for malign ant neoplasm of colon Colorectal Cancer Screening [facility] Start: 2012 SHINGRIX VACCINE (1 of 2) SHINGRIX VACCINE (1 of 2) [facility] Start: 06-13-2007 Screening for malign ant neoplasm of colon Sigmoidoscopy [facility] Start: 06-13-2007 SIGMOIDOSCOPY SIGMOIDOSCOPY [facility] Start: 05-15-2007 Colonoscopy COLONOSCOPY [facility] Start: 05-15-2007 Screening for malign ant neoplasm of colon Colonoscopy [facility] Start: 2007 COLOGUARD (FIT-DNA) COLOGUARD (FIT-D NA) [facility] Start: [address] COLONOGRAPHY [facility] Start: 2007 Screening for malign ant neoplasm of colon [facility] Start: 1992 Zoledronic acid therapy Alpha- 1 Antitrypsin Deficiency Screening [facility] Start: 1980 Anxiety Screening Anxiety Screening [facility] Start: 1980 Depression Screening Depression Scre ening [facility] Start: 1980 HIV SCREENING HIV SCREENING [facility] Start: 1980 HIV screening HIV Screening [facility] Start: 1967 COVID-19 VACCINE (#1) COVID-19 VACCI NE (#1) [facility] Start: 1962 COVID-19 VACCINE (#1) COVID-19 VACCI NE (#1) [facility] Antibody to lupus La protein measurement [facility] Antibody to SS-A measurement [facility] End: 05-21-2025 CT Abdomen and Pelvis W contrast IV CT ABD/PEL W IVCON Radiology STAT Buttock pain Hematoma Left inguinal pain 1 Occurrences starting 04/21/2024 until 05/21/2025 [facility] Comment on above: 1 Occurrences starti ng 04/21/2024 until 05/21/2025 CT Chest [facility] End: 07-12-2023 Ct upper extremity w/o contrast material CT SHOULDER WO IVCON RT Radiology ANDRA Traumatic tear of right rotator cuff, unspecified tear extent, initial encounter 1 Occurrences starting 06/12/2022 until 07/12/2023 [facility] Work Phone: Comment on above: 1 Occurrences starti ng 06/12/2022 until 07/12/2023 DNA double strand Ab [Units/volume] in Serum [facility] Hemoglobin.gastroint est inal.lower [Presence] in Stool by Immunoassay FECAL OCCULT BLOOD TEST Lab Routine Encounter for colorectal cancer screening Ordered: 08/29/2021 [facility] [facility] Work Phone: Comment on above: Ordered: 08/29/2021 Hepatic function panel [facility] Lipid 1996 panel - Serum or Plasma [facility] End: 10-06-2023 LUNG DIFFUSION CAPACITY (DLCO) LUNG DIFFUSION CAPACITY (DLCO) PFT Routine Wheezing 1 Occurrences starting 09/06/2022 until 10/06/2023 [facility] Work Phone: Comment on above: 1 Occurrences starti ng 09/06/2022 until 10/06/2023 End: 10-06-2023 NOAH SCREENING NOAH SCREENING Radiology Routine Encounter for screening mammogram for breast cancer 1 Occurrences starting 09/06/2022 until 10/06/2023 [facility] Work Phone: Comment on above: 1 Occurrences starti ng 09/06/2022 until 10/06/2023 End: 09-13-2024 MG Breast Screening NOAH SCREENING Radiology Routine Encounter for screening mammogram for breast cancer 1 Occurrences starting 08/15/2023 until 09/13/2024 [facility] Work Phone: Comment on above: 1 Occurrences starti ng 08/15/2023 until 09/13/2024 PAP FLUID CERVICAL SCREENING PAP FLUID CERVICAL SCREENING Lab Routine Encounter for gynecological examination (general) (routine) without abnormal findings Encounter for screening for human papillomavirus (HPV) Pap smear for cervical cancer screening 10/12/2021 12:16 PM EDT [facility] Work Phone: Patient Education [facility] Work Phone: Patient referral [facility] Work Phone: End: 10-06-2023 SPIROMETRY WITH DILATOR IF OBSTRUCTED SPIROMETRY WITH DILATOR IF OBSTRUCTED PFT Routine Wheezing 1 Occurrences starting 09/06/2022 until 10/06/2023 [facility] Work Phone: Comment on above: 1 Occurrences starti ng 09/06/2022 until 10/06/2023 End: 05-21-2025 US Pelvis US SOFT TISSUE PELVIS Radiology Routine Buttock pain Hematoma Left inguinal pain 1 Occurrences starting 04/21/2024 until 05/21/2025 [facility] Comment on above: 1 Occurrences starti ng 04/21/2024 until 05/21/2025 Vitamin D, 25-hydrox y measurement [facility] XR Abdomen Single view [facility] XR Knee GE 4 Views [facility] End: 07-12-2023 XR SHOULDER GENERAL 3V OR MORE AP/TRUE AP/OTHER RIGHT XR SHOULDER GENERAL 3V OR MORE AP/TRUE AP/OTHER RIGHT Radiology Routine Sprain of right rotator cuff capsule, initial encounter 1 Occurrences starting 06/12/2022 until 07/12/2023 [facility] Work Phone: Comment on above: 1 Occurrences starti ng 06/12/2022 until 07/12/2023 XR SHOULDER GENERAL 3V OR MORE AP/TRUE AP/OTHER RIGHT XR SHOULDER GENERAL 3V OR MORE AP/TRUE AP/OTHER RIGHT Radiology Routine Sprain of right rotator cuff capsule, initial encounter 06/12/2022 2:18 PM EST [facility] Work Phone: [facility] Immunizations Immunization Date Immunization Notes Care Provider Curt shanaeregis 10-07-2019 pneumococcal polysaccharide vaccine, 23 valent NA Sarmiento PA-C Work Phone: [facility] 10-07-2019 tetanus toxoid, redu mason diphtheria toxoid, and acellular pertussis vaccine, adsorbed NA Sarmiento PA-C Work Phone: [facility] 05-14-2017 influenza, injectabl e, quadrivalent, contains preservative NA Sarmiento PA-C Work Phone: [facility] 05-14-2017 influenza, injectabl e, quadrivalent, preservative free No Primary Care Physician [facility] 05-14-2017 influenza virus vacc ine, unspecified formulation Toya Mukherjee PA-C Work Phone: [facility] 02-21-2011 influenza virus vacc ine, unspecified formulation NA Sarmiento PA-C Work Phone: [facility] 12-02-2010 tetanus and diphther ia toxoids, adsorbed, preservative free, for adult use (2 Lf of tetanus toxoid and 2 Lf of diphtheria toxoid) NA Sarmiento PA-C Work Phone: [facility] Payers Date Payer Category Payer Unknown [id number] 2024 Unknown [id number] 2024 Unknown [id number] 2024 Unknown [id number] 2024 Unknown [id number] 2024 Self-pay [id number] 2014 Unknown [employer] [id number] 2014-Present [phone] [address] [id number] [place] [address] O [id number] .[id number] 2014 Private Health Insurance [id number] .[id number] .[id number] 2014 Unknown [id number]. 1.13.159.2 .7.3.088252.315 2014 Unknown [id number] 1960 Unknown [id number] 2.16.840.1.556907.3.579.2 .651 Unknown [id number] Unknown [id number] Unknown [id number] 2.16.840.1.819709.3.579.2 .462 Unknown [id number] 2.16.840.1.933380.3.579.2 .462 Unknown [id number] 2.16.840.1.713972.3.579.2 .462 Unknown [id number] 2.16.840.1.481374.3.579.2 .462 Unknown [id number] 2.16.840.1.171864.3.579.2 .462 Unknown [id number] 2.16.840.1.718386.3.579.2 .462 Unknown [id number] 2.16.840.1.466784.3.579.2 .462 Unknown [id number] 2.16.840.1.054181.3.579.2 .462 Unknown [id number] 2.16.840.1.722510.3.579.2 .462 Unknown [id number] 2.16.840.1.083298.3.579.2 .462 Unknown [id number] 2.16.840.1.677080.3.579.2 .462 Unknown [id number] 2.16.840.1.970966.3.579.2 .462 Unknown [id number] 2.16.840.1.352823.3.579.2 .462 Unknown [id number] 2.16.840.1.116180.3.579.2 .462 Unknown [id number] 2.16.840.1.189930.3.579.2 .462 Unknown [id number] 2.16.840.1.954421.3.579.2 .462 Unknown [id number] 2.16.840.1.435966.3.579.2 .462 Unknown [id number] 2.16.840.1.756620.3.579.2 .462 Unknown [id number] 2.16.840.1.630076.3.579.2 .462 Unknown [id number] 2.16.840.1.625736.3.579.2 .462 Unknown [id number] 2.16.840.1.846751.3.579.2 .462 Unknown [id number] 2.16.840.1.054733.3.579.2 .462 Unknown [id number] 2.16.840.1.873814.3.579.2 .462 Unknown [id number] 2.16.840.1.599860.3.579.2 .462 Social History Date Type Detail Facility Start: 11-04-2010 End: 01-01-2024 Tobacco smoking status HIIS Smokes tobacco daily [facility] History of tobacco use Cigarette Smoker [facility] Work Phone: Start: 08-29-2021 End: 04-21-2024 Alcohol intake Current non-drinker of alcohol (finding) [facility] Start: 1960 Sex Assigned At Female C [facility] Start: 11-04-2010 End: 08-27-2022 Cigarettes smoked current (pack per day) - Reported 0.5 [facility] Start: 11-04-2010 End: 01-01-2024 Tobacco use and exposure Smokeless tobacco non-user [facility] Work Phone: Start: 12-26-2021 End: 08-27-2022 History SDOH Alcohol Frequency 2 [facility] Start: 12-26-2021 End: 08-27-2022 History SDOH Alcohol Std Drinks 1 [facility] Start: 12-26-2021 End: 08-27-2022 History SDOH Social Connections Living 5 [facility] Start: 12-26-2021 End: 08-27-2022 History SDOH Physical Activity DPW 7 [facility] Start: 12-26-2021 End: 08-27-2022 History SDOH Physical Activity MPS 3 [facility] Start: 01-09-2021 End: 12-26-2021 Exposure to SARS-CoV-2 (event) Not sure [facility] Start: 12-26-2021 Tobacco smoking stat RUSTIS Unknown if ever smoked [facility] Work Phone: Start: 06-12-2022 Tobacco Comment Trying to quit. [facility] Start: 08-27-2022 History SDOH Physica l Activity MPS 15 [facility] Start: 08-27-2022 History SDOH Financial 4 [facility] Start: 08-27-2022 End: 01-01-2024 Social connection and isolation panel [facility] Do you belong to any clubs or organizations such as pentecostalism groups, unions, fraternal or athletic groups, or school groups? No [facility] Are you now , , , , never or living with a partner? [facility] How often to you hav e a drink containing alcohol? Monthly or less [facility] How many standard drinks containing alcohol do you have on a typical day? 1 or 2 [facility] How often do you hav e 6 or more drinks on 1 occasion? Never [facility] How hard is it for y ou to pay for the very basics like food, housing, medical care, and heating Not very hard [facility] Adult Depression Screening Assessment 6 [facility] Do you feel stress - tense, restless, nervous, or anxious, or unable to sleep at night because your mind is troubled all the time - these days [OSQ] To some extent [facility] (I/We) worried wheth er (my/our) food would run out before (I/we) got money to buy more. Never true [facility] Start: 04-16-2020 Gender identity Identifies as female gender (finding) [facility] Start: 04-16-2020 Sexual orientation Heterosexual (iron bliss) [facility] How hard is it for y ou to pay for the very basics like food, housing, medical care, and heating Somewhat hard [facility] Do you feel stress - tense, restless, nervous, or anxious, or unable to sleep at night because your mind is troubled all the time - these days [OSQ] Very much [facility] In the past 12 month s, was there a time when you were not able to pay the mortgage or rent on time? Yes [facility] Are you now , , , , never or living with a partner? [facility] Do you feel stress - tense, restless, nervous, or anxious, or unable to sleep at night because your mind is troubled all the time - these days [OSQ] Rather much [facility] Start: 07-11-2024 End: 11-03-2024 Tobacco smoking status NHIS Ex-smoker (finding) [facility] Start: 07-16-2024 End: 07-17-2024 Sex Female (finding) [facility] NEGATED: Highlighted row Not [facility] Goals Date Patient Goal Desired Activity /State Functional Status Date Assessment Result Facility 05-05-2014 Are you deaf, or do you have serious difficulty hearing No 05/05/2014 9:53 AM Jessi Vines RN No [facility] 05-05-2014 Are you blind, or do you have serious difficulty seeing, even when wearing glasses No 05/05/2014 9:53 AM Jessi Vines RN No [facility] 05-05-2014 Do you have serious difficulty walking or climbing stairs No 05/05/2014 9:53 AM Jessi Vines RN No [facility] 05-05-2014 Do you have difficul ty dressing or bathing No 05/05/2014 9:53 AM Jessi Vines RN No [facility] 05-05-2014 Because of a physica l, mental, or emotional condition, do you have difficulty doing errands alone such as visiting a physician's office or shopping No 05/05/2014 9:53 AM Jessi Vines RN No [facility] Mental Status Date Assessment Result Facility 07-16-2024 Cognitive function Voice/Name [facility] Work Phone: 12-26-2021 Cognitive function Level Of Cons ciousness Awake;Alert;Appropriate;Fol lows Commands [facility] Work Phone: 05-05-2014 Because of a physica l, mental, or emotional condition, do you have serious difficulty concentrating, remembering, or making decisions No 05/05/2014 9:53 AM Jessi Vines RN No [facility] Clinical Notes 02-09-2021 to 11-03-2024 Note Date & Type Note Facility 11-03-2024 History and physi karlo note [facility] 11-03-2024 Discharge summary [facility] 11-03-2024 Radiology Diagnostic study note [facility] Imaging Services [address] [place], [place] [address] Abdomen/Pelvis W IV Cont ONLY MR#: [id number] Acct: [id number] Name: RENUKA MEANS Rep #: [id number] : 1960 F 64 From: Bhavani Viveros MD PCP: Dr. Katie Ordaz MD Status: REG ER Study:Abdomen/Pelvis W IV Cont ONLY Date of E xam: 11/03/24 Exam# [id number] Ordering Dr: April Novoa DO PROCEDURE: ABDOMEN/PELVIS W IV CONT ONLY 11/03/2024 REASON FOR EXAM: LOW BACK PAIN TECHNIQUE: ABDOMEN/PELVIS W IV CONT ONLY Coronal and Sagittal reconstruction series were provided. CONTRAST: 100 mL of Isovue 370 One or more dose reduction techniques were used (e.g., Automated exposure control, adjustment of the mA and/or kV according to patient size, use of iterative reconstruction technique. RADIATION DOSE SUMMARY: DLP: 657 mGycm COMPARISON: 04/21/24 FINDINGS: Limited sections of the lung bases demonstrate no focal pulmonary mass or consolidations. Left base subsegmental atelectasis The liver, spleen, pancreas, and both adrenal glands demonstrate no acute findings. The gallbladder is unremarkable. Tiny hiatal hernia; otherwise stomach is unremarkable. The small bowel loops are not dilated. The appendix is normal. No colonic obstruction. Colonic diverticulosis without acute diverticulitis. There is no free air or significant free fluid. 1.1 cm cyst within the left kidney; otherwise bilateral kidneys are unremarkable. The urinary bladder is distended. The pelvic structures are intact. There is no solid pelvic mass. No significant lymphadenopathy. The aorta and IVC demonstrate no acute findings. Focal dilation up to 2.4 cm ofthe mid abdominal aorta. Mild atherosclerosis of the abdominal vasculature. Stable mild grade I anteriolisthesis of L4 on L5 with bilateral pars defects of L4. No suspicious lytic or blastic abnormality. No acute fractures or compression deformities. CT/Abdomen/Pelvis W IV Cont ONLY IMPRESSION: No acute intra-abdominal process. Stable mild grade I anteriolisthesis of L4 on L5 with bilateral pars defects of L4. No acute fractures or compression deformities. Reading Location: [facility] CC: Dr. Katie Ordaz MD; Dr. Minh Novoa DO ~ Lens Inserter: Signed [facility] 11-03-2024 Discharge summary Note Date/Time November 03, 2024 8:18pm [facility] Medical Records Department [address] [place] [address] Emergency Department Summary 11/03/24 MR#: [id number] Acct: [id number] Name: RENUKA MEANS Rep #:[id number] : 1960 64 From: Minh Novoa DO PCP: Dr. Katie Ordaz MD Status:REG ER Location: ED HPI History of Present Illness Chief Complaint: Back Narrative Narrative: Patient is a 64-year-old female past medical history of COPD, tobacco use, anxiety, back pain, IBS who presents to the emergency department with a chief complaint of back pain. Patient states that she has had significantly worseningof her back pain recently to the point where she is having significant difficulty with ambulating. She states that she is still urinating normally forself and she is constipated but denies any loss of bowel function. Patient denies any new injuries or trauma. She states that she had a x-ray 2 days ago and was ultimately referred to pain management however they are unable to get her in and notes that the doctors on vacation. She states that today she felt that her pain was worse and came here for further evaluation management. She states that she feels that muscle relaxers made her symptoms worse. Denies any fevers, any history of IV drug use [facility] Medical History Wears glasses Anxiety Marijuana use Former smoker Shortness of breath on exertion COPD (chronic obstructive pulmonary disease) Pneumonia Home Medications ?Medication ?Instructions ?Recorded ?Last Taken ?Type pantoprazole 40 mg tablet,delayed 40 mg PO QDAY esopha gitis #90 tabs 07/28/24 Unknown Rx release albuterol sulfate 90 mcg/actuation 2 puff inhalation Q 4H PRN PRN 08/04/24 Unknown Rx aerosol inhaler (Ventolin HFA) Wheezing ##1 mometasone-formoterol HFA 100 2 puff inhalation BID #8 .8 grams 08/04/24 Unknown Rx mcg-5 mcg/actuation aerosol inhaler (Dulera) meloxicam 15 mg tablet 15 mg PO QDAY #30 tabs 10/17 Unknown Rx atorvastatin 10 mg tablet (Lipitor) 10 mg PO QHS #30 t abs 10/19/24 Unknown Rx cyclobenzaprine 5 mg tablet 5 mg PO TID pain #30 tabs 10/30/24 Unknown Rx Allergy/AdvReac Type Severity Reaction Status Date / Time bacitracin (From Neosporin Allergy Rash Verified 11/03/24 13:44 ([id number])) neomycin (From Neosporin Allergy Rash Verified 11/03/24 13:44 ([id number])) Penicillins Allergy Hives Verified 11/03/24 13:44 polymyxin B (From Neosporin Allergy Rash Verified 11/03/24 13:44 ([id number])) egg (eggs) AdvReac Abd Verified 11/03/24 13:44 cramps/diarrhea Food Allergies: Uncoded AdvReac Abd Verified 11/03/24 13:44 cramps/diarrhea Family History Father Alcohol abuse Arthritis Cancer LARYNGEAL COPD (chronic obstructive pulmonary disease) Mother Osteoporosis Surgical History History of colonoscopy , tubal with rupture History of back surgery Social History household members: significant other housing: house current occupational status: employed 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 [employer] Smoking Status: Former smoker quit date: 04/09/24 pack-years: 23 alcohol intake: current alcohol intake frequency: holidays/special occasions only substance use type: marijuana frequency: daily do you feel safe at home: Yes ROS ROS ED ROS Narrative Constitutional: Denies headache, fever, chills Cardiovascular: Denies chest pain Respiratory: Denies shortness of breath Abdomen: Complains constipation denies nausea vomiting : Denies any urinary symptoms states that she is urinating normally for self Neurological: Denies any numbness or tingling Musculoskeletal: Complains of back pain as noted above Skin: Denies any rashes or lesions EXAM Physical Exam Narrative Exam Narrative: General: Patient is lying in bed rest comfortably did not appear to be acute distress Head: Atraumatic, normocephalic Eyes: PERRL bilaterally, EOMI bilaterally, no conjunctival injection noted Neck: Soft, supple, trachea midline Cardiovascular: Regular rate and rhythm no murmurs gallops rubs noted Respiratory: Clear to auscultation bilaterally Abdomen: Soft, nondistended, nontender to palpation Extremities: +4/5 strength noted in the bilateral upper and lower extremities Neurological: Patient follow commands knew that she was at [facility] 2024. Sensation grossly intact no saddle anesthesia noted Skin: Warm, dry, intact no rashes lesions noted Const Vital Signs: 11/03/24 13:42 11/03/24 15:46 11/03/24 17:00 Temperature 98 F Temperature Source Temporal Pulse Rate 73 64 52 L Respiratory Rate 18 18 16 Blood Pressure 111/70 127/63 H 121/71 H Blood Pressure Mean 83 84 87 Pulse Ox 99 98 98 Oxygen Delivery Method Room Air Room Air Room Air 11/03/24 19:00 Temperature Temperature Source Pulse Rate 51 L Respiratory Rate 16 Blood Pressure 120/60 Blood Pressure Mean 80 Pulse Ox 96 Oxygen Delivery Method Room Air MDM MDM MDM Narrative Medical decision making narrative: Patient is a 64-year-old female who presents to the emergency department chief complaint of back pain. On the differential diagnosis includes but limited to musculoskeletal strain, compression fracture, herniated disc, UTI, pyelonephritis. Once workup is obtained reviewed she will be reevaluated. Patient given IV fluids, morphine and Zofran. Patient CBC reviewed showed a white blood count 11,000, hemoglobin stable at 15,platelet count 362. Patient sodium was 137, potassium normal at 4.5, creatininewas 0.71. Patient's AST and ALT were 21 and 14 respectively. Patient lipase normal at 18, urinalysis reviewed showed no evidence of infection. Patient's CTab pelvis with IV contrast showed no acute intra-abdominal processes there is stable mild grade 1 anterolisthesis of L4 on L5 with bilateral pars defects of L4. No acute fractures or compression deformities. Given the patient is having intractable back pain not able to get up and go to the bathroom secondary to her pain and not able to take care of herself will discuss case with hospitalist for admission for observation of pain control. Discussed case with hospitalist Dr. Keys who accept patient for admission. Patient notified is agreeable spinal course concerns answered. Lab Data Labs: Laboratory Results - last 24 hr 11/03/24 11/03/24 16:24 18:11 WBC 11.5 H RBC 5.34 Hgb 15.0 Hct 46.3 MCV 86.7 MCH 28.1 MCHC 32.4 RDW Std Deviation 45.0 H RDW Coeff of Jaswant 14.1 Plt Count 362 MPV 9.8 Immature Gran % (Auto) 0.700 Neut % (Auto) 73.5 H Lymph % (Auto) 18.4 L [place] % (Auto) 6.8 Eos % (Auto) 0.3 Baso % (Auto) 0.3 Absolute Neuts (auto) 8.5 H Absolute Lymphs (auto) 2.12 Nucleated RBC % 0 Sodium 137 Potassium 4.5 Chloride 102 Carbon Dioxide 20.1 L Anion Gap 16 H BUN 15 Creatinine 0.71 Estim Creat Clear Calc 99.09 Est GFR (MDRD) Non-Af 96 BUN/Creatinine Ratio 20.7 H Glucose 91 Calcium 9.5 Total Bilirubin 0.34 AST 21 ALT 14 Alkaline Phosphatase 61 Total Protein 7.5 Albumin 4.2 Globulin 3.3 Albumin/Globulin Ratio 1.3 Lipase 18 Urine Color Straw Urine Clarity Clear Urine pH 7.0 Ur Specific [place] 1.010 Urine Protein Negative Urine Glucose (UA) Normal Urine Ketones Negative Urine Occult Blood Negative Urine Nitrite Negative Urine Bilirubin Negative Urine Urobilinogen Normal Ur Leukocyte Esterase Negative Urine RBC 0-5 SEEN Urine WBC 0-5 SEEN Ur Squamous Epith Cells 0 SEEN Urine Bacteria 0 SEEN Urine Mucus 0 SEEN Radiography Diagnostic Testing: Clinical Impression(s) from Imaging Studies Abdomen/Pelvis CT 11/03/24 16:37 IMPRESSION: No acute intra-abdominal process. Stable mild grade I anteriolisthesis of L4 on L5 with bilateral pars defects of L4. No acute fractures or compression deformities. Reading Location: [facility] Discharge Plan Triage Chief Complaint: Back ED Provider: Minh Novoa Dx/Rx/DC Orders Clinical Impression: Intractable back pain, Unable to ambulate, History of COPD, Anterolisthesis of lumbar spine Prescriptions: No Action pantoprazole 40 mg tablet,delayed release (DR/EC) 40 mg PO QDAY Qty: 90 3RF Dulera 100-5 mcg/actuation HFA aerosol inhaler 2 puff inhalation BID Qty: 8.8 3RF albuterol sulfate [Ventolin HFA] 90 mcg/actuation HFA aerosol inhaler 2 puff inhalation Q4H PRN PRN (Reason: Wheezing) Qty: 1 11RF meloxicam 15 mg tablet 15 mg PO QDAY Qty: 30 0RF cyclobenzaprine 5 mg tablet 5 mg PO TID Qty: 30 0RF atorvastatin [Lipitor] 10 mg tablet 10 mg PO QHS Qty: 30 0RF Primary Care Provider: Katie Ordaz Referrals: Katie Ordaz MD [Primary Care Provider] - Print Language: Angolan Disposition Disposition: Acute Care Hospital [facility] What to do if you have Problems For any increased pain, shortness of breath, bleeding, nausea or vomiting, chestpain, or any unexpected problems, contact your Primary Care Provider. Call [facility] ([phone]) or report to the closest Emergency Room. Call 911 if necessary. 11/03/242017 <Electronically signed by Minh Novoa DO> Cosigner Signature (if applicable): CC: Dr. Katie Ordaz MD ~ Signed [facility] Work Phone: [phone]) 685-724307-24-2025 [facility] [address] [place], [place] [address] OFFICE VISIT Date of Service: 10/30/24 MR#: [id number] Acct: [id number] Name: RENUKA MEANS Rep #: [id number] : 1960 Provider: Dr. Yesica Ordaz MD Age/Sex: 64/F Location[place] [facility] Status: Signed Intake Vital Signs 10/24/24 10:41 10/30/24 09:16 Height 5 ft 9 in 5 ft 9 in Weight: 200 lb 8 oz BMI 29.6 BP 110/60 Blood Pressure Location Lt brachial Position Sitting Respiration 16 Pulse 70 Pulse Source Monitor Temp 97.5 F L Temp Source Temporal Pulse Oximetry (%) 92 Oxygen Delivery Method room air Intake Visit Reasons: [facility] ER FU Chief Complaint: ER F/U for lower back pain Hand Violin Maker Required: No Accompanied by: Self Is patient in pain?: Yes Pain scale (1-10): 8 Allergies bacitracin (From Neosporin (toy-dyg-lxirr)) Allergy (Verified 10/30/24 09:18) Rash neomycin (From Neosporin (cmg-pfv-mwiwa)) Allergy (Verified 10/30/24 09:18) Rash Penicillins Allergy (Verified 10/30/24 09:18) Hives polymyxin B (From Neosporin (euw-vox-jfywj)) Allergy (Verified 10/30/24 09:18) Rash egg (eggs) Adverse Reaction (Verified 10/30/24 09:18) Abd cramps/diarrhea Food Allergies: Uncoded Adverse Reaction (Verified 10/30/24 09:18) Abd cramps/diarrhea Medications ?Medication ?Instructions ?Recorded ?Confirmed ?Type albuterol sulfate 2.5 mg/3 mL 2.5 mg (3 mL) inhalation Q4H PRN 06/10/24 10/30/24 Rx (0.083 %) solution for nebulization #25 vials pantoprazole 40 mg tablet,delayed 40 mg PO QDAY esopha gitis #90 tabs 07/28/24 10/30/24 Rx release albuterol sulfate 90 mcg/actuation 2 puff inhalation Q 4H PRN PRN 08/04/24 10/30/24 Rx aerosol inhaler (Ventolin HFA) Wheezing ##1 mometasone-formoterol HFA 100 2 puff inhalation BID #8 .8 grams 08/04/24 10/30/24 Rx mcg-5 mcg/actuation aerosol inhaler (Dulera) albuterol sulfate 90 mcg/actuation 2 puff inhalation Q 6H PRN 08/26/24 10/30/24 Rx aerosol inhaler shortness of breath or wheez ing #8.5 grams meloxicam 15 mg tablet 15 mg PO QDAY #30 tabs 10/1710/30/24 Rx atorvastatin 10 mg tablet (Lipitor) 10 mg PO QHS #30 t abs 10/19/24 10/30/24 Rx hydrocodone-acetaminophen 5-325mg 1 tab PO Q6H PRN jessica n 3 days #12 10/24/24 10/30/24 Rx 5mg-325mg TABLETS prednisone 10 mg tablet 10 mg PO UD #30 tabs 5 10/30/24 Rx cyclobenzaprine 5 mg tablet 5 mg PO TID pain #30 tabs 10/30/24 10/30/24 Rx Nurse's Note: F/U for lower back. Had seen the ER and was given hydrocodone and prednisone. Hurts to sit, walk, and lay down. 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 She is up to date onher routine blood work. She previously declined a mammogram. She is otherwise up to date on her screening. She previously declined any immunizations. She reports she will occasionally have a cigarette,maybe every other day, but states she isn't doing it regularly. She doesn't need any refills. She reports she is eating healthy. Her activity has been limited due to pain. The patient has a history of COPD. She is following with pulmonology and saw them in July. She states she has not been using the dulera stating she doesn'tfeel that she needs it. She denies any recent flare ups and reports she uses her rescue inhaler less than she was. Her last PFT was done recently which showed mild disease. She had a 6 minute walk test since she was last seen whichwas normal. She reports her constipation has been persistent. She did see GI in July who ordered an anorectal manometry. She reports her symptoms continue to cause her problems and have been worse recently withthe pain medication. She reports her GERD/Castellanos's esophagus has been doing better. At her last office visit, she complained of insomnia. She reports that due to her pain, she has notbeen sleeping any better. The patient was seen by GALDINO Green, on the with complaints of right shoulder pain and bilateral knee pain. She was started on meloxicam. Labs and orthopedics were discussed at that time, but she declined. XRays were ordered, but never completed. She states her knee pain resolved, but then she started having pain in her wrist and her lower back. She was seen in the ED on 10/24 with complaints of pain in multiple joints. She states it feels like her pain is moving around. She had imaging done of her shoulder, which was negative and she was started on a prednisone taper and norco. She reports that she is still struggling with pain. She feels the pain in her left arm/shoulder is getting b colleen, but her back is limiting her. She denies any specific falls or injuries. She reports her knees were swollen, which has since resolved. She hasn't had any other joint swelling or redness. She rates her pain 8/10 currently. She is still taking the medications as prescribed, but hasn't found them to be effective. She states she tried the meloxicam but states it made herdizzy and she stopped it. She states her pain is mostly in her left lower back,which she describes as a 'constant' pain. She states it is aching. She denies any radiation, leg weakness, numbness/tingling. She denies any urinary/bladder incontinence. She has been taking a supplement of cumin/denise stating it usually helps. ROS Const Constitutional: Positive for headache(s) and sleep problems; No body ache, chills, excessive sweating, fatigue, fever(s), frequent falls, snoring, weakness, weight change or change in appetite Eyes Eyes: No blurry vision, change in vision, eye pain or Light sensitivity ENT ENT: Positive for headache(s); No abnormal hearing, ear or mastoid pain, tinnitus, nasal congestion, neck pain or sore throat Resp Respiratory: No cough, shortness of breath, snoring or wheezing Cardio Cardiology: No chest pain at rest, chest pain with exertion, excessive sweating,shortness of breath, lightheadedness, orthopnea, palpitations or other (no leg swelling) Gastro GI: Positive for constipation; No abdominal pain, change in bowel habits, cramping, diarrhea, heartburn (controlled with medication), nausea/dyspepsia or vomiting Genitourinary-Female: No difficulty urinating, burning urination, painful urination, urinary incontinence, urinary frequency, abnormal vaginal bleeding orpelvic pain Musc Musculoskeletal: Positive for joint pain and back pain; No abnormal gait, limited range of motion, neck pain, numbness or tingling Skin Skin: No dry skin, redness, lesions, itchy eyes, rash or wounds Neuro Neurology: Positive for headache(s); No abnormal gait, abnormal hearing, abnormal speech, dizziness, weakness, frequent falls, memory loss, numbness, tingling or fainting Psych Psychiatric: No anxiety, No change in appetite, No depression, No memory loss and No Thoughts of harming yourself/Others Endo Endocrine: No cold intolerance, excessive sweating, fatigue, flushing, heat intolerance, increased thirst/drinking, increased hunger or weight change Aller/Imm Allergy/Immunologic: No itchy eyes, seasonal allergy symptoms, hives or wheezing Seb/Lymp Hematologic/Lymphatic: No easy bleeding, easy bruising, enlarged lymph nodes or other Exam Const General: cooperative, healthy appearing, no acute distress, well developed, not diaphoretic and notill appearing Nutritional Appearance: well nourished Orientation: alert and oriented x3 Limitations: mental status not altered [facility] Head: normal to inspection, normocephalic and atraumatic Ears: hearing grossly normal bilaterally Face and sinus: normal facial exam Mouth: oral mucosae normal and moist mucous membranes Teeth and gingiva: dentition normal Throat: posterior oropharynx normal Eyes Conjunctivae: conjunctivae normal Sclera: sclerae normal Pupils: PERRL Chest Chest palpation & inspection: normal inspection of the chest Resp Effort & Inspection: normal respiratory effort, able to speak in complete sentences, no audiblewheezes and no cough Auscultation: Bilateral: Clear to Auscultation Cardio Rate: regular rate Rhythm: regular rhythm Heart Sounds: S1 normal, S2 normal and no murmurs GI Inspection: non-distended Auscultation: normal bowel sounds Palpation: soft, no hepatosplenomegaly and nontender Musc Musculoskeletal: Yes joint tenderness; No joint warmth or decreased range of motion Thoracic/Lumbar Spine: thoracic and lumbar spine normal to inspection, surgical scar(s) present, thoraco-lumbar ROM normal, pain with thoraco-lumbar ROM, paraspinal tenderness on the left in the mid lumbar and in the lower lumbar, no thoracic spinal tenderness and no lumbar spinal tenderness Other: Patient was unable to tolerate laying back, so I was unable to assess her straight leg raise. Skin General: no rashes or lesions noted and dry skin Wounds: no wounds Neuro General: patient alert, patient oriented x3 and deep tendon reflexes 2+ bilaterally Cranial Nerves: PERRL Speech: speech normal Motor: strength 5/5 throughout Extrem General: normal to inspection and no edema Other: Normal cross arm, empty can, drop arm. Pain with apley scratch test with right arm. Normal abduction, however, pain with ROM. Psych Appearance: grossly normal Affect: normal affect Attitude: cooperative Coding Level of Care Code Off vis,est,level 4 Diagnoses Multiple joint pain M25.50 Sleep difficulties G47.9 Chronic obstructive pulmonary disease, unspecified COPD type J44.9 COPD type: unspecified COPD Heartburn R12 Constipation, unspecified constipation type K59.00 Constipation type: unspecified constipation type Time Spent (min) 37 Assessment and Plan Assessment and Plan (1) Multiple joint pain: Plan: Patient has been having pain in multiple joints including her knees, shoulder, wrist and back. Today, her pain is primarily in her back. Exam as above. I dothink it is reasonable to check for autoimmune conditions. Will also get an XR of both her hip and lumbar spine to assess the area that is causing so much pain. Will try adding a short course of muscle relaxers to use in combination with her medications from the ED. Discussed physical therapy, but she declined stating it made her pain worse in the past. Pending her test results, will determine appropriate next steps. She may benefit from areferral to orthopedics, rheumatology and/or pain management. She was in agreement with theplan. (2) Sleep difficulties: Plan: Patient continues to have trouble with her sleeping, however, relates it to her pain right now. Will try to get her pain better controlled and will make reassess at that time. She was in agreement. She states she doesn't use her marijuana as often. (3) COPD (chronic obstructive pulmonary disease): Status: Chronic Qualifiers: COPD type: unspecified COPD Qualified Code(s): J44.9 - Chronic obstructive pulmonary disease, unspecified Comment: FEV1 86% of predicted Plan: Stable. No signs of exacerbation. Patient is seeing pulmonology. Will follow up on their findings and recommendations. (4) Heartburn: Status: Acute Plan: Reviewed pathology findings of recent endoscopy, showing Castellanos's esophagus. She feels her symptoms are under control. She is following with GI. Will follow up on their findings and recommendations. (5) Constipation: Status: Acute Qualifiers: Constipation type: unspecified constipation type Qualified Code(s): K59.00 - Constipation, unspecified Plan: Colonoscopy recently completed. She is following with GI as above. Will followup on their findings and recommendations. It looks like linzess was ordered when she was last seen, but she is not takingit. The patient is here for a follow up. Plan as above. Medications reviewed with the patient. Will await work up to determine an appropriate follow up. The patient was instructed to call with any concerns or questions before then and they were in agreement. I spent a total of 37 minutes on the date of the service which included preparing to see the patient, [id number] patient care, completing clinical documentation, obtaining and/or reviewing separately obtained history. This excludes separately reportable services. Orders: Orders [facility] Comprehensive Panel Today M25.50 - Pain in unspecified joint ANTINUCLEAR ANTIBODIES DIRECT Today M25.50 - Pain in unspecified joint Rheumatoid Factor Today M25.50 - Pain in unspecified joint CCP IgG Antibodies Today M25.50 - Pain in unspecified joint Lumbar Spine 2 or 3 Views Today M25.50 - Pain in unspecified joint Hip uni 4+ views with Pelvis Today M25.50 - Pain in unspecified joint Erythrocyte Sed Rate Today M25.50 - Pain in unspecified joint CRP Today M25.50 - Pain in unspecified joint Medications: New cyclobenzaprine 5 mg PO TID 30 tabs 0RF pain 10/30/24 1010 y MD> Date _ Katie Ordaz MD Cosigner Signature: Date (if applicable) CC: ~ [facility]07-24-2025 Progress note Author Katie Ordaz [facility] Note Date/Time October 30, 2024 10:1 0am [facility] [address] [place], [place] [address] OFFICE VISIT Date of Service: 10/30/24 MR#: [id number] Acct: [id number] Name: RENUKA MEANS Rep #: [id number] : 1960 Provider: Dr. Yesica Ordaz MD Age/Sex: 64/F Location[place] [facility] Status: Signed Intake Vital Signs 10/24/24 10:41 10/30/24 09:16 Height 5 ft 9 in 5 ft 9 in Weight: 200 lb 8 oz BMI 29.6 BP 110/60 Blood Pressure Location Lt brachial Position Sitting Respiration 16 Pulse 70 Pulse Source Monitor Temp 97.5 F L Temp Source Temporal Pulse Oximetry (%) 92 Oxygen Delivery Method room air Intake Visit Reasons: [facility] ER FU Chief Complaint: ER F/U for lower back pain Hand Violin Maker Required: No Accompanied by: Self Is patient in pain?: Yes Pain scale (1-10): 8 Allergies bacitracin (From Neosporin ([id number])) Allergy (Verified 10/30/24 09:18) Rash neomycin (From Neosporin ([id number])) Allergy (Verified 10/30/24 09:18) Rash Penicillins Allergy (Verified 10/30/24 09:18) Hives polymyxin B (From Neosporin ([id number])) Allergy (Verified 10/30/24 09:18) Rash egg (eggs) Adverse Reaction (Verified 10/30/24 09:18) Abd cramps/diarrhea Food Allergies: Uncoded Adverse Reaction (Verified 10/30/24 09:18) Abd cramps/diarrhea Medications ?Medication ?Instructions ?Recorded ?Confirmed ?Type albuterol sulfate 2.5 mg/3 mL 2.5 mg (3 mL) inhalation Q4H PRN 06/10/24 10/30/24 Rx (0.083 %) solution for nebulization #25 vials pantoprazole 40 mg tablet,delayed 40 mg PO QDAY esopha gitis #90 tabs 07/28/24 10/30/24 Rx release albuterol sulfate 90 mcg/actuation 2 puff inhalation Q 4H PRN PRN 08/04/24 10/30/24 Rx aerosol inhaler (Ventolin HFA) Wheezing ##1 mometasone-formoterol HFA 100 2 puff inhalation BID #8 .8 grams 08/04/24 10/30/24 Rx mcg-5 mcg/actuation aerosol inhaler (Dulera) albuterol sulfate 90 mcg/actuation 2 puff inhalation Q 6H PRN 08/26/24 10/30/24 Rx aerosol inhaler shortness of breath or wheez ing #8.5 grams meloxicam 15 mg tablet 15 mg PO QDAY #30 tabs 10/1710/30/24 Rx atorvastatin 10 mg tablet (Lipitor) 10 mg PO QHS #30 t abs 10/19/24 10/30/24 Rx hydrocodone-acetaminophen 5-325mg 1 tab PO Q6H PRN jessica n 3 days #12 10/24/24 10/30/24 Rx 5mg-325mg TABLETS prednisone 10 mg tablet 10 mg PO UD #30 tabs 5 10/30/24 Rx cyclobenzaprine 5 mg tablet 5 mg PO TID pain #30 tabs 10/30/24 10/30/24 Rx Nurse's Note: F/U for lower back. Had seen the ER and was given hydrocodone and prednisone. Hurts to sit, walk, and lay down. 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 She is up to date on her routine blood work. She previously declined a mammogram. She is otherwise up to date on her screening. She previously declined any immunizations. She reports she will occasionally have a cigarette,maybe every other day, but states she isn't doing it regularly. She doesn't need any refills. She reports she is eating healthy. Her activity has been limited due to pain. The patient has a history of COPD. She is following with pulmonology and saw them in July. She states she has not been using the dulera stating she doesn'tfeel that she needs it. She denies any recent flare ups and reports she uses her rescue inhaler less than she was. Her last PFT was done recently which showed mild disease. She had a 6 minute walk test since she was last seen whichwas normal. She reports her constipation has been persistent. She did see GI in July who ordered an anorectal manometry. She reports her symptoms continue to cause her problems and have been worse recently with the pain medication. She reports her GERD/Castellanos's esophagus has been doing better. At her last office visit, she complained of insomnia. She reports that due to her pain, she has not been sleeping any better. The patient was seen by GALDINO Green, on the with complaints of right shoulder pain and bilateral knee pain. She was started on meloxicam. Labs and orthopedics were discussed at that time, but she declined. XRays were ordered, but never completed. She states her knee pain resolved, but then she started having pain in her wrist and her lower back. She was seen in the ED on 10/24 with complaints of pain in multiple joints. She states it feels like her pain is moving around. She had imaging done of her shoulder, which was negative and she was started on a prednisone taper and norco. She reports that she is still struggling with pain. She feels the pain in her left arm/shoulder is getting better, but her back is limiting her. She denies any specific falls or injuries. She reports her knees were swollen, which has since resolved. She hasn't had any other joint swelling or redness. She rates her pain 8/10 currently. She is still taking the medications as prescribed, but hasn't found them to be effective. She states she tried the meloxicam but states it made herdizzy and she stopped it. She states her pain is mostly in her left lower back,which she describes as a 'constant' pain. She states it is aching. She denies any radiation, leg weakness, numbness/tingling. She denies any urinary/bladder incontinence. She has been taking a supplement of cumin/denise stating it usually helps. ROS Const Constitutional: Positive for headache(s) and sleep problems; No body ache, chills, excessive sweating, fatigue, fever(s), frequent falls, snoring, weakness, weight change or change in appetite Eyes Eyes: No blurry vision, change in vision, eye pain or Light sensitivity ENT ENT: Positive for headache(s); No abnormal hearing, ear or mastoid pain, tinnitus, nasal congestion, neck pain or sore throat Resp Respiratory: No cough, shortness of breath, snoring or wheezing Cardio Cardiology: No chest pain at rest, chest pain with exertion, excessive sweating,shortness of breath, lightheadedness, orthopnea, palpitations or other (no leg swelling) Gastro GI: Positive for constipation; No abdominal pain, change in bowel habits, cramping, diarrhea, heartburn (controlled with medication), nausea/dyspepsia or vomiting Genitourinary-Female: No difficulty urinating, burning urination, painful urination, urinary incontinence, urinary frequency, abnormal vaginal bleeding orpelvic pain Musc Musculoskeletal: Positive for joint pain and back pain; No abnormal gait, limited range of motion, neck pain, numbness or tingling Skin Skin: No dry skin, redness, lesions, itchy eyes, rash or wounds Neuro Neurology: Positive for headache(s); No abnormal gait, abnormal hearing, abnormal speech, dizziness, weakness, frequent falls, memory loss, numbness, tingling or fainting Psych Psychiatric: No anxiety, No change in appetite, No depression, No memory loss and No Thoughts of harming yourself/Others Endo Endocrine: No cold intolerance, excessive sweating, fatigue, flushing, heat intolerance, increased thirst/drinking, increased hunger or weight change Aller/Imm Allergy/Immunologic: No itchy eyes, seasonal allergy symptoms, hives or wheezing Seb/Lymp Hematologic/Lymphatic: No easy bleeding, easy bruising, enlarged lymph nodes or other Exam Const General: cooperative, healthy appearing, no acute distress, well developed, not diaphoretic and not ill appearing Nutritional Appearance: well nourished Orientation: alert and oriented x3 Limitations: mental status not altered [facility] Head: normal to inspection, normocephalic and atraumatic Ears: hearing grossly normal bilaterally Face and sinus: normal facial exam Mouth: oral mucosae normal and moist mucous membranes Teeth and gingiva: dentition normal Throat: posterior oropharynx normal Eyes Conjunctivae: conjunctivae normal Sclera: sclerae normal Pupils: PERRL Chest Chest palpation & inspection: normal inspection of the chest Resp Effort & Inspection: normal respiratory effort, able to speak in complete sentences, no audible wheezes and no cough Auscultation: Bilateral: Clear to Auscultation Cardio Rate: regular rate Rhythm: regular rhythm Heart Sounds: S1 normal, S2 normal and no murmurs GI Inspection: non-distended Auscultation: normal bowel sounds Palpation: soft, no hepatosplenomegaly and nontender Musc Musculoskeletal: Yes joint tenderness; No joint warmth or decreased range of motion Thoracic/Lumbar Spine: thoracic and lumbar spine normal to inspection, surgical scar(s) present, thoraco-lumbar ROM normal, pain with thoraco-lumbar ROM, paraspinal tenderness on the left in the mid lumbar and in the lower lumbar, no thoracic spinal tenderness and no lumbar spinal tenderness Other: Patient was unable to tolerate laying back, so I was unable to assess her straight leg raise. Skin General: no rashes or lesions noted and dry skin Wounds: no wounds Neuro General: patient alert, patient oriented x3 and deep tendon reflexes 2+ bilaterally Cranial Nerves: PERRL Speech: speech normal Motor: strength 5/5 throughout Extrem General: normal to inspection and no edema Other: Normal cross arm, empty can, drop arm. Pain with apley scratch test with right arm. Normal abduction, however, pain with ROM. Psych Appearance: grossly normal Affect: normal affect Attitude: cooperative Coding Level of Care Code Off vis,est,level 4 Diagnoses Multiple joint pain M25.50 Sleep difficulties G47.9 Chronic obstructive pulmonary disease, unspecified COPD type J44.9 COPD type: unspecified COPD Heartburn R12 Constipation, unspecified constipation type K59.00 Constipation type: unspecified constipation type Time Spent (min) 37 Assessment and Plan Assessment and Plan (1) Multiple joint pain: Plan: Patient has been having pain in multiple joints including her knees, shoulder, wrist and back. Today, her pain is primarily in her back. Exam as above. I dothink it is reasonable to check for autoimmune conditions. Will also get an XR of both her hip and lumbar spine to assess the area that is causing so much pain. Will try adding a short course of muscle relaxers to use in combination with her medications from the ED. Discussed physical therapy, but she declined stating it made her pain worse in the past. Pending her test results, will determine appropriate next steps. She may benefit from a referral to orthopedics, rheumatology and/or pain management. She was in agreement with theplan. (2) Sleep difficulties: Plan: Patient continues to have trouble with her sleeping, however, relates it to her pain right now. Will try to get her pain better controlled and will make reassess at that time. She was in agreement. She states she doesn't use her marijuana as often. (3) COPD (chronic obstructive pulmonary disease): Status: Chronic Qualifiers: COPD type: unspecified COPD Qualified Code(s): J44.9 - Chronic obstructive pulmonary disease, unspecified Comment: FEV1 86% of predicted Plan: Stable. No signs of exacerbation. Patient is seeing pulmonology. Will follow up on their findings and recommendations. (4) Heartburn: Status: Acute Plan: Reviewed pathology findings of recent endoscopy, showing Castellanos's esophagus. She feels her symptoms are under control. She is following with GI. Will follow up on their findings and recommendations. (5) Constipation: Status: Acute Qualifiers: Constipation type: unspecified constipation type Qualified Code(s): K59.00 - Constipation, unspecified Plan: Colonoscopy recently completed. She is following with GI as above. Will followup on their findings and recommendations. It looks like linzess was ordered when she was last seen, but she is not taking it. The patient is here for a follow up. Plan as above. Medications reviewed with the patient. Will await work up to determine an appropriate follow up. The patient was instructed to call with any concerns or questions before then and they were in agreement. I spent a total of 37 minutes on the date of the service which included preparing to see the patient, [id number] patient care, completing clinical documentation, obtaining and/or reviewing separately obtained history. This excludes separately reportable services. Orders: Orders BIANKA Comprehensive Panel Today M25.50 - Pain in unspecified joint ANTINUCLEAR ANTIBODIES DIRECT Today M25.50 - Pain in unspecified joint Rheumatoid Factor Today M25.50 - Pain in unspecified joint CCP IgG Antibodies Today M25.50 - Pain in unspecified joint Lumbar Spine 2 or 3 Views Today M25.50 - Pain in unspecified joint Hip uni 4+ views with Pelvis Today M25.50 - Pain in unspecified joint Erythrocyte Sed Rate Today M25.50 - Pain in unspecified joint CRP Today M25.50 - Pain in unspecified joint Medications: New cyclobenzaprine 5 mg PO TID 30 tabs 0RF pain 10/30/24 1010 <Electronically signed by Katie browne MD> Date _ Katie Ordaz MD Cosigner Signature: Date (if applicable) CC: ~ [place] [employer] Work Phone: [phone] Discharge summary [facility] Medical Records Department [address] [place] [address] Emergency Department Summary 10/24/24 MR#: [id number] Acct: [id number] Name: RENUKA MEANS Rep #:[id number] : 1960 64 From: Mendez Mukherjee MD PCP: Dr. Katie Ordaz MD Status:REG ER Location: ED HPI History of Present Illness Chief Complaint: Back Informant: patient and family Narrative Narrative: 64-year-old female presents with pain in multiple joints that has been going on for the last couplemonths, worst in her knees and her left wrist, pain in her right upper arm a little distal to the shoulder laterally for the past month or more, and an increase in her chronic mid low back pain for the past 1 to 2 weeks. She denies any fevers or chills. She denies any swelling or redness of the joints. About a week or so ago she took 4 days of some leftover prednisone and states it fix the joint problems temporarily. However now she is in so muchpain with all of these issues that she feels likeit is hard to function and geton the toilet. However when she does, she has no bowel or bladder dysfunction or perineal anesthesias or numbness/weakness neurologically in any of her extremities. She denies any injury that she knows of, she states most of this occurred upon waking up. Prior similar symptoms: Yes and With Prior Back Pain PFSH PFSH Medical History Wears glasses Anxiety Marijuana use Former smoker Shortness of breath on exertion COPD (chronic obstructive pulmonary disease) Pneumonia Home Medications ?Medication ?Instructions ?Recorded ?Last Taken ?Type albuterol sulfate 2.5 mg/3 mL 2.5 mg (3 mL) inhalation Q4H PRN 06/10/24 Unknown Rx (0.083 %) solution for nebulization #25 vials pantoprazole 40 mg tablet,delayed 40 mg PO QDAY esopha gitis #90 tabs 07/28/24 Unknown Rx release albuterol sulfate 90 mcg/actuation 2 puff inhalation Q 4H PRN PRN 08/04/24 Unknown Rx aerosol inhaler (Ventolin HFA) Wheezing ##1 mometasone-formoterol HFA 100 2 puff inhalation BID #8 .8 grams 08/04/24 Unknown Rx mcg-5 mcg/actuation aerosol inhaler (Dulera) albuterol sulfate 90 mcg/actuation 2 puff inhalation Q 6H PRN 08/26/24 Unknown Rx aerosol inhaler shortness of breath or wheez ing #8.5 grams meloxicam 15 mg tablet 15 mg PO QDAY #30 tabs 10/17 Unknown Rx atorvastatin 10 mg tablet (Lipitor) 10 mg PO QHS #30 t abs 10/19/24 Unknown Rx hydrocodone-acetaminophen 5-325mg 1 tab PO Q6H PRN jessica n 3 days #12 10/24/24 Unknown Rx 5mg-325mg TABLETS prednisone 10 mg tablet 10 mg PO UD #30 tabs 5 Unknown Rx Allergy/AdvReac Type Severity Reaction Status Date / Time bacitracin (From Neosporin Allergy Rash Verified 10/17/24 08:56 ([id number])) neomycin (From Neosporin Allergy Rash Verified 10/17/24 08:56 ([id number])) Penicillins Allergy Hives Verified 10/17/24 08:56 polymyxin B (From Neosporin Allergy Rash Verified 10/17/24 08:56 (tvl-[id number])) egg (eggs) AdvReac Abd Verified 10/17/24 08:56 cramps/diarrhea Food Allergies: Uncoded AdvReac Abd Verified 10/17/24 08:56 cramps/diarrhea Family History Father Alcohol abuse Arthritis Cancer LARYNGEAL COPD (chronic obstructive pulmonary disease) Mother Osteoporosis Surgical History History of colonoscopy , tubal with rupture History of back surgery Social History household members: significant other housing: house current occupational status: employed 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 [employer] Smoking Status: Former smoker quit date: 04/09/24 pack-years: 23 alcohol intake: current alcohol intake frequency: holidays/special occasions only substance use type: marijuana frequency: daily do you feel safe at home: Yes ROS ROS ED Constitutional Constitutional ED: Denies chills or fever(s) Eyes Eyes: Denies change in vision ENT ENT ED: Denies sore throat Cardiovascular Cardiovascular: Denies chest pain Respiratory/Chest Respiratory/Chest: Denies dyspnea Gastrointestinal Gastrointestinal: Denies abdominal pain, constipation, fecal incontinence, nausea or vomiting Genitourinary Genitourinary ED: Reports other Details: no urinary retention. No vaginal discharge, denies historyof gonorrhea. ; Denies abdominal discomfort or urinary incontinence Musculoskeletal Musculoskeletal: Reports as per HPI, arthralgias and back pain; Denies neck pain Integumentary Denies rash or wounds Neurologic Neurologic: Denies headache(s), paresthesias or weakness EXAM Physical Exam Const Vital Signs: 10/24/24 10:41 Temperature 96.1 F L Temperature Source Temporal Pulse Rate 86 Respiratory Rate 14 Blood Pressure 125/80 H Blood Pressure Mean 95 Pulse Ox 98 Oxygen Delivery Method Room Air Positive well nourished and well developed General Appearance ED: well developed and NAD HEENT Reports moist mucous membranes Negative for trauma or tenderness Eyes PERRL and EOMs intact bilaterally Neck full ROM and supple Resp normal respiratory effort GI non-distended Back/Spine normal to inspection Back/Spine Narrative: Able to bend forward but painful LS spine to do so. Well-healed surgical incision midline, there issome mild tenderness in this area but no signs of infection or zoster rashes. Lumbar Spine / Lower Back: ROM limited, paraspinal muscle tenderness and straight leg raise negative bilaterally; Negative for lumbar spinal tenderness Extremity normal to inspection and no pedal edema Extremity Narrative: Limited range of motion both knees and the left wrist due to pain. They are normal-appearing, without tenderness, warmth, or any erythema. There is a healing insect sting according to the patient dorsum of the left hand without any surrounding erythema or tenderness. Mildly tender right lateral upper arm, where the proximal and middle thirds of the humerus meet, approximately. This is approximately where the deltoid inserts on the humerus shaft. She has pain with abduction against resistance, but elbow flexion and extension, supination against resistance, internal and external rotation about the shoulder all without significant discomfort. She has excellent range of motion of the shoulder without any deformities and there is no other bony tenderness of the shoulder. Neuro oriented x3 and no sensory deficits noted Sensorium / Orientation: alert Motor Exam: strength 5/5 throughout and clonus absent Deep Tendon Reflexes: Rt Patellar (L4): 2+, Lt Patellar (L4): 2+, Rt Ankle (S1):2+ and Lt Ankle (S1): 2+ Deep Tendon Reflexes Back: Rt Patellar (L4): 2+, Lt Patellar (L4): 2+, Rt Ankle (S1): 2+ and Lt Ankle (S1): 2+ Plantar Reflex: Downgoing: bilateral Psych thought process normal Psych Narrative: Anxious Skin no rashes or lesions noted and no wounds MDM MDM MDM Narrative Medical decision making narrative: I reviewed prior shoulder x-rays, radiology interpreted as negative for any acute, I agree with that based on what I am looking at. The patient states the chiropractor did some x-rays and told her she may have a spur there that could give her rotator cuff tear. While that is true, the pain she is describing is away from that area and more down toward where the deltoid inserts on the humerus. I amnot concerned about a fracture or dislocation, I do not think we need new x-rays. With regards to her low back pain, she states the pain is chronic, but worse in the past week or 2, and she has multiple joints affected. I advised her that in order to work this up if indicated, she will need to see h er primary care doctor but I am happy to help her with the pain. She wants to try more prednisone because help. I told her it is reasonable to do a taper if she is in severe pain, but if alternativesare available she will not want to beon prednisone long-term daily, she understands that. Offered aprescription peter analgesic as well. She states she was given some type of arthritis medication byher doctor and it made her feel poorly and she does not want that 1 but she does not know what it is And I do not see it in any records that are available to me right now. Meloxicam is on her list, that may be the one that she did not agree with. Discharge Plan Triage Chief Complaint: Back ED Provider: Mendez Mukherjee Dx/Rx/DC Orders Clinical Impression: Arthritis, Acute exacerbation of chronic low back pain, Acute pain of right shoulder Instructions: What Is Arthritis?, Osteoarthritis (OA) Prescriptions: New hydrocodone-acetaminophen 5-325 mg tablet 1 tab PO Q6H PRN (Reason: pain) 3 Days Qty: 12 0RF prednisone 10 mg tablet 10 mg PO UD Qty: 30 0RF Rx Instructions: Take 4 tablets daily for 3 days, then 3 daily for 3 days, then 2 daily for 3 days, then 1 a day for3 days No Action pantoprazole 40 mg tablet,delayed release (DR/EC) 40 mg PO QDAY Qty: 90 3RF Dulera 100-5 mcg/actuation HFA aerosol inhaler 2 puff inhalation BID Qty: 8.8 3RF albuterol sulfate [Ventolin HFA] 90 mcg/actuation HFA aerosol inhaler 2 puff inhalation Q4H PRN PRN (Reason: Wheezing) Qty: 1 11RF meloxicam 15 mg tablet 15 mg PO QDAY Qty: 30 0RF albuterol sulfate 2.5 mg /3 mL (0.083 %) solution for nebulization 2.5 mg inhalation Q4H PRN Qty: 25 0RF Rx Instructions: Use q4 hours and PRN for wheezing albuterol sulfate 90 mcg/actuation HFA aerosol inhaler 2 puff inhalation Q6H PRN (Reason: shortness of breath or wheezing) Qty: 8.5 11RF atorvastatin [Lipitor] 10 mg tablet 10 mg PO QHS Qty: 30 0RF Primary Care Provider: Katie Ordaz Referrals: Katie Ordaz MD [Primary Care Provider] - As soon as possible Print Language: Angolan Disposition Disposition: Home, Self Care What to do if you have Problems For any increased pain, shortness of breath, bleeding, nausea or vomiting, chestpain, or any unexpected problems, contact your Primary Care Provider. Call [facility] ([phone]) or report tothe closest Emergency Room. Call 911 if necessary. 10/24/24 1145 Cosigner Signature (if applicable): CC: Dr. Katie Ordaz MD ~ Signed [facility]06-09-2025 Discharge summary [facility] Medical Records Department [address] [place] [address] Emergency Department Summary 09/15/24 MR#: [id number] Acct: [id number] Name: RENUKA MEANS Rep #:[id number] : 1960 64 From: Curtis Hendrix PCP: Care Physician,No Primary Status :REG ER Location: ED HPI History of Present Illness Chief Complaint: Upper Extremity Injury [facility] Medical History (Updated 09/15/24 @ 22:[address] Curtis Rosas, DO) Wears glasses Anxiety Marijuana use Former smoker Shortness of breath on exertion COPD (chronic obstructive pulmonary disease) Pneumonia Home Medications ?Medication ?Instructions ?Recorded ?Last Taken ?Type multivitamin 1 tab PO QAM 05/15/24 Unknow n History albuterol sulfate 2.5 mg/3 mL 2.5 mg (3 mL) inhalation Q4H PRN 06/10/24 Unknown Rx (0.083 %) solution for nebulization #25 vials calcium polycarbophil 625 mg 1,250 mg (2 x 625 mg) PO QDAY #180 07/28/24 Unknown Rx tablet (FiberCon) tabs pantoprazole 40 mg tablet,delayed 40 mg PO QDAY esopha gitis #90 tabs 07/28/24 Unknown Rx release albuterol sulfate 90 mcg/actuation 2 puff inhalation Q 4H PRN PRN 08/04/24 Unknown Rx aerosol inhaler (Ventolin HFA) Wheezing ##1 mometasone-formoterol HFA 100 2 puff inhalation BID #8 .8 grams 08/04/24 Unknown Rx mcg-5 mcg/actuation aerosol inhaler (Dulera) albuterol sulfate 90 mcg/actuation 2 puff inhalation Q 6H PRN 08/26/24 Unknown Rx aerosol inhaler shortness of breath or wheez ing #8.5 grams methocarbamol 500 mg tablet 500 mg PO TID 7 days #21 t abs 09/15/24 Unknown Rx prednisone 20 mg tablet 20 mg PO DAILY #5 tabs 09/15 Unknown Rx Allergy/AdvReac Type Severity Reaction Status Date / Time bacitracin (From Neosporin Allergy Rash Verified 09/15/24 20:37 ([id number])) neomycin (From Neosporin Allergy Rash Verified 09/15/24 20:37 ([id number])) Penicillins Allergy Hives Verified 09/15/24 20:37 polymyxin B (From Neosporin Allergy Rash Verified 09/15/24 20:37 ([id number])) egg (eggs) AdvReac Abd Verified 09/15/24 20:37 cramps/diarrhea Food Allergies: Uncoded AdvReac Abd Verified 09/15/24 20:37 cramps/diarrhea Family History Father Alcohol abuse Arthritis Cancer LARYNGEAL COPD (chronic obstructive pulmonary disease) Mother Osteoporosis Surgical History History of colonoscopy , tubal with rupture History of back surgery Social History household members: significant other housing: house current occupational status: employed 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 [employer] Smoking Status: Former smoker quit date: 04/09/24 pack-years: 23 alcohol intake: current alcohol intake frequency: holidays/special occasions only substance use type: marijuana frequency: daily do you feel safe at home: Yes EXAM Physical Exam Const Vital Signs: 09/15/24 20:33 Temperature 98.2 F Temperature Source Oral Pulse Rate 84 Respiratory Rate 16 Blood Pressure 118/102 H Blood Pressure Mean 107 Pulse Ox 97 Oxygen Delivery Method Room Air MDM MDM MDM Narrative Medical decision making narrative: HISTORY OF PRESENT ILLNESS: Chief complaint: Shoulder pain 64-year-old female history of COPD, marijuana use, anxiety and pneumonia presents with right shoulder pain patient states this began 1 week ago. She notes at that time she did ride a horse. She states she used to ride horses all the time but was riding horse in a parade. She is right-hand dominant.She denies inciting event or trauma but noted 1 to 2 days after riding horse she developed severe right shoulder pain. Pain comes in waves. Denies neck pain. No IV drug use or diabetes history noted.No fever history noted. REVIEW OF SYSTEMS: Pertinent positives: Shoulder pain Pertinent negatives: Fever, chest pain, shortness of breath, neck pain PHYSICAL EXAM: Nursing triage notes reviewed, Vital signs reviewed Constitutional: please see mdm HENT: MMM Eyes: Pupils equal round and reactive to light, Extraocular muscles intact Neck: No stridor, no JVD, full neck ROM Lungs: Clear to auscultation, No wheezing or rales. No increased work of breathing, no conversational dyspnea, no accessory muscle use, no nasal flaring. No respiratory distress noted Heart: Regular rate and rhythm, No murmurs, No rubs and No gallops, 2+ distal pulses (radial, femoral, posterior tibial) in all extremities Extremities: No edema, painful but intact flexion extension. No palpable effusion. No warmth. Internal rotation of the right shoulder TTP over right deltoid Neuro: intact 5/5 strength with ok sign (median), intact finger abduction (ulnar) intact wrist extension (radial n). Intact sensation in the radial, ulnar, and median nerve distributions. Skin: No rash or lesions noted MEDICAL DECISION MAKING: Chief Complaint: please see HPI External records reviewed: Reviewed prior imaging studies MDM Narrative: Patient was initially hemodynamically stable, afebrile and nontoxic-appearing. Exam with neurovascular intact right upper extremity. Painful range of motion but intact motor and dermatomal distributions of the right upper extremity. I considered the following differential diagnosis: Shoulder fracture, dislocation, septic arthritis, musculoskeletal etiology. I considered septic arthritis patient no fever, diabetes, IV drug use. Initially treated the patient with IM morphine, IM Toradol, lidocaine patch ALL IMAGES (IF OBTAINED) HAVE BEEN PERSONALLY REVIEWED AND INTERPRETED BY MYSELF. X-ray the right shoulder was read and reviewed personally myself showed no evidence of obvious bonyabnormality I read. Radiologist agrees to my interpretation. Patient is appropriate discharge home likely some from a rotator cuff strain. The patient and/or family, caregivers express understanding. The patient and/orfamily, caregivers agrees with the plan. Shared decision making: I will have a discussion with the patient and or visitors regarding risk/benefits of further testing or admission. They will be made aware of of the risk/benefits inherent in this decision they will be given the opportunity to voice understanding. Total critical care time today provided was at least 0 minutes. This excludes separately billable procedures. Critical care time (if documented) is secondary to the patient having high probability ofclinically significant/life threatening deterioration in the patient's condition which required my urgent intervention. Impression: 1. Acute right shoulder pain 2. Rotator cuff strain Dispo: Discharge home This note was generated with [employer] dictation software. It may contain incorrectwords, spelling, and punctuation that were not noted in review of the chart prior to signing. Radiography Diagnostic Testing: Clinical Impression(s) from Imaging Studies Shoulder X-Ray 09/15/24 20:50 IMPRESSION: NO ACUTE FRACTURE OR DISLOCATION. Reading Location: [id number] Discharge Plan Triage Chief Complaint: Upper Extremity Injury ED Provider: Curtis Rosas Dx/Rx/DC Orders Clinical Impression: Acute shoulder pain Instructions: ED Rotator Cuff Tear, ED RICE Prescriptions: New methocarbamol 500 mg tablet 500 mg PO TID 7 Days Qty: 21 0RF prednisone 20 mg tablet 20 mg PO DAILY Qty: 5 0RF No Action multivitamin Tablet 1 tab PO QAM pantoprazole 40 mg tablet,delayed release (DR/EC) 40 mg PO QDAY Qty: 90 3RF calcium polycarbophil [FiberCon] 625 mg tablet 1,250 mg PO QDAY Qty: 180 3RF Dulera 100-5 mcg/actuation HFA aerosol inhaler 2 puff inhalation BID Qty: 8.8 3RF albuterol sulfate [Ventolin HFA] 90 mcg/actuation HFA aerosol inhaler 2 puff inhalation Q4H PRN PRN (Reason: Wheezing) Qty: 1 11RF albuterol sulfate 2.5 mg /3 mL (0.083 %) solution for nebulization 2.5 mg inhalation Q4H PRN Qty: 25 0RF Rx Instructions: Use q4 hours and PRN for wheezing albuterol sulfate 90 mcg/actuation HFA aerosol inhaler 2 puff inhalation Q6H PRN (Reason: shortness of breath or wheezing) Qty: 8.5 11RF Primary Care Provider: [place] Physician,No Primary Referrals: Gary Bernard MD [Med Staff - Active Staff] - Activity Restrictions/Additional Instructions: Thank you for trusting us with your care today! The x-ray was negative for an acute fracture or dislocation. Please take Tylenol (2 pills, 650 mg), ibuprofen (2 pills, 400 mg) every 6 hoursas needed for pain and fever control. Please take prednisone as prescribed Please return to the emergency department if your symptoms change or worsen. Please follow with your primary care physician for further outpatient evaluationand management. Print Language: Angolan Disposition Disposition: Home, Self Care What to do if you have Problems For any increased pain, shortness of breath, bleeding, nausea or vomiting, chestpain, or any unexpected problems, contact your Primary Care Provider. Call [facility] ([phone]) or report tothe closest Emergency Room. Call 911 if necessary. 09/15/24 3304 Cosigner Signature (if applicable): CC: No Primary Care Physician ~ Signed [facility]06-09-2025 Radiology Diagnostic study note [facility] Imaging Services [address] [place] [address] Shoulder min 2 Views MR#: [id number] Acct: [id number] Name: RENUKA MEANS Rep #: [id number] : 1960 F 64 From: Tiarra Senior MD PCP: Care Physician,No Primary Status: PRE ER Study:Shoulder min 2 Views Date of Exam: 09/15/24 Exam# [id number] Ordering Dr: Provider ,Ed P. PROCEDURE: SHOULDER MIN 2 VIEWS 09/15/2024 REASON FOR EXAM: PAIN TECHNIQUE: Five views of the right shoulder COMPARISON: None. FINDINGS: Bones: No acute fracture. No aggressive osseous lesions. Joints: Normal alignment. Moderate degenerative changes. Soft tissues: Soft tissues are unremarkable. Other: The visualized lungs are unremarkable. RAD/Shoulder min 2 Views IMPRESSION: NO ACUTE FRACTURE OR DISLOCATION. Reading Location: [id number] CC: ED PHYSICIAN PROVIDER; No Primary Care Physician ~ Lens Inserter: Signed [facility]06-09-2025 Discharge summary Author Curtis Rosas [facility] Note Date/Time September 15, 2024 11:42 pm [facility] Medical Records Department [address] [place] [address] Emergency Department Summary 09/15/24 MR#: [id number] Acct: [id number] Name: RENUKA MEANS Rep #:[id number] : 1960 64 From: Curtis Hendrix PCP: Care Physician,No Primary Status :REG ER Location: ED HPI History of Present Illness Chief Complaint: Upper Extremity Injury [facility] Medical History (Updated 09/15/24 @ 22:[address] Curtis Rosas, ) Wears glasses Anxiety Marijuana use Former smoker Shortness of breath on exertion COPD (chronic obstructive pulmonary disease) Pneumonia Home Medications ?Medication ?Instructions ?Recorded ?Last Taken ?Type multivitamin 1 tab PO QAM 05/15/24 Unknow n History albuterol sulfate 2.5 mg/3 mL 2.5 mg (3 mL) inhalation Q4H PRN 06/10/24 Unknown Rx (0.083 %) solution for nebulization #25 vials calcium polycarbophil 625 mg 1,250 mg (2 x 625 mg) PO QDAY #180 07/28/24 Unknown Rx tablet (FiberCon) tabs pantoprazole 40 mg tablet,delayed 40 mg PO QDAY esopha gitis #90 tabs 07/28/24 Unknown Rx release albuterol sulfate 90 mcg/actuation 2 puff inhalation Q 4H PRN PRN 08/04/24 Unknown Rx aerosol inhaler (Ventolin HFA) Wheezing ##1 mometasone-formoterol HFA 100 2 puff inhalation BID #8 .8 grams 08/04/24 Unknown Rx mcg-5 mcg/actuation aerosol inhaler (Dulera) albuterol sulfate 90 mcg/actuation 2 puff inhalation Q 6H PRN 08/26/24 Unknown Rx aerosol inhaler shortness of breath or wheez ing #8.5 grams methocarbamol 500 mg tablet 500 mg PO TID 7 days #21 t abs 09/15/24 Unknown Rx prednisone 20 mg tablet 20 mg PO DAILY #5 tabs 09/15 Unknown Rx Allergy/AdvReac Type Severity Reaction Status Date / Time bacitracin (From Neosporin Allergy Rash Verified 09/15/24 20:37 ([id number])) neomycin (From Neosporin Allergy Rash Verified 09/15/24 20:37 ([id number])) Penicillins Allergy Hives Verified 09/15/24 20:37 polymyxin B (From Neosporin Allergy Rash Verified 09/15/24 20:37 ([id number])) egg (eggs) AdvReac Abd Verified 09/15/24 20:37 cramps/diarrhea Food Allergies: Uncoded AdvReac Abd Verified 09/15/24 20:37 cramps/diarrhea Family History Father Alcohol abuse Arthritis Cancer LARYNGEAL COPD (chronic obstructive pulmonary disease) Mother Osteoporosis Surgical History History of colonoscopy , tubal with rupture History of back surgery Social History household members: significant other housing: house current occupational status: employed 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 [employer] Smoking Status: Former smoker quit date: 04/09/24 pack-years: 23 alcohol intake: current alcohol intake frequency: holidays/special occasions only substance use type: marijuana frequency: daily do you feel safe at home: Yes EXAM Physical Exam Const Vital Signs: 09/15/24 20:33 Temperature 98.2 F Temperature Source Oral Pulse Rate 84 Respiratory Rate 16 Blood Pressure 118/102 H Blood Pressure Mean 107 Pulse Ox 97 Oxygen Delivery Method Room Air MDM MDM MDM Narrative Medical decision making narrative: HISTORY OF PRESENT ILLNESS: Chief complaint: Shoulder pain 64-year-old female history of COPD, marijuana use, anxiety and pneumonia presents with right shoulder pain patient states this began 1 week ago. She notes at that time she did ride a horse. She states she used to ride horses all the time but was riding horse in a parade. She is right-hand dominant. She denies inciting event or trauma but noted 1 to 2 days after riding horse she developed severe right shoulder pain. Pain comes in waves. Denies neck pain. No IV drug use or diabetes history noted. No fever history noted. REVIEW OF SYSTEMS: Pertinent positives: Shoulder pain Pertinent negatives: Fever, chest pain, shortness of breath, neck pain PHYSICAL EXAM: Nursing triage notes reviewed, Vital signs reviewed Constitutional: please see [facility] HENT: MMM Eyes: Pupils equal round and reactive to light, Extraocular muscles intact Neck: No stridor, no JVD, full neck ROM Lungs: Clear to auscultation, No wheezing or rales. No increased work of breathing, no conversational dyspnea, no accessory muscle use, no nasal flaring. No respiratory distress noted Heart: Regular rate and rhythm, No murmurs, No rubs and No gallops, 2+ distal pulses (radial, femoral, posterior tibial) in all extremities Extremities: No edema, painful but intact flexion extension. No palpable effusion. No warmth. Internal rotation of the right shoulder TTP over right deltoid Neuro: intact 5/5 strength with ok sign (median), intact finger abduction (ulnar) intact wrist extension (radial n). Intact sensation in the radial, ulnar, and median nerve distributions. Skin: No rash or lesions noted MEDICAL DECISION MAKING: Chief Complaint: please see HPI External records reviewed: Reviewed prior imaging studies [facility] Narrative: Patient was initially hemodynamically stable, afebrile and nontoxic-appearing. Exam with neurovascular intact right upper extremity. Painful range of motion but intact motor and dermatomal distributions of the right upper extremity. I considered the following differential diagnosis: Shoulder fracture, dislocation, septic arthritis, musculoskeletal etiology. I considered septic arthritis patient no fever, diabetes, IV drug use. Initially treated the patient with IM morphine, IM Toradol, lidocaine patch ALL IMAGES (IF OBTAINED) HAVE BEEN PERSONALLY REVIEWED AND INTERPRETED BY MYSELF. X-ray the right shoulder was read and reviewed personally myself showed no evidence of obvious bony abnormality I read. Radiologist agrees to my interpretation. Patient is appropriate discharge home likely some from a rotator cuff strain. The patient and/or family, caregivers express understanding. The patient and/orfamily, caregivers agrees with the plan. Shared decision making: I will have a discussion with the patient and or visitors regarding risk/benefits of further testing or admission. They will be made aware of of the risk/benefits inherent in this decision they will be given the opportunity to voice understanding. Total critical care time today provided was at least 0 minutes. This excludes separately billable procedures. Critical care time (if documented) is secondary to the patient having high probability of clinically significant/life threatening deterioration in the patient's condition which required my urgent intervention. Impression: 1. Acute right shoulder pain 2. Rotator cuff strain Dispo: Discharge home This note was generated with [employer] dictation software. It may contain incorrectwords, spelling, and punctuation that were not noted in review of the chart prior to signing. Radiography Diagnostic Testing: Clinical Impression(s) from Imaging Studies Shoulder X-Ray 09/15/24 20:50 IMPRESSION: NO ACUTE FRACTURE OR DISLOCATION. Reading Location: [facility] Discharge Plan Triage Chief Complaint: Upper Extremity Injury ED Provider: Curtis Rosas Dx/Rx/DC Orders Clinical Impression: Acute shoulder pain Instructions: ED Rotator Cuff Tear, ED RICE Prescriptions: New methocarbamol 500 mg tablet 500 mg PO TID 7 Days Qty: 21 0RF prednisone 20 mg tablet 20 mg PO DAILY Qty: 5 0RF No Action multivitamin Tablet 1 tab PO QAM pantoprazole 40 mg tablet,delayed release (DR/EC) 40 mg PO QDAY Qty: 90 3RF calcium polycarbophil [FiberCon] 625 mg tablet 1,250 mg PO QDAY Qty: 180 3RF Dulera 100-5 mcg/actuation HFA aerosol inhaler 2 puff inhalation BID Qty: 8.8 3RF albuterol sulfate [Ventolin HFA] 90 mcg/actuation HFA aerosol inhaler 2 puff inhalation Q4H PRN PRN (Reason: Wheezing) Qty: 1 11RF albuterol sulfate 2.5 mg /3 mL (0.083 %) solution for nebulization 2.5 mg inhalation Q4H PRN Qty: 25 0RF Rx Instructions: Use q4 hours and PRN for wheezing albuterol sulfate 90 mcg/actuation HFA aerosol inhaler 2 puff inhalation Q6H PRN (Reason: shortness of breath or wheezing) Qty: 8.5 11RF Primary Care Provider: Care Physician,No Primary Referrals: Gary Bernard MD [[facility] Staff - Active Staff] - Activity Restrictions/Additional Instructions: Thank you for trusting us with your care today! The x-ray was negative for an acute fracture or dislocation. Please take Tylenol (2 pills, 650 mg), ibuprofen (2 pills, 400 mg) every 6 hoursas needed for pain and fever control. Please take prednisone as prescribed Please return to the emergency department if your symptoms change or worsen. Please follow with your primary care physician for further outpatient evaluationand management. Print Language: Angolan Disposition Disposition: Home, Self Care What to do if you have Problems For any increased pain, shortness of breath, bleeding, nausea or vomiting, chestpain, or any unexpected problems, contact your Primary Care Provider. Call [facility] ([phone]) or report to the closest Emergency Room. Call 911 if necessary. 09/15/24 2342 <Electronically signed by Curtis Rosas DO> Cosigner Signature (if applicable): CC: No Primary Care Physician ~ Signed [facility] Work Phone: 1(158) 917-687204-09-2025 Consult note Author Len Dietz [facility] Note Date/Time July 16, 2024 11:4 8am [facility] Medical Records Department [address] [place] [address] Pre-Anesthesia Evaluation 07/16/24 1148 MR#: [id number] Acct: [id number] Name: RENUKA MEANS Rep #:[id number] : 1960 64 From: Len Dietz MD PCP: Care Physician,No Primary Status :REG SDC Y Race: C Location: [place] [address] ASA Classification* ASA Classification ASA Classification: 2 Assessment & Plan Anesthesia* Anesthesia Assessment Anesthesia Assessment: Discussed sedation and/or anesthesia options, risks, benefits, and alternatives with patient/parents/legal guardian/POA. Questions invited. The patient/parents/legal guardian/POA seems to understand and agrees to proceedwith anesthesia plan. Reviewed the physical assessment, medical history, allergy history and patient home medications list prior to surgery/procedure/anesthetic and documented any changes. Performed airway and anesthesia risk assessments. Anesthesia Type Anesthesia Type: MAC Anesthesia Focused Assessment* Temperature: 97.4 F Pulse Rate: 71 Blood Pressure: 123/62 Respiratory Rate: 16 Pulse Ox: 96 Airway Assessment Mouth opens: >3 cm Mallampati Score: II Focused Labs Anesthesia Preop lab: CBC WBC 8.9 K/mm3 (4.4-11.0) 06/10/24 13:46 06/10/24 RBC 5.52 M/mm3 (4.2-5.4) H 06/10/24 13:46 06/10/24 Hgb 15.6 g/dL (12.0-15.0) H 06/10/24 13:46 5 Hct 47.7 % (37-47) H 06/10/24 13:46 06/10/24 Plt Count 336 K/mm3 (150-450) 06/10/24 13:46 06/10/24 CHEMISTRY Potassium 4.3 mmol/L (3.3-5.1) 06/10/24 13:46 06/10/24 Sodium 136 mmol/L (133-145) 06/10/24 13:46 06/10/24 BUN 14 mg/dL (4-19) 06/10/24 13:46 06/10/24 Creatinine 0.65 mg/dL (0.70-1.20) L 06/10/24 13:46 Glucose 89 mg/dL (70-99) 06/10/24 13:46 06/10/24 TSH 2.440 uIU/mL (0.358-3.740) 05/15/24 15:01 10/01 COAG Pre-Assessment Diagnosis/Proposed Procedure Planned Operative Procedure(s): Colonoscopy,EGD Anesthesia History Anesthesia History - manager document control: Anesthesia History - manager document control Hx Hospitalization No 07/11/24 15:26 Any Problems With Anesthesia No 07/11/24 15:26 Cholinesterase deficiency No 07/11/24 15:26 You/Your Family Experience No 07/11/24 15:26 fever (hyperthermia) with Relationship Recent Exposure to Contagious No 07/16/24 11:23 Disease Does patient have nerve No 07/11/24 15:26 stimulator Patient instructed to have device shut off --Does patient have Pacemaker No 07/16/24 11:23 or ICD? When Was Last Pacemaker Check QUESTION #4 FULL TEXT: You/Your Family Experience fever (hyperthermia) with Anesthesia Last Oral Intake Last Oral intake: Last Oral Intake NPO since 08:00 07/16/24 11:23 Meds taken in AM with sips of water? Meds patient instructed to take am of surgery PONV PONV - manager document control: PONV - manager document control Female Yes 07/11/24 15:26 HX of Motion Sickness No 07/11/24 15:26 HX of N/V After Surgery No 07/11/24 15:26 Non-Smoker Yes 07/11/24 15:26 Duration of Surgery greater No 07/11/24 15:26 than 60 minutes Number of Risk Factors 2 07/11/24 15:26 PONV Score Moderate Risk 07/11/24 15:26 Height & Weight Height & Weight: Anesthesia: Height & Weight Height 5 ft 10 in 07/16/24 11:23 Weight: 90 kg 07/16/24 11:23 Body Mass Index (BMI) 28.4 07/16/24 11:23 Respiratory Assessment Respiratory Assessment - manager document control: Respiratory Tract Infection Hx - manager document control Hx Respiratory Tract Infection No 07/11/24 15:26 STOP Sleep Apnea STOP Sleep Apnea - manager document control: STOP Sleep Apnea - manager document control Hx Hypertension No 07/11/24 15:26 Hx Sleep Apnea No 07/11/24 15:26 CPAP BIPAP Do you snore loudly (louder Yes 07/11/24 15:26 than talking or can be heard Do you often feel tired/ Yes 07/11/24 15:26 fatigued/ sleepy during daytime? Has anyone observed you stop No 07/11/24 15:26 breathing during sleep? STOP Results Positive 07/11/24 15:26 QUESTION #5 FULL TEXT : Do you snore loudly (louder than talking or can be heard through closed doors)? Tobacco Use History Tobacco Use History - manager document control: Tobacco Use History - manager document control Tobacco Use Smoking Status Former smoker 07/11/24 15:26 Hx Tobacco Use No 07/11/24 15:26 Years Smoking 40 07/11/24 15:26 Packs Smoked per Day Smoking Cessation Date was Yes - quit smoking within 15 07/11/24 15:26 within the last 15 years years Hx Smoking Cessation Date 04/09/24 07/11/24 15:26 Hx Smoking Cessation Yes: 04-09-24 07/11/24 15:26 Counseling Hematologic Medial History Hematologic Hx - manager document control: Hematologic Medical Hx - clinical documentation nurse Hx of Blood Transfusion No 07/11/24 15:26 Hx of Transfusion in last 3 No 07/11/24 15:26 Months Date of Last Transfusion (if within last 3 months) Ever experience any problems No 07/11/24 15:26 with transfusion(s)? Specify any problems Hx of Preganancy in last 3 No 07/11/24 15:26 Months Nurse Filling Out Transfusion JZOLLINGE 07/11/24 15:26 & Questions: Date: 07/11/24 07/11/24 15:26 Time: 15:30 07/11/24 15:26 Patient unable to answer at this time (ie. confused, unrespo /Reproduction History /Reproductive History - manager document control: /Reproductive Hx- manager document control Hx Now No 07/11/24 15:26 Gestational Age (in weeks): EDC: Hx Hx Para Hx Section SAB No 07/11/24 15:26 [facility] Medical History Wears glasses Anxiety Marijuana use Former smoker Shortness of breath on exertion COPD (chronic obstructive pulmonary disease) Pneumonia , tubal with rupture Home Medications ?Medication ?Instructions ?Recorded ?Last Taken ?Type albuterol sulfate 90 mcg/actuation 2 puff inhalation Q 6H PRN 05/15/24 Unknown History aerosol inhaler shortness of breath or wheez ing multivitamin 1 tab PO QAM 05/15/24 Unknow n History peg 3350-electrolytes 236 240 ml PO Q10M #4,000 mL 10/01 Unknown Rx gram-22.74 gram-6.74 gram-5.86 gram solution (Golytely) albuterol sulfate 2.5 mg/3 mL 2.5 mg (3 mL) inhalation Q4H PRN 06/10/24 Unknown Rx (0.083 %) solution for nebulization #25 vials albuterol sulfate 90 mcg/actuation 2 puff inhalation Q 4H PRN PRN 06/10/24 Unknown Rx aerosol inhaler (Ventolin HFA) Wheezing ##1 mometasone-formoterol HFA 100 2 puff inhalation BID #8 .8 grams 06/19/24 Unknown Rx mcg-5 mcg/actuation aerosol inhaler (Dulera) Allergy/AdvReac Type Severity Reaction Status Date / Time bacitracin (From Neosporin Allergy Rash Verified 07/16/24 11:22 ([id number])) neomycin (From Neosporin Allergy Rash Verified 07/16/24 11:22 ([id number])) Penicillins Allergy Hives Verified 07/16/24 11:22 polymyxin B (From Neosporin Allergy Rash Verified 07/16/24 11:22 ([id number])) egg (eggs) AdvReac Abd Verified 07/16/24 11:22 cramps/diarrhea Food Allergies: Uncoded AdvReac Abd Verified 07/16/24 11:22 cramps/diarrhea Family History Other Alcohol abuse Arthritis Cancer Osteoporosis Severe allergy Surgical History History of back surgery Social History household members: spouse housing: house Smoking Status: Former smoker substance use type: marijuana frequency: daily Review of Systems (Anesthesia) ROS Narrative System reviewed and no additional complaints, except as documented. 07/16/24 1142 <Electronically signed by Len Dietz MD > Date _ Len Dietz MD Cosigner Signature: Date CC: ~ Signed [facility] Work Phone: 1(825) 235-718904-09-2025 Procedure note [facility] Medical Records Department [address] [place] [address] Colonoscopy Report MR#: [id number] Acct: [id number] Name: RENUKA MEANS Rep #:[id number] : 1960 64 From: Gold Friend DO PCP: Care Physician,No Primary Status :[facility] Patient Name: Renuka Means Procedure Date: 07/16/2024 12:33 PM Date of : 1960 Age: 64 Procedure: Colonoscopy Indications: Screening for colorectal malignant neoplasm Providers: Gold Palomino DO Referring MD: No Primary Care Physician Medicines: Monitored Anesthesia Care Patient Profile: This is a 64 year old female. Refer to note in patient chart for documentation of history and physical. Patient has symptoms of chronic heartburn. Last Colonoscopy: more than 10 years ago. Complications: No immediate complications. Procedure: Pre-Anesthesia Assessment: - Prior to the procedure, a History and Physical was performed, and patient medications and allergies were reviewed. The patient is competent. The risks and benefits of the procedure and the sedation options and risks were discussed with the patient. All questions were answered and informed consent was obtained. Patient identification and proposed procedure were verified by the physician in the pre-procedure area. Mental Status Examination: alert and oriented. Airway Examination: normal oropharyngeal airway and neck mobility. Respiratory Examination: clear to auscultation. CV Examination: normal. Prophylactic Antibiotics: The patient does not require prophylactic antibiotics. Prior Anticoagulants: The patient has taken no anticoagulant or antiplatelet agents except for NSAID medication. ASA Grade Assessment: II - A patient with mild systemic disease. After reviewing the risks and benefits, the patient was deemed in satisfactory condition to undergo the procedure. The anesthesia plan was to use monitored anesthesia care (MAC). Immediately prior to administration of medications, the patient was re-assessed for adequacy to receive sedatives. The heart rate, respiratory rate, oxygen saturations, blood pressure, adequacy of pulmonary ventilation, and response to care were monitored throughout the procedure. The physical status of the patient was re-assessed after the procedure. After I obtained informed consent, the scope was passed under direct vision. Throughout the procedure, the patient's blood pressure, pulse, and oxygen saturations were monitored continuously. The pediatric colonoscope was introduced through the anus and advanced to the cecum, identified by appendiceal orifice and ileocecal valve. The colonoscopy was performed without difficulty. The patient tolerated the procedure well. The quality of the bowel preparation was fair. The ileocecal valve, appendiceal orifice, and rectum were photographed. Scope In: 12:34:35 PM Scope Withdrawal Time 0 hours 8 minutes 48 seconds Scope Out: 12:49:45 PM Total Procedure Duration Time 0 hours 15 minutes 10 seconds Findings: The perianal and digital rectal examinations were normal. Multiple small and large-mouthed diverticula were found in the recto-sigmoid colon, sigmoid colon, descending colon, splenic flexure, transverse colon, hepatic flexure and ascending colon. Two sessile polyps were found in the sigmoid colon and splenic flexure. The polyps were 6 mm in size. These polyps were removed with a jumbo cold forceps. Resection and retrieval were complete. Verification of patient identification for the specimen was done. Estimated blood loss was minimal. Stool was found in the rectum, in the recto-sigmoid colon, in the sigmoid colon, in the descending colon and in the ascending colon. Mild rectal prolapse was present. Impression: - Preparation of the colon was fair. - Diverticulosis in the recto-sigmoid colon, in the sigmoid colon, in the descending colon, at the splenic flexure, in the transverse colon, at the hepatic flexure and in the ascending colon. - Two 6 mm polyps in the sigmoid colon and at the splenic flexure, removed with a jumbo cold forceps. Resected and retrieved. - Stool in the rectum, in the recto-sigmoid colon, in the sigmoid colon, in the descending colon and in the ascending colon. - Rectal prolapse. Recommendation: - Discharge patient to home. - Resume previous diet. - Continue present medications. - Await pathology results. - Repeat colonoscopy for surveillance. - Return to GI office. Procedure Code(s): --- Professional --- 16413, Colonoscopy, flexible; with biopsy, single or multiple CPT copyright 2021 [employer]. All rights reserved. The codes documented in this report are preliminary and upon data coder operator review may be revised to meet current compliance requirements. Gold Palomino DO 07/16/2024 1:03:18 PM This report has been signed electronically. Number of Addenda: 0 Note Initiated On: 07/16/2024 12:33 PM 07/16/24 1303 Date _ Gold Russell Signature: Date (if indicated) CC: No Primary Care Physician; Gold Palomino DO ~ Date Dictated: 07/16/24 1233 Date Transcribed: Lens Inserter: MALLORY Signed [facility]04-09-2025 Procedure note [facility] Medical Records Department [address] [place] [address] Operative Report - CC Letter MR#: [id number] Acct: [id number] Name: RENUKA MEANS Rep #:[id number] : 1960 64 From: Gold Palomino DO PCP: Care Physician,No Primary Status :[facility] 07/16/2024 No Primary Care Physician Re : Colonoscopy procedure for Renuka Means Dear Care Physician This procedure was performed on Tuesday, July 16, 2024. My impressions and recommendations are as follows: Impressions : - Preparation of the colon was fair. - Diverticulosis in the recto-sigmoid colon, in the sigmoid colon, in the descending colon, at the splenic flexure, in the transverse colon, at the hepatic flexure and in the ascending colon. - Two 6 mm polyps in the sigmoid colon and at the splenic flexure, removed with a jumbo cold forceps. Resected and retrieved. - Stool in the rectum, in the recto-sigmoid colon, in the sigmoid colon, in the descending colon and in the ascending colon. - Rectal prolapse. Recommendations : - Discharge patient to home. - Resume previous diet. - Continue present medications. - Await pathology results. - Repeat colonoscopy for surveillance. - Return to GI office. My findings are described in the full procedure note, which is enclosed. If I can be of further assistance, please feel free to contact me at . Sincerely, Gold Palomino DO 07/16/2024 1:03:18 PM This report has been signed electronically. 07/16/24 1303 Date _ Gold Laligner Signature: Date (if indicated) CC: No Primary Care Physician; Gold Palomino DO ~ Date Dictated: 07/16/24 1233 Date Transcribed: Lens Inserter: MALLORY Signed [facility]04-09-2025 Procedure note [facility] Medical Records Department [address] [place] [address] Operative Report - CC Letter MR#: [id number] Acct: [id number] Name: RENUKA MEANS Rep #:[id number] : 1960 64 From: Gold Palomino DO PCP: Care Physician,No Primary Status :[facility] 07/16/2024 No Primary Care Physician Re : Upper GI endoscopy procedure for Renuka Means Dear Care Physician This procedure was performed on Sunday, July 16, 2024. My impressions and recommendations are as follows: Impressions : - LA Grade C reflux esophagitis with no bleeding. Biopsied. - Small hiatal hernia. - Chronic gastritis. Biopsied. - Erythematous duodenopathy. Biopsied. Recommendations : - Await pathology results. - Repeat upper endoscopy in 1 year for surveillance. - Continue present medications. My findings are described in the full procedure note, which is enclosed. If I can be of further assistance, please feel free to contact me at . Sincerely, Gold Palomino DO 07/16/2024 1:00:12 PM This report has been signed electronically. 07/16/24 1300 Date _ Gold Palomino DO Cosigner Signature: Date (if indicated) CC: No Primary Care Physician; Gold Palomino DO ~ Date Dictated: 07/16/24 1203 Date Transcribed: Lens Inserter: MALLORY Signed [facility]04-09-2025 Consult note [facility] Medical Records Department [address] [place] [address] Anesthesia Postop Eval I 07/16/24 1259 MR#: [id number] Acct: [id number] Name: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 Anesthesia History - manager document control: Anesthesia History - manager document control Hx Hospitalization No 07/11/24 15:26 Any Problems With Anesthesia No 07/11/24 15:26 Cholinesterase deficiency No 07/11/24 15:26 You/Your Family Experience No 07/11/24 15:26 fever (hyperthermia) with Relationship Recent Exposure to Contagious No 07/16/24 11:23 Disease Does patient have nerve No 07/11/24 15:26 stimulator Patient instructed to have device shut off --Does patient have Pacemaker No 07/16/24 11:23 or ICD? When Was Last Pacemaker Check QUESTION #4 FULL TEXT: You/Your Family Experience fever (hyperthermia) with Anesthesia Last Oral Intake Last Oral intake: Last Oral Intake NPO since 08:00 07/16/24 11:23 Meds taken in AM with sips of water? Meds patient instructed to take am of surgery PONV PONV - manager document control: PONV - manager document control Female Yes 07/11/24 15:26 HX of Motion Sickness No 07/11/24 15:26 HX of N/V After Surgery No 07/11/24 15:26 Non-Smoker Yes 07/11/24 15:26 Duration of Surgery greater No 07/11/24 15:26 than 60 minutes Number of Risk Factors 2 07/11/24 15:26 PONV Score Moderate Risk 07/11/24 15:26 Height & Weight Height & Weight: Anesthesia: Height & Weight Height 5 ft 10 in 07/16/24 11:23 Weight: 90 kg 07/16/24 11:23 Body Mass Index (BMI) 28.4 07/16/24 11:23 Respiratory Assessment Respiratory Assessment - manager document control: Respiratory Tract Infection Hx - manager document control Hx Respiratory Tract Infection No 07/11/24 15:26 STOP Sleep Apnea STOP Sleep Apnea - manager document control: STOP Sleep Apnea - manager document control Hx Hypertension No 07/11/24 15:26 Hx Sleep Apnea No 07/11/24 15:26 CPAP BIPAP Do you snore loudly (louder Yes 07/11/24 15:26 than talking or can be heard Do you often feel tired/ Yes 07/11/24 15:26 fatigued/ sleepy during daytime? Has anyone observed you stop No 07/11/24 15:26 breathing during sleep? STOP Results Positive 07/11/24 15:26 QUESTION #5 FULL TEXT : Do you snore loudly (louder than talking or can be heard through closeddoors)? Tobacco Use History Tobacco Use History - manager document control: Tobacco Use History - manager document control Tobacco Use Smoking Status Former smoker 07/11/24 15:26 Hx Tobacco Use No 07/11/24 15:26 Years Smoking 40 07/11/24 15:26 Packs Smoked per Day Smoking Cessation Date was Yes - quit smoking within 15 07/11/24 15:26 within the last 15 years years Hx Smoking Cessation Date 04/09/24 07/11/24 15:26 Hx Smoking Cessation Yes: 04-09-24 07/11/24 15:26 Counseling Hematologic Medial History Hematologic Hx - manager document control: Hematologic Medical Hx - clinical documentation nurse Hx of Blood Transfusion No 07/11/24 15:26 Hx of Transfusion in last 3 No 07/11/24 15:26 Months Date of Last Transfusion (if within last 3 months) Ever experience any problems No 07/11/24 15:26 with transfusion(s)? Specify any problems Hx of Preganancy in last 3 No 07/11/24 15:26 Months Nurse Filling Out Transfusion JZOLLINGE 07/11/24 15:26 & Questions: Date: 07/11/24 07/11/24 15:26 Time: 15:30 07/11/24 15:26 Patient unable to answer at this time (ie. confused, unrespo /Reproduction History /Reproductive History - manager document control: /Reproductive Hx- manager document control Hx Now No 07/11/24 15:26 Gestational Age (in weeks): EDC: Hx Hx Para Hx Section SAB No 07/11/24 15:26 PFSH Medical History Wears glasses Anxiety Marijuana use Former smoker Shortness of breath on exertion COPD (chronic obstructive pulmonary disease) Pneumonia , tubal with rupture Home Medications ?Medication ?Instructions ?Recorded ?Last Taken ?Type albuterol sulfate 90 mcg/actuation 2 puff inhalation Q 6H PRN 05/15/24 Unknown History aerosol inhaler shortness of breath or wheez ing multivitamin 1 tab PO QAM 05/15/24 Unknow n History peg 3350-electrolytes 236 240 ml PO Q10M #4,000 mL 10/01 Unknown Rx gram-22.74 gram-6.74 gram-5.86 gram solution (Golytely) albuterol sulfate 2.5 mg/3 mL 2.5 mg (3 mL) inhalation Q4H PRN 06/10/24 Unknown Rx (0.083 %) solution for nebulization #25 vials albuterol sulfate 90 mcg/actuation 2 puff inhalation Q 4H PRN PRN 06/10/24 Unknown Rx aerosol inhaler (Ventolin HFA) Wheezing ##1 mometasone-formoterol HFA 100 2 puff inhalation BID #8 .8 grams 06/19/24 Unknown Rx mcg-5 mcg/actuation aerosol inhaler (Dulera) Allergy/AdvReac Type Severity Reaction Status Date / Time bacitracin (From Neosporin Allergy Rash Verified 07/16/24 11:22 ([id number])) neomycin (From Neosporin Allergy Rash Verified 07/16/24 11:22 ([id number])) Penicillins Allergy Hives Verified 07/16/24 11:22 polymyxin B (From Neosporin Allergy Rash Verified 07/16/24 11:22 ([id number])) egg (eggs) AdvReac Abd Verified 07/16/24 11:22 cramps/diarrhea Food Allergies: Uncoded AdvReac Abd Verified 07/16/24 11:22 cramps/diarrhea Family History Other Alcohol abuse Arthritis Cancer Osteoporosis Severe allergy Surgical History History of back surgery Social History household members: spouse housing: house Smoking Status: Former smoker substance use type: marijuana frequency: daily Review of Systems (Anesthesia) ROS Narrative System reviewed and no additional complaints, except as documented. 07/16/24 1148 > Date _ Len Dietz MD Cosigner Signature: Date CC: ~ Signed [facility]03-13-2025 Evaluation note* Diagnosis Onset Date Resolution Status Admit Date COPD (chronic obstructive pulmonary disease) chronic June 19, 2 025 11:16am Nicotine dependence, cigarettes, in remission chronic June 072024 11:16am Constipation acute July 16, 025 10:58am Heartburn acute July 16 10:58am IBS (irritable bowel syndrome) acute July 16, 2024 10:58am Constipation acute July 22, 2024 2:00pm Heartburn acute July 22 2:00pm COPD (chronic obstructive pulmonary disease) chronic July 22, 2 025 2:00pm Encounter for screening examination for mental health and behavioral disorders noneactive July 082024 2:00pm Immunization declined noneactive Jul 2:00pm Screening for cardiovascular condition noneactive July 22, 2024 2:00pm Establishing care with new doctor, encounter for noneactive July 2:00pm Mammogram declined noneactive July 22, 2024 2:00pm Sleep difficulties noneactive July 22, 2024 2:00pm Constipation acute July 28, 2024 3:23pm Esophagitis acute July 28, 2 025 3:23pm Heartburn acute July 28 3:23pm COPD (chronic obstructive pulmonary disease) chronic August 04, 2 025 2:15pm Smoking greater than 20 pack years chronic August 04, 2024 2:15pm [facility] Work Phone: 1(290) 490-153302-19-2025 Telephone encounter Note* Telephone Encounter - Ashlyn Seymour - 05/28/2024 11:30 AM EST Spoke with patient current insurance [employer] is out of network with us , she is scheduled with anew PCP at [facility] in 07/2024. [facility]02-19-2025 Miscellaneous Notes* Telephone Encounter - Ashlyn Seymour - 05/28/2024 11:30 AM EST Spoke with patient current insurance [employer] is out of network with us , she is scheduled with anew PCP at [facility] in 07/2024. * Telephone Encounter - Toya Mukherjee PA-C - 05/26/2024 10:54 AM EST Patient needs an appointment * Telephone Encounter - Paz Starr LPN - 05/26/2024 10:40 AM EST [facility] 03/12/23 Patient phones requesting refills as follows: Requested Prescriptions Pending Prescriptions Disp Refills DULERA 200-5 mcg/actuation inhaler [Pharmacy Med Name: Dulera Inhalation Aerosol 200-5 MCG/ACT] 13 g 0 Sig: INHALE 1 PUFF BY MOUTH 2 TIMES A DAY DIRECTED Please review and advise. Paz Starr LPN documented in [facility] Telephone encounter Note * Telephone Encounter - Toya Mukherjee PA-C - 05/26/2024 10:54 AM EST Patient needs an appointment [facility]02-17-2025 Telephone encounter Note* Telephone Encounter - Paz Starr LPN - 05/26/2024 10:40 AM EST [facility] 03/12/23 Patient phones requesting refills as follows: Requested Prescriptions Pending Prescriptions Disp Refills DULERA 200-5 mcg/actuation inhaler [Pharmacy Med Name: Dulera Inhalation Aerosol 200-5 MCG/ACT] 13 g 0 Sig: INHALE 1 PUFF BY MOUTH 2 TIMES A DAY DIRECTED Please review and advise. Paz Starr LPN [facility]02-06-2025 Evaluation note* Diagnosis Onset Date Resolution Status Admit Date Constipation acute May 1:55pm Heartburn acute May 15, 2024 1:55pm Straining during bowel movements acute May 15 1:55pm COPD (chronic obstructive pulmonary disease) chronic June 19 11:16am Nicotine dependence, cigarettes, in remission chronic June 072024 11:16am Constipation acute July 16 025 10:58am Heartburn acute July 16 10:58am IBS (irritable bowel syndrome) acute July 16, 2024 10:58am [facility] Work Phone: 1(446) 401-592601-13-2025 NoteHNO ID: [id number] Author: VANESSA ROSENBERG APRN.BISCUIT PACKER Service: ? Author Type: Nurse Practitioner Type: Progress Notes Filed: 04/21/2024 14:22 Note Text: Chief Complaint Patient presents with: cough had with pneumonia felt something in lower grion area HPI Renuka Means is a 63 year old female who presents here today for Above Complaints. Renuka has no established PCP within our practice. She is new to me today. Concerns today... Per TE from today: Pt states she had Pneumonia at the beginning of April and was coughing a lot. She report she has a black and blue groin since 04/11/24, felt something burst when coughing. Pt rates the pain a 2/10 constant dull, and states she feels pressure when she coughs. She reports it's uncomfortable to sit down because it is swollen. Pt requesting an appointment, but her insurance is out of network with us this year. Giving Pt phone # [phone] to call, and Ashlyn BAH placed a referral. In office today... Pt reports severe coughing since the beginning of the month -- dx with bronchopneumonia at [facility] on 04/15/24 and still taking antibiotics and medications as prescribed. Pt reports cough and breathing is greatly improved. No concerns with that. Pt main concern today is swelling and bruising to L buttock/rectum area. Reports 2/10 soreness from sitting on that area all day. Pt reports on 04/11/24 she was coughing so hard she heard a pop and felt something burst to her LLQ/groin area and experienced short episode of pain. Symptoms quickly resolved after coughing and then later that day she noticed this bruising and swelling to buttock. No known hernias per pt. Pt denies any hip pain or difficulty walking. Pt is not on any blood thinning medication Pt denies any dizziness or lightheaded. Asymptomatic since 04/11 besides this bruising/hematoma. Pt reports area is very dark black and blue. No changes to bowel or bladder habits. No n/v/d/c. No blood in stool or urine. Has used ice to the area without much relief. Not taking any otc medication so far. Denies any fall or injury. No other concerns or complaints. Past medical history, appointments, medications, allergies reviewed. Previous Medical History PAST MEDICAL HISTORY Diagnosis Date Allergic rhinitis, cause unspecified Allergic rhinitis Diverticulosis of colon (without mention of hemorrhage) Esophageal reflux Gastrointestinal hemorrhage Hyperlipemia 02/21/2011 Lumbago Marijuana use, continuous daily Unspecified hemorrhoids without mention of complication Hemorrhoids Previous Surgical History PAST SURGICAL HISTORY Procedure Laterality Date COLONOSCOPY FLX DX W/COLLJ SPEC WHEN PFRMD 05/15/06 LAPAROSCOPY W/LYSIS OF ADHESION 06/28/06 lysis of adhesion around the left adnexa PAST SURGICAL HISTORY OF 1992 discectomy L-5 SIGMOIDOSCOPY FLX DX W/COLLJ SPEC BR/WA IF PFRMD 06/12/2002 Sigmoidoscopy [place] ECTOPIC W/O SALPINGAND/OOPHORECTOMY Ectopic Family History FAMILY HISTORY Problem Relation Age of Onset Lung Cancer Mother 70 smoker Cancer Father larynx, smoker Hypertension Father Alcohol/Drug Father Patient Allergies ALLERGIES Allergen Reactions Banana GI Upset severe abdominal pain Bee Sting Itching, Shortness of Breath, Swelling Eggs [Egg] Vomiting Penicillins Hives Pravastatin Intolerance Chest pain Triple Antibiotic [* Ultram [Tramadol Hc* Vomiting Vicoprofen [Hydroco* Current Medications Current Outpatient Medications on File Prior to Visit Medication Sig doxycycline (VIBRA-TABS) 100 mg tablet Take 1 tablet by mouth two times a day for 10 days. albuterol HFA (VENTOLIN HFA) 90 mcg/actuation inhaler Inhale 2 Puffs as instructed every 4 hours as needed for wheezing/shortness of breath. mometasone-formoterol (DULERA) 200-5 mcg/actuation inhaler Inhale 1 Puff as instructed two times a day. benzonatate (TESSALON PERLE) 100 mg capsule Take 1 capsule by mouth three times a day as needed for cough for up to 7 days. (Patient not taking: Reported on 04/21/2024) amitriptyline (ELAVIL) 10 mg tablet Take 1 tablet by mouth at bedtime as needed. (Patient not taking: Reported on 04/15/2024) MULTIVIT-MINERALS/FOLIC ACID (DAILY GUMMIES ORAL) Take 2 Each by mouth once daily. (Patient not taking: Reported on 04/15/2024) No current facility-administered medications on file prior to visit. Social History Social History Tobacco Use Smoking status: Every Day Current packs/day: 0.50 Average packs/day: 0.5 packs/day for 27.0 years (13.5 ttl pk-yrs) Types: Cigarettes Smokeless tobacco: Never Tobacco comments: Trying to quit. Vaping Use Vaping status: Never Used Substance Use Topics Alcohol use: No Drug use: Yes Frequency: 7.0 times per week Types: Marijuana REVIEW OF SYSTEMS: as above Reviewed relevant PMHx, PSHx, Social Hx, current medications and allergies. Review of Sy (more content not included)...[facility]01-13-2025 History of Present illness Narrative* Vanessa Rosenberg APRN.BISCUIT PACKER - 04/21/2024 1:14 PM EST Chief Complaint Patient presents with: cough had with pneumonia felt something in lower grion area HPI Renuka eMans is a 63 year old female who presents here today for Above Complaints. Renuka has no established PCP within our practice. She is new to me today. Concerns today... Per TE from today: Pt states she had Pneumonia at the beginning of April and was coughing a lot. She report she has a black and blue groin since 04/11/24, felt something burst when coughing. Pt rates the pain a 2/10 constant dull, and states she feels pressure when she coughs. She reports it's uncomfortable to sit down because it is swollen. Pt requesting an appointment, but her insurance is out of network with us this year. Giving Pt phone # [phone] to call, and Ashlyn BAH placed a referral. In office today... Pt reports severe coughing since the beginning of the month -- dx with bronchopneumonia at [facility] on 04/15/24 and still taking antibiotics and medications as prescribed. Pt reports cough and breathing is greatly improved. No concerns with that. Pt main concern today is swelling and bruising to L buttock/rectum area. Reports 2/10 soreness fromsitting on that area all day. Pt reports on 04/11/24 she was coughing so hard she heard a pop and felt something burst to her LLQ/groin area and experienced short episode of pain. Symptoms quickly resolved after coughing and then later that day she noticed this bruising and swelling to buttock. No known hernias per pt. Pt denies any hip pain or difficulty walking. Pt is not on any blood thinning medication Pt denies any dizziness or lightheaded. Asymptomatic since 04/11 besides this bruising/hematoma. Pt reports area is very dark black and blue. No changes to bowel or bladder habits. No n/v/d/c. No blood in stool or urine. Has used ice to the area without much relief. Not taking any otc medication so far. Denies any fall or injury. No other concerns or complaints. Past medical history, appointments, medications, allergies reviewed. Previous Medical History PAST MEDICAL HISTORY Diagnosis Date Allergic rhinitis, cause unspecified Allergic rhinitis Diverticulosis of colon (without mention of hemorrhage) Esophageal reflux Gastrointestinal hemorrhage Hyperlipemia 02/21/2011 Lumbago Marijuana use, continuous daily Unspecified hemorrhoids without mention of complication Hemorrhoids Previous Surgical History PAST SURGICAL HISTORY Procedure Laterality Date COLONOSCOPY FLX DX W/COLLJ SPEC WHEN PFRMD 05/15/06 LAPAROSCOPY W/LYSIS OF ADHESION 06/28/06 lysis of adhesion around the left adnexa PAST SURGICAL HISTORY OF 1992 discectomy L-5 SIGMOIDOSCOPY FLX DX W/COLLJ SPEC BR/WA IF PFRMD 06/12/2002 Sigmoidoscopy [place] ECTOPIC W/O SALPING&/OOPHORECTOMY Ectopic Family History FAMILY HISTORY Problem Relation Age of Onset Lung Cancer Mother 70 smoker Cancer Father larynx, smoker Hypertension Father Alcohol/Drug Father Patient Allergies ALLERGIES Allergen Reactions Banana GI Upset severe abdominal pain Bee Sting Itching, Shortness of Breath, Swelling Eggs [Egg] Vomiting Penicillins Hives Pravastatin Intolerance Chest pain Triple Antibiotic [* Ultram [Tramadol Hc* Vomiting Vicoprofen [Hydroco* Current Medications Current Outpatient Medications on File Prior to Visit Medication Sig doxycycline (VIBRA-TABS) 100 mg tablet Take 1 tablet by mouth two times a day for 10 days. albuterol HFA (VENTOLIN HFA) 90 mcg/actuation inhaler Inhale 2 Puffs as instructed every 4 hours asneeded for wheezing/shortness of breath. mometasone-formoterol (DULERA) 200-5 mcg/actuation inhaler Inhale 1 Puff as instructed two times a day. benzonatate (TESSALON PERLE) 100 mg capsule Take 1 capsule by mouth three times a day as needed forcough for up to 7 days. (Patient not taking: Reported on 04/21/2024) amitriptyline (ELAVIL) 10 mg tablet Take 1 tablet by mouth at bedtime as needed. (Patient not taking: Reported on 04/15/2024) MULTIVIT-MINERALS/FOLIC ACID (DAILY GUMMIES ORAL) Take 2 Each by mouth once daily. (Patient not taking: Reported on 04/15/2024) No current facility-administered medications on file prior to visit. Social History Social History Tobacco Use Smoking status: Every Day Current packs/day: 0.50 Average packs/day: 0.5 packs/day for 27.0 years (13.5 ttl pk-yrs) Types: Cigarettes Smokeless tobacco: Never Tobacco comments: Trying to quit. Vaping Use Vaping status: Never Used Substance Use Topics Alcohol use: No Drug use: Yes Frequency: 7.0 times per week Types: Marijuana REVIEW OF SYSTEMS: as above Reviewed relevant PMHx, PSHx, Social Hx, current medications and allergies. Review of Symptoms REVIEW OF SYSTEMS See HPI. EXAM: BP 130/62 (BP Site: Left Arm, BP Position: Sitting, BP Cuff Size: Regular Adult) Pulse 83 Resp 12 Wt 89.4 kg (197 lb) LMP 05/11/2006 SpO2 95% BMI 29.52 kg/m General Appearance: Well appearing, alert, in no acute distress, well-hydrated, well nourished.. Skin: Skin color, texture, turgor normal, no suspicious rashes or lesions. + baseball size hematomato L buttock near rectum. Head: Normocephalic, no masses, lesions, tenderness or abnormalities. Lungs: Lungs clear to auscultation. No wheezing, rhonchi, rales.. Heart: RRR without murmur, gallop, or rubs. No ectopy. Abdomen: Normal abdominal exam, Abdomen soft, non-tender. Bowel sounds normal. No masses, organomegaly, Negative CVA tenderness. Pelvic: External genitalia Normal. Rectal: Deferred exam. Health Maintenance List Mammogram Screening due on 09/12/2016 Pneumococcal Vaccine: 50+(2 of 2 - PCV) due on 10/06/2020 Cervical Cancer Screening due on 10/12/2022 Covid-19 Vaccine(1 - season) Never done Influenza Vaccine(1) due on 10/06/2024 Alpha-1 Antitrypsin Deficiency Screening due on 12/31/2024 RSV Vaccine(1 - Risk 60-74 years 1-dose series) due on 12/31/2024 HIV Screening due on 12/31/2024 Shingrix Vaccine(1 of 2) due on 12/31/2024 Colorectal Cancer Screening due on 01/01/2025 Diabetes Screening due on 08/29/2024 Depression Screening due on 12/31/2024 Anxiety Screening due on 12/31/2024 Annual PCP Team Chronic Disease Visit due on 04/21/2025 Lipid Screening due on 08/29/2026 DTaP,Tdap,Td Vaccine(2 - Td or Tdap) due on 10/06/2029 Spirometry Completed Hepatitis C Screening Completed ASSESSMENT/PLAN: 1. Buttock pain - ICD9: 729.1, ICD10: M79.18 (primary diagnosis) Unknown etiology. Hematoma from unknown cause. Lab work as below. STAT ct abd/pel - COMPLETE BLOOD COUNT AND DIFFERENTIAL - COMPREHENSIVE METABOLIC PANEL - CT ABD/PEL W IVCON - IV CONTRAST (RADIOLOGY PROCEDURE) - NOT ON MAR - ENTERIC CONTRAST (RADIOLOGY PROCEDURE) - NOT ON MAR - CREATININE BLD - US SOFT TISSUE PELVIS 2. Hematoma - ICD9: 924.9, ICD10: T14.8XXA See above. US area to confirm hematoma and no underlying diagnosis. Blood collection due to gravity pulling tothis area d/t pt sitting frequently. But unknown cause of bleeding? - COMPLETE BLOOD COUNT AND DIFFERENTIAL - COMPREHENSIVE METABOLIC PANEL - CT ABD/PEL W IVCON - IV CONTRAST (RADIOLOGY PROCEDURE) - NOT ON MAR - ENTERIC CONTRAST (RADIOLOGY PROCEDURE) - NOT ON MAR - CREATININE BLD - US SOFT TISSUE PELVIS 3. Left inguinal pain - ICD9: 789.04, ICD10: R10.32 No hernia felt on examination. Further investigation as below. - COMPLETE BLOOD COUNT AND DIFFERENTIAL - COMPREHENSIVE METABOLIC PANEL - CT ABD/PEL W IVCON - IV CONTRAST (RADIOLOGY PROCEDURE) - NOT ON MAR - ENTERIC CONTRAST (RADIOLOGY PROCEDURE) - NOT ON MAR - CREATININE BLD - US SOFT TISSUE PELVIS 4. Bronchopneumonia - ICD9: 485, ICD10: J18.0 Symptoms resolving. Continue antibiotics as prescribed. RTO if no improvement. Prescription instructions reviewed with patient as applicable. Potential red flag symptoms discussed with the patient. Reviewed appropriate action plan to take if red flag symptoms occur. Patient agreeable to treatment plan. Vanessa Israel APRN.BISCUIT PACKER [id number] [place] [address] documented in this encounterChildren[facility] Telephone encounter Note * Telephone Encounter - Abhijit Xiong LPN - 04/21/2024 10:40 AM EST PCP updated. [facility]01-13-2025 Miscellaneous Notes* Telephone Encounter - Abhijit Xiong LPN - 04/21/2024 10:40 AM EST PCP updated. * Telephone Encounter - Chasity Hernandez APRN.MONIKA - 04/21/2024 10:34 AM EST Pt has not established with me yet. Please remove me as PCP until she establishes care. It looks like she has an appt w/ Muriel today, will go ahead and forward note to her, as well. * Telephone Encounter - Eden Gray RN - 04/21/2024 9:11 AM EST Pt states she had Pneumonia at the beginning of April and was coughing a lot. She report she has a black and blue groin since 04/11/24, felt something burst when coughing. Pt rates the pain a 2/10 constant dull, and states she feels pressure when she coughs. She reports it's uncomfortable to sit down because it is swollen. Pt requesting an appointment, but her insurance is out of network with us this year. Giving Pt phone # [phone] to call, and Ashlyn BAH placed a referral. documented in this encounterChildren'[facility]01-13-2025 Telephone encounter Note * Telephone Encounter - Chasity Hernandez APRN.MONIKA - 04/21/2024 10:34 AM EST Pt has not established with me yet. Please remove me as PCP until she establishes care. It looks like she has an appt w/ Muriel today, will go ahead and forward note to her, as well. [facility] Work Phone: 1([phone]) 338-249801-13-2025 Telephone encounter Note* Telephone Encounter - Eden Gray RN - 04/21/2024 9:11 AM EST Pt states she had Pneumonia at the beginning of April and was coughing a lot. She report she has a black and blue groin since 04/11/24, felt something burst when coughing. Pt rates the pain a 2/10 constant dull, and states she feels pressure when she coughs. She reports it's uncomfortable to sit down because it is swollen. Pt requesting an appointment, but her insurance is out of network with us this year. Giving Pt phone # [phone] to call, and Ashlyn BAH placed a referral. [facility]01-07-2025 NoteHNO ID: [id number] Author: JAZMYNE RIZZO PA-C Service: ? Author Type: Physician Vendor Analyst Type: Progress Notes Filed: 04/15/2024 12:38 Note Text: This note was created using LookFlowter. Subjective Renuka Means is a 63 year old female. Patient is a 63-year-old female complains of worsening loose, productive cough that she has been experiencing for the past 1 week. Patient reports no congestion, sinus pressure, ear pain or sore throat. Patient has previously been diagnosed with COPD due to an approximate 89-rshv-[id number] history of tobacco use. Patient reports that she did stop smoking on 09 April 2024. Patient is not on home oxygen but has been prescribed an albuterol MDI which she has been using as directed. Patient denies fever, chills or myalgia. Review of Systems Respiratory: Positive for cough. All other systems reviewed and are negative. Objective BP 112/66 Pulse 84 Temp 36.6 ?C (97.8 ?F) Resp 18 Wt 89.6 kg (197 lb 8.5 oz) LMP 05/11/2006 SpO2 95% BMI 29.60 kg/m? Physical Exam Vitals and nursing note reviewed. Constitutional: Appearance: Normal appearance. She is normal weight. HENT: Head: Normocephalic and atraumatic. Right Ear: Tympanic membrane, ear canal and external ear normal. Left Ear: Tympanic membrane, ear canal and external ear normal. Nose: Nose normal. Mouth/Throat: Mouth: Mucous membranes are moist. Pharynx: Oropharynx is clear. Eyes: Extraocular Movements: Extraocular movements intact. Conjunctiva/sclera: Conjunctivae normal. Pupils: Pupils are equal, round, and reactive to light. Cardiovascular: Rate and Rhythm: Normal rate and regular rhythm. Pulses: Normal pulses. Heart sounds: Normal heart sounds. Pulmonary: Effort: Pulmonary effort is normal. Breath sounds: Wheezing and rhonchi present. Musculoskeletal: Cervical back: Normal range of motion and neck supple. Skin: General: Skin is warm and dry. Capillary Refill: Capillary refill takes less than 2 seconds. Neurological: General: No focal deficit present. Mental Status: She is alert and oriented to person, place, and time. Psychiatric: Mood and Affect: Mood normal. Behavior: Behavior normal. Thought Content: Thought content normal. Judgment: Judgment normal. Assessment and Plan Physical exam findings as noted above. Patient was provided with prescriptions for doxycycline 100 mg, prednisone 20 mg and Tessalon 100 mg. Patient reports that her albuterol MDI is current and she does not require a refill of same. Supportive care instructions were discussed and the patient was very clearly instructed to report to an emergency department if she notes any new or worsening symptoms. Patient verbalizes clear understanding of the above instructions. CLINICAL IMPRESSION: Bronchopneumonia; Acute COPD Exacerbation ASSESSMENT/PLAN: 1. Bronchopneumonia - ICD9: 485, ICD10: J18.0 (primary diagnosis) - DOXYCYCLINE HYCLATE 100 MG TABLET - PREDNISONE 20 MG TABLET - BENZONATATE 100 MG CAPSULE 2. COPD with exacerbation (HCC) - ICD9: 491.21, ICD10: J44.1 [facility]01-07-2025 History of Present illness Narrative* Jazmyne Rizzo PA-C - 04/15/2024 12:33 PM EST This note was created using [employer]. Subjective Renuka Means is a 63 year old female. Patient is a 63-year-old female complains of worsening loose, productive cough that she has been experiencing for the past 1 week. Patient reports no congestion, sinus pressure, ear pain or sore throat. Patient has previously been diagnosed with COPD due to an approximate 29-bsbv-epuo history of tobacco use. Patient reports that she did stop smoking on 09 April 2024. Patient is not on home oxygen but has been prescribed an albuterol MDI which she has been using as directed. Patient denies fever, chills or myalgia. Review of Systems Respiratory: Positive for cough. All other systems reviewed and are negative. Objective BP 112/66 Pulse 84 Temp 36.6 C (97.8 F) Resp 18 Wt 89.6 kg (197 lb 8.5 oz) LMP 05/11/2006 SpO2 95% BMI 29.60 kg/m Physical Exam Vitals and nursing note reviewed. Constitutional: Appearance: Normal appearance. She is normal weight. HENT: Head: Normocephalic and atraumatic. Right Ear: Tympanic membrane, ear canal and external ear normal. Left Ear: Tympanic membrane, ear canal and external ear normal. Nose: Nose normal. Mouth/Throat: Mouth: Mucous membranes are moist. Pharynx: Oropharynx is clear. Eyes: Extraocular Movements: Extraocular movements intact. Conjunctiva/sclera: Conjunctivae normal. Pupils: Pupils are equal, round, and reactive to light. Cardiovascular: Rate and Rhythm: Normal rate and regular rhythm. Pulses: Normal pulses. Heart sounds: Normal heart sounds. Pulmonary: Effort: Pulmonary effort is normal. Breath sounds: Wheezing and rhonchi present. Musculoskeletal: Cervical back: Normal range of motion and neck supple. Skin: General: Skin is warm and dry. Capillary Refill: Capillary refill takes less than 2 seconds. Neurological: General: No focal deficit present. Mental Status: She is alert and oriented to person, place, and time. Psychiatric: Mood and Affect: Mood normal. Behavior: Behavior normal. Thought Content: Thought content normal. Judgment: Judgment normal. Assessment and Plan Physical exam findings as noted above. Patient was provided with prescriptions for doxycycline 100 mg, prednisone 20 mg and Tessalon 100 mg. Patient reports that her albuterol MDI is current and she does not require a refill of same. Supportive care instructions were discussed and the patient was very clearly instructed to report to an emergency department if she notes any new or worsening symptoms. Patient verbalizes clear understanding of the above instructions. CLINICAL IMPRESSION: Bronchopneumonia; Acute COPD Exacerbation ASSESSMENT/PLAN: 1. Bronchopneumonia - ICD9: 485, ICD10: J18.0 (primary diagnosis) - DOXYCYCLINE HYCLATE 100 MG TABLET - PREDNISONE 20 MG TABLET - BENZONATATE 100 MG CAPSULE 2. COPD with exacerbation (HCC) - ICD9: 491.21, ICD10: J44.1 Jazmyne Rizzo PA-C documented in this encounterChildren[facility] Telephone encounter Note * Telephone Encounter - Analia Dominguez LPN - 01/21/2024 11:08 AM EDT Prescription Refill Information The patient has been identified by name and date of : Yes Caregiver verified no other encounters exist for this prescription request: Yes Caregiver confirmed with patient/requestor that no other refills are due, in the near future, with this provider at this time: Yes The last office visit in the department: 01/01/24 Does the patient have a future office visit with this provider/department: No Requested Prescriptions Pending Prescriptions Disp Refills albuterol HFA (VENTOLIN HFA) 90 mcg/actuation inhaler 1 Each 0 Sig: Inhale 2 Puffs as instructed every 4 hours as needed for wheezing/shortness of breath. Analia Dominguez LPN January 21, 2024 11:15 AM [facility]10-14-[facility]24 Miscellaneous Notes* Telephone Encounter - Analia Dominguez LPN - 01/21/2024 11:08 AM EDT Prescription Refill Information The patient has been identified by name and date of : Yes Caregiver verified no other encounters exist for this prescription request: Yes Caregiver confirmed with patient/requestor that no other refills are due, in the near future, with this provider at this time: Yes The last office visit in the department: 01/01/24 Does the patient have a future office visit with this provider/department: No Requested Prescriptions Pending Prescriptions Disp Refills albuterol HFA (VENTOLIN HFA) 90 mcg/actuation inhaler 1 Each 0 Sig: Inhale 2 Puffs as instructed every 4 hours as needed for wheezing/shortness of breath. Analia Dominguez LPN January 21, 2024 11:15 AM documented in this encounterChildren'S [facility]09-24-2024 Instructions* Patient Instructions* Tarsha Arita APRN.MONIKA - 01/01/2024 4:30 PM EDT 1) Amitriptyline 10 mg as needed for sleep and pain 2) Prednisone 20 mg daily for 5 days 3) Tizanidine 4 mg every 8 hours as needed- muscle relaxant 4) Follow up in 6 months documented in this encounterChildren'[facility]09-24-2024 NoteHNO ID: [id number] Author: TARSHA ARITA APRN.MONIKA Service: ? Author Type: Clinical Nurse Specialist Type: Progress Notes Filed: 01/01/2024 16:31 Note Text: This is a 63 year old female who presents today with: No chief complaint on file. HISTORY OF PRESENT ILLNESS: Renuka Means is a 63 year old female. No chief complaint on file. Hx of lumbar fusion in 1991. Always aches. Sometime flare that is excruciating. This recurrence started last week. Woke up in severe pain. Mid-lumbar off-to left a little more. Axial pain.No radicular Sx. Can't sleep d/t pain. Took a bunch of ibuprofen so back is better but stomach is sick from it. Tried a TENS unit- all day, no improvement No loss of bowel or bladder FX PAST MEDICAL HISTORY: PAST MEDICAL HISTORY Diagnosis Date Allergic rhinitis, cause unspecified Allergic rhinitis Diverticulosis of colon (without mention of hemorrhage) Esophageal reflux Gastrointestinal hemorrhage Hyperlipemia 02/21/2011 Lumbago Marijuana use, continuous daily Unspecified hemorrhoids without mention of complication Hemorrhoids PAST SURGICAL HISTORY Procedure Laterality Date COLONOSCOPY FLX DX W/COLLJ SPEC WHEN PFRMD 05/15/06 LAPAROSCOPY W/LYSIS OF ADHESION 06/28/06 lysis of adhesion around the left adnexa PAST SURGICAL HISTORY OF 1992 discectomy L-5 SIGMOIDOSCOPY FLX DX W/COLLJ SPEC BR/WA IF PFRMD 06/12/2002 Sigmoidoscopy [place] ECTOPIC W/O SALPINGAND/OOPHORECTOMY Ectopic ALLERGIES Banana, Bee Sting, Eggs [Egg], Penicillins, Pravastatin, Triple Antibiotic [Hrjrlmto-Kkcnuszhqi-Ywgsihkyy], Ultram [Tramadol Hcl], and Vicoprofen [Hydrocodone-Ibuprofen] MEDICATIONS Current Outpatient Medications Medication Sig albuterol HFA (VENTOLIN HFA) 90 mcg/actuation inhaler Inhale 2 Puffs as instructed every 4 hours as needed for wheezing/shortness of breath. mometasone-formoterol (DULERA) 200-5 mcg/actuation inhaler Inhale 1 Puff as instructed two times a day. MULTIVIT-MINERALS/FOLIC ACID (DAILY GUMMIES ORAL) Take 2 Each by mouth once daily. metaxalone (SKELAXIN) 800 mg tablet Take 1 tablet by mouth three times a day as needed for pain. No current facility-administered medications for this visit. FAMILY HISTORY Problem Relation Age of Onset Lung Cancer Mother 70 smoker Cancer Father larynx, smoker Hypertension Father Alcohol/Drug Father Social History Tobacco Use Smoking status: Every Day Current packs/day: 0.50 Average packs/day: 0.5 packs/day for 27.0 years (13.5 ttl pk-yrs) Types: Cigarettes Smokeless tobacco: Never Tobacco comments: Trying to quit. Vaping Use Vaping status: Never Used Substance Use Topics Alcohol use: No Drug use: Yes Frequency: 7.0 times per week Types: Marijuana REVIEW OF SYSTEMS GENERAL: No weight loss, + malaise from chronic insomnia, no fevers/chills HEENT: Negative for frequent or significant headaches, No changes in hearing, some vision changes- black dot. NECK: Negative for lumps, goiter, pain and significant neck swelling RESPIRATORY: Negative for cough, hemoptysis, wheezing, dyspnea or shortness of breath, some with exertion CARDIOVASCULAR: Negative for chest pain, leg swelling, orthopnea, occ palpitations GI: Some nausea, no vomiting, or diarrhea/ + constipation. No hematochezia/melena. Some heartburn or reflux symptoms. : No history of dysuria, frequency or incontinence MUSCULOSKELETAL: Negative for joint pain or swelling. Chronic low back pain, right knee pain- chronic SKIN: Negative for lesions, rash, and itching ENDOCRINE: Negative for cold or heat intolerance, polyuria, polydipsia and goiter NEURO: No history of headaches, syncope, paralysis, seizures or tremors MOOD: Negative for depression, anxiety, or suicidal ideation. EXAM: BP 128/70 Pulse 71 Wt 88 kg (194 lb) LMP 05/11/2006 SpO2 96% BMI 29.07 kg/m? PHYSICAL EXAM: Physical Exam Vitals reviewed. Constitutional: Appearance: Normal appearance. HENT: Head: Normocephalic. Cardiovascular: Rate and Rhythm: Normal rate and regular rhythm. Pulses: Normal pulses. Heart sounds: Normal heart sounds. Pulmonary: Effort: Pulmonary effort is normal. Breath sounds: Normal breath sounds. Abdominal: Palpations: Abdomen is soft. Musculoskeletal: General: Normal range of motion. Comments: Axial back pain- mid lumbar more to left side. No radicular Sxc. Hurts to palpate. Afraid to move d/t pain. No edema No redness No radicular Sx No loss of bowel or bladder Sx Skin: General: Skin is warm and dry. Neurological: General: No focal deficit present. Mental Status: She is alert and oriented to person, place, and time. Psychiatric: Mood and Affect: Mood normal. Behavior: Behavior normal. LABS: declined ASSESSMENT/PLAN: 1. Chronic insomnia - ICD9: 780.52, ICD10: F51.04 (primary diagnosis) Will trial - AMITRIPTYLINE 10 MG TABLET 2. (more content not included)...[facility]09-24-2024 History of Present illness Narrative* Tarsha Arita APRN.[facility] - 01/01/2024 4:06 PM EDT This is a 63 year old female who presents today with: No chief complaint on file. HISTORY OF PRESENT ILLNESS: Renuka Means is a 63 year old female. No chief complaint on file. Hx of lumbar fusion in 1991. Always aches. Sometime flare that is excruciating. This recurrence started last week. Woke up in severe pain. Mid-lumbar off-to left a little more. Axial pain.No radicular Sx. Can't sleep d/t pain. Took a bunch of ibuprofen so back is better but stomach is sick from it. Tried a TENS unit- all day, no improvement No loss of bowel or bladder FX PAST MEDICAL HISTORY: PAST MEDICAL HISTORY Diagnosis Date Allergic rhinitis, cause unspecified Allergic rhinitis Diverticulosis of colon (without mention of hemorrhage) Esophageal reflux Gastrointestinal hemorrhage Hyperlipemia 02/21/2011 Lumbago Marijuana use, continuous daily Unspecified hemorrhoids without mention of complication Hemorrhoids PAST SURGICAL HISTORY Procedure Laterality Date COLONOSCOPY FLX DX W/COLLJ SPEC WHEN PFRMD 05/15/06 LAPAROSCOPY W/LYSIS OF ADHESION 06/28/06 lysis of adhesion around the left adnexa PAST SURGICAL HISTORY OF 1992 discectomy L-5 SIGMOIDOSCOPY FLX DX W/COLLJ SPEC BR/WA IF PFRMD 06/12/2002 Sigmoidoscopy TX ECTOPIC W/O SALPING&/OOPHORECTOMY Ectopic ALLERGIES Banana, Bee Sting, Eggs [Egg], Penicillins, Pravastatin, Triple Antibiotic [Pmuasfud-Ndejvpiotz-Zvgcpunds], Ultram [Tramadol Hcl], and Vicoprofen [Hydrocodone-Ibuprofen] MEDICATIONS Current Outpatient Medications Medication Sig albuterol HFA (VENTOLIN HFA) 90 mcg/actuation inhaler Inhale 2 Puffs as instructed every 4 hours asneeded for wheezing/shortness of breath. mometasone-formoterol (DULERA) 200-5 mcg/actuation inhaler Inhale 1 Puff as instructed two times a day. MULTIVIT-MINERALS/FOLIC ACID (DAILY GUMMIES ORAL) Take 2 Each by mouth once daily. metaxalone (SKELAXIN) 800 mg tablet Take 1 tablet by mouth three times a day as needed for pain. No current facility-administered medications for this visit. FAMILY HISTORY Problem Relation Age of Onset Lung Cancer Mother 70 smoker Cancer Father larynx, smoker Hypertension Father Alcohol/Drug Father Social History Tobacco Use Smoking status: Every Day Current packs/day: 0.50 Average packs/day: 0.5 packs/day for 27.0 years (13.5 ttl pk-yrs) Types: Cigarettes Smokeless tobacco: Never Tobacco comments: Trying to quit. Vaping Use Vaping status: Never Used Substance Use Topics Alcohol use: No Drug use: Yes Frequency: 7.0 times per week Types: Marijuana REVIEW OF SYSTEMS GENERAL: No weight loss, + malaise from chronic insomnia, no fevers/chills HEENT: Negative for frequent or significant headaches, No changes in hearing, some vision changes- black dot. NECK: Negative for lumps, goiter, pain and significant neck swelling RESPIRATORY: Negative for cough, hemoptysis, wheezing, dyspnea or shortness of breath, some with exertion CARDIOVASCULAR: Negative for chest pain, leg swelling, orthopnea, occ palpitations GI: Some nausea, no vomiting, or diarrhea/ + constipation. No hematochezia/melena. Some heartburn or reflux symptoms. : No history of dysuria, frequency or incontinence MUSCULOSKELETAL: Negative for joint pain or swelling. Chronic low back pain, right knee pain- chronic SKIN: Negative for lesions, rash, and itching ENDOCRINE: Negative for cold or heat intolerance, polyuria, polydipsia and goiter NEURO: No history of headaches, syncope, paralysis, seizures or tremors MOOD: Negative for depression, anxiety, or suicidal ideation. EXAM: BP 128/70 Pulse 71 Wt 88 kg (194 lb) LMP 05/11/2006 SpO2 96% BMI 29.07 kg/m PHYSICAL EXAM: Physical Exam Vitals reviewed. Constitutional: Appearance: Normal appearance. HENT: Head: Normocephalic. Cardiovascular: Rate and Rhythm: Normal rate and regular rhythm. Pulses: Normal pulses. Heart sounds: Normal heart sounds. Pulmonary: Effort: Pulmonary effort is normal. Breath sounds: Normal breath sounds. Abdominal: Palpations: Abdomen is soft. Musculoskeletal: General: Normal range of motion. Comments: Axial back pain- mid lumbar more to left side. No radicular Sxc. Hurts to palpate. Afraid to move d/t pain. No edema No redness No radicular Sx No loss of bowel or bladder Sx Skin: General: Skin is warm and dry. Neurological: General: No focal deficit present. Mental Status: She is alert and oriented to person, place, and time. Psychiatric: Mood and Affect: Mood normal. Behavior: Behavior normal. LABS: declined ASSESSMENT/PLAN: 1. Chronic insomnia - ICD9: 780.52, ICD10: F51.04 (primary diagnosis) Will trial - AMITRIPTYLINE 10 MG TABLET 2. Chronic midline low back pain without sciatica - ICD9: 724.2, 338.29, ICD10: M54.50, G89.29 Acute flare - PREDNISONE 20 MG TABLET - TIZANIDINE 4 MG TABLET - AMITRIPTYLINE 10 MG TABLET 3. Primary insomnia - ICD9: 307.42, ICD10: F51.01 Would like to try amitriptyline as needed for sleep 4. Mixed hyperlipidemia - ICD9: 272.2, ICD10: E78.2 - Controlled - Counseled on healthy diet and regular exercise 5. Tobacco abuse disorder - ICD9: 305.1, ICD10: Z72.0 - Cessation encouraged. - Physiologic and physical aspects of tobacco addiction as well as strategies for quitting were discussed. - Counseling was given focusing on the harmful effects of this addiction especially given the patient's medical condition(s) which will be worsened because of the chemicals in tobacco. - Trying to cut back Discussed treatment plan and patient voices understanding. Patient's questions answered appropriately. Medications and potential side effects were discussed and patient voices understanding. Return to the office as scheduled or as needed for worsening/no improvement. Tarsha Arita APRN.CNP documented in this encounterChildren'S [facility]09-23-2024 Telephone encounter Note * Telephone Encounter - Whitney Cadena RN - 12/31/2023 1:40 PM EDT Patient calls back and notified of provider recommendations below. Patient voices understanding. Patient really wants to come in and see provider. Patient transferred to academic support center director to help with insurance issue and to schedule appointment. Whitney Cadena RN [facility]09-23-2024 Miscellaneous Notes* Telephone Encounter - Whitney Cadena RN - 12/31/2023 1:40 PM EDT Patient calls back and notified of provider recommendations below. Patient voices understanding. Patient really wants to come in and see provider. Patient transferred to academic support center director to help with insurance issue and to schedule appointment. Whitney Cadena RN * Telephone Encounter - Tarsha Arita APRN.CNP - 12/31/2023 11:43 AM EDT I can't advise without an assessment. She can use hot/cold contrast, epsom salt soaks, and ibuprofen 400 mg4 x day. Rest. Other than that, can be seenhere, urgent care, or ER if not able to manage pain. * Telephone Encounter - Marilu Clancy LPN - 12/31/2023 10:54 AM EDT patient c/o lower back pain, not sure what she did to irritate. Patient does have h/o of back surgery. Patient is unable to stand up straight. Pain scale 10/10 . Patient stated that she has tried motrin, tylenol #3 from his father. Tried biofreeze , mobic and nothing is helping. unable to make an appointment due to insurance. Please review and advise Marilu Clancy LPN documented in this encounterChildren'S [facility]09-23-2024 Telephone encounter Note * Telephone Encounter - Tarsha Arita APRN.[employer] - 12/31/2023 11:43 AM EDT I can't advise without an assessment. She can use hot/cold contrast, epsom salt soaks, and ibuprofen 400 mg4 x day. Rest. Other than that, can be seenhere, urgent care, or ER if not able to manage pain. [facility] Work Phone: [phone] 618-340809-23-2024 Telephone encounter Note* Telephone Encounter - Marilu Clancy LPN - 12/31/2023 10:54 AM EDT patient c/o lower back pain, not sure what she did to irritate. Patient does have h/o of back surgery. Patient is unable to stand up straight. Pain scale 10/10 . Patient stated that she has tried motrin, tylenol #3 from his father. Tried biofreeze , mobic and nothing is helping. unable to make an appointment due to insurance. Please review and advise Marilu Clancy LPN [facility]05-08-2024 NotePatient Outreach (INTMMN) RENUKA MEANS ([id number]) 1960 F Date Time Provider Department 08/15/23 Antonieta SARMIENTO During your visit today, we recorded the following information about you: Allergies As of Date: 08/15/2023 Noted Allergy Reaction BANANA 08/01/2016 8 - GI Upset Comments: severe abdominal pain BEE STING 10/11/2021 9 - Itching 12 - Shortness of Breath 7 - Swelling EGGS (EGG) 06/28/2016 11 - Vomiting PENICILLINS 04/27/2005 4 - Hives PRAVASTATIN 06/23/2013 5 - Intolerance Comments: Chest pain TRIPLE ANTIBIOTIC (NEOMYCIN-BACIT*04/27/2005 ULTRAM (TRAMADOL HCL) 04/07/2008 11 - Vomiting VICOPROFEN (HYDROCODONE-IBUPROFEN)04/27/2005 Date Reviewed: 03/12/2023 Reviewed by: Toya Mukherjee PA-C - Fully Assessed Visit Diagnosis:Encounter for screening mammogram for breast cancer [Z12.31] Order(s):[facility] SCREENING [[id number]] Order #: [id number] FUTURE Prescriptions as of 08/20/2023 - albuterol HFA (VENTOLIN HFA) 90 mcg/actuation inhaler Inhale 2 Puffs as instructed every 4 hours as needed for wheezing/shortness of breath. - mometasone-formoterol (DULERA) 200-5 mcg/actuation inhaler Inhale 1 Puff as instructed two times a day. - metaxalone (SKELAXIN) 800 mg tablet Take 1 tablet by mouth three times a day as needed for pain. - MULTIVIT-MINERALS/FOLIC ACID (DAILY GUMMIES ORAL) Take 2 Each by mouth once daily. Problem List As Of Date 08/15/2023 Noted Resolved LUMBAGO [M54.50] ALLERGIC RHINITIS NOS [J30.9] HEMORRHOIDS NOS [K64.9] GASTROINTESTINAL HEMORR [578] FEMALE GENITAL SYMPTOMS NOS [N94.9] 05/02/2005 CONGENITAL PES PLANUS [Q66.50] 05/02/2005 ENTHESOPATHY, SITE NOS [M77.9] 05/15/2005 ABDOMINAL PAIN UNSPEC SITE [R10.9] ABDOMINAL PAIN LLQ [R10.32] DIVERTICULOSIS OF COLON W/O BLEED [K57.30] GASTRITIS/DUODENITIS NOS [535.5] 06/04/2006 PERS HX TOBACCO USE [Z87.891] 06/04/2006 MALAISE AND FATIGUE NEC [R53.81, R53.83] 10/03/2008 HYPERLIPIDEMIA NEC/NOS [E78.5] 10/03/2008 TOBACCO USE DISORDER [F17.200] 10/04/2008 INSOMNIA NOS [G47.00] 10/27/2008 Hyperlipemia [E78.5] 02/21/2011 DDD (degenerative disc disease), lumbar [M51.36]07/11/2012 Postlaminectomy syndrome [M96.1] 09/22/2013 Chronic back pain [M54.9, G89.29] 09/22/2013 Mixed hyperlipidemia [E78.2] 09/13/2015 Tobacco abuse disorder [Z72.0] 09/13/2015 Right wrist tendonitis [M77.8] 08/01/2016 Screening for lipid disorders [Z13.220] 08/29/2021 Encounter Status:Closed by NATHAN PATEL on 08/20/23[facility] 06-01-2023 Miscellaneous Notes* Telephone Encounter - Maria C Nazario - 06/01/2023 2:41 PM EST Patient is requesting the refill today. Patient has been identified by name and date of : Yes Patient phones for refill(s): Requested Prescriptions Pending Prescriptions Disp Refills albuterol HFA (VENTOLIN HFA) 90 mcg/actuation inhaler 1 Each 5 Sig: Inhale 2 Puffs as instructed every 4 hours as needed for wheezing/shortness of breath. Date of last office visit in primary care: 09/06/2022 Date of next office visit in primary care: Visit date not found Please advise. Thank you. Maria C Nazario. documented in this encounterChildren'S Hospital [facility]02-13-2024 Miscellaneous Notes* Telephone Encounter - Jerrica Moser LPN - 05/22/2023 10:50 AM EST Patient phones requesting refills as follows: Requested Prescriptions Pending Prescriptions Disp Refills mometasone-formoterol (DULERA) 200-5 mcg/actuation inhaler 1 Each 4 Sig: Inhale 1 Puff as instructed two times a day. Patient was previously getting from [facility] but due to coppola difference needs ordered at [facility]. Please review and advise. Jerrica Moser LPN documented in this encounterChildren'S Hospital [facility] Rehabilitation12-04-2023 History of Present illness Narrative* Toya Mukherjee PA-C - 03/12/2023 1:14 PM EST Images from the original note were not included. Patient: Renuka Means PCP: Antonieta Sarmiento PA-C CC: follow up HPI: Renuka Means 62 year old female current 1/2 ppd smoker with PMH significant for allergic rhinitis (never formally allergy tested), GERD, HLD, daily marijuana use, and mild COPD. Current therapy wit Dulera and as needed Albuterol. Today, patient reports daily productive cough, primarily inthe morning. Clear sputum, no hemoptysis. Wheezing and SOB improved since being on Dulera consistently. Does not require Albuterol daily. Currently smoking half a pack daily. Previously quit cold turkey for 3 days approximately a year ago. Has horses, chickens, cats and dogs. Does not feed chickensor horses. PAST MEDICAL HISTORY Diagnosis Date Allergic rhinitis, cause unspecified Allergic rhinitis Diverticulosis of colon (without mention of hemorrhage) Esophageal reflux Gastrointestinal hemorrhage Hyperlipemia 02/21/2011 Lumbago Marijuana use, continuous daily Unspecified hemorrhoids without mention of complication Hemorrhoids Allergies: Banana GI Upset Comment:severe abdominal pain Bee Sting Itching, Shortness of Breath, Swelling Eggs [Egg] Vomiting Penicillins Hives Pravastatin Intolerance Comment:Chest pain Triple Antibiotic [* Ultram [Tramadol Hc* Vomiting Vicoprofen [Hydroco* mometasone-formoterol (DULERA) 200-5 mcg/actuation inhaler Inhale 1 Puff as instructed twice daily. albuterol HFA (VENTOLIN HFA) 90 mcg/actuation inhaler Inhale 2 Puffs as instructed every 4 hours asneeded for wheezing/shortness of breath. MULTIVIT-MINERALS/FOLIC ACID (DAILY GUMMIES ORAL) Take 2 Each by mouth once daily. Social History Tobacco Use Smoking status: Every Day Packs/day: 0.50 Years: 27.00 Additional pack years: 0.00 Total pack years: 13.50 Types: Cigarettes Smokeless tobacco: Never Tobacco comments: Trying to quit. Vaping Use Vaping Use: Never used Substance Use Topics Alcohol use: No Drug use: Yes Frequency: 7.0 times per week Types: Marijuana Family History Problem Relation Age of Onset Lung Cancer Mother 70 smoker Cancer Father larynx, smoker Hypertension Father Alcohol/Drug Father PAST SURGICAL HISTORY Procedure Laterality Date COLONOSCOPY FLX DX W/COLLJ SPEC WHEN PFRMD 05/15/06 LAPAROSCOPY W/LYSIS OF ADHESION 06/28/06 lysis of adhesion around the left adnexa PAST SURGICAL HISTORY OF 1992 discectomy L-5 SIGMOIDOSCOPY FLX DX W/COLLJ SPEC BR/WA IF PFRMD 06/12/2002 Sigmoidoscopy [place] ECTOPIC W/O SALPING&/OOPHORECTOMY Ectopic I reviewed the past medical history, family history, social history and surgical history with changes noted above and updated in EMR. IMMUNIZATIONS Prevnar - xx Pneumovax 2019 Influenza - xx COVID-19 - xx ROS: CONSTITUTIONAL: No fevers, chills, nightsweats, unintended weight loss HEENT: Denies headaches. Intermittent nasal congestion/sinus symptoms, problematic allergy problems. EYES: No diplopia or blurry vision. Intermittent itchy eyes CARDIOVASCULAR: No chest pain, palpitations, orthopnea, PND, edema. PULM: See HPI GI: No dysphagia/odynophagia, problematic reflux NEURO: No new balance problems, peripheral weakness/paresthesias or numbness of concern. MUSC-SKEL: Hand arthritis with pain and edema but no erythema. Chronic back pain following fusion. PSY: No concerns regarding depression, anxiety INTEGUMENTARY: No new skin changes or rashes or eczema PHYSICAL EXAMINATION: BP 124/78 Pulse 66 Resp 17 Wt 88.9 kg (196 lb) LMP 05/11/2006 SpO2 96% BMI 29.37 kg/m Gen: No acute distress. Cooperative with examination. HEENT: Normocephalic. Sclera, conjunctiva clear. Oral hygeine and dentition good. No thrush. Resp: No stridor, accessory respiratory muscle use, supra-sternal or intercostal retractions. No wheezes, crackles. CV: Regular rythm. Heart tones normal. Radial pulses normal. MSK: No kyphoscoliosis. Ext: Warm and well perfused. Noclubbing, cyanosis, edema. Skin: No rash, ecchymoses. Neuro: Mental status normal. Affect normal. No tremor. DATA: PFT, 11/10/2022 Review pulmonary function test show mild obstruction without improvement postbronchodilator. Diffusing capacity is normal ASSESSMENT/PLAN: 1. Stage 1 mild COPD by GOLD classification (HCC) - ICD9: 496, ICD10: J44.9 (primary diagnosis) Symptomatically doing well on Dulera. Sent in refills. Albuterol HFA inhaler, 2 inhalations 10-15 minutes prior to activities associated with shortness ofbreath, and as needed for rescue relief of shortness of breath or wheezing, up to 4 times daily. Smoking cessation is critical. Patient declines influenza vaccine today. - DULERA 200 MCG-5 MCG/ACTUATION HFA AEROSOL INHALER 2. Cigarette smoker - ICD9: 305.1, ICD10: F17.210 Cessation encouraged. Physiologic and physical aspects of tobacco addiction as well as strategies for quitting were discussed. Counseling was given focusing on the harmful effects of this addiction especially given the patient's medical condition(s) which will be worsened because of the chemicals in tobacco. Not interested in stopping smoking at this time. Patient qualifies for LDCT for lung cancer screening, but declines. 3. Allergic rhinitis, unspecified seasonality, unspecified trigger - ICD9: 477.9, ICD10: J30.9 Portions of this documentation were copied and pasted from previous office visit notes in order to provide a cohesive continuity of the history. The note has been reviewed and edited and updated as necessary. Toya Mukherjee PA-C ' documented in this encounterChildren'S [facility]08-04-2023 History of Present illness Narrative* Aviva Valdivia MD - 11/10/2022 1:30 PM EDT Images from the original note were not included. . [facility] Note Patient name: Renuka Means PCP: Antonieta Sarmiento PA-C Referring Physician: Same Consultation requested by Romulo Sarmiento for an opinion regarding wheezing. My final recommendations will be communicated back to the requesting physician by way of shared Medical record or letter torequesting physician via [place] mail. CC: wheezing HPI: Renuka Means 62 year old female current 1/2 ppd smoker with PMH significant for allergic rhinitis (never formally allergy tested), GERD, HLD, daily marijuana usage being referred for evaluation of wheezing. She states she was well until approximately a year ago when she first noted wheezing, dyspnea with extreme exertion, chest congestion. She has had recurrent episodes treated with antibiotic and steroids. Symptoms resolved only to return once she completes therapy. She feels as if her episodes are triggered by possible allergies as they usually start off with sneezing, nasal congestion and drainage. She was started on Dulera and as needed albuterol. She has not been using her Dulera as regularly as she should but her symptoms have improved since she was started on controller inhaler therapy. She has rather exposure history to animals: Chickens, horses, cats and dogs. 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 DATA: PFT: Review pulmonary function test show mild obstruction without improvement postbronchodilator. Diffusing capacity is normal Labs: Imaging / Diagnostic Studies: DATE OF EXAM: Sep 06 2022 11:04AM WOX [id number] - XR CHEST 2V FRONTAL/LAT / CLINICAL HISTORY: Wheezing MQ: [id number] EXAM DATE/TIME: 09/06/2022 11:04 AM COMPARISON: Chest x-ray on 08/23/2022 RESULT: Lines, tubes, and devices: None. Lungs and pleura: No consolidation. No lung mass. No pleural effusion. No pneumothorax. Cardiomediastinal silhouette: Stable cardiomediastinal silhouette. Bones and soft tissues: Unremarkable. I personally reviewed the images which shows a normal chest PAST MEDICAL HISTORY Diagnosis Date Abdominal pain, left lower quadrant Abdominal pain, unspecified site Allergic rhinitis, cause unspecified Allergic rhinitis Diverticulosis of colon (without mention of hemorrhage) Esophageal reflux Gastrointestinal hemorrhage Hyperlipemia 02/21/2011 Lumbago Marijuana use, continuous daily Unspecified hemorrhoids without mention of complication Hemorrhoids ALLERGIES Allergen Reactions Banana GI Upset severe abdominal pain Bee Sting Itching, Shortness of Breath, Swelling Eggs [Egg] Vomiting Penicillins Hives Pravastatin Intolerance Chest pain Triple Antibiotic [* Ultram [Tramadol Hc* Vomiting Vicoprofen [Hydroco* mometasone-formoterol (DULERA) 200-5 mcg/actuation inhaler Inhale 1 Puff as instructed twice daily. predniSONE (DELTASONE) 20 mg tablet Take 2 tablets by mouth once daily. albuterol HFA (VENTOLIN HFA) 90 mcg/actuation inhaler Inhale 2 Puffs as instructed every 4 hours asneeded for wheezing/shortness of breath. MULTIVIT-MINERALS/FOLIC ACID (DAILY GUMMIES ORAL) Take 2 Each by mouth once daily. Social History Tobacco Use Smoking status: Every Day Packs/day: 0.50 Years: 27.00 Total pack years: 13.50 Types: Cigarettes Smokeless tobacco: Never Tobacco comments: Trying to quit. Vaping Use Vaping Use: Never used Substance Use Topics Alcohol use: No Drug use: Yes Frequency: 7.0 times per week Types: Marijuana Horses, chickens, cats, dogs FAMILY HISTORY Problem Relation Age of Onset Lung Cancer Mother 70 smoker Cancer Father larynx, smoker Hypertension Father Alcohol/Drug Father PAST SURGICAL HISTORY Procedure Laterality Date COLONOSCOPY FLX DX W/COLLJ SPEC WHEN PFRMD 05/15/06 LAPAROSCOPY W/LYSIS OF ADHESION 06/28/06 lysis of adhesion around the left adnexa PAST SURGICAL HISTORY OF 1992 discectomy L-5 SIGMOIDOSCOPY FLX DX W/COLLJ SPEC BR/WA IF PFRMD 06/12/2002 Sigmoidoscopy [place] ECTOPIC W/O SALPING&/OOPHORECTOMY Ectopic PMH, Social history, family history and surgical history reviewed and updated in EMR REVIEW OF SYSTEMS: CONSTITUTIONAL: No fevers, chills, nightsweats, unintended weight loss HEENT: Denies headaches. Intermittent nasal congestion/sinus symptoms, problematic allergy problems. EYES: No diplopia or blurry vision. Intermittent itchy eyes CARDIOVASCULAR: No chest pain, palpitations, orthopnea, PND, edema. PULM: See HPI GI: No dysphagia/odynophagia, problematic reflux : No urinary complaints, including dysuria, gross hematuria or pyuria. NEURO: No new balance problems, peripheral weakness/paresthesias or numbness of concern. MUSC-SKEL: Hand arthritis with pain and edema but no erythema PSY: No concerns regarding depression, anxiety INTEGUMENTARY: No new skin changes or rashes or eczema PHYSICAL EXAMINATION: [facility] 05/11/2006 BP 120/74, pulse 78, RR 14, SPO2 99% on room air General Appearance: Age-appropriate female, NAD. Skin: Skin color, texture, turgor normal, no suspicious rashes or lesions. Head: Normocephalic, no masses, lesions, tenderness or abnormalities. Eyes: Sclera, conjunctiva normal. Oropharynx: No oral lesions, thrush or erythema. Neck: No JVD, no masses, no thyromegaly. Lungs: Not labored, normal to percussion, inspiratory squeak left side. Heart: Regular rate and rhythm, no murmurs, no gallops. Extremities: No edema or clubbing. Musculoskeletal: No major joint deformities or effusions. Neurologic: Alert and oriented, no focal findings. Lymph Nodes: No cervical lymphadenopathy and No supraclavicular lymphadenopathy. Assessment/Plan: 1. Mild COPD, GOLD stage I -Smoking cessation, including marijuana, cessation strongly encouraged -Agree with current inhaled therapy and reiterated proper usage, dosage and reasoning for controller inhaler therapy 2. Allergic rhinitis -RAST testing 3. Cigarette smoker -Current smoker with mild COPD -Smoking cessation strongly encouraged -Patient qualifies for lung cancer screening but after discussion she has declined evaluation Aviva Valdivia MD [facility] documented in this encounterChildren'[facility]08-04-2023 Nurse Note* Paz Starr LPN - 11/10/2022 1:14 PM EDT Intake information documented in the prior visit with GENOVEVA Stone today. documented in this encounterChildren'S [facility]08-04-2023 History of Present illness Narrative* Eusebia Montejo RPFT - 11/10/2022 12:55 PM EDT PULM FUNCTION SMARTBLOCK: Provider: Chasity Hernandez APRN.BISCUIT PACKER Assisting Tech: Eusebia Montejo RPFT Spirometry w/BD: 1 DLCO: 1 documented in this encounterChildren'S [facility]05-31-2023 Miscellaneous Notes* Telephone Encounter - Cheyenne Lawton LPN - 09/06/2022 12:14 PM EDT Pt seen in office today. Cheyenne Lawton LPN * Telephone Encounter - Xiao Irving Ma - 09/05/2022 2:52 PM EDT Left message for patient to return call. Xiao Irving Ma * Telephone Encounter - Steve Restrepo MD - 09/05/2022 12:46 PM EDT If continuing or worsening, should be seen again by one of us * Telephone Encounter - Cheyenne Lawton LPN - 09/05/2022 10:56 AM EDT Pt called to give you an update. She was seen on 08-28-22 and put on ATB. Pt was doing well and onceoff the medications symptoms are coming back with coughing, wheezing and hard to sleep at night because she has to get up to use inhaler to be able to breathe. Pt does okay during the day symptoms are not as bad as they are at night. QUESTION: Pt feels she may need another round of ATB. Please advise pt. Cheyenne Lawton LPN documented in this encounterChildren'S [facility]05-31-2023 History of Present illness Narrative* Hue Everett RT(R) - 09/06/2022 10:50 AM EDT Radiology Service Progress Note PATIENT NAME: Renuka Means DATE OF SERVICE: September 06, 2022 TIME: 10:58 AM PATIENT IDENTITY VERIFICATION COMPLETED USING TWO (2) IDENTIFIERS: Name and Date of confirmedby patient verbally. FALL SCREENING: Has the patient had 2 falls in the last year or 1 fall with injury or currently using an Ambulatory Assistive Device (Walker, Cane, Wheelchair, Crutches, etc.)? No PATIENT GENDER DATA: Female. status: : No status: NO. PATIENT RELEVANT IMPLANT DATA REVIEWED: Yes RADIOLOGY DEPARTMENT: General X-ray: Exam(s) Completed: Chest X-Ray PERIPHERAL IV DATA: Not applicable SIGNED BY: RT Ahsan(Chris) September 06, 2022 10:58 AM documented in this encounterChildren'S Hospital For Rehabilitation05-31-2023 Instructions* Patient Instructions* Chasity Hernandez APRN.CNP - 09/06/2022 10:26 AM EDT Get the chest xray. Schedule the breathing tests. Schedule with pulmonology. Start the prednisone. Start the doxycycline. Check on the [employer] website for savings coupon. Let us know if no better/worsening. documented in this encounterChildren'S [facility]05-31-2023 History of Present illness Narrative* Chasity Hernandez APRN.CNP - 09/06/2022 9:59 AM EDT This is a 62 year old female who presents today with: Patient presents with: Recheck: Follow up from appt with provider last week for cough/congestion; finished atb, not feeling any better HISTORY OF PRESENT ILLNESS: Renuka Means is a 62 year old female. Patient presents with: Recheck: Follow up from appt with provider last week for cough/congestion; finished atb, not feeling any better Pt presents today with URI symptoms. She was in urgent care on 08/23. Had chest xray which was suspicious for bronchial pneumonia. She was treated with doxy and prednisone. She had follow-up with [facility] and seemed to be improving. However, once stopping the medication, symptoms seemed to return. Refers she was only better about 2 days. Refers she is coughing. Refers not too bad during the day, but worse at night. She is using the albuterol inhaler, probably more than she should. She even did a nebulizer yesterday. Only gets a headache after using the inhaler. Nose runs all the time. No fevers/chills. Cough is productive -- mostly white and sometime a little yellow. + smoker. No hx of asthma. + hx of pneumonia. PAST MEDICAL HISTORY: PAST MEDICAL HISTORY Diagnosis Date Abdominal pain, left lower quadrant Abdominal pain, unspecified site Allergic rhinitis, cause unspecified Allergic rhinitis Diverticulosis of colon (without mention of hemorrhage) Esophageal reflux Gastrointestinal hemorrhage Hyperlipemia 02/21/2011 Lumbago Marijuana use, continuous daily Unspecified hemorrhoids without mention of complication Hemorrhoids PAST SURGICAL HISTORY Procedure Laterality Date COLONOSCOPY FLX DX W/COLLJ SPEC WHEN PFRMD 05/15/06 LAPAROSCOPY W/LYSIS OF ADHESION 06/28/06 lysis of adhesion around the left adnexa PAST SURGICAL HISTORY OF 1992 discectomy L-5 SIGMOIDOSCOPY FLX DX W/COLLJ SPEC BR/WA IF PFRMD 06/12/2002 Sigmoidoscopy [place] ECTOPIC W/O SALPING&/OOPHORECTOMY Ectopic ALLERGIES Banana, Bee Sting, Eggs [Egg], Penicillins, Pravastatin, Triple Antibiotic [Eicdzrti-Huxndrimsb-Dxgpkwfkj], Ultram [Tramadol Hcl], and Vicoprofen [Hydrocodone-Ibuprofen] MEDICATIONS Current Outpatient Medications Medication Sig albuterol HFA (VENTOLIN HFA) 90 mcg/actuation inhaler Inhale 2 Puffs as instructed every 4 hours asneeded for wheezing/shortness of breath. MULTIVIT-MINERALS/FOLIC ACID (DAILY GUMMIES ORAL) Take 2 Each by mouth once daily. No current facility-administered medications for this visit. FAMILY HISTORY Problem Relation Age of Onset Lung Cancer Mother 70 smoker Cancer Father larynx, smoker Hypertension Father Alcohol/Drug Father Social History Tobacco Use Smoking status: Every Day Packs/day: 0.50 Years: 27.00 Pack years: 13.50 Types: Cigarettes Smokeless tobacco: Never Tobacco comments: Trying to quit. Vaping Use Vaping Use: Never used Substance Use Topics Alcohol use: No Drug use: Yes Frequency: 7.0 times per week Types: Marijuana EXAM: BP 114/72 Pulse 76 Resp 16 LMP 05/11/2006 SpO2 94% PHYSICAL EXAM: General Appearance: Well appearing, alert, in no acute distress, well-hydrated, well nourished.. Skin: Skin color, texture, turgor normal, no suspicious rashes or lesions. Head: Normocephalic, no masses, lesions, tenderness or abnormalities. Eyes: Anicteric sclera. Pupils are equally round and reactive to light. Extraocular movements are intact. . Ears: External ears normal, canals clear, Normal TMs bilaterally. Oropharynx: Lips, mucosa, and tongue normal, teeth and gums normal, oropharynx normal. Neck: Supple, no adenopathy Lungs: scattered exp wheezing throughout. . Heart: RRR without murmur, gallop, or rubs. No ectopy. Extremities: No deformities, edema, skin discoloration, clubbing or cyanosis. Good capillary refill. . Neurologic: Gait normal. ASSESSMENT/PLAN: 1. Wheezing - ICD9: 786.07, ICD10: R06.2 Recent treatment for pneumonia. Will go ahead and get follow-up chest xray. Will go ahead and restart doxy and prednisone. Suspect possible underlying COPD. Will get PFTs and referral to pulmonology. - SPIROMETRY WITH DILATOR IF OBSTRUCTED - LUNG DIFFUSION CAPACITY (DLCO) - CONSULT TO PULMONARY MEDICINE - DULERA 200 MCG-5 MCG/ACTUATION HFA AEROSOL INHALER - DOXYCYCLINE HYCLATE 100 MG TABLET - PREDNISONE 20 MG TABLET - XR CHEST 2V FRONTAL/LAT Discussed treatment plan and patient voices understanding. Patient's questions answered appropriately. Medications and potential side effects were discussed and patient voices understanding. Return to the office as scheduled or as needed for worsening/no improvement. Chasity Hernandez APRN.BISCUIT PACKER documented in this encounterChildren'S [facility]05-17-2023 History of Present illness Narrative* Hue Everett RT(R) - 08/23/2022 12:20 PM EDT Radiology Service Progress Note PATIENT NAME: Renuka Means DATE OF SERVICE: August 23, 2022 TIME: 12:18 PM PATIENT IDENTITY VERIFICATION COMPLETED USING TWO (2) IDENTIFIERS: Name and Date of confirmedby patient verbally. FALL SCREENING: Has the patient had 2 falls in the last year or 1 fall with injury or currently using an Ambulatory Assistive Device (Walker, Cane, Wheelchair, Crutches, etc.)? No PATIENT GENDER DATA: Female. status: : No status: NO. PATIENT RELEVANT IMPLANT DATA REVIEWED: Yes RADIOLOGY DEPARTMENT: General X-ray: Exam(s) Completed: Chest X-Ray PERIPHERAL IV DATA: Not applicable SIGNED BY: RT Ahsan(R) August 23, 2022 12:18 PM documented in this encounterChildren'S [facility]05-17-2023 History of Present illness Narrative* Scot Hilton APRN.MONIKA - 08/23/2022 12:10 PM EDT Subjective HPI Nontoxic-appearing female presents urgent care chief complaint cough and wheezing. Duration of symptoms several months. Associated symptoms cough and wheezing. States cough is bothersome at night. Has been using rescue inhaler this has helped with symptoms. Presents today for evaluation. Has not use any OTC medication. Risk factors tobacco use. Denies any fever body aches chills chest pain shortness of breath pleuritic pain hemoptysis nausea vomiting abdominal pain change in bowel or bladder habits. Past medical history prescription medication use and allergies reviewed. .Patient presents with: Cough: Cough and congestion x several months PAST MEDICAL HISTORY Diagnosis Date Abdominal pain, left lower quadrant Abdominal pain, unspecified site Allergic rhinitis, cause unspecified Allergic rhinitis Diverticulosis of colon (without mention of hemorrhage) Esophageal reflux Gastrointestinal hemorrhage Hyperlipemia 02/21/2011 Lumbago Marijuana use, continuous daily Unspecified hemorrhoids without mention of complication Hemorrhoids PAST SURGICAL HISTORY Procedure Laterality Date COLONOSCOPY FLX DX W/COLLJ SPEC WHEN PFRMD 05/15/06 LAPAROSCOPY W/LYSIS OF ADHESION 06/28/06 lysis of adhesion around the left adnexa PAST SURGICAL HISTORY OF 1992 discectomy L-5 SIGMOIDOSCOPY FLX DX W/COLLJ SPEC BR/WA IF PFRMD 06/12/2002 Sigmoidoscopy [place] ECTOPIC W/O SALPING&/OOPHORECTOMY Ectopic ALLERGIES Banana, Bee Sting, Eggs [Egg], Penicillins, Pravastatin, Triple Antibiotic [Cbyeroxt-Cmcfmmuxsr-Dhcvevdfx], Ultram [Tramadol Hcl], and Vicoprofen [Hydrocodone-Ibuprofen] MEDICATIONS albuterol HFA (VENTOLIN HFA) 90 mcg/actuation inhaler Inhale 2 Puffs as instructed every 4 hours asneeded for wheezing/shortness of breath. MULTIVIT-MINERALS/FOLIC ACID (DAILY GUMMIES ORAL) Take 2 Each by mouth once daily. HYDROcodone-Acetaminophen (NORCO) 7.5-325 mg per tablet Take 1 tablet by mouth every 8 hours as needed for pain. (Patient not taking: Reported on 08/23/2022) metaxalone (SKELAXIN) 800 mg tablet Take 1 tablet by mouth three times daily as needed for pain. (Patient not taking: Reported on 08/23/2022) FAMILY HISTORY Problem Relation Age of Onset Lung Cancer Mother 70 smoker Cancer Father larynx, smoker Hypertension Father Alcohol/Drug Father Social History Tobacco Use Smoking status: Every Day Packs/day: 0.50 Years: 27.00 Pack years: 13.50 Types: Cigarettes Smokeless tobacco: Never Tobacco comments: Trying to quit. Vaping Use Vaping Use: Never used Substance Use Topics Alcohol use: No Drug use: Yes Frequency: 7.0 times per week Types: Marijuana BP 122/80 Pulse 78 Temp 36.4 C (97.6 F) (Tympanic) Resp 18 Wt 86.5 kg (190 lb 12.8 oz) LMP 05/11/2006 SpO2 95% BMI 29.01 kg/m Review of Systems Constitutional: Negative for chills, fever and malaise/fatigue. HENT: Negative for congestion, ear discharge, ear pain, sinus pain and sore throat. Eyes: Negative for blurred vision, pain, discharge and redness. Respiratory: Positive for cough. Negative for hemoptysis, sputum production, shortness of breath, wheezing and stridor. Cardiovascular: Negative for chest pain. Gastrointestinal: Negative for abdominal pain, diarrhea, nausea and vomiting. Musculoskeletal: Negative for myalgias. Skin: Negative for itching and rash. Neurological: Negative for dizziness and headaches. Objective Physical Exam Constitutional: General: She is not in acute distress. Appearance: She is not diaphoretic. HENT: Head: Normocephalic. Nose: Nose normal. Mouth/Throat: Mouth: Mucous membranes are moist. Pharynx: Oropharynx is clear. No oropharyngeal exudate or posterior oropharyngeal erythema. Eyes: Conjunctiva/sclera: Conjunctivae normal. Pupils: Pupils are equal, round, and reactive to light. Cardiovascular: Rate and Rhythm: Normal rate and regular rhythm. Heart sounds: Normal heart sounds. Pulmonary: Effort: Pulmonary effort is normal. No tachypnea, accessory muscle usage or respiratory distress. Breath sounds: No stridor. Wheezing present. No rhonchi or rales. Abdominal: Palpations: Abdomen is soft. Tenderness: There is no abdominal tenderness. Musculoskeletal: Cervical back: Normal range of motion and neck supple. No rigidity or tenderness. Lymphadenopathy: Cervical: No cervical adenopathy. Skin: General: Skin is warm and dry. Neurological: Mental Status: She is alert and oriented to person, place, and time. ASSESSMENT/PLAN: 1. Cough, unspecified type - ICD9: 786.2, ICD10: R05.9 (primary diagnosis) - XR CHEST 2V FRONTAL/LAT 2. Cough - ICD9: 786.2, ICD10: R05.9 - ALBUTEROL SULFATE HFA 90 MCG/ACTUATION AEROSOL INHALER 3. Wheeze - ICD9: 786.07, ICD10: R06.2 - ALBUTEROL SULFATE HFA 90 MCG/ACTUATION AEROSOL INHALER 4. Pneumonia of right lower lobe due to infectious organism - ICD9: 486, ICD10: J18.9 IMPRESSION: Mild hazy opacity in the right lower lung zone suspect for bronchopneumonia in the appropriate clinical setting. Opacity noted right lower lobe. Placed on prednisone and doxycycline. Red flags prompt reevaluationdiscussed. Supportive therapies discussed. Follow-up with PCP as scheduled. Patient was educated onsupportive therapies. Patient will follow up with primary care provider as needed. Patient was instructed to immediately proceed to emergency room for any new, worsening, or symptoms lasting longer th an anticipated. The patient's clinical presentation is otherwise unremarkable at this time. Based on exam and clinical finding, the patient is stable for discharge. Plan of care was discussed with patient. Patient verbalizes understanding and agrees to plan of care. This note was generated using [employer] software. It may contain errors in wording, punctuation, or spelling. Scot Hilton APRN.MONIKA documented in this encounterChildren'S Hospital For Rehabilitation04-24-2023 Miscellaneous Notes* Telephone Encounter - Whitney Cadena RN - 07/31/2022 10:08 AM EDT Last Office Visit: 06/12/2022 Future Office Visit: None Requested Prescriptions Pending Prescriptions Disp Refills albuterol HFA (VENTOLIN HFA) 90 mcg/actuation inhaler 1 Each 5 Sig: Inhale 2 Puffs as instructed every 4 hours as needed for wheezing/shortness of breath. Date of Last Labs: 08/29/2021 Please give patient a call back when prescription sent. documented in this encounterChildren'S Hospital For Rehabilitation03-08-2023 Miscellaneous Notes* Telephone Encounter - Antonieta Sarmiento PA-C - 06/14/2022 1:05 PM EST This will be last rx for norco but there are other things wwe can do if still problematic. I would recommend PT consult. Give it another week. If feel better text me or call in and we can cancel CT. [facility] Get Medical Advice on 06/14/22 CONSULT TO PHYSICAL THERAPY Thanks, Calixto Sarmiento PA-C * Telephone Encounter - Randa Tijerina MA - 06/14/2022 10:30 AM EST Please see patient's mychart message. Also requesting refill on norco. Randa Tijerina MA documented in this encounterChildren'S Hospital For Rehabilitation03-07-2023 Miscellaneous Notes* Telephone Encounter - Xiao Irving Ma - 06/13/2022 8:25 AM EST Images from the original note were not included. Antonieta Sarmiento PA-C P Wstr Torsten Walls Please schedule CT shoulder Thanks, Calixto Sarmiento PA-C documented in this encounterChildren'S Hospital For Rehabilitation03-06-2023 History of Present illness Narrative* Hue Everett RT(R) - 06/12/2022 2:10 PM EST Radiology Service Progress Note PATIENT NAME: Renuka Means DATE OF SERVICE: June 12, 2022 TIME: 2:09 PM PATIENT IDENTITY VERIFICATION COMPLETED USING TWO (2) IDENTIFIERS: Name and Date of confirmedby patient verbally. FALL SCREENING: Has the patient had 2 falls in the last year or 1 fall with injury or currently using an Ambulatory Assistive Device (Walker, Cane, Wheelchair, Crutches, etc.)? No PATIENT GENDER DATA: Female. status: : No status: NO. PATIENT RELEVANT IMPLANT DATA REVIEWED: Yes RADIOLOGY DEPARTMENT: General X-ray: Exam(s) Completed: Upper Extremity X- Ray(s): Shoulder, Y VIEW right Ap/True PERIPHERAL IV DATA: Not applicable SIGNED BY: RT Ahsan(R) June 12, 2022 2:09 PM documented in this encounterChildren'S Hospital For Rehabilitation03-06-2023 Instructions* Patient Instructions* Antonieta Sarmiento PA-C - 06/12/2022 1:54 PM EST Rest the joint. Ice over next few days to help with pain and swelling. Elevate as often as possibleto reduce swelling and throbbing. Compression with an CONNIE wrap or elastic brace may feel more comfortable. Ice helps to break pain cycles. Moist helps muscles and ligaments to relax. Both may be effective. You may ice first for 10-15 minutes, then apply moist heat for 10-15 minutes every few hours as needed. If pain or swelling worsen, call the office. If pain is not steadily improving over the next two weeks, call the office. [place] as directed per prescription for pain being careful to limit to 1-2 doses a day unless it is more severe pain. Do not drive or operate dangerous machinery while on this medication: It may cause drowsiness or impair judgment and cause increased risk for falls. This medication may be habit forming if used regularly, and may cause drowsiness, so use caution. This medication may cause constipation so increase fiber and exercise if possible. Stimulant laxatives such as pericolace or [place] OTC may help if needed but should not be used over long periods. [place] is governed by federal regulations for schedule 2 narcotics: you may not share this medication with anyone else, this constitutes a felony. It must be locked or secured in a safe place and cannot be replaced if lost, damaged, or stolen. Skelaxin is a muscle relaxer which can cause drowsiness and may be habit forming if used regularly for extended periods. You should not drink alcohol, drive, or operate dangerous machinery while taking this medication. Medrol dose pack as directed. documented in this encounterChildren'S Hospital For Rehabilitation03-06-2023 History of Present illness Narrative* Antonieta Sarmiento PA-C - 06/12/2022 1:34 PM EST 62 year old female with c/o pain in right arm with trouble lifting over head. Pain started while attempting to give horse oral medication, pulled away but she held him by reins. Wasn't jerked but woke up with pain and inability to lift arm. Congested Not good sleep Back always hurts, was just getting better and now this. Has taken Tylenol 1000mg and Ibuprofen 800mg without improvement. Unable to lift right arm. HISTORIES FAMILY HISTORY Problem Relation Age of Onset Lung Cancer Mother 70 smoker Cancer Father larynx, smoker Hypertension Father Alcohol/Drug Father PAST MEDICAL HISTORY Diagnosis Date Abdominal pain, left lower quadrant Abdominal pain, unspecified site Allergic rhinitis, cause unspecified Allergic rhinitis Diverticulosis of colon (without mention of hemorrhage) Esophageal reflux Gastrointestinal hemorrhage Hyperlipemia 02/21/2011 Lumbago Marijuana use, continuous daily Unspecified hemorrhoids without mention of complication Hemorrhoids PAST SURGICAL HISTORY Procedure Laterality Date COLONOSCOPY FLX DX W/COLLJ SPEC WHEN PFRMD 05/15/06 LAPAROSCOPY W/LYSIS OF ADHESION 06/28/06 lysis of adhesion around the left adnexa PAST SURGICAL HISTORY OF 1992 discectomy L-5 SIGMOIDOSCOPY FLX DX W/COLLJ SPEC BR/WA IF PFRMD 06/12/2002 Sigmoidoscopy [place] ECTOPIC W/O SALPING&/OOPHORECTOMY Ectopic Social History Tobacco Use Smoking status: Every Day Packs/day: 0.50 Years: 27.00 Pack years: 13.50 Types: Cigarettes Smokeless tobacco: Never Tobacco comments: Trying to quit. Vaping Use Vaping Use: Never used Substance Use Topics Alcohol use: No Drug use: Yes Frequency: 7.0 times per week Types: Marijuana ACTIVE PROBLEM LIST Lumbago Allergic Rhinitis, Cause Unspecified Unspecified Hemorrhoids Without Mention of Complication Gastrointestinal Hemorrhage Unspecified Symptom Associated With Female Genital Organs Congenital Pes Planus Enthesopathy of Unspecified Site Abdominal Pain, Unspecified Site Abdominal Pain, Left Lower Quadrant Diverticulosis of Colon (Without Mention of Hemorrhage) Unspecified Gastritis and Gastroduodenitis Personal History of Tobacco Use, Presenting Hazards to Health Other Malaise and Fatigue Other and Unspecified Hyperlipidemia Tobacco Use Disorder Insomnia, Unspecified Hyperlipemia Ddd (Degenerative Disc Disease), Lumbar Postlaminectomy Syndrome Chronic Back Pain Mixed Hyperlipidemia Tobacco Abuse Disorder Right Wrist Tendonitis Screening for Lipid Disorders Current Outpatient Medications Medication Sig Dispense Refill albuterol HFA (VENTOLIN HFA) 90 mcg/actuation inhaler Inhale 2 Puffs as instructed every 4 hours asneeded for Wheezing/Shortness of Breath. 1 Inhaler 5 MULTIVIT-MINERALS/FOLIC ACID (DAILY GUMMIES ORAL) Take 2 Each by mouth once daily. No current facility-administered medications for this visit. COLORECTAL CANCER SCREENING due on 01/08/2014 MAMMOGRAM due on 09/12/2016 EXAM: BP 120/68 Pulse 85 Resp 18 Wt 88.5 kg (195 lb) LMP 05/11/2006 SpO2 97% BMI 29.65 kg/m Pleasant obese adult woman in no acute distress. Alert and oriented all spheres. Normal affect and cognition. Speech normal. No deficits to learning or comprehension. Skin warm, dry, pink to lips and nailbeds. Normal turgor. Respirations regular and unlabored. Neck supple, FROM. Any motion with right arm causing severe pain. Holding arm straight, can bend at elbow but increasepain. Unable to do more than 10-20 degrees in flexion or extension. Not able to lift passively more than 20-30 degrees in flexion or extension. Unable to go past thighwith pronation and extension. Tender over humerus bicipital prominence. No clear muscle rupture but unable to flex elbow. Extrem: no clubbing or cyanosis. Edema: none. Extremities are warm and pink with prompt capillary refill. ASSESSMENT/PLAN: 1. Sprain of right rotator cuff capsule, initial encounter - ICD9: 840.4, ICD10: S43.421A (primary diagnosis) I really could not evaluate due to level of pain. She does not want to go to ER. Will communicate through [employer] on progress next few days. Because of severe pain I am agreeing to try norco though patient has known intolerance and occasional use of marijuana (none recent and agrees to hold while on medication) - METHYLPREDNISOLONE 4 MG TABLETS IN A DOSE PACK - METAXALONE 800 MG TABLET - HYDROCODONE 7.5 MG-ACETAMINOPHEN 325 MG TABLET - XR SHOULDER GENERAL 3V OR MORE AP/TRUE AP/OTHER RIGHT 2. Traumatic tear of right rotator cuff, unspecified tear extent, initial encounter - ICD9: 840.4, ICD10: S46.011A - CT SHOULDER WO IVCON RT Antonieta Sarmiento PA-C documented in this encounterChildren'S Hospital For Rehabilitation09-19-2022 History of Present illness Narrative* Steve Restrepo MD - 12/26/2021 6:04 PM EDT Patient presents with: Covid Follow Up HPI:This Team Access Model visit is a virtual encounter. It required patient- provider interaction for the medical decision making as documented below. Patient was offered a virtual/telemedicine appointment in lieu of an office visit due to recommendations to reduce patient exposure to COVID-19. Patient is aware of limitations of performing the visit without a face to face visit in the office setting and agrees. Wants to discuss covid. Has had a bronchial thing in the past. Has had headache for 5 days before testing on 12/21. Was nauseated. Had myalgias. Had chills and ? Fever. Mild sore throat. Has had some sinus congestion but has been there for two months. Has had coughing for two months. Has noted some shortness of breath recently. Has some rib pain. Non pleuritc. Thinks is related to cough. Discussed fact that if she is very short of breath and having chest discomfort. Is different than what she has had in the past. Feels like she is suffocating at times. Suggested she be seen in ER. MEDICATIONS: Current Outpatient Medications Medication Sig albuterol HFA (VENTOLIN HFA) 90 mcg/actuation inhaler Inhale 2 Puffs as instructed every 4 hours asneeded for Wheezing/Shortness of Breath. MULTIVIT-MINERALS/FOLIC ACID (DAILY GUMMIES ORAL) Take 2 Each by mouth once daily. No current facility-administered medications for this visit. ALLERGIES: ALLERGIES Allergen Reactions Banana GI Upset severe abdominal pain Bee Sting Itching, Shortness of Breath, Swelling Eggs [Egg] Vomiting Penicillins Hives Pravastatin Intolerance Chest pain Triple Antibiotic [* Ultram [Tramadol Hc* Vomiting Vicoprofen [Hydroco* PAST MEDICAL HISTORY Diagnosis Date Abdominal pain, left lower quadrant Abdominal pain, unspecified site Allergic rhinitis, cause unspecified Allergic rhinitis Diverticulosis of colon (without mention of hemorrhage) Esophageal reflux Gastrointestinal hemorrhage Hyperlipemia 02/21/2011 Lumbago Marijuana use, continuous daily Unspecified hemorrhoids without mention of complication Hemorrhoids PAST SURGICAL HISTORY Procedure Laterality Date COLONOSCOPY FLX DX W/COLLJ SPEC WHEN PFRMD 05/15/06 LAPAROSCOPY W/LYSIS OF ADHESION 06/28/06 lysis of adhesion around the left adnexa PAST SURGICAL HISTORY OF 1992 discectomy L-5 SIGMOIDOSCOPY FLX DX W/COLLJ SPEC BR/WA IF PFRMD 06/12/2002 Sigmoidoscopy [place] ECTOPIC W/O SALPING&/OOPHORECTOMY Ectopic FAMILY HISTORY Problem Relation Age of Onset Lung Cancer Mother 70 smoker Cancer Father larynx, smoker Hypertension Father Alcohol/Drug Father Social History Tobacco Use Smoking status: Every Day Packs/day: 0.50 Years: 27.00 Pack years: 13.50 Types: Cigarettes Smokeless tobacco: Never Tobacco comments: Trying to quit. Vaping Use Vaping Use: Never used Substance Use Topics Alcohol use: No Drug use: Yes Frequency: 7.0 times per week Types: Marijuana Reviewed current medications, allergies, past medical history, surgical history, family history andsocial history today. VITALS: LMP 05/11/2006 Last 4 Encounter Wt Readings: Date: Wt: 10/12/2021 83.9 kg (185 lb) 08/29/2021 84.4 kg (186 lb) 06/13/2021 87.1 kg (192 lb) 02/09/2021 82.1 kg (181 lb) PHYSICAL EXAMINATION: Patient is alert and oriented during visit. Answers appropriately. No audible cough ASSESSMENT/PLAN: 1. COVID-19 - ICD9: 079.89, ICD10: U07.1 (primary diagnosis) - to [facility] er. She will comply. ER passport initiated for hand off 2. Chest pain, unspecified type - ICD9: 786.50, ICD10: R07.9 3. SOB (shortness of breath) - ICD9: 786.05, ICD10: R06.02 Steve Restrepo MD documented in this encounterChildren'S [facility] Rehabilitation09-19-2022 Miscellaneous Notes* Telephone Encounter - Ashlyn Ghosh RN - 12/26/2021 1:26 PM EDT Patient reports she would like to discuss covid symptom treatment and medication request for cough and congestion. Reports tested positive for covid 12/21. She is not vaccinated for covid. Symptoms include cough, upset stomach, body aches, feels warm, mild sore throat, loss of taste and smell and nasal congestion. She states the congestion makes it hard for her to breathe at night. Denies SOB at rest, dizziness, chest pain,back pain vomiting or diarrhea. States she has SOB with exertion. Trying to drink additional fluids. Appetite poor. VV made with Dr. Restrepo for evaluation and appropriate treatment. Ashlyn Ghosh RN documented in this encounterChildren'S Hospital [facility] Rehabilitation07-06-2022 Instructions* Patient Instructions* Portia Verde APRN.BISCUIT PACKER - 10/12/2021 11:11 AM EDT Calcium and Vitamin D Supplementation (from the National Institutes of Health Office of Dietary Supplements 2011) Calcium 1200 mg daily - 600 mg twice a day if taking supplement and Vit D 800- 1000 IU daily Calcium is required by the body for blood vessel, muscle, hormone and nerve functioning. Most of the body's calcium is stored in the bones and teeth where it supports structure and function. Bone is continuously broken down and reformed. When bone breakdown exceeds formation, especially in postmenopausal women, bone loss can increase the risk of osteoporosis and fractures. In addition to low calcium intake, women who smoke, have a family history of osteoporosis, are thin, or , orwho take certain medications such as cancer chemotherapy, seizure mediations and steroids are at increased risk of osteoporosis. The calcium requirements in women change with age. The National Institutes of Health (NIH) recommends: 1000mg elemental calcium for premenopausal women age 19-50 1200mg elemental calcium for postmenopausal women and all women over 50 Milk, yogurt, and cheese are rich natural sources of calcium and are the major food contributors inthe [place]. For example, 8oz of milk (whole, lowfat or skim) contains about 300mg calcium, 8oz of yogurt contains 415mg. Nondairy sources include salmon and sardines and vegetables, such as [place] cabbage, kale, and broccoli. Foods fortified with calcium include many fruit juices, tofu and cereals. For more food calcium content information, visit http://ods.od.nih.gov/factsheets/calcium. Calcium supplements come in several different forms. Remember that the recommendations are for millgrams (mg) of elemental calcium which may be less than the total weight of the supplement. The amount of elemental calcium is required to be printed on the label. Calcium carbonate is the least expensive form. It must be taken on a full stomach to be properly absorbed. Some patients may experience gas or constipation. Calcium phosphate and calcium citrate may be taken either with or without food and tend to have less side effects but are generally more expensive. Because of its ability to neutralize stomach acid, calcium carbonate is found in some [id number] antacid products, such as Tums and Rolaids . Depending on its strength, each chewable pill or softchew provides 200 to 400 mg of elemental calcium. The percentage of calcium absorbed depends on the total amount of elemental calcium consumed at onetime. Absorption is highest in doses <500mg. So a woman who takes 1,000mg/day of calcium from supplements should split the dose and take 500mg at two separate times during the day. Too much calcium can cause kidney stones, constipation, difficulty absorbing other nutrients and calcium buildup in blood vessels. Women under 50 should not exceed 2500mg/day (2000mg/day for women over 50) of calcium from food and supplements. Excessive alcohol and caffeine intake can inhibit absorption of calcium. Calcium can reduce the absorption of some medications if taken at the same time of day (bisphosphonates, thyroid medication, Phenytoin and other seizure medications, some antibiotics and iron supplements). Vitamin D promotes calcium absorption in the gut and maintains adequate blood levels of calcium andphosphate for normal bone growth and bone remodeling. Vitamin D also helps regulate cell growth as well as nerve, muscle and immune system function. Vitamin D is produced in the skin as a result of ultraviolet sunlight rays and must be altered in the liver and kidney to become its active form. Recommended intake according to the National Institutes of Health is 600 International Units (IU) for girls and women ages 1-70 and 800 IU for women over 70. Very few foods in nature contain vitamin D. The flesh of fatty fish (such as salmon, tuna, and mackerel) and fish liver oils are among the best sources. Small amounts of vitamin D are found in beef liver, cheese, mushrooms and egg yolks. Most people meet at least some of their vitamin D needs through exposure to sunlight. Season, time of day, length of day, cloud cover, smog, skin melanin content, and sunscreen are among the factors thataffect UV radiation exposure and vitamin D synthesis. Despite the importance of the sun for vitaminD synthesis, it is prudent to limit exposure of skin to sunlight and avoid tanning beds. UV radiation is a carcinogen responsible for most of the estimated 1.5 million skin cancers that occur annually in the [place]. Lifetime cumulative UV damage to skin is also responsible for some age-associated dryness and other cosmetic changes. In supplements and fortified foods, vitamin D is available in two forms, D2 (ergocalciferol) and D3(cholecalciferol). The two are equivalent at normal supplement doses. For women who require high supplement doses because of vitamin D deficiency, D3 may work better to raise blood levels. Some medications can prevent proper absorption of Vitamin D. These include laxatives, corticosteroids like prednisone, the seizure drugs phenobarbital and phenytoin, the weight-loss drug orlistat ( Xenical and AlliTM) and the cholesterol-lowering drug cholestyramine (Questran , LoCholest , and Prevalite ). Talk to your doctor about adjusting your recommended daily vitamin D dosage if you take these medications. You should not exceed 4000 mg of vitamin D supplementation daily unless specifically prescribed by your doctor. documented in this encounterChildren'S Hospital For Rehabilitation07-06-2022 History of Present illness Narrative* Portia Verde APRN.CNP - 10/12/2021 10:47 AM EDT Renuka is a 61 year old who presents for an annual gynecologic exam without complaints. Postmenopausal: Yes since age late 40's HRT use: No. Last Pap: 04/05/2011 normal HPV: 03/22/2011 negative History of abnormal pap: No Last mammogram: 2011 normal History of abnormal mammogram: No Sexually active: Yes History of STDS: None Patient concerns for STD exposure: No. 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 History Comments: Sexual Activity: Yes; Male Contraception: No contraception data on record PAST MEDICAL HISTORY Diagnosis Date Abdominal pain, left lower quadrant Abdominal pain, unspecified site Allergic rhinitis, cause unspecified Allergic rhinitis Diverticulosis of colon (without mention of hemorrhage) Esophageal reflux Gastrointestinal hemorrhage Hyperlipemia 02/21/2011 Lumbago Marijuana use, continuous daily Unspecified hemorrhoids without mention of complication Hemorrhoids PAST SURGICAL HISTORY Procedure Laterality Date COLONOSCOPY FLX DX W/COLLJ SPEC WHEN PFRMD 05/15/06 LAPAROSCOPY W/LYSIS OF ADHESION 06/28/06 lysis of adhesion around the left adnexa PAST SURGICAL HISTORY OF 1992 discectomy L-5 SIGMOIDOSCOPY FLX DX W/COLLJ SPEC BR/WA IF PFRMD 06/12/2002 Sigmoidoscopy [place] ECTOPIC W/O SALPING&/OOPHORECTOMY Ectopic FAMILY HISTORY Problem Relation Age of Onset Cancer Father larynx Hypertension Father Alcohol/Drug Father SOCIAL HISTORY Social History Tobacco Use Smoking status: Current Every Day Smoker Packs/day: 0.50 Years: 27.00 Pack years: 13.50 Types: Cigarettes Smokeless tobacco: Never Used Tobacco comment: Trying to quit. Substance Use Topics Alcohol use: No Drug use: Yes Frequency: 7.0 times per week Types: Marijuana REVIEW OF SYSTEMS Abdomen: No abdominal pain, nausea, vomiting, diarrhea, or constipation. No bloating, early satiety, indigestion, or increased flatulence. Bladder: No dysuria, gross hematuria, urinary frequency, urinary urgency, or incontinence Breast: No breast lumps, nipple d/c, overlying skin changes, redness or skin retraction Allergies and current medication updated:Yes EXAM: BP 110/68 Ht 5' 8 (1.73m) Wt 185 lb (83.9kg) LMP 05/11/2006 BMI 28.14 kg/(m^2). GENERAL: pleasant, female in no apparent distress HEENT: Normocephalic, atraumatic, mucus membranes moist and no lesions NECK: Supple, full range of motion, no adenopathy and thyroid normal DERMATOLOGY: Normal, without lesions, non-icteric and non-hirsute BREAST: soft, non-tender, symmetric, no dominant mass, normal nipple-areolar complex, no lymphadenopathy and no nipple discharge CHEST: Normal inspiratory effort ABDOMEN: soft, non-tender and no masses PELVIC: external genitalia normal, normal Bartholin's glands, urethra, [place]'s glands, no vulvar lesions, no cervical lesions, good vaginal support, physiologic discharge present, normal appearing perineal body and perianal region BIMANUAL: uterus normal size, shape and consistency, no adnexal masses and non-tender RECTOVAGINAL: deferred. NEURO: alert and oriented x3,exam grossly non-focal EXTREMITIES: normal ASSESSMENT/PLAN: 1) Health maintenance: Pap done with HPV. Mammogram ordered by PCP - pt declines but knows that she can call and schedule if she changes her mind. Nutrition, exercise and routine health maintenance exams reviewed. Calcium/Vitamin D supplementation information provided. Smoking cessation: Benefits of smoking cessation reviewed. Patient encouraged to avoid smoking. Colon cancer screening: declined. Has Cologuard at home. 2) Follow up one year or sooner as needed Portia Verde APRN.MONIKA documented in this encounterChildren'S Hospital For Rehabilitation05-23-2022 Instructions* Patient Instructions* Antonieta Sarmiento PA-C - 08/29/2021 11:25 AM EDT Huerta's Cyst What is a Huerta's cyst? A Huerta's cyst is an abnormal swelling of a bursa (a fluid-filled sac) behind the knee. How does it occur? No one really knows what causes a Huerta's cyst. However, a cyst can occur when the lining of the knee joint produces too much fluid after an injury or in certain kinds of arthritis. What are the symptoms? You may have pain, swelling, or a feeling of fullness in the area behind the knee. How is it diagnosed? Your healthcare provider will examine your knee and find a bulge in the back of your knee. You may need to have a magnetic resonance image (MRI) to help the healthcare provider determine if you have a Huerta's cyst. How is it treated? The initial discomfort of a Huerta's cyst may be treated by wearing an elastic bandage or a sleeve around your knee. Your provider may prescribe anti- inflammatory medicine, the cyst may be drained, vanessa operation may be performed to remove the cyst. Sometimes the cyst goes away on its own. If the cyst does not cause bothersome symptoms, it may not be treated. Adults aged 65 years and older shouldnot take non-steroidal anti-inflammatory medicine for more than 7 days without their healthcare provider's approval. How can a Huerta's cyst be prevented? There is really no way to prevent a Huerta's cyst from forming. Published by [employer]. This content is reviewed periodically and is subject to change as new health information becomes available. The information is intended to inform and educate and is not a replacement for medical evaluation, advice, diagnosis or treatment by a healthcare professional. Written by Jeremie Mcdonough M.D., for [employer] Copyright 2007 [employer] and/or one of its subsidiaries. All Rights Reserved. Special Instructions: Resting the knee may help. Copyright [employer] 2007 [employer] Copyright 2008 [employer]. All rights reserved. - [email or web address] documented in this encounterChildren[facility]-23-[facility]22 History of Present illness Narrative* Antonieta Sarmiento PA-C - 08/29/2021 10:40 AM EDT 61 year old female with c/o pain in right posterior knee which is worse after walking or exercising. Has swelling behind the knee and feels her leg on right is bigger than left. Last several days has been more achy, swollen. Worse with attempts to exercise. Also last week hurt more after being in the car for longer periods. No distal leg swelling, injury, overuse. 06/13/2021 ED visit with c/o pain in posterior knee with US right lower leg [facility]: 0.71 x 2.22cm cysticmass probable Huerta's cyst Smoking < 1/2PPD decides to quit but can't get past a few days. Not interested in medication. 08/29/21 - PHQ-2 Score: 0 Depression Screening 09/13/2015 05/28/2017 08/29/2021 08/29/2021 PHQ-2 Score 0 4 0 0 PHQ-9 Score - 12 - - HISTORIES FAMILY HISTORY Problem Relation Age of Onset Cancer Father larynx Hypertension Father Alcohol/Drug Father PAST MEDICAL HISTORY Diagnosis Date Abdominal pain, left lower quadrant Abdominal pain, unspecified site Allergic rhinitis, cause unspecified Allergic rhinitis Diverticulosis of colon (without mention of hemorrhage) Esophageal reflux Gastrointestinal hemorrhage Hyperlipemia 02/21/2011 Lumbago Marijuana use, continuous daily Unspecified hemorrhoids without mention of complication Hemorrhoids PAST SURGICAL HISTORY Procedure Laterality Date COLONOSCOPY FLX DX W/COLLJ SPEC WHEN PFRMD 05/15/06 LAPAROSCOPY W/LYSIS OF ADHESION 06/28/06 lysis of adhesion around the left adnexa PAST SURGICAL HISTORY OF 1992 discectomy L-5 SIGMOIDOSCOPY FLX DX W/COLLJ SPEC BR/WA IF PFRMD 06/12/2002 Sigmoidoscopy TX ECTOPIC W/O SALPING&/OOPHORECTOMY Ectopic Social History Tobacco Use Smoking status: Current Every Day Smoker Packs/day: 0.50 Years: 27.00 Pack years: 13.50 Types: Cigarettes Smokeless tobacco: Never Used Tobacco comment: Trying to quit. Substance Use Topics Alcohol use: No Drug use: Yes Frequency: 7.0 times per week Types: Marijuana ACTIVE PROBLEM LIST Lumbago Allergic Rhinitis, Cause Unspecified Unspecified Hemorrhoids Without Mention of Complication Gastrointestinal Hemorrhage Unspecified Symptom Associated With Female Genital Organs Congenital Pes Planus Enthesopathy of Unspecified Site Abdominal Pain, Unspecified Site Abdominal Pain, Left Lower Quadrant Diverticulosis of Colon (Without Mention of Hemorrhage) Unspecified Gastritis and Gastroduodenitis Personal History of Tobacco Use, Presenting Hazards to Health Other Malaise and Fatigue Other and Unspecified Hyperlipidemia Tobacco Use Disorder Insomnia, Unspecified Hyperlipemia Ddd (Degenerative Disc Disease), Lumbar Postlaminectomy Syndrome Chronic Back Pain Mixed Hyperlipidemia Tobacco Abuse Disorder Right Wrist Tendonitis Current Outpatient Medications Medication Sig Dispense Refill Promethazine-DM (PHENERGAN-DM) 6.25-15 mg/5 mL syrup Take 5 mL by mouth four times daily as needed.(Patient not taking: Reported on 06/13/2021 ) 120 mL 0 diclofenac-miSOPROStol (ARTHROTEC 75) 75-200 mg-mcg per tablet Take 1 tablet by mouth twice daily. (Patient not taking: Reported on 06/13/2021 ) 20 tablet 0 cyclobenzaprine (FLEXERIL) 10 mg tablet Take 1 tablet by mouth three times daily as needed for Muscle Spasm. (Patient not taking: Reported on 06/13/2021 ) 15 tablet 0 albuterol HFA (VENTOLIN HFA) 90 mcg/actuation inhaler Inhale 2 Puffs as instructed every 4 hours asneeded for Wheezing/Shortness of Breath. 1 Inhaler 5 MULTIVIT-MINERALS/FOLIC ACID (DAILY GUMMIES ORAL) Take 2 Each by mouth once daily. No current facility-administered medications for this visit. COVID-19 VACCINE(1) Never done HIV SCREENING Never done SHINGRIX VACCINE(1 of 2) Never done COLORECTAL CANCER SCREENING due on 01/08/2014 PAP TESTING due on 03/21/2016 HPV TESTING due on 03/21/2016 MAMMOGRAM due on 09/12/2016 DEPRESSION SCREENING due on 05/28/2018 DIABETES SCREEN due on 05/14/2020 LIPID SCREEN due on 09/08/2020 EXAM: BP 110/68 Pulse 64 Resp 16 Wt 84.4 kg (186 lb) LMP 05/11/2006 SpO2 97% BMI 27.47 kg/m Pleasant over weight adult woman in no acute distress. Alert and oriented all spheres. Normal affect and cognition. Speech normal. No deficits to learning or comprehension. Skin warm, dry, pink to lips and nailbeds. Normal turgor. Respirations regular and unlabored. HEENT: NCAT. No scleral icterus or conjunctival injection. TM's clear. Nose and oropharynx free from injection or lesion. Oral membranes moist and pink. No cervical lymph nodes. Thyroid non-tender, no masses, or enlargement. Carotids pulses 2+/4+ without bruits. Chest is normal shape. Lungs are clear to all devries with good air exchange through out. HRRR without murmur or gallop. No lifts, heaves, or rubs. Extrem: no clubbing or cyanosis. Edema: none. Positive swelling posterior right knee consistent with Huerta's cyst. Extremities are warm and pink with prompt capillary refill. ASSESSMENT/PLAN: 1. Huerta's cyst of knee, right - ICD9: 727.51, ICD10: M71.21 (primary diagnosis) Declined consult to ortho: not interested in injections or surgery. Reviewed education 2. Encounter for colorectal cancer screening - ICD9: V76.51, V76.41, ICD10: Z12.11, Z12.12 - FECAL OCCULT BLOOD TEST 3. 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 - CONSULT TO GYNECOLOGY 4. Mixed hyperlipidemia - ICD9: 272.2, ICD10: E78.2 - to be determined upon return of lab results - Encouraged following a low fat, low cholesterol diet. - Discussed the benefits of regular aerobic exercise and weight loss. - Encouraged following a low carbohydrate, healthy oil intake diet. - LIPID PANEL, NONFASTING 5. Tobacco abuse disorder - ICD9: 305.1, ICD10: Z72.0 - Cessation encouraged: declined medications, OTC products. Will continue gradual reduction. - Physiologic and physical aspects of tobacco addiction as well as strategies for quitting were discussed. - Counseling was given focusing on the harmful effects of this addiction especially given the patient's medical condition(s) which will be worsened because of the chemicals in tobacco. 6. Screening for diabetes mellitus - ICD9: V77.1, ICD10: Z13.1 - BASIC METABOLIC PNL Antonieta Sarmiento PA-C documented in this encounterChildren'S [facility] Rehabilitation11-03-2021 History of Present illness Narrative* Hue Everett RT(R) - 02/09/2021 2:00 PM EDT Radiology Service Progress Note PATIENT NAME: Renuka Means DATE OF SERVICE: February 09, 2021 TIME: 1:57 PM PATIENT IDENTITY VERIFICATION COMPLETED USING TWO (2) IDENTIFIERS: Name and Date of confirmedby patient verbally. FALL SCREENING: Has the patient had 2 falls in the last year or 1 fall with injury or currently using an Ambulatory Assistive Device (Walker, Cane, Wheelchair, Crutches, etc.)? No PATIENT GENDER DATA: Female. status: : No status: NO. PATIENT RELEVANT IMPLANT DATA REVIEWED: Yes RADIOLOGY DEPARTMENT: General X-ray: Exam(s) Completed: Chest X-Ray PERIPHERAL IV DATA: Not applicable SIGNED BY: RT Ahsan(R) February 09, 2021 1:57 PM documented in this encounterChildren'S Hospital For RehabilitationConsult note Author Joe Novoa [facility] Note Date/Time July 16, 2024 1:00 pm [facility] Medical Records Department [address] [place] [id number] Anesthesia Postop Eval I 07/16/24 1259 MR#: [id number] Acct: [id number] Name: RENUKA MEANS Rep #:[id number] : 1960 64 From: Joe Novoa PCP: Care Physician,No Primary Status :REG SDC Y Race: C Location: [place] [address] Anesthesia: Postop Eval I Current Vital Signs Temperature: 97.2 F Pulse Rate: 87 Blood Pressure: 100/66 Respiratory Rate: 16 Pulse Ox: 95 Oxygen Delivery Method: Room Air Assessment Airway patent: Yes Spontaneous unlabored respirations: Yes Mental status: Asleep nausea: No Vomiting: No Anesthesia Complication: No Fluid Hydration Crystalloid volume administer (ml): 60 Total IV fluid infused: 60 Progress Note Anesthesia document: Postop Eval 1 completed: Yes 07/16/24 1300 <Electronically signed by Joe Novoa > Date _ Joe Rojoignchey Signature: Date CC: ~ Signed [facility] Work Phone: Discharge summary Author Mendez Yaz [facility] Note Date/Time October 24, 2024 11:4 5am [facility] Medical Records Department [address] [place] [address] Emergency Department Summary 10/24/24 MR#: [id number] Acct: [id number] Name: RENUKA MEANS Rep #:[id number] : 1960 64 From: Mendez Mukherjee MD PCP: Dr. Katie Ordaz MD Status:REG ER Location: ED HPI History of Present Illness Chief Complaint: Back Informant: patient and family Narrative Narrative: 64-year-old female presents with pain in multiple joints that has been going on for the last couple months, worst in her knees and her left wrist, pain in her right upper arm a little distal to the shoulder laterally for the past month or more, and an increase in her chronic mid low back pain for the past 1 to 2 weeks. She denies any fevers or chills. She denies any swelling or redness of the joints. About a week or so ago she took 4 days of some leftover prednisone and states it fix the joint problems temporarily. However now she is in so muchpain with all of these issues that she feels like it is hard to function and geton the toilet. However when she does, she has no bowel or bladder dysfunction or perineal anesthesias or numbness/weakness neurologically in any of her extremities. She denies any injury that she knows of, she states most of this occurred upon waking up. Prior similar symptoms: Yes and With Prior Back Pain [facility] Medical History Wears glasses Anxiety Marijuana use Former smoker Shortness of breath on exertion COPD (chronic obstructive pulmonary disease) Pneumonia Home Medications ?Medication ?Instructions ?Recorded ?Last Taken ?Type albuterol sulfate 2.5 mg/3 mL 2.5 mg (3 mL) inhalation Q4H PRN 06/10/24 Unknown Rx (0.083 %) solution for nebulization #25 vials pantoprazole 40 mg tablet,delayed 40 mg PO QDAY esopha gitis #90 tabs 07/28/24 Unknown Rx release albuterol sulfate 90 mcg/actuation 2 puff inhalation Q 4H PRN PRN 08/04/24 Unknown Rx aerosol inhaler (Ventolin HFA) Wheezing ##1 mometasone-formoterol HFA 100 2 puff inhalation BID #8 .8 grams 08/04/24 Unknown Rx mcg-5 mcg/actuation aerosol inhaler (Dulera) albuterol sulfate 90 mcg/actuation 2 puff inhalation Q 6H PRN 08/26/24 Unknown Rx aerosol inhaler shortness of breath or wheez ing #8.5 grams meloxicam 15 mg tablet 15 mg PO QDAY #30 tabs 10/17 Unknown Rx atorvastatin 10 mg tablet (Lipitor) 10 mg PO QHS #30 t abs 10/19/24 Unknown Rx hydrocodone-acetaminophen 5-325mg 1 tab PO Q6H PRN jessica n 3 days #12 10/24/24 Unknown Rx 5mg-325mg TABLETS prednisone 10 mg tablet 10 mg PO UD #30 tabs 5 Unknown Rx Allergy/AdvReac Type Severity Reaction Status Date / Time bacitracin (From Neosporin Allergy Rash Verified 10/17/24 08:56 ([id number])) neomycin (From Neosporin Allergy Rash Verified 10/17/24 08:56 ([id number])) Penicillins Allergy Hives Verified 10/17/24 08:56 polymyxin B (From Neosporin Allergy Rash Verified 10/17/24 08:56 ([id number])) egg (eggs) AdvReac Abd Verified 10/17/24 08:56 cramps/diarrhea Food Allergies: Uncoded AdvReac Abd Verified 10/17/24 08:56 cramps/diarrhea Family History Father Alcohol abuse Arthritis Cancer LARYNGEAL COPD (chronic obstructive pulmonary disease) Mother Osteoporosis Surgical History History of colonoscopy , tubal with rupture History of back surgery Social History household members: significant other housing: house current occupational status: employed 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 [employer] [place] [employer] Smoking Status: Former smoker quit date: 04/09/24 pack-years: 23 alcohol intake: current alcohol intake frequency: holidays/special occasions only substance use type: marijuana frequency: daily do you feel safe at home: Yes ROS ROS ED Constitutional Constitutional ED: Denies chills or fever(s) Eyes Eyes: Denies change in vision ENT ENT ED: Denies sore throat Cardiovascular Cardiovascular: Denies chest pain Respiratory/Chest Respiratory/Chest: Denies dyspnea Gastrointestinal Gastrointestinal: Denies abdominal pain, constipation, fecal incontinence, nausea or vomiting Genitourinary Genitourinary ED: Reports other Details: no urinary retention. No vaginal discharge, denies history of gonorrhea. ; Denies abdominal discomfort or urinary incontinence Musculoskeletal Musculoskeletal: Reports as per HPI, arthralgias and back pain; Denies neck pain Integumentary Denies rash or wounds Neurologic Neurologic: Denies headache(s), paresthesias or weakness EXAM Physical Exam Const Vital Signs: 10/24/24 10:41 Temperature 96.1 F L Temperature Source Temporal Pulse Rate 86 Respiratory Rate 14 Blood Pressure 125/80 H Blood Pressure Mean 95 Pulse Ox 98 Oxygen Delivery Method Room Air Positive well nourished and well developed General Appearance ED: well developed and NAD HEENT Reports moist mucous membranes Negative for trauma or tenderness Eyes PERRL and EOMs intact bilaterally Neck full ROM and supple Resp normal respiratory effort GI non-distended Back/Spine normal to inspection Back/Spine Narrative: Able to bend forward but painful LS spine to do so. Well-healed surgical incision midline, there is some mild tenderness in this area but no signs of infection or zoster rashes. Lumbar Spine / Lower Back: ROM limited, paraspinal muscle tenderness and straight leg raise negative bilaterally; Negative for lumbar spinal tenderness Extremity normal to inspection and no pedal edema Extremity Narrative: Limited range of motion both knees and the left wrist due to pain. They are normal-appearing, without tenderness, warmth, or any erythema. There is a healing insect sting according to the patient dorsum of the left hand without any surrounding erythema or tenderness. Mildly tender right lateral upper arm, where the proximal and middle thirds of the humerus meet, approximately. This is approximately where the deltoid inserts on the humerus shaft. She has pain with abduction against resistance, but elbow flexion and extension, supination against resistance, internal and external rotation about the shoulder all without significant discomfort. She has excellent range of motion of the shoulder without any deformities and there is no other bony tenderness of the shoulder. Neuro oriented x3 and no sensory deficits noted Sensorium / Orientation: alert Motor Exam: strength 5/5 throughout and clonus absent Deep Tendon Reflexes: Rt Patellar (L4): 2+, Lt Patellar (L4): 2+, Rt Ankle (S1):2+ and Lt Ankle (S1): 2+ Deep Tendon Reflexes Back: Rt Patellar (L4): 2+, Lt Patellar (L4): 2+, Rt Ankle (S1): 2+ and Lt Ankle (S1): 2+ Plantar Reflex: Downgoing: bilateral Psych thought process normal Psych Narrative: Anxious Skin no rashes or lesions noted and no wounds MDM MDM MDM Narrative Medical decision making narrative: I reviewed prior shoulder x-rays, radiology interpreted as negative for any acute, I agree with that based on what I am looking at. The patient states the chiropractor did some x-rays and told her she may have a spur there that could give her rotator cuff tear. While that is true, the pain she is describing is away from that area and more down toward where the deltoid inserts on the humerus. I am not concerned about a fracture or dislocation, I do not think we need new x-rays. With regards to her low back pain, she states the pain is chronic, but worse in the past week or 2, and she has multiple joints affected. I advised her that in order to work this up if indicated, she will need to see her primary care doctor but I am happy to help her with the pain. She wants to try more prednisone because help. I told her it is reasonable to do a taper if she is in severe pain, but if alternatives are available she will not want to beon prednisone long-term daily, she understands that. Offered a prescription peter analgesic as well. She states she was given some type of arthritis medication by her doctor and it made her feel poorly and she does not want that 1 but she does not know what it is And I do not see it in any records that are available to me right now. Meloxicam is on her list, that may be the one that she did not agree with. Discharge Plan Triage Chief Complaint: Back ED Provider: Mendez Mukherjee Dx/Rx/DC Orders Clinical Impression: Arthritis, Acute exacerbation of chronic low back pain, Acute pain of right shoulder Instructions: What Is Arthritis?, Osteoarthritis (OA) Prescriptions: New hydrocodone-acetaminophen 5-325 mg tablet 1 tab PO Q6H PRN (Reason: pain) 3 Days Qty: 12 0RF prednisone 10 mg tablet 10 mg PO UD Qty: 30 0RF Rx Instructions: Take 4 tablets daily for 3 days, then 3 daily for 3 days, then 2 daily for 3 days, then 1 a day for 3 days No Action pantoprazole 40 mg tablet,delayed release (DR/EC) 40 mg PO QDAY Qty: 90 3RF Dulera 100-5 mcg/actuation HFA aerosol inhaler 2 puff inhalation BID Qty: 8.8 3RF albuterol sulfate [Ventolin HFA] 90 mcg/actuation HFA aerosol inhaler 2 puff inhalation Q4H PRN PRN (Reason: Wheezing) Qty: 1 11RF meloxicam 15 mg tablet 15 mg PO QDAY Qty: 30 0RF albuterol sulfate 2.5 mg /3 mL (0.083 %) solution for nebulization 2.5 mg inhalation Q4H PRN Qty: 25 0RF Rx Instructions: Use q4 hours and PRN for wheezing albuterol sulfate 90 mcg/actuation HFA aerosol inhaler 2 puff inhalation Q6H PRN (Reason: shortness of breath or wheezing) Qty: 8.5 11RF atorvastatin [Lipitor] 10 mg tablet 10 mg PO QHS Qty: 30 0RF Primary Care Provider: Katie Ordaz Referrals: Katie Ordaz MD [Primary Care Provider] - As soon as possible Print Language: Angolan Disposition Disposition: Home, Self Care What to do if you have Problems For any increased pain, shortness of breath, bleeding, nausea or vomiting, chestpain, or any unexpected problems, contact your Primary Care Provider. Call [facility] ([phone]) or report to the closest Emergency Room. Call 911 if necessary. 10/24/24 1145 <Electronically signed by Mendez Mukherjee MD> Cosigner Signature (if applicable): CC: Dr. Katie Ordaz MD ~ Signed [facility] Work Phone: Evaluation note* Diagnosis Huerta's cyst of knee, right- Primary Encounter for colorectal cancer screening Special screening for malignant neoplasms, colon Screening for cervical cancer Screening for malignant neoplasm of the cervix Mixed hyperlipidemia Tobacco abuse disorder Tobacco use disorder Screening for diabetes mellitus [facility]* Diagnosis Encounter for gynecological examination (general) (routine) without abnormal findings- Primary Encounter for screening for human papillomavirus (HPV) Special screening examination for human papillomavirus (HPV) Pap smear for cervical cancer screening Screening for malignant neoplasm of the cervix documented [facility] encounter [facility] [place] [facility]* Diagnosis COVID-19- Primary Chest pain, unspecified type SOB (shortness of breath) Shortness of breath documented in this encounter [facility] noteNo assessment information availableWCleveland [facility] Work Phone: Evaluation note* Diagnosis Sprain of right rotator cuff capsule, initial encounter- Primary Traumatic tear of right rotator cuff, unspecified tear extent, initial encounter documented [facility] this encounter [facility] [place] [facility]* Diagnosis Sprain of right rotator cuff capsule, initial encounter documented in this encounter [facility] note* Diagnosis Sprain of right rotator cuff capsule, initial encounter documented in this encounter [facility] note* Diagnosis Cough Wheeze Wheezing documented in this encounter [facility] note* Diagnosis Cough, unspecified type- Primary Wheeze Wheezing Pneumonia of right lower lobe due to infectious organism documented in this encounter [facility] note* Diagnosis Wheezing- Primary documented in this encounter [facility] note* Diagnosis Encounter for screening mammogram for breast cancer documented in this encounter [facility] note* Diagnosis Wheezing documented in this encounter [facility] note* Diagnosis Wheezing documented in this encounter [facility] note* Diagnosis Stage 1 mild COPD by GOLD classification ([facility])- Primary Allergic rhinitis, unspecified seasonality, unspecified trigger Cigarette smoker Tobacco use disorder documented in this encounter [facility] note* Diagnosis Stage 1 mild COPD by GOLD classification ([facility])- Primary Cigarette smoker Tobacco use disorder Allergic rhinitis, unspecified seasonality, unspecified trigger documented in this encounter [facility] note* Diagnosis Stage 1 mild COPD by GOLD classification ([facility]) documented in this encounter [facility] note* Diagnosis Cough Wheeze Wheezing documented in this encounter [facility] note* Diagnosis Encounter for screening mammogram for breast cancer documented in this encounter [facility] note* Diagnosis Mixed hyperlipidemia- Primary Primary insomnia Persistent disorder of initiating or maintaining sleep Tobacco abuse disorder Tobacco use disorder Colon cancer screening Special screening for malignant neoplasms, colon Wheezing documented in this encounter [facility] note* Diagnosis Mixed hyperlipidemia- Primary Primary insomnia Persistent disorder of initiating or maintaining sleep Tobacco abuse disorder Tobacco use disorder Colon cancer screening Special screening for malignant neoplasms, colon Cough, unspecified type documented in this encounter [facility] note* Diagnosis Mixed hyperlipidemia- Primary Primary insomnia Persistent disorder of initiating or maintaining sleep Tobacco abuse disorder Tobacco use disorder Colon cancer screening Special screening for malignant neoplasms, colon Chronic insomnia- Primary Insomnia, unspecified Chronic midline low back pain without sciatica Primary insomnia Persistent disorder of initiating or maintaining sleep Mixed hyperlipidemia Tobacco abuse disorder Tobacco use disorder Screening for depression Encounter for screening examination for other mental health and behavioral disorders documented in this encounter [facility] note* Diagnosis Mixed hyperlipidemia- Primary Primary insomnia Persistent disorder of initiating or maintaining sleep Tobacco abuse disorder Tobacco use disorder Colon cancer screening Special screening for malignant neoplasms, colon Sprain of right rotator cuff capsule, initial encounter [facility] Diagnosis Mixed hyperlipidemia- Primary Primary insomnia Persistent disorder of initiating or maintaining sleep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 Condition Age at Onset Recorded Date/T patricia father Alcohol abuse Unknown Arthritis Unknown Malignant neoplasm Unknown Chronic obstructive pulmonary disease Unk nown mother Osteoporosis Unknown Advance Directives Advance Directive Response Recorded Date/ Time Living Will No December 26, 2021 10:30pm Power of Patient Companion No December 10:30pm Advance Directive Response Recorded Date/ Time Living Will No April 21 6:04pm Do you have a Healthcare Power of Patient Companion? No April 21, 2024 6:04pm Living Will No May 15 4:51pm Do you have a Healthcare Power of Patient Companion? No May 15, 2024 4:51pm Living Will No June 10, 2024 1:26pm Do you have a Healthcare Power of Patient Companion? No June 10, 2024 1:26pm Living Will No July 11, 2024 3:26pm Do you have a Healthcare Power of Patient Companion? No July 11, 2024 3:26pm Advance Directive Response Recorded Date/ Time Living Will No June 10, 2024 1:26pm Do you have a Healthcare Power of Patient Companion? No June 10, 2024 1:26pm Do you have a Healthcare Power of Patient Companion? No September 15, 2024 10:15pm Living Will No July 11, 2024 3:26pm Do you have a Healthcare Power of Patient Companion? No July 11, 2024 3:26pm Advance Directive Response Recorded Date/ Time Do you have a Healthcare Power of Patient Companion? No September 15, 2024 10:15pm Living Will No July 11, 2024 3:26pm Do you have a Healthcare Power of Patient Companion? No July 11, 2024 3:26pm Advance Directive Response Recorded Date/ Time Do you have a Healthcare Power of Patient Companion? No September 15, 2024 10:15pm Do you have a Healthcare Power of Patient Companion? No October 24, 2024 11:07am Living Will No July 11, 2024 3:26pm Do you have a Healthcare Power of Patient Companion? No July 11, 2024 3:26pm Advance Directive Response Recorded Date/ Time Do you have a Healthcare Power of Patient Companion? No September 15, 2024 10:15pm Do you have a Healthcare Power of Patient Companion? No October 24, 2024 11:07am Living Will No July 11, 2024 3:26pm Do you have a Healthcare Power of Patient Companion? No July 11, 2024 3:26pm Do you have a Healthcare Power of Patient Companion? No November 03, 2024 3:46pm Reason for Referral Specialty Diagnoses / Procedures Referred By Denzel t Referred To Contact Gynecology Diagnoses Screening for cervical cancer Procedures CONSULT TO GYNECOLOGY OFFICE/OUTPATIENT [facility] 60-74 MINUTES Antonieta Sarmiento PA-C [address] [place] [address] Referral ID Status Reason Start Date Expiration Date Visits Requested Visits Authorized [id number] Pending Review PCP Requested Referral Auto-Generate d Referral 08/29/2021 08/29/2022 1 1 Specialty Diagnoses / Procedures Referred By Denzel neely Referred To Contact CT IMAGING Diagnoses Traumatic tear of right rotator cuff, unspecified tear extent, initial encounter Procedures CT SHOULDER WO IVCON RT CT UPPER EXTREMITY W/O CONTRAST MATERIAL Antonieta Sarmiento PA-C [address] [place] [address] Ct Imaging Referral ID Status Reason Start Date Expiration Date Visits Requested Visits Authorized [id number] Pending Review Auto-Generat ed Referral 06/12/2022 07/12/2023 1 1 Specialty Diagnoses / Procedures Referred By Denzel neely Referred To Contact XR IMAGING Diagnoses Sprain of right rotator cuff capsule, initial encounter Procedures XR SHOULDER GENERAL 3V OR MORE AP/TRUE AP/OTHER RIGHT RADEX SHOULDER COMPLETE MINIMUM 2 VIEWS Antonieta Sarmiento PA-C [address] [place] [address] Xr Imaging Referral ID Status Reason Start Date Expiration Date V isits Requested Visits Authorized [id number] Closed Auto-Generate d Referral 06/12/2022 04/08/2023 1 1 Specialty Diagnoses / Procedures Referred By Denzel neely Referred To Contact [facility] Diagnoses Sprain of right rotator cuff capsule, initial encounter Procedures CONSULT TO PHYSICAL THERAPY PHYSICAL THERAPY EVALUATION HIGH COMPLEX 45 MINS Antonieta Sarmiento PA-C [address] [place] [address] [facility] [address] [place] [address] Referral ID Status Reason Start Date Expiration Date Visits Requested Visits Authorized [id number] Pending Review Auto-Generat ed Referral 06/14/2022 06/14/2023 1 1 Chief Complaint and Reason for Visit Chief Complaint general illness Chief Complaint Admit Date LOWER EXT April 21, 2024 3 :16pm ED follow up May 15, 2024 1 :55pm SOB May 15, 2024 3 :32pm EORDER May 21, 2024 11:22am SOB June 10, 2024 10:5 9am LEFT LOWER LUNG NODULE June 19, 2024 11:16am J44.9 - Chronic obstructive pulmonary di sease, uns July 11, 2024 1:07pm Reason for Visit Admit Date Constipation May 15, 2024 1 :55pm Heartburn May 15, 2024 1 :55pm Straining during bowel movements Februar y 2024 1:55pm COPD (chronic obstructive pulmonary dise ase) June 19, 2024 11:16am Nicotine dependence, cigarettes, in kiara ssion June 19, 2024 11:16am Constipation July 16, 2024 10:5 8am Heartburn July 16, 2024 10:5 8am IBS (irritable bowel syndrome) July 10:58am Chief Complaint Admit Date EORDER May 21, 2024 11:22am SOB June 10, 2024 10:5 9am LEFT LOWER LUNG NODULE June 19, 2024 11:16am J44.9 - Chronic obstructive pulmonary di sease, uns July 11, 2024 1:07pm 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 22, 2024 2: 00pm F17.211 - Nicotine dependence, cigarette s, in kiara July 28, 2024 12:10pm Follow Up Scope July 28, 2024 3:2 3pm F17.211 - Nicotine dependence, cigarette s, in kiara August 01, 2024 12:20pm 6 wk FU August 04, 2024 2:1 5pm shoulder September 15, 2024 8:33p m Reason for Visit Admit Date COPD (chronic obstructive pulmonary dise ase) June 19, 2024 11:16am Nicotine dependence, cigarettes, in kiara ssion June 19, 2024 11:16am Constipation July 16, 2024 10:5 8am Heartburn July 16, 2024 10:5 8am IBS (irritable bowel syndrome) July 10:58am Constipation July 22, 2024 2:0 0pm Heartburn July 22, 2024 2:0 0pm COPD (chronic obstructive pulmonary dise ase) July 22, 2024 2:00pm Encounter for screening exam ination for mental health and behavioral disorders July 22, 2024 2:00pm Immunization declined July 22, 2024 2 :00pm Screening for cardiovascular condition A pril 2024 2:00pm Establishing care with new doctor, kathy teixeira for July 22, 2024 2:00pm Mammogram declined July 22, 2024 2:0 0pm Sleep difficulties July 22, 2024 2:0 0pm Constipation July 28, 2024 3:2 3pm Esophagitis July 28, 2024 3:2 3pm Heartburn July 28, 2024 3:2 3pm COPD (chronic obstructive pulmonary dise ase) August 04, 2024 2:15pm Smoking greater than 20 pack years August 04, 2024 2:15pm Chief Complaint Admit Date LEFT LOWER LUNG NODULE June 19, 2024 11:16am J44.9 - Chronic obstructive pulmonary di sease, uns July 11, 2024 1:07pm 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 22, 2024 2: 00pm F17.211 - Nicotine dependence, cigarette s, in kiara July 28, 2024 12:10pm Follow Up Scope July 28, 2024 3:2 3pm F17.211 - Nicotine dependence, cigarette s, in kiara August 01, 2024 12:20pm 6 wk FU August 04, 2024 2:1 5pm shoulder September 15, 2024 8:33p m DISCUSS RA October 17, 2024 8:47 am Chief Complaint Admit Date J44.9 - Chronic obstructive pulmonary di sease, uns July 11, 2024 1:07pm 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 22, 2024 2: 00pm F17.211 - Nicotine dependence, cigarette s, in kiara July 28, 2024 12:10pm Follow Up Scope July 28, 2024 3:2 3pm F17.211 - Nicotine dependence, cigarette s, in kiara August 01, 2024 12:20pm 6 wk FU August 04, 2024 2:1 5pm shoulder September 15, 2024 8:33p m DISCUSS RA October 17, 2024 8:47 am Reason for Visit Admit Date Constipation July 16, 2024 10:5 8am Heartburn July 16, 2024 10:5 8am IBS (irritable bowel syndrome) July 10:58am Constipation July 22, 2024 2:0 0pm Heartburn July 22, 2024 2:0 0pm COPD (chronic obstructive pulmonary dise ase) July 22, 2024 2:00pm Encounter for screening exam ination for mental health and behavioral disorders July 22, 2024 2:00pm Immunization declined July 22, 2024 2 :00pm Screening for cardiovascular condition A pril 2024 2:00pm Establishing care with new doctor, kathy teixeira for July 22, 2024 2:00pm Mammogram declined July 22, 2024 2:0 0pm Sleep difficulties July 22, 2024 2:0 0pm Constipation July 28, 2024 3:2 3pm Esophagitis July 28, 2024 3:2 3pm Heartburn July 28, 2024 3:2 3pm COPD (chronic obstructive pulmonary dise ase) August 04, 2024 2:15pm Smoking greater than 20 pack years August 04, 2024 2:15pm Bilateral knee pain October 17, 2024 8:47 am Right shoulder strain October 17, 2024 8: 47am Chief Complaint Admit Date J44.9 - Chronic obstructive pulmonary di sease, uns July 11, 2024 1:07pm 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 22, 2024 2: 00pm F17.211 - Nicotine dependence, cigarette s, in kiara July 28, 2024 12:10pm Follow Up Scope July 28, 2024 3:2 3pm F17.211 - Nicotine dependence, cigarette s, in kiara August 01, 2024 12:20pm 6 wk FU August 04, 2024 2:1 5pm shoulder September 15, 2024 8:33p m DISCUSS RA October 17, 2024 8:47 am BACK October 24, 2024 10:4 0am Chief Complaint Admit Date J44.9 - Chronic obstructive pulmonary di sease, uns July 11, 2024 1:07pm 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 22, 2024 2: 00pm F17.211 - Nicotine dependence, cigarette s, in kiara July 28, 2024 12:10pm Follow Up Scope July 28, 2024 3:2 3pm F17.211 - Nicotine dependence, cigarette s, in kiara August 01, 2024 12:20pm 6 wk FU August 04, 2024 2:1 5pm shoulder September 15, 2024 8:33p m DISCUSS RA October 17, 2024 8:47 am BACK October 24, 2024 10:4 0am [facility] ER FU October 30, 2024 9:01 am INT LAB AND XRAY ORDERS October 30, 2024 9:46am Reason for Visit Admit Date Constipation July 16, 2024 10:5 8am Heartburn July 16, 2024 10:5 8am IBS (irritable bowel syndrome) July 10:58am Constipation July 22, 2024 2:0 0pm Heartburn July 22, 2024 2:0 0pm COPD (chronic obstructive pulmonary dise ase) July 22, 2024 2:00pm Encounter for screening exam ination for mental health and behavioral disorders July 22, 2024 2:00pm Immunization declined July 22, 2024 2 :00pm Screening for cardiovascular condition A pril 2024 2:00pm Establishing care with new doctor, kathy teixeira for July 22, 2024 2:00pm Mammogram declined July 22, 2024 2:0 0pm Sleep difficulties July 22, 2024 2:0 0pm Constipation July 28, 2024 3:2 3pm Esophagitis July 28, 2024 3:2 3pm Heartburn July 28, 2024 3:2 3pm COPD (chronic obstructive pulmonary dise ase) August 04, 2024 2:15pm Smoking greater than 20 pack years August 04, 2024 2:15pm Bilateral knee pain October 17, 2024 8:47 am Right shoulder strain October 17, 2024 8: 47am Constipation October 30, 2024 9:01 am Heartburn October 30, 2024 9:01 am COPD (chronic obstructive pulmonary dise ase) October 30, 2024 9:01am Sleep difficulties October 30, 2024 9:01 am Multiple joint pain October 30, 2024 9:01 am Chief Complaint Admit Date J44.9 - Chronic obstructive pulmonary di sease, uns July 11, 2024 1:07pm 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 22, 2024 2: 00pm F17.211 - Nicotine dependence, cigarette s, in kiara July 28, 2024 12:10pm Follow Up Scope July 28, 2024 3:2 3pm F17.211 - Nicotine dependence, cigarette s, in kiara August 01, 2024 12:20pm 6 wk FU August 04, 2024 2:1 5pm shoulder September 15, 2024 8:33p m DISCUSS RA October 17, 2024 8:47 am BACK October 24, 2024 10:4 0am [facility] ER FU October 30, 2024 9:01 am INT LAB AND XRAY ORDERS October 30, 2024 9:46am back November 03, 2024 8:28 pm INTRACTABLE BACK PAIN November 03, 2024 8: 38pm Reason for Visit Admit Date Constipation July 16, 2024 10:5 8am Heartburn July 16, 2024 10:5 8am IBS (irritable bowel syndrome) July 10:58am Constipation July 22, 2024 2:0 0pm Heartburn July 22, 2024 2:0 0pm COPD (chronic obstructive pulmonary dise ase) July 22, 2024 2:00pm Encounter for screening exam ination for mental health and behavioral disorders July 22, 2024 2:00pm Immunization declined July 22, 2024 2 :00pm Screening for cardiovascular condition A pril 2024 2:00pm Establishing care with new doct[place]athy for July 22, 2024 2:00pm Mammogram declined July 22, 2024 2:0 0pm Sleep difficulties July 22, 2024 2:0 0pm Constipation July 28, 2024 3:2 3pm Esophagitis July 28, 2024 3:2 3pm Heartburn July 28, 2024 3:2 3pm COPD (chronic obstructive pulmonary dise ase) August 04, 2024 2:15pm Smoking greater than 20 pack years August 04, 2024 2:15pm Bilateral knee pain October 17, 2024 8:47 am Right shoulder strain October 17, 2024 8: 47am Constipation October 30, 2024 9:01 am Heartburn October 30, 2024 9:01 am COPD (chronic obstructive pulmonary dise ase) October 30, 2024 9:01am Sleep difficulties October 30, 2024 9:01 am Multiple joint pain October 30, 2024 9:01 am Anterolisthesis of lumbar spine October 8:38pm Constipation November 03, 2024 8:38 pm IBS (irritable bowel syndrome) October 8:38pm Intractable back pain November 03, 2024 8: 38pm Unable to ambulate November 03, 2024 8:38 pm COPD (chronic obstructive pulmonary dise ase) November 03, 2024 8:38pm History of COPD November 03, 2024 8:38 pm Smoking greater than 20 pack years November 03, 2024 8:38pm Additional Source Comments INFORMATION SOURCE (unrecogn ized section and content) DATE CREATED AUTHOR 09/10/2019 [facility]erg[facility] with [facility] DATE CREATED AUTHOR AUTHOR'S ORGANIZ ATION 09/11/2019 [facility] DATE CREATED AUTHOR AUTHOR'S ORGANIZ ATION 04/24/2024 [facility] DATE CREATED AUTHOR AUTHOR'S ORGANIZ ATION 11/01/2024 [facility] Source Comments (unrecognize d section and content) In the event this informatio n is protected by the Federal Confidentiality of Alcohol and Drug Abuse Patient Records regulations: The Federal rules restrict any use of the information to criminally investigate or prosecute any alcohol or drug abuse patient.[facility] RehabilitationIn the event this information is protected by the Federal Confidentiality of Alcohol and Drug Abuse Patient Records regulations: The Federal rules restrict any use of the information to criminally investigate or prosecute any alcohol or drug abuse patient.[facility] RehabilitationIn the event this information is protected by the Federal Confidentiality of Alcohol and Drug Abuse Patient Records regulations: The Federal rules restrict any use of the information to criminally investigate or prosecute any alcohol or drug abuse patient.[facility] RehabilitationIn the event this information is protected by the Federal Confidentiality of Alcohol and Drug Abuse Patient Records regulations: The Federal rules restrict any use of the information to criminally investigate or prosecute any alcohol or drug abuse patient.[facility] RehabilitationIn the event this information is protected by the Federal Confidentiality of Alcohol and Drug Abuse Patient Records regulations: The Federal rules restrict any use of the information to criminally investigate or prosecute any alcohol or drug abuse patient.[facility] RehabilitationIn the event this information is protected by the Federal Confidentiality of Alcohol and Drug Abuse Patient Records regulations: The Federal rules restrict any use of the information to criminally investigate or prosecute any alcohol or drug abuse patient.[facility] RehabilitationIn the event this information is protected by the Federal Confidentiality of Alcohol and Drug Abuse Patient Records regulations: The Federal rules restrict any use of the information to criminally investigate or prosecute any alcohol or drug abuse patient.[facility] RehabilitationIn the event this information is protected by the Federal Confidentiality of Alcohol and Drug Abuse Patient Records regulations: The Federal rules restrict any use of the information to criminally investigate or prosecute any alcohol or drug abuse patient.[facility] RehabilitationIn the event this information is protected by the Federal Confidentiality of Alcohol and Drug Abuse Patient Records regulations: The Federal rules restrict any use of the information to criminally investigate or prosecute any alcohol or drug abuse patient.[facility] RehabilitationIn the event this information is protected by the Federal Confidentiality of Alcohol and Drug Abuse Patient Records regulations: The Federal rules restrict any use of the information to criminally investigate or prosecute any alcohol or drug abuse patient.[facility] RehabilitationIn the event this information is protected by the Federal Confidentiality of Alcohol and Drug Abuse Patient Records regulations: The Federal rules restrict any use of the information to criminally investigate or prosecute any alcohol or drug abuse patient.[facility] RehabilitationIn the event this information is protected by the Federal Confidentiality of Alcohol and Drug Abuse Patient Records regulations: The Federal rules restrict any use of the information to criminally investigate or prosecute any alcohol or drug abuse patient.[facility] RehabilitationIn the event this information is protected by the Federal Confidentiality of Alcohol and Drug Abuse Patient Records regulations: The Federal rules restrict any use of the information to criminally investigate or prosecute any alcohol or drug abuse patient.[facility] RehabilitationIn the event this information is protected by the Federal Confidentiality of Alcohol and Drug Abuse Patient Records regulations: The Federal rules restrict any use of the information to criminally investigate or prosecute any alcohol or drug abuse patient.[facility] RehabilitationIn the event this information is protected by the Federal Confidentiality of Alcohol and Drug Abuse Patient Records regulations: The Federal rules restrict any use of the information to criminally investigate or prosecute any alcohol or drug abuse patient.[facility] RehabilitationIn the event this information is protected by the Federal Confidentiality of Alcohol and Drug Abuse Patient Records regulations: The Federal rules restrict any use of the information to criminally investigate or prosecute any alcohol or drug abuse patient.[facility] RehabilitationIn the event this information is protected by the Federal Confidentiality of Alcohol and Drug Abuse Patient Records regulations: The Federal rules restrict any use of the information to criminally investigate or prosecute any alcohol or drug abuse patient.[facility] RehabilitationIn the event this information is protected by the Federal Confidentiality of Alcohol and Drug Abuse Patient Records regulations: The Federal rules restrict any use of the information to criminally investigate or prosecute any alcohol or drug abuse patient.[facility] RehabilitationIn the event this information is protected by the Federal Confidentiality of Alcohol and Drug Abuse Patient Records regulations: The Federal rules restrict any use of the information to criminally investigate or prosecute any alcohol or drug abuse patient.[facility] RehabilitationIn the event this information is protected by the Federal Confidentiality of Alcohol and Drug Abuse Patient Records regulations: The Federal rules restrict any use of the information to criminally investigate or prosecute any alcohol or drug abuse patient.[facility] RehabilitationIn the event this information is protected by the Federal Confidentiality of Alcohol and Drug Abuse Patient Records regulations: The Federal rules restrict any use of the information to criminally investigate or prosecute any alcohol or drug abuse patient.[facility] RehabilitationIn the event this information is protected by the Federal Confidentiality of Alcohol and Drug Abuse Patient Records regulations: The Federal rules restrict any use of the information to criminally investigate or prosecute any alcohol or drug abuse patient.[facility] RehabilitationIn the event this information is protected by the Federal Confidentiality of Alcohol and Drug Abuse Patient Records regulations: The Federal rules restrict any use of the information to criminally investigate or prosecute any alcohol or drug abuse patient.[facility] RehabilitationIn the event this information is protected by the Federal Confidentiality of Alcohol and Drug Abuse Patient Records regulations: The Federal rules restrict any use of the information to criminally investigate or prosecute any alcohol or drug abuse patient.[facility] RehabilitationIn the event this information is protected by the Federal Confidentiality of Alcohol and Drug Abuse Patient Records regulations: The Federal rules restrict any use of the information to criminally investigate or prosecute any alcohol or drug abuse patient.[facility] RehabilitationIn the event this information is protected by the Federal Confidentiality of Alcohol and Drug Abuse Patient Records regulations: The Federal rules restrict any use of the information to criminally investigate or prosecute any alcohol or drug abuse patient.[facility] RehabilitationIn the event this information is protected by the Federal Confidentiality of Alcohol and Drug Abuse Patient Records regulations: The Federal rules restrict any use of the information to criminally investigate or prosecute any alcohol or drug abuse patient.[facility] RehabilitationIn the event this information is protected by the Federal Confidentiality of Alcohol and Drug Abuse Patient Records regulations: The Federal rules restrict any use of the information to criminally investigate or prosecute any alcohol or drug abuse patient.[facility] RehabilitationIn the event this information is protected by the Federal Confidentiality of Alcohol and Drug Abuse Patient Records regulations: The Federal rules restrict any use of the information to criminally investigate or prosecute any alcohol or drug abuse patient.[facility] RehabilitationIn the event this information is protected by the Federal Confidentiality of Alcohol and Drug Abuse Patient Records regulations: The Federal rules restrict any use of the information to criminally investigate or prosecute any alcohol or drug abuse patient.[facility] RehabilitationIn the event this information is protected by the Federal Confidentiality of Alcohol and Drug Abuse Patient Records regulations: The Federal rules restrict any use of the information to criminally investigate or prosecute any alcohol or drug abuse patient.[facility] Reason for Visit (unrecogniz ed section and content) Reason Comments Right Knee Pain Specialty Diagnoses / Procedures Referred By Contac t Referred To Contact Family Practice / FAMILY MEDICINE Diagnoses Huerta's cyst bakers cyst right knee more painful was in [facility] ER about a month ago, ultrasound neg for clot Procedures OFFICE/OUTPATIENT ESTABLISHED MOD MDM 30-39 MIN 4C EST Self Antonieta Sarmiento PA-C [address] [place] [address] Referral ID Status Reason Start Date Expiration Date Visits Re quested Visits Authorized [id number] Closed 08/29/2021 09/25/2021 1 1 Reason Comments Well Woman Specialty Diagnoses / Procedures Referred By Contac t Referred To Contact Gynecology Diagnoses Screening for cervical cancer Procedures CONSULT TO GYNECOLOGY OFFICE/OUTPATIENT NEW HIGH MDM 60-74 MINUTES Antonieta Sarmiento PA-C [address] [place] [address] Referral ID Status Reason Start Date Expiration Date Visits Requested Visits Authorized [id number] Pending Review PCP Requested Referral Auto-Generate d Referral 08/29/2021 08/29/2022 1 1 Reason Comments Covid Follow Up Specialty Diagnoses / Procedures Referred By Contac t Referred To Contact Family Practice / FAMILY MEDICINE Diagnoses positive covid 12/21, would like to discuss symptom management and medications for treatment Procedures VIDEO PRIMARY EST Antonieta Sarmiento PA-C [address] [place] [address] Steve Restrepo MD [address] [place] [address] Referral ID Status Reason Start Date Expiration Date Visits Re quested Visits Authorized [id number] Closed 12/26/2021 04/08/2022 1 1 Reason Comments Patient Request Reason Comments Arm Injury Right Specialty Diagnoses / Procedures Referred By Contac t Referred To Contact Family Medicine / FAMILY MEDICINE Diagnoses Arm injury, right, initial encounter 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 Procedures 4C EST Self Antonieta Sarmiento PA-C [address] [place] [id number] Referral ID Status Reason Start Date Expiration Date Visits Re quested Visits Authorized [id number] Closed 06/12/2022 04/08/2023 1 1 Reason Onset Date Comments Refill Request 06/14/2022 Reason Comments Appointment Orders Reason Onset Date Comments Refill Request 07/31/2022 Reason Comments Cough Cough and congestion x several months Specialty Diagnoses / Procedures Referred By Contac t Referred To Contact Internal Medicine / [facility] Diagnoses congestion, cough Procedures EST SAME DAY Self Scot Hilton, NURSE MONITORING.BISCUIT PACKER [address] [place] [address] Referral ID Status Reason Start Date Expiration Date Visits Re quested Visits Authorized [id number] Closed 08/23/2022 04/08/2023 1 1 Reason Comments Patient Update requesting medicatio n Reason Comments Recheck Follow up from appt with provider last week for cough/congestion; finished atb, not feeling any better Specialty Diagnoses / Procedures Referred By Contac t Referred To Contact Family Medicine / FAMILY MEDICINE Diagnoses Cough/congestion, Patient finished ATB Procedures 4C EST Self Chasity Hernandez, NURSE MONITORING.BISCUIT PACKER [address] [place] [address] Referral ID Status Reason Start Date Expiration Date Visits Re quested Visits Authorized [id number] Closed 09/06/2022 12/05/2022 1 1 Reason Comments Spirometry Specialty Diagnoses / Procedures Referred By Contac t Referred To Contact Pulmonary Disease / PULMONARY MEDICINE Diagnoses Wheezing [R06.2] Procedures SPIROMETRY TC SPIROMETRY-BASE AND POST DIL Chasity Hernandez APRN.BISCUIT PACKER [address] [place] [address] Wstr, Pulm Lab [facility] [address] [place] [address] Referral ID Status Reason Start Date Expiration Date Visits Re quested Visits Authorized [id number] Closed 11/10/2022 04/08/2023 1 1 Specialty Diagnoses / Procedures Referred By Contac t Referred To Contact Pulmonary Disease / PULMONARY MEDICINE Diagnoses Wheezing Wheezing [R06.2] Procedures NITRIC OXIDE GAS DETERMINATION NITRIC OXIDE, EXHALED Chasity Hernandez, SAMARA.BISCUIT PACKER [address] [place] [address] Wstr, Pulm Lab [facility] [address] [place] [address] Referral ID Status Reason Start Date Expiration Date Visits Re quested Visits Authorized [id number] Closed 11/10/2022 04/08/2023 1 1 Reason Comments New Patient Wheezing Specialty Diagnoses / Procedures Referred By Contac t Referred To Contact Pulmonary and Critical Care Medicine / PULMONARY MEDICINE Diagnoses Wheezing Wheezing [R06.2] Procedures OFFICE/OUTPATIENT NEW MODERATE MDM 45-59 MINUTES RI NEW ASTHMA Chasity Hernandez APRN.BISCUIT PACKER [address] [place] [address] Aviva Valdivia MD [address] [place] [address] Referral ID Status Reason Start Date Expiration Date Visits Re quested Visits Authorized [id number] Closed 11/10/2022 04/08/2023 1 1 Reason Comments Established Patient 4 month follow up Specialty Diagnoses / Procedures Referred By Contac t Referred To Contact Pulmonary and Critical Care Medicine / PULMONARY MEDICINE Diagnoses Wheezing 4 MTH F/U WHEEZING Procedures [facility] [address] Self Toya Mukherjee PA-C [address] [place] [address] Referral ID Status Reason Start Date Expiration Date Visits Re quested Visits Authorized [id number] Closed 03/12/2023 04/08/2023 1 1 Reason Onset Date Comments Refill Request 05/22/2023 Reason Onset Date Comments Refill Request 06/01/2023 Reason Comments Back Pain back pain Specialty Diagnoses / Procedures Referred By [facility] Referred To Contact FAMILY MEDICINE Diagnoses Follow up Procedures Follow up Antonieta Sarmiento PA-C [address] [place] [address] [facility] [address] [place] [address] Referral ID Status Reason Start Date Expiration Date V isits Requested Visits Authorized [id number] Denied Financial Clearance Required - Self Pay Financial Clearance Required - OON Payor OON/Self Pay Override Patient Cleared - Admin/Plant Protection Officer /Director advise to proceed or did not respond 01/01/2024 03/30/2024 3 0 Reason Onset Date Comments Refill Request 01/19/2024 Reason Comments Chest Congestion cough, chills, diarr hea and headache x 6 days Reason Comments Appointment Patient Update Reason Comments cough had with pneumonia felt something in lower grion area Specialty Diagnoses / Procedures [facility] Diagnoses Black and Blue groin since 04/11/24, felt something burst when when coughing. See TE 04/21/24 Procedures [facility] Medicine Self Steve Restrepo MD [address] [place] [address] Referral ID Status Reason Start Date Expiration Date Visits Requested Visits Authorized [id number] Pending Review Financial Clearance Required - OON Payor OON Notification Letter Patient cleared - OON Required Payment Collected 07/20/2024 1 1 Reason Comments Refill Request Care Teams (unrecognized sec tion and content) Carpet Renovator Relationship Specialty Start Date End Date Antonieta Sarmiento PA-C [address] [place] [address] PCP - General Family Practice 10/07/19 Carpet Renovator Relationship Specialty Start Date End Date Antonieta Sarmiento PA-C [address] [place] [address] PCP - General Family Practice 10/07/19 Carpet Renovator Relationship Specialty Start Date End Date Antonieta Sarmiento PA-C [address] [place] [address] PCP - General Family Practice 10/07/19 Carpet Renovator Relationship Specialty Start Date End Date Antonieta Sarmiento PA-C [address] [place] [address] PCP - General Family Medicine 10/07/19 Carpet Renovator Relationship Specialty Start Date End Date Antonieta Sarmiento PA-C [address] [place] [address] PCP - General Family Medicine 10/07/19 Carpet Renovator Relationship Specialty Start Date End Date Antonieta Sarmiento PA-C [address] [place] [address] PCP - General Family Medicine 10/07/19 Carpet Renovator Relationship Specialty Start Date End Date Antonieta Sarmiento PA-C [address] [place] [address] PCP - General Family Medicine 10/07/19 Carpet Renovator Relationship Specialty Start Date End Date Antonieta Sarmiento PA-C [address] [place] [address] PCP - General Family Medicine 10/07/19 Carpet Renovator Relationship Specialty Start Date End Date Antonieta Sarmiento PA-C [address] [place] [address] PCP - General Family Medicine 10/07/19 Carpet Renovator Relationship Specialty Start Date End Date Antonieta Sarmiento PA-C [address] [place] [address] PCP - General Family Medicine 10/07/19 Carpet Renovator Relationship Specialty Start Date End Date Antonieta Sarmiento PA-C [address] [place] [address] PCP - General Family Medicine 10/07/19 Carpet Renovator Relationship Specialty Start Date End Date Antonieta Sarmiento PA-C [address] [place] [address] PCP - General Family Medicine 10/07/19 Carpet Renovator Relationship Specialty Start Date End Date Antonieta Sarmiento PA-C [address] [place] [address] PCP - General Family Medicine 10/07/19 Carpet Renovator Relationship Specialty Start Date End Date Antonieta Sarmiento PA-C [address] [place] [address] PCP - General Family Medicine 10/07/19 Carpet Renovator Relationship Specialty Start Date End Date Antonieta Sarmiento PA-C [address] [place] [address] PCP - General Family Medicine 10/07/19 Carpet Renovator Relationship Specialty Start Date End Date Antonieta Sarmiento PA-C [address] [place] [address] PCP - General Family Medicine 10/07/19 Carpet Renovator Relationship Specialty Start Date End Date Antonieta Sarmiento PA-C [address] [place] [address] PCP - General Family Medicine 10/07/19 Carpet Renovator Relationship Specialty Start Date End Date Antonieta Sarmiento PA-C [address] [place] [address] PCP - General Family Medicine 10/07/19 Carpet Renovator Relationship Specialty Start Date End Date Antonieta Sarmiento PA-C [address] [place] [address] PCP - General Family Medicine 10/07/19 Carpet Renovator Relationship Specialty Start Date End Date Antonieta Sarmiento PA-C [address] [place] [address] PCP - General Family Medicine 10/07/19 Carpet Renovator Relationship Specialty Start Date End Date Antonieta Sarmiento PA-C [address] [place] [address] PCP - General Family Medicine 10/07/19 Carpet Renovator Relationship Specialty Start Date End Date Antonieta Sarmiento PA-C [address] [place] [address] PCP - General Family Medicine 10/07/19 Carpet Renovator Relationship Specialty Start Date End Date Antonieta Sarmiento PA-C [address] [place] [address] PCP - General Family Medicine 10/07/19 Carpet Renovator Relationship Specialty Start Date End Date Antonieta Sarmiento PA-C [address] [place] [address] PCP - General Family Medicine 10/07/19 Carpet Renovator Relationship Specialty Start Date End Date Antonieta Sarmiento PA-C [address] [place] [address] PCP - General Family Medicine 10/07/19 Carpet Renovator Relationship Specialty Start Date End Date Chsaity Hernandez, NURSE MONITORING.BISCUIT PACKER [address] [facility] [place] [address] PCP - General Family Medicine 04/15/24 Chasity Hernandez, NURSE MONITORING.BISCUIT PACKER [address] [facility] [place] [address] Cast Shell Grinder Family Medicine 03/14/24 Tarsha Arita, NURSE MONITORING.BISCUIT PACKER [address] [place] [address] Cast Shell Grinder Family Medicine 03/14/24 Carpet Renovator Relationship Specialty Start Date End Date PcpYessi, NURSE MONITORING PCP - General Adult Health 04/21/24 Chasity Hernandez, NURSE MONITORING.BISCUIT PACKER [address] [facility] [place] [address] Cast Shell Grinder Family Medicine 03/14/24 Tarsha Arita, NURSE MONITORING.BISCUIT PACKER [address] [place] [address] Cast Shell Grinder Family Medicine 03/14/24 Carpet Renovator Relationship Specialty Start Date End Date Pcp, Yessi, NURSE MONITORING PCP - General Adult Health 04/21/24 Chasity Hernandez, NURSE MONITORING.BISCUIT PACKER [address] [facility] [place] [address] Cast Shell Grinder Family Medicine 03/14/24 Tarsha Arita, NURSE MONITORING.BISCUIT PACKER [address] [place] [address] [facility] 03/14/24 Carpet Renovator Relationship Specialty Start Date End Date Pcp, Yessi, NURSE MONITORING PCP - General Adult Health 04/21/24 11/06/24 Chasity Hernandez, NURSE MONITORING.BISCUIT PACKER [address] [place] [address] [facility] 03/14/24 Tarsha Arita, NURSE MONITORING.BISCUIT PACKER [address] [place] [address] [facility] 03/14/24 Team Status: Active Member Role Status Dates No Primary Care Physician Primary Care Provider Active Team Status: Inactive Member Role Status Dates GALDINO Machuca Primary Care Provider Active Start: April 21, 2024 End: April 21, 2024 Xander Zazueta MD Attending Provider Active Star t: April 21, 2024 End: April 21, 2024 Xander Zazueta MD Emergency Provider Active Star t: April 21, 2024 End: April 21, 2024 Team Status: Inactive Member Role Status Dates GALDINO Machuca Primary Care Provider Active Start: May 15, 2024 End: May 15, 2024 GALDINO Machuca Referring Provider Active Start: May 15, 2024 End: May 15, 2024 KHAI Villafana Attending Provider Active Start: May 15, 2024 End: May 15, 2024 Team Status: Inactive Member Role Status Dates No Primary Care Physician Primary Care Provider Active Start: May 15, 2024 End: May 15, 2024 Dr. Mukund Ovalles , DO Attending Provider Activ e Start: May 15, 2024 End: May 15, 2024 Dr. Mukund Ovalles , DO Emergency Provider Activ e Start: May 15, 2024 End: May 15, 2024 Team Status: Inactive Member Role Status Dates No Primary Care Physician Primary Care Provider Active Start: May 19, 2024 End: May 19, 2024 KHAI Villafana Attending Provider Active Start: May 19, 2024 End: May 19, 2024 KHAI Villafana Referring Provider Active Start: May 19, 2024 End: May 19, 2024 Team Status: Inactive Member Role Status Dates No Primary Care Physician Primary Care Provider Active Start: May 21, 2024 End: May 21, 2024 KHAI Villafana Attending Provider Active Start: May 21, 2024 End: May 21, 2024 MARYANN VillafanaC Referring Provider Active Start: May 21, 2024 End: May 21, 2024 Team Status: Inactive Member Role Status Dates No Primary Care Physician Primary Care Provider Active Start: June 10, 2024 End: June 10, 2024 Dr. Rg Farfan DO Attending Provider Active Start: June 10, 2024 End: June 10, 2024 Dr. Rg Farfan DO Emergency Provider Active Start: June 10, 2024 End: June 10, 2024 Team Status: Inactive Member Role Status Dates No Primary Care Physician Primary Care Provider Active Start: June 19, 2024 End: June 19, 2024 No Primary Care Physician Referring Provider Active Start: June 19, 2024 End: June 19, 2024 Dr. Hoang Valdivia , Attending Provider Active S tart: June 19, 2024 End: June 19, 2024 Team Status: Active Member Role Status Dates No Primary Care Physician Primary Care Provider Active Start: July 11, 2024 Dr. Hoang Valdivia DO Attending Provider Active S tart: July 11, 2024 Dr. Hoang Valdivia , Referring Provider Active S tart: July 11, 2024 Team Status: Inactive Member Role Status Dates No Primary Care Physician Primary Care Provider Active Start: July 16, 2024 End: July 16, 2024 No Primary Care Physician Referring Provider Active Start: July 16, 2024 End: July 16, 2024 Dr. Gold Palomino DO Attending Provider Active Start: July 16, 2024 End: July 16, 2024 Team Status: Active Member Role Status Dates No Primary Care Physician Primary Care Provider Active Start: July 16, 2024 No Primary Care Physician Referring Provider Active Start: July 16, 2024 Dr. Gold Palomino DO Attending Provider Active Start: July 16, 2024 Dr. Gold Palomino DO Other Provider Active St art: July 16, 2024 Team Status: Inactive Member Role Status Dates No Primary Care Physician Primary Care Provider Active Start: July 11, 2024 End: July 11, 2024 Dr. Hoang Valdivia , Attending Provider Active S tart: July 11, 2024 End: July 11, 2024 Dr. Hoang Valdivia , Referring Provider Active S tart: July 11, 2024 End: July 11, 2024 Team Status: Inactive Member Role Status Dates No Primary Care Physician Primary Care Provider Active Start: July 22, 2024 End: July 22, 2024 No Primary Care Physician Referring Provider Active Start: July 22, 2024 End: July 22, 2024 Dr. Katie Ordaz MD Attending Provider Active Start: July 22, 2024 End: July 22, 2024 Team Status: Inactive Member Role Status Dates No Primary Care Physician Primary Care Provider Active Start: July 28, 2024 End: July 28, 2024 Dr. Hoang Valdivia , Attending Provider Active S tart: July 28, 2024 End: July 28, 2024 Dr. Hoang Valdivia , Referring Provider Active S tart: July 28, 2024 End: July 28, 2024 Team Status: Inactive Member Role Status Dates Antonieta AHMADI PA Referring Provider Active Start: July 28, 2024 End: July 28, 2024 MARYANN VillafanaC Attending Provider Active Start: July 28, 2024 End: July 28, 2024 No Primary Care Physician Primary Care Provider Active Start: July 28, 2024 End: July 28, 2024 Team Status: Active Member Role Status Dates No Primary Care Physician Primary Care Provider Active Start: August 01, 2024 Dr. Hoang Valdivia , Attending Provider Active S tart: August 01, 2024 Dr. Hoang Valdivia , Referring Provider Active S tart: August 01, 2024 Dr. Hoang Valdivia , DO Other Provider Active Start : August 01, 2024 Team Status: Inactive Member Role Status Dates No Primary Care Physician Primary Care Provider Active Start: August 04, 2024 End: August 04, 2024 No Primary Care Physician Referring Provider Active Start: August 04, 2024 End: August 04, 2024 Blanca Pierre NP ROADABILITY MACHINE OPERATOR-C Attending Provider Active Start: August 04, 2024 End: August 04, 2024 Team Status: Inactive Member Role Status Dates No Primary Care Physician Primary Care Provider Active Start: September 15, 2024 End: September 15, 2024 Dr. Curtis Rosas , Emergency Provider Active Start: September 15, 2024 End: September 15, 2024 Team Status: Active Member Role/Relationship Status Dates Dr. Katie Ordaz MD Primary Care Provider Active Team Status: Inactive Member Role/Relationship Status Dates No Primary Care Physician Primary Care Provider Active Start: June 19, 2024 End: June 19, 2024 No Primary Care Physician Referring Provider Active Start: June 19, 2024 End: June 19, 2024 Dr. Hoang Valdivia DO Attending Provider Active S tart: June 19, 2024 End: June 19, 2024 Team Status: Inactive Member Role/Relationship Status Dates No Primary Care Physician Primary Care Provider Active Start: July 11, 2024 End: July 11, 2024 Dr. Hoang Valdivia DO Attending Provider Active S tart: July 11, 2024 End: July 11, 2024 Dr. Hoang Valdivia DO Referring Provider Active S tart: July 11, 2024 End: July 11, 2024 Team Status: Inactive Member Role/Relationship Status Dates No Primary Care Physician Primary Care Provider Active Start: July 16, 2024 End: July 16, 2024 No Primary Care Physician Referring Provider Active Start: July 16, 2024 End: July 16, 2024 Dr. Gold Palomino DO Attending Provider Active Start: July 16, 2024 End: July 16, 2024 Team Status: Active Member Role/Relationship Status Dates No Primary Care Physician Primary Care Provider Active Start: July 16, 2024 No Primary Care Physician Referring Provider Active Start: July 16, 2024 Dr. Gold Palomino DO Attending Provider Active Start: July 16, 2024 Dr. Gold Palomino DO Other Provider Active St art: July 16, 2024 Team Status: Inactive Member Role/Relationship Status Dates No Primary Care Physician Primary Care Provider Active Start: July 22, 2024 End: July 22, 2024 No Primary Care Physician Referring Provider Active Start: July 22, 2024 End: July 22, 2024 Dr. Katie Ordaz MD Attending Provider Active Start: July 22, 2024 End: July 22, 2024 Team Status: Inactive Member Role/Relationship Status Dates No Primary Care Physician Primary Care Provider Active Start: July 28, 2024 End: July 28, 2024 Dr. Hoang Valdivia , Attending Provider Active S tart: July 28, 2024 End: July 28, 2024 Dr. Hoang Valdivia , Referring Provider Active S tart: July 28, 2024 End: July 28, 2024 Team Status: Inactive Member Role/Relationship Status Dates Antonieta Sarmiento PA, PA Referring Provider Active Start: July 28, 2024 End: July 28, 2024 Toya Gray ROADABILITY MACHINE OPERATOR-C Attending Provider Active Start: July 28, 2024 End: July 28, 2024 No Primary Care Physician Primary Care Provider Active Start: July 28, 2024 End: July 28, 2024 Team Status: Active Member Role/Relationship Status Dates No Primary Care Physician Primary Care Provider Active Start: August 01, 2024 Dr. Hoang Valdivia , Attending Provider Active S tart: August 01, 2024 Dr. Hoang Valdivia , Referring Provider Active S tart: August 01, 2024 Dr. Hoang Valdivia , Other Provider Active Start : August 01, 2024 Team Status: Inactive Member Role/Relationship Status Dates No Primary Care Physician Primary Care Provider Active Start: August 04, 2024 End: August 04, 2024 No Primary Care Physician Referring Provider Active Start: August 04, 2024 End: August 04, 2024 Blanca Pierre NP, ROADABILITY MACHINE OPERATOR-C Attending Provider Active Start: August 04, 2024 End: August 04, 2024 Team Status: Inactive Member Role/Relationship Status Dates No Primary Care Physician Primary Care Provider Active Start: September 15, 2024 End: September 15, 2024 Dr. Curtis Rosas DO Attending Provider Active Start: September 15, 2024 End: September 15, 2024 Dr. Curtis Rosas DO Emergency Provider Active Start: September 15, 2024 End: September 15, 2024 Team Status: Active Member Role/Relationship Status Dates Dr. Katie Ordaz MD Primary Care Provider Active Start: October 15, 2024 Dr. Katie Ordaz MD Attending Provider Active Start: October 15, 2024 Dr. Katie Ordaz MD Referring Provider Active Start: October 15, 2024 Team Status: Inactive Member Role/Relationship Status Dates Dr. Katie Ordaz MD Primary Care Provider Active Start: October 17, 2024 End: October 17, 2024 Dr. Katie Ordaz MD Referring Provider Active Start: October 17, 2024 End: October 17, 2024 GALDINO Lancaster Attending Provider Active St art: October 17, 2024 End: October 17, 2024 Team Status: Inactive Member Role/Relationship Status Dates No Primary Care Physician Primary Care Provider Active Start: July 11, 2024 End: July 11, 2024 Dr. Hoang Valdivia , Attending Provider Active S tart: July 11, 2024 End: July 11, 2024 Dr. Hoang Valdivia , Referring Provider Active S tart: July 11, 2024 End: July 11, 2024 Team Status: Inactive Member Role/Relationship Status Dates No Primary Care Physician Primary Care Provider Active Start: July 16, 2024 End: July 16, 2024 No Primary Care Physician Referring Provider Active Start: July 16, 2024 End: July 16, 2024 Dr. Gold Palomino , Attending Provider Active Start: July 16, 2024 End: July 16, 2024 Team Status: Active Member Role/Relationship Status Dates No Primary Care Physician Primary Care Provider Active Start: July 16, 2024 No Primary Care Physician Referring Provider Active Start: July 16, 2024 Dr. Gold Palomino DO Attending Provider Active Start: July 16, 2024 Dr. Gold Palomino , DO Other Provider Active St art: July 16, 2024 Team Status: Inactive Member Role/Relationship Status Dates No Primary Care Physician Primary Care Provider Active Start: July 22, 2024 End: July 22, 2024 No Primary Care Physician Referring Provider Active Start: July 22, 2024 End: July 22, 2024 Dr. Katie Ordaz MD Attending Provider Active Start: July 22, 2024 End: July 22, 2024 Team Status: Inactive Member Role/Relationship Status Dates No Primary Care Physician Primary Care Provider Active Start: July 28, 2024 End: July 28, 2024 Dr. Hoang Valdivia , Attending Provider Active S tart: July 28, 2024 End: July 28, 2024 Dr. Hoang Valdivia , Referring Provider Active S tart: July 28, 2024 End: July 28, 2024 Team Status: Inactive Member Role/Relationship Status Dates Antonieta Romulo Sarmiento PA, PA Referring Provider Active Start: July 28, 2024 End: July 28, 2024 Toya Gray NP-C Attending Provider Active Start: July 28, 2024 End: July 28, 2024 No Primary Care Physician Primary Care Provider Active Start: July 28, 2024 End: July 28, 2024 Team Status: Active Member Role/Relationship Status Dates No Primary Care Physician Primary Care Provider Active Start: August 01, 2024 Dr. Hoang Valdivia , DO Attending Provider Active S tart: August 01, 2024 Dr. Hoang Valdivia , DO Referring Provider Active S tart: August 01, 2024 Dr. Hoang Valdivia , DO Other Provider Active Start : August 01, 2024 Team Status: Inactive Member Role/Relationship Status Dates No Primary Care Physician Primary Care Provider Active Start: August 04, 2024 End: August 04, 2024 No Primary Care Physician Referring Provider Active Start: August 04, 2024 End: August 04, 2024 Blanca Pierre NP, ROADABILITY MACHINE OPERATOR-C Attending Provider Active Start: August 04, 2024 End: August 04, 2024 Team Status: Inactive Member Role/Relationship Status Dates No Primary Care Physician Primary Care Provider Active Start: September 15, 2024 End: September 15, 2024 Dr. Curtis Rosas DO Attending Provider Active Start: September 15, 2024 End: September 15, 2024 Dr. Curtis Rosas DO Emergency Provider Active Start: September 15, 2024 End: September 15, 2024 Team Status: Inactive Member Role/Relationship Status Dates Dr. Katie Ordaz MD Primary Care Provider Active Start: October 15, 2024 End: October 15, 2024 Dr. Katie Ordaz MD Attending Provider Active Start: October 15, 2024 End: October 15, 2024 Dr. Katie Ordaz MD Referring Provider Active Start: October 15, 2024 End: October 15, 2024 Team Status: Inactive Member Role/Relationship Status Dates Dr. Katie Ordaz MD Primary Care Provider Active Start: October 17, 2024 End: October 17, 2024 Dr. Katie Ordaz MD Referring Provider Active Start: October 17, 2024 End: October 17, 2024 GALDINO Lancaster Attending Provider Active St art: October 17, 2024 End: October 17, 2024 Team Status: Inactive Member Role/Relationship Status Dates Dr. Katie Ordaz MD Primary Care Provider Active Start: October 24, 2024 End: October 24, 2024 Dr. Mendez Mukherjee MD Emergency Provider Active Start: October 24, 2024 End: October 24, 2024 Team Status: Inactive Member Role/Relationship Status Dates Dr. Katie Ordaz MD Primary Care Provider Active Start: October 24, 2024 End: October 24, 2024 Dr. Mendez Mukherjee MD Attending Provider Active Start: October 24, 2024 End: October 24, 2024 Dr. Mendez Mukherjee MD Emergency Provider Active Start: October 24, 2024 End: October 24, 2024 Team Status: Inactive Member Role/Relationship Status Dates Dr. Katie Ordaz MD Primary Care Provider Active Start: October 30, 2024 End: October 30, 2024 Dr. Katie Ordaz MD Attending Provider Active Start: October 30, 2024 End: October 30, 2024 Dr. Katie Ordaz MD Referring Provider Active Start: October 30, 2024 End: October 30, 2024 Team Status: Active Member Role/Relationship Status Dates Dr. Katie Ordaz MD Primary Care Provider Active Start: October 30, 2024 Dr. Katie Ordaz MD Attending Provider Active Start: October 30, 2024 Dr. Katie Ordaz MD Referring Provider Active Start: October 30, 2024 Team Status: Active Member Role/Relationship Status Dates Dr. Katie Ordaz MD Primary Care Provider Active Start: November 03, 2024 Dr. Minh Novoa DO Emergency Provider Active Start: November 03, 2024 Dr. Román Keys MD Attending Provider Active Start: November 03, 2024 Team Status: Active Member Role/Relationship Status Dates Dr. Katie Ordaz MD Primary Care Provider Active Start: November 03, 2024 Dr. Minh Novoa DO Emergency Provider Active Start: November 03, 2024 Dr. Román Keys MD Admit Provider Active Star t: November 03, 2024 Dr. Román Keys MD Attending Provider Active Start: November 03, 2024 Goals (unrecognized section and content) Goals may be documented in a n alternate section FOR RECORDS PERTAINING TO PATIENTS WHO ARE OR HAVE BEEN ENROLLED IN A CHEMICAL DEPENDENCY/SUBSTANCEABUSE PROGRAM, SOME INFORMATION MAY BE OMITTED. This clinical summary was aggregated from multiple sources. Caution should be exercised in using it in the provision of clinical care. This summary normalizes information from multiple sources, and as a consequence, information in this document may materially change the coding, format and clinical context of patient data. In addition, data may be omitted in some cases. CLINICAL DECISIONS SHOULD BE BASED ON THE PRIMARY CLINICAL RECORDS. [facility] [employer] [facility]. provides no warranty or guarantee of the accuracy or completeness of information in this document.
[2024-11-04] VITALS (7 sets, daily range): BP systolic 116–127; BP diastolic 65–79; PULSE 62–88; RESP 15–20; TEMP 36.6–36.7; O2SAT 96–97
[2024-11-04] MEDS: Albuterol 2.5 MG/3 ML VIAL.NEB. INHALATION ×2 (07:40→19:59)
[2024-11-04] MEDS: Polyethylene Glycol 3350 17 GM PACKET PO (09:06)
--- NOTE | 2024-11-04 10:59 | CON.PCM_ITS ---
Assessment & Plan Assessment/Plan (1) Sacroiliac joint disease: PLAN: Plan Follow up in 1 month Discussed that SI is likely a problem. Improving on prednisone that ws started here. Recommend medrol dose pack. Follow up in 1 week as outpatient Discussed aquatherapy and she is to start stretches and home exercises along with swimming. She is on tylenol 500mg Q6hr, flexeril 10mg TID PRN She is on lovenox 40mg daily subcutaneous. HPI Consult Data Date of Consult: 11/04/24 HPI Narrative Reason for Consultation: Back pain HPI Narrative: YOLY MEANS, is a 64 F who presents with acute severe back pain for a few weeks. Patient has significant past medical history of COPD, tobacco abuse, anxiety, back pain and irritable bowel syndrome. She has had prior lumbar laminectomy several years ago. She says she has had years of pain, but it flared up severely a few weeks ago starting in both legs and low back. The pain worsens significantly with activity such as standing or walking. She says she had trouble standing until today. Today she is able to stand and ambulate. Has been using a walker for support. Overall she says it has been improving. . The pain does not radiate to the lower extremities. It is sharp in nature. It can be 10/10 in severity. She had xray of lumbar spine and ct of abdomen/pelvis showing mild grade I anteriolisthesis of L4 on L5 with bilateral pars defects of L4. No acute fractures or compression deformities. Hip/pelvis xr: no evidence of fracture. Some hip OA. Patient denies history of IV drug abuse. [facility] Medical History Wears glasses Anxiety Marijuana use Former smoker Shortness of breath on exertion COPD (chronic obstructive pulmonary disease) Pneumonia Home Medications ?Medication ?Instructions ?Recorded ?Last Taken ?Type pantoprazole 40 mg tablet,delayed 40 mg PO QDAY esopha gitis #90 tabs 07/28/24 Unknown Rx release albuterol sulfate 90 mcg/actuation 2 puff inhalation Q 4H PRN PRN 08/04/24 Unknown Rx aerosol inhaler (Ventolin HFA) Wheezing ##1 mometasone-formoterol HFA 100 2 puff inhalation BID so b #8.8 08/04/24 Unknown Rx mcg-5 mcg/actuation aerosol grams inhaler (Dulera) meloxicam 15 mg tablet 15 mg PO QDAY #30 tabs 10/17 Unknown Rx atorvastatin 10 mg tablet (Lipitor) 10 mg PO QHS hld # 30 tabs 10/19/24 Unknown Rx cyclobenzaprine 5 mg tablet 5 mg PO TID pain #30 tabs 10/30/24 Unknown Rx Allergy/AdvReac Type Severity Reaction Status Date / Time bacitracin (From Neosporin Allergy Rash Verified 11/03/24 13:44 ([id number])) neomycin (From Neosporin Allergy Rash Verified 11/03/24 13:44 ([id number])) Penicillins Allergy Hives Verified 11/03/24 13:44 polymyxin B (From Neosporin Allergy Rash Verified 11/03/24 13:44 ([id number])) egg (eggs) AdvReac Abd Verified 11/03/24 13:44 cramps/diarrhea Food Allergies: Uncoded AdvReac Abd Verified 11/03/24 13:44 cramps/diarrhea Family History Father Alcohol abuse Arthritis Cancer LARYNGEAL COPD (chronic obstructive pulmonary disease) Mother Osteoporosis Surgical History History of colonoscopy , tubal with rupture History of back surgery Social History household members: significant other housing: house current occupational status: employed 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 and [employer] Smoking Status: Former smoker quit date: 04/09/24 pack-years: 23 alcohol intake: current alcohol intake frequency: holidays/special occasions only substance use type: marijuana frequency: daily do you feel safe at home: Yes Physical Exam Narrative Lumbar paraspinal tenderness + bilaterally Facet load + bilaterally SLR - bilaterally Left Si tenderness + Si provocative maneuvers + on the left (fabers, gaenslens, compression) Hip provocative maneuvers negative Const alert and oriented x3 Lab / Micro Data 11/03/24 16:24 11/03/24 16:24 Labs: Laboratory Results - last 24 hr 11/03/24 16:24: WBC 11.5 H, RBC 5.34, Hgb 15.0, Hct 46.3, MCV 86.7, MCH 28.1, MCHC 32.4, RDW Std Deviation 45.0 H, RDW Coeff of Jaswant 14.1, Plt Count 362, MPV 9.8, Immature Gran % (Auto) 0.700, Neut % (Auto) 73.5 H, Lymph % (Auto) 18.4 L, [place] % (Auto) 6.8, Eos % (Auto) 0.3, Baso % (Auto) 0.3, Absolute Neuts (auto) 8.5 H, Absolute Lymphs (auto) 2.12, Nucleated RBC % 0, Sodium 137, Potassium 4.5, Chloride 102, Carbon Dioxide 20.1 L, Anion Gap 16 H, BUN 15, Creatinine 0.71, Estim Creat Clear Calc 99.09, Est GFR (MDRD) Non-Af 96, BUN/Creatinine Ratio 20.7 H, Glucose 91, Calcium 9.5, Total Bilirubin 0.34, AST 21, ALT 14, Alkaline Phosphatase 61, Total Protein 7.5, Albumin 4.2, Globulin 3.3, Albumin/Globulin Ratio 1.3, Lipase 18 11/03/24 18:11: Urine Color Straw, Urine Clarity Clear, Urine pH 7.0, Ur Specific [place] 1.010, Urine Protein Negative, Urine Glucose (UA) Normal, Urine Ketones Negative, Urine Occult Blood Negative, Urine Nitrite Negative, Urine Bilirubin Negative, Urine Urobilinogen Normal, Ur Leukocyte Esterase Negative, Urine RBC 0-5 SEEN, Urine WBC 0-5 SEEN, Ur Squamous Epith Cells 0 SEEN, Urine Bacteria 0 SEEN, Urine Mucus 0 SEEN Imaging Radiology Impression Abdomen/Pelvis CT 11/03/24 16:37 IMPRESSION: No acute intra-abdominal process. Stable mild grade I anteriolisthesis of L4 on L5 with bilateral pars defects of L4. No acute fractures or compression deformities. Reading Location: [facility]
--- NOTE | 2024-11-04 14:12 | PN_ITS ---
Subjective Subjective Patient seen and examined. She complained of chronic back pain which is worsening. Review of systems is otherwise negative. She is asking for pain management consult. Objective Data Objective Data Vital Signs: Vital Signs Temp Pulse Resp BP Pulse Ox O2 Del Method 97.8 F 76 18 116/65 96 Room Air 11/04/24 08:54 11/04/24 08:54 11/04/24 08:54 11/04/24 08:54 11/04/24 08:54 11/04/24 08:56 Oxygen Delivery Method Room Air Weight: 197 lb 5.019 oz Body Mass Index (BMI) 28.3 Intake & Output: Intake and Output for Last 24 Hours 11/02/24 11/03/24 11/04/24 23:59 23:59 23:59 Intake Total 1000 / 1000 200 / 200 Balance 1000 / 1000 200 / 200 Lab / Micro Data 11/03/24 16:24 11/03/24 16:24 Labs: Laboratory Results - last 24 hr 11/03/24 16:24: WBC 11.5 H, RBC 5.34, Hgb 15.0, Hct 46.3, MCV 86.7, MCH 28.1, MCHC 32.4, RDW Std Deviation 45.0 H, RDW Coeff of Jaswant 14.1, Plt Count 362, MPV 9.8, Immature Gran % (Auto) 0.700, Neut % (Auto) 73.5 H, Lymph % (Auto) 18.4 L, [place] % (Auto) 6.8, Eos % (Auto) 0.3, Baso % (Auto) 0.3, Absolute Neuts (auto) 8.5 H, Absolute Lymphs (auto) 2.12, Nucleated RBC % 0, Sodium 137, Potassium 4.5, Chloride 102, Carbon Dioxide 20.1 L, Anion Gap 16 H, BUN 15, Creatinine 0.71, Estim Creat Clear Calc 99.09, Est GFR (MDRD) Non-Af 96, BUN/Creatinine Ratio 20.7 H, Glucose 91, Calcium 9.5, Total Bilirubin 0.34, AST 21, ALT 14, Alkaline Phosphatase 61, Total Protein 7.5, Albumin 4.2, Globulin 3.3, Albumin/Globulin Ratio 1.3, Lipase 18 11/03/24 18:11: Urine Color Straw, Urine Clarity Clear, Urine pH 7.0, Ur Specific [place] 1.010, Urine Protein Negative, Urine Glucose (UA) Normal, Urine Ketones Negative, Urine Occult Blood Negative, Urine Nitrite Negative, Urine Bilirubin Negative, Urine Urobilinogen Normal, Ur Leukocyte Esterase Negative, Urine RBC 0-5 SEEN, Urine WBC 0-5 SEEN, Ur Squamous Epith Cells 0 SEEN, Urine Bacteria 0 SEEN, Urine Mucus 0 SEEN Radiography Diagnostic Testing: Radiology Impression Abdomen/Pelvis CT 11/03/24 16:37 IMPRESSION: No acute intra-abdominal process. Stable mild grade I anteriolisthesis of L4 on L5 with bilateral pars defects of L4. No acute fractures or compression deformities. Reading Location: [facility] Physical Exam Const alert Constitutional Narrative: patient in discomfort due to pain. HEENT normocephalic, head/scalp atraumatic, moist oral mucous membranes and oropharynx normal Eyes PERRL Neck no lymphadenopathy and supple Lymph Lymphatic: no lymphedema noted Resp normal respiratory effort, normal air movement and clear to auscultation bilaterally Cardio regular rate, regular rhythm, S1 normal heart sound, S2 normal heart sound and no murmurs GI normal to inspection, nondistended, normoactive bowel sounds, soft to palpation, non-tender and non-distended Extremity normal capillary refill General Extremity: no tenderness to palpation of joints or extremities Skin General Skin Exam: no breakdown Neuro CN's II-XII intact bilaterally and no focal motor deficits Motor Exam: general weakness Psych thought process normal, cooperative and affect normal Appearance: appropriate Assessment & Plan Assessment/Plan (1) Right shoulder strain: QUALIFIERS: Encounter type: initial encounter Qualified Code(s): S46.911A - Strain of unspecified muscle, fascia and tendon at shoulder and upper arm level, right arm, initial encounter (2) Intractable back pain: PLAN: Plan #Debility and weakness due to Intractable back pain * on dilaudid for pain * imaging showed: * on prednisone and cyclobenzaprine * pain management consulted * PT/OT On board. * fall precautions * #Irritable bowel syndrome: stable. #Constipation: on miralax prn #History of COPD and smoking: #Hyperlipidemia: on statin DVT prophylaxis: lovenox Charges/Coding Visit Charges Inpatient E&M: 74937 Subs Hosp L2
[2024-11-05 04:00] VITALS: BP 111/68; PULSE 68; RESP 15; TEMP 36.8; O2SAT 98
[2024-11-05 06:26] LABS: Hematocrit 40.8 % (37-47); Hemoglobin 13.8 g/dL (12.0-15.0); Immature Granulocytes Count 0.050 X10^3/uL (0.0-0.0); Mean Corp Hgb Conc 33.8 g/dL (32-36); Mean Corpuscular Volume 86.8 fL (81-99); Mean Platelet Vol. 9.4 fl (6.2-12.0); NRBC Flagged by Analyzer 0 % (0-5); Platelet Count 282 K/mm3 (150-450); RBC Distribution Width CV 13.9 % (11.6-14.6); RBC Distribution Width SD 44.8 fl (35.1-43.9); Red Blood Count 4.70 M/mm3 (4.2-5.4); White Blood Count 9.3 K/mm3 (4.4-11.0)
[2024-11-05 06:55] VITALS: O2SAT 93
[2024-11-05 06:55] LABS: Anion Gap 12 (5-15); BUN 16 mg/dL (4-19); BUN/Creat Ratio 23.9 RATIO (10-20); Calcium,Total 8.9 mg/dL (7.6-11.0); Carbon Dioxide 21.7 mmol/L (21.0-32.0); Chloride 103 mmol/L (98-108); Estimated Creatinine Clearance 105.69 ml/min (50-250); Glucose 98 mg/dL (70-99); Potassium 3.7 mmol/L (3.3-5.1)
[2024-11-05 07:49] VITALS: BP 127/72; PULSE 72; RESP 18; TEMP 36.6; O2SAT 98
[2024-11-05] MEDS: Polyethylene Glycol 3350 17 GM PACKET PO (07:55)
--- NOTE | 2024-11-05 10:12 | DCINST_ITS ---
Discharge Instructions DC O2, CPAP, BIPAP needs Home O2 Discharge instructions: No Dressing / Incision Discharge Activity: Return to Normal Activity Weight Bearing Status: Weight bearing as tolerated Dressing / Incision Call your doctor if you observe: Fever of 101 or Higher, Shortness of breath, Dizziness, Swelling in the ankles and Chest pain Follow Up Care Test Results: Test results from this visit will be discussed in further detail at your follow- up appointment, if applicable. Discharge Plan Admission Admit Date/Time: 11/03/24 20:38 Primary Reason for Your Visit: intractable back pain Attending Provider: Cleopatra Pappas Primary Care Provider: Katie Ordaz Consulting Providers: Román Keys; Domo Crawford Instructions Patient Instructions: Relieving Back Pain, Sciatica Exercise Discharge Orders/Prescriptions Prescriptions: New cyclobenzaprine 10 mg Tablet 10 mg PO TID PRN PRN (Reason: muascle spasm) Qty: 30 1RF oxycodone-acetaminophen 5-325 mg tablet 1 tab PO Q6H PRN (Reason: pain) 3 Days Qty: 12 0RF prednisone 5 mg tablets,dose pack See Taper PO DAILY Qty: 21 0RF Taper: Prednisone Taper 60 mg WITH BREAKFAST for 1 Day and 0 Hour 50 mg WITH BREAKFAST for 1 Day and 0 Hour 40 mg WITH BREAKFAST for 1 Day and 0 Hour 30 mg WITH BREAKFAST for 1 Day and 0 Hour 20 mg WITH BREAKFAST for 1 Day and 0 Hour 10 mg WITH BREAKFAST for 1 Day and 0 Hour Continued pantoprazole 40 mg tablet,delayed release (DR/EC) 40 mg PO QDAY Qty: 90 3RF Dulera 100-5 mcg/actuation HFA aerosol inhaler 2 puff inhalation BID Qty: 8.8 3RF albuterol sulfate [Ventolin HFA] 90 mcg/actuation HFA aerosol inhaler 2 puff inhalation Q4H PRN PRN (Reason: Wheezing) Qty: 1 11RF meloxicam 15 mg tablet 15 mg PO QDAY Qty: 30 0RF atorvastatin [Lipitor] 10 mg tablet 10 mg PO QHS Qty: 30 0RF Discontinued cyclobenzaprine 5 mg tablet 5 mg PO TID Qty: 30 0RF Referrals / Follow Up: Katie Ordaz MD [Primary Care Provider] - Silvano Wrgiht MD [Med Staff - Active Staff] - In 1 Week Disposition Disposition (needs filled in before D/C Order can be placed): Home, Self Care
--- NOTE | 2024-11-05 10:13 | DS.PCM_ITS ---
Providers Date of Admission: 11/03/24 Date of Discharge: 11/05/24 Primary Care Physician: Dr. Katie Ordaz MD Consultations 11/04/24 10:24 Consult: Pain Management Routine Consulting Provider: Domo Crawford Reason for Consult: severe lower back pain. EMERGENT Consult: No MD Notified: Yes Date Notified: 11/04/24 Time Notified: 10:36 Method of Notification: Answering Service Reason For Visit: INTRACTABLE BACK PAIN Diagnosis Discharge Diagnosis (1) Sacroiliac joint disease: Status: Acute Code(s): M53.3 - Sacrococcygeal disorders, not elsewhere classified Plan #Debility and weakness due to Intractable back pain * on dilaudid for pain * imaging showed: * on prednisone and cyclobenzaprine * pain management consulted * PT/OT On board. * fall precautions * #Irritable bowel syndrome: stable. #Constipation: on miralax prn #History of COPD and smoking: #Hyperlipidemia: on statin DVT prophylaxis: lovenox Medications at Discharge Home Medications pantoprazole 40 mg tablet,delayed release 40 mg PO QDAY esophagitis #90 tabs 07/28/24 albuterol sulfate 90 mcg/actuation aerosol inhaler (Ventolin HFA) 2 puff inhalation Q4H PRN PRN Wheezing ##1 08/04/24 mometasone-formoterol HFA 100 mcg-5 mcg/actuation aerosol inhaler (Dulera) 2 puff inhalation BID sob #8.8 grams 08/04/24 meloxicam 15 mg tablet 15 mg PO QDAY #30 tabs 10/17/24 atorvastatin 10 mg tablet (Lipitor) 10 mg PO QHS hld #30 tabs 10/19/24 cyclobenzaprine 10 mg tablet 10 mg PO TID PRN PRN muascle spasm #30 tabs 11/05/24 oxycodone-acetaminophen 5 mg-325 mg tablet 1 tab PO Q6H PRN pain 3 days #12 tabs 11/05/24 prednisone 5 mg tablets in a dose pack See Taper PO DAILY #21 tabs 11/05/24 Hospital Course Operations None Procedures None Summary of Care Provided Minutes Spent on Discharge: 35 Hospital Course: Patient is a 65-year-old female with past medical history as outlined who was admitted by the ED on 11/03/2024 with a complaint of intractable back pain. She did have a history of back pain and had had a laminectomy remotely but said she had started having back pain over the past 2 weeks prior to admission. Pain was mainly in her lower back and she was referred to outpatient pain management to get injections. However the pain worsened and so she decided to come into the ED as she could not weight-bear for long periods. Imaging done shows stable mild grade 1 anterior listhesis of L4 on L5 with bilateral pars defects of L4 but no acute fractures or compression deformities. Pain management was consulted and recommended that patient could be discharged home to follow-up with them on outpatient basis. She was given Flexeril and prednisone as well as pain meds during the admission which helped significantly. She was therefore discharged on prednisone taper as well as p.o. Flexeril and p.o. Percocet for total of 12 tablets for 3 days. OARRS score was checked and no red flags were seen. Patient seen and examined prior to discharge. She had no active complaints. Pain was much better and she felt she could go home safely. Review of systems otherwise negative. Labs and vitals reviewed. Home medication reviewed and reconciled. Physical Exam Const alert and oriented x3 General Appearance: cooperative and comfortable HEENT normocephalic, head/scalp atraumatic, hearing grossly normal bilaterally, moist oral mucous membranes and oropharynx normal Mouth: oral and palatal mucosa normal Eyes PERRL Neck no lymphadenopathy and supple Lymph Lymphatic: no lymphadenopathy noted and no lymphedema noted Resp normal respiratory effort, normal air movement and clear to auscultation bilaterally Cardio regular rate, regular rhythm, S1 normal heart sound, S2 normal heart sound and no murmurs GI normal to inspection, nondistended, normoactive bowel sounds, soft to palpation, non-tender and non-distended Extremity normal to inspection, full ROM and normal capillary refill General Extremity: no tenderness to palpation of joints or extremities Skin no rashes or lesions noted General Skin Exam: no breakdown Neuro oriented x3, CN's II-XII intact bilaterally, moves all extremities, no focal motor deficits and no sensory deficits noted Sensorium / Orientation: awake Motor Exam: general weakness Psych thought process normal, cooperative and affect normal Appearance: appropriate Weight / BMI Weight Weight: 197 lb 5.019 oz Body Mass Index (BMI) 28.3 ABG / Lab / Microbiology Data 11/05/24 06:04 11/05/24 06:04 Laboratory: Laboratory Results - last 24 hr 11/05/24 06:04: WBC 9.3, RBC 4.70, Hgb 13.8, Hct 40.8, MCV 86.8, MCH 29.4, MCHC 33.8, RDW Std Deviation 44.8 H, RDW Coeff of Jaswant 13.9, Plt Count 282, MPV 9.4, Immature Gran % (Auto) 0.500, Neut % (Auto) 60.1, Lymph % (Auto) 28.8, [place] % (Auto) 8.9, Eos % (Auto) 1.4, Baso % (Auto) 0.3, Absolute Neuts (auto) 5.6, Absolute Lymphs (auto) 2.67, Nucleated RBC % 0, Sodium 137, Potassium 3.7, Chloride 103, Carbon Dioxide 21.7, Anion Gap 12, BUN 16, Creatinine 0.67 L, Estim Creat Clear Calc 105.69, Est GFR (MDRD) Non-Af 99, BUN/Creatinine Ratio 23.9 H, Glucose 98, Calcium 8.9 D/C Instructions Discharge Activity: Return to Normal Activity Weight Bearing Status: Weight bearing as tolerated Call your doctor if you observe: Fever of 101 or Higher, Shortness of breath, Dizziness, Swelling in the ankles and Chest pain DC O2, CPAP, BIPAP Needs Home O2 Discharge instructions: No DC home with Oxygen: No Meaningful Use Info Meaningful Use Meaningful Use Diagnoses (Choose all that apply): None applicable Discharge Plan Admission Admit Date/Time: 11/03/24 20:38 Primary Reason for Your Visit: intractable back pain Attending Provider: Cleopatra Pappas Primary Care Provider: Katie Ordaz Consulting Providers: Román Keys; Domo Crawford Instructions Patient Instructions: Relieving Back Pain, Sciatica Exercise Discharge Orders/Prescriptions Prescriptions: New cyclobenzaprine 10 mg Tablet 10 mg PO TID PRN PRN (Reason: muascle spasm) Qty: 30 1RF oxycodone-acetaminophen 5-325 mg tablet 1 tab PO Q6H PRN (Reason: pain) 3 Days Qty: 12 0RF prednisone 5 mg tablets,dose pack See Taper PO DAILY Qty: 21 0RF Taper: Prednisone Taper 60 mg WITH BREAKFAST for 1 Day and 0 Hour 50 mg WITH BREAKFAST for 1 Day and 0 Hour 40 mg WITH BREAKFAST for 1 Day and 0 Hour 30 mg WITH BREAKFAST for 1 Day and 0 Hour 20 mg WITH BREAKFAST for 1 Day and 0 Hour 10 mg WITH BREAKFAST for 1 Day and 0 Hour Continued pantoprazole 40 mg tablet,delayed release (DR/EC) 40 mg PO QDAY Qty: 90 3RF Dulera 100-5 mcg/actuation HFA aerosol inhaler 2 puff inhalation BID Qty: 8.8 3RF albuterol sulfate [Ventolin HFA] 90 mcg/actuation HFA aerosol inhaler 2 puff inhalation Q4H PRN PRN (Reason: Wheezing) Qty: 1 11RF meloxicam 15 mg tablet 15 mg PO QDAY Qty: 30 0RF atorvastatin [Lipitor] 10 mg tablet 10 mg PO QHS Qty: 30 0RF Discontinued cyclobenzaprine 5 mg tablet 5 mg PO TID Qty: 30 0RF Referrals / Follow Up: Katie Ordaz MD [Primary Care Provider] - 11/13/24 11:00 am Silvano Wright MD [Med Staff - Active Staff] - 11/10/24 11:00 am Disposition Disposition (needs filled in before D/C Order can be placed): Home, Self Care Charges/Coding Visit Charges Inpatient E&M: 05916 Disch Hosp >30min
[2024-11-05 10:44] VITALS: BP 116/68; PULSE 83; RESP 18; TEMP 36.9; O2SAT 98
== END 2024-11-05 13:46 | disposition home or self-care (01) ==
LOC: ED 20:18 → MS3 20:49
PROVIDERS: Admitting Provider Family Medicine; Emergency Provider Emergency Medicine; PCP Internal Medicine; Visit Provider Student in an Organized Health Care Education/Training Program
DX: M53.3 Sacrococcygeal disorders, not elsewhere classified (principal); J44.9 Chronic obstructive pulmonary disease, unspecified; S46.911A Strain of unspecified muscle, fascia and tendon at shoulder and upper arm level, right arm, initial encounter; K58.9 Irritable bowel syndrome, unspecified; R53.81 Other malaise; M54.50 Low back pain, unspecified; Z79.51 Long term (current) use of inhaled steroids; Z87.891 Personal history of nicotine dependence; G89.29 Other chronic pain; Z79.899 Other long term (current) drug therapy; K59.00 Constipation, unspecified; M43.16 Spondylolisthesis, lumbar region; X58.XXXA Exposure to other specified factors, initial encounter
CPT/HCPCS: 36415; 74177; 80048; 80053; 81001; 83690; 85025; 94640; 96372; 96374; 96375; 97161; 99221; 99284; Q9967; A4216; G0378; J2405

== ENCOUNTER → 2024-12-30 | Outpatient (CLI) | payer MEDICAID, SELFPAY ==
--- NOTE | 2024-12-30 11:35 | RAD_ITS ---
EXAM: XR Left Knee Complete, 4 or More Views CLINICAL INDICATION: KNEE PAIN TECHNIQUE: Four or more views of the left knee. COMPARISON: No relevant prior studies available. FINDINGS: BONES/JOINTS: Mild degenerative changes of the knee joint. No acute fracture. No dislocation. SOFT TISSUES: Mild soft tissue swelling. RAD/Knee 4 or More Views IMPRESSION: Mild soft tissue swelling. Reading Location: [id number]
--- NOTE | 2024-12-30 11:35 | RAD_ITS ---
EXAM: XR Right Knee Complete, 4 or More Views CLINICAL INDICATION: KNEE PAIN R TECHNIQUE: Four or more views of the right knee. COMPARISON: No relevant prior studies available. FINDINGS: BONES/JOINTS: Mild degenerative changes of the knee joint. No acute fracture. No dislocation. SOFT TISSUES: Soft tissue swelling. RAD/Knee 4 or More Views IMPRESSION: Degenerative changes as above. Reading Location: [id number]
--- NOTE | 2024-12-30 11:35 | RAD_ITS ---
EXAM: XR Right Knee Complete, 4 or More Views CLINICAL INDICATION: KNEE PAIN R TECHNIQUE: Four or more views of the right knee. COMPARISON: No relevant prior studies available. FINDINGS: BONES/JOINTS: Mild degenerative changes of the knee joint. No acute fracture. No dislocation. SOFT TISSUES: Soft tissue swelling. RAD/Knee 4 or More Views IMPRESSION: Degenerative changes as above. Reading Location: [id number]
--- NOTE | 2024-12-30 11:35 | RAD_ITS ---
EXAM: XR Left Knee Complete, 4 or More Views CLINICAL INDICATION: KNEE PAIN TECHNIQUE: Four or more views of the left knee. COMPARISON: No relevant prior studies available. FINDINGS: BONES/JOINTS: Mild degenerative changes of the knee joint. No acute fracture. No dislocation. SOFT TISSUES: Mild soft tissue swelling. RAD/Knee 4 or More Views IMPRESSION: Mild soft tissue swelling. Reading Location: [id number]
--- NOTE | 2024-12-30 11:35 | RAD_ITS ---
PROCEDURE: CERV SPINE 4 OR 5 VIEWS 12/30/2024 REASON FOR EXAM: CVERIVCAL RAD TECHNIQUE: Procedure Code: RADSPC Modality: DX Procedure: CERV SPINE 4 OR 5 VIEWS FINDINGS: Normal cervical alignment and vertebral body height. No significant foraminal stenosis. Normal odontoid. No compression deformity RAD/Cerv Spine 4 or 5 Views IMPRESSION: Negative cervical spine series Disclaimer: None Reading Location[facility]
--- NOTE | 2024-12-30 11:35 | RAD_ITS ---
PROCEDURE: CERV SPINE 4 OR 5 VIEWS 12/30/2024 REASON FOR EXAM: CVERIVCAL RAD TECHNIQUE: Procedure Code: RADSPC Modality: DX Procedure: CERV SPINE 4 OR 5 VIEWS FINDINGS: Normal cervical alignment and vertebral body height. No significant foraminal stenosis. Normal odontoid. No compression deformity RAD/Cerv Spine 4 or 5 Views IMPRESSION: Negative cervical spine series Disclaimer: None Reading [facility]
== END | disposition home or self-care (01) ==
LOC: RAD 11:28
PROVIDERS: PCP Internal Medicine; Referring Provider Anesthesiology; Visit Provider Anesthesiology
DX: M25.561 Pain in right knee (principal); M25.562 Pain in left knee
CPT/HCPCS: 72050; 73564

== ENCOUNTER → 2025-01-07 | Outpatient (CLI) | payer MEDICAID, SELFPAY | END | disposition home or self-care (01) | LOC: OPMRI 13:08 | PROVIDERS: PCP Internal Medicine; Referring Provider Student in an Organized Health Care Education/Training Program; Visit Provider Student in an Organized Health Care Education/Training Program | DX: M51.360 Other intervertebral disc degeneration, lumbar region with discogenic back pain only (principal); M48.062 Spinal stenosis, lumbar region with neurogenic claudication; Z98.1 Arthrodesis status | CPT/HCPCS: 72158; A9575 ==

== ENCOUNTER → 2025-01-14 | Outpatient (CLI) | payer MEDICAID, SELFPAY ==
[2025-01-16 14:08] LABS: Lyme Scn Total Ab w/Rflx Negative (Negative)
== END | disposition home or self-care (01) ==
LOC: LAB 13:50
PROVIDERS: PCP Internal Medicine; Referring Provider Internal Medicine; Visit Provider Internal Medicine
DX: M25.50 Pain in unspecified joint (principal)
CPT/HCPCS: 36415; 86618

== ENCOUNTER → 2025-02-12 | Outpatient (CLI) | payer MEDICAID, SELFPAY ==
--- NOTE | 2025-02-12 15:40 | MRI_ITS ---
PROCEDURE: MRI/Spine Cervical (Routine)
== END | disposition home or self-care (01) ==
LOC: MRI 15:35
PROVIDERS: PCP Internal Medicine; Referring Provider Student in an Organized Health Care Education/Training Program; Visit Provider Student in an Organized Health Care Education/Training Program
DX: M54.12 Radiculopathy, cervical region (principal)
CPT/HCPCS: 72141

== ENCOUNTER → 2025-02-19 | Outpatient (CLI) | payer MEDICAID, SELFPAY ==
[2025-02-19 12:14] LABS: AST(SGOT) 18 U/L (<=31); Alanine Aminotransfer ALT/SGPT 15 U/L (<=34); Albumin, Serum 4.1 g/dL (3.4-4.8); Alkaline Phosphatase 68 U/L (35-104); Anion Gap 14 (5-15); BUN 11 mg/dL (4-19); BUN/Creat Ratio 16.5 RATIO (10-20); CRP 5.39 mg/L (0.0-3.0); Calcium,Total 9.5 mg/dL (7.6-11.0); Carbon Dioxide 21.9 mmol/L (21.0-32.0); Chloride 103 mmol/L (98-108); Globulin 3.3 g/dL (2.2-4.2); Glucose 95 mg/dL (70-99); Potassium 3.9 mmol/L (3.3-5.1)
== END | disposition home or self-care (01) ==
LOC: VSLAB 10:19
PROVIDERS: PCP Internal Medicine
DX: M13.0 Polyarthritis, unspecified (principal)
CPT/HCPCS: 36415; 80053; 85652; 86140